=== PATIENT | male | born 1935 | race Caucasian/White ===

== ENCOUNTER 2023-03-05 10:33 | Inpatient (IN) | payer MEDICARE, SELFPAY ==
[2023-03-05] VITALS (7 sets, daily range): BP systolic 119–150; BP diastolic 60–77; PULSE 97–127; RESP 16–20; TEMP 36.2–36.6; O2SAT 94–99; BMI 19.4
--- NOTE | 2023-03-05 | ECG_ITS ---
Test Reason : tachycardia Blood Pressure : / mmHG Vent. Rate : 104 BPM Atrial Rate : 000 BPM P-R Int : 000 ms QRS Dur : 120 ms QT Int : 370 ms P-R-T Axes : 000 -46 -13 degrees QTc Int : 486 ms Poor data quality, interpretation may be adversely affected Atrial fibrillation with rapid ventricular response with premature ventricular or aberrantly conducted complexes Left axis deviation Right bundle branch block Inferior infarct , age undetermined Anterolateral infarct , age undetermined Abnormal ECG No previous ECGs available Referred By: Didi Jim Electronically Signed By:
--- NOTE | ~2023-03-05 | XR_ITS ---
EXAMINATION: XR FOOT, LEFT CLINICAL INFORMATION: Pain. Osteomyelitis. COMPARISON: None available. TECHNIQUE: AP, lateral, and oblique views of the left foot. FINDINGS: No acute fracture or dislocation. Possible cortical irregularity along the medial aspect of the 1st distal phalangeal base. There is mild adjacent soft tissue swelling. Correlate for focal ulceration. If there is adjacent soft tissue infection, findings could indicate early osteomyelitis. 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 Tiny dorsal calcaneal enthesophyte. Prominent atherosclerotic calcifications. XR/XR foot LT 2V IMPRESSION: 1. Possible cortical irregularity along the medial aspect of the 1st distal phalangeal base with mild adjacent soft tissue swelling. Correlate for focal ulceration. If there is adjacent soft tissue infection, findings could indicate early osteomyelitis. 2. 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
--- NOTE | ~2023-03-05 | US_ITS ---
EXAMINATION: Noninvasive assessment of the left lower extremities with ARTERIAL DUPLEX CLINICAL INFORMATION: Peripheral vascular disease with osteomyelitis of the left first toe with nonhealing wound TECHNIQUE: Duplex Doppler techniques with waveform analysis and measurement of velocities in the left common femoral, profunda femoris, superficial femoral, popliteal and tibial arteries were performed. COMPARISON: None FINDINGS: DIRECT DUPLEX DOPPLER FINDINGS: LEFT LEG: Common femoral artery: 85.5 cm/s, phasicity: Biphasic Profunda femoris artery: 98.2 cm/s, phasicity: Biphasic Superficial femoral artery (proximal): 64.5 cm/s, phasicity: Biphasic, diffuse atherosclerotic wall calcifications Superficial femoral artery (mid): 80.3 cm/s, phasicity: Biphasic, diffuse atherosclerotic wall calcifications Superficial femoral artery (distal): 59.7 cm/s, phasicity: Biphasic, diffuse atherosclerotic wall calcifications Popliteal artery: 58.3 cm/s, phasicity: Triphasic, diffuse atherosclerotic wall calcifications Posterior tibial artery: 179 cm/s, phasicity: Triphasic within the mid segment. The distal segment is not well-visualized. Extensive diffuse atherosclerotic wall calcification seen throughout the posterior tibial artery. Peroneal artery: 34.5 cm/s, phasicity: Monophasic within the mid segment. The distal segment is not well-visualized US/US arterial duplex LE LT IMPRESSION: Diffuse atherosclerotic wall calcifications throughout the arterial vessels. Patent arterial flow is seen in the femoral and popliteal arteries. Patent flow seen in the proximal and mid segments of the below-knee runoff vessels however distal runoff vessels are not well visualized and may be occluded.
[2023-03-05 11:40] LABS: MANUAL DIFF FLAG NO
[2023-03-05 11:46] LABS: Basophils Absolute Auto 0.1 X10*3/uL (0.0-0.2); Basophils Percent Auto 0.7 % (0-2); Eosinophils Percent Auto 0.2 % (0-4); Hematocrit 41.7 % (42.0-52.0); Hemoglobin 13.6 g/dl (14.0-18.0); Imm Gran Abs Auto 0.03 X10*3/uL (0.00-0.03); Imm Gran Pct Auto 0.3 % (0.0-0.4); Lymphocytes Absolute Auto 0.9 X10*3/uL (1.2-4.9); Lymphocytes Percent Auto 8.9 % (20-40); Mean Corpuscular HGB Conc 32.6 g/dl (31.0-36.0); Mean Corpuscular Hemoglobin 29.4 pg (27.0-33.0); Mean Corpuscular Volume 90.1 fL (80.0-98.0); Mean Platelet Volume 9.1 fL (9.4-12.4); Monocytes Absolute Auto 0.9 X10*3/uL (0.1-1.2); Monocytes Percent Auto 9.2 % (2-11); Neutrophils Absolute Auto 8.3 x10*3/uL (2.0-8.3); Neutrophils Percent Auto 80.7 % (45-73); Platelet Count 197 X10*3/uL (160-400); Red Blood Count 4.63 X10*6/uL (4.60-5.80); White Blood Count 10.3 X10*3/uL (4.8-10.8)
[2023-03-05 11:55] LABS: Alanine Aminotransferase 10 U/L (0-40); Albumin Level 3.2 g/dL (3.5-5.0); Alkaline Phosphatase 195 U/L (39-117); Anion Gap 12 (12-20); Aspartate Amino Transferase 15 U/L (5-37); Bilirubin Total 1.5 mg/dL (0.0-1.0); Blood Urea Nitrogen 15 mg/dL (9-16); C Reactive Protein 1.01 mg/dL (< or = 0.50); Calcium 9.5 mg/dL (8.4-10.2); Carbon Dioxide 24 mmol/L (22-29); Chloride 105 mmol/L (96-108); Creatinine Clr Calc Pharmacy 41.3; Estimated Glomerular Filt Rate > 60; Glucose Random 105 mg/dL (60-115); Magnesium 1.7 mg/dL (1.6-2.6); Potassium 4.9 mmol/L (3.3-5.1); Sodium 136 mmol/L (135-145); Total Protein 6.4 g/dL (6.5-8.0)
--- NOTE | 2023-03-05 12:02 | ED.WOUNDLAC ---
HPI - Wound/Laceration General Chief Complaint: Wound/Laceration Stated Complaint: infection Time Seen by Provider: 03/05/23 11:54 Source: patient Mode of arrival: ambulatory Limitations: no limitations History of Present Illness HPI narrative: 87 yo male with history of HTN, glaucoma presents to the ER for evaluation of left great toe osteomyelitis confirmed outpatient imaging. patient states he fell one month ago and sustained a wound to the toe. he reports it has been worsening over the last 1 month. he saw a nurse practitioner in the office who advised him to come to the ER for IV antibiotics. He states he used to be diabetic but is no longer. He is a poor historian. He states the only medications he is on is type senna pro and propranolol. He denies any fevers at home. He states the wound has slowly become more red and swollen. He has not noticed a foul drainage and smell. He has not put any dressings on a or cleaned it. He lives home alone. Onset (ago): week(s) (4) Extremity Location: left: foot (great toe) Place: home Patient tetanus UTD: Yes Context: accidental Associated symptoms: pain Related Data Home Medications Medication Instructions Recorded Confirmed lisinopril 10 mg tablet 10 mg PO DAILY 03/05/23 metoprolol tartrate 25 mg tablet 25 mg PO BID 03/05/23 Allergies Allergy/AdvReac Type Severity Reaction Status Date / Time No Known Allergies Allergy Verified 03/05/23 10:39 Review of Systems Review of Systems: Yes all other systems are reviewed and are negative PMFSH Social History Social History Advance Directives: No Physical Exam Vital Signs: Vital Signs: Last Vital Signs Temp 98 F 03/05/23 10:40 Pulse 107 H 03/05/23 10:40 Resp 17 03/05/23 10:40 BP 125/71 03/05/23 10:40 Pulse Ox 99 03/05/23 10:40 O2 Del Method Room Air 03/05/23 10:40 BMI result Body Mass Index 19.4 Appearance: Alert frail elderly male. Oriented X3. No acute distress. Head: normocephalic, atraumatic. Eyes: Pupils equal, round and reactive to light. ENT: Pharynx normal. No tonsillar swelling or exudate. Neck: Normal inspection. Neck supple. CVS: Normal heart rate and rhythm. Pulses normal. +systolic murmur Respiratory: No respiratory distress. Breath sounds normal. Abdomen: Soft and nontender. +BS x4 Skin: Skin warm and dry. Normal skin color. Normal skin turgor. No rashes. Extremities: No lower extremity edema. scattered ecchymosis on all 4 extremities, thin and frail. left great toe with a foul smelling wound and the plantar portion of the MTP - see photo Neuro/psych: Oriented X 3. No motor deficit. No sensory deficit. CN II-XII intact. Normal speech and cognition. Medications Administered Generic Name Dose Route Start Last Admin Trade Name Freq PRN Reason Stop Dose Admin Vancomycin HCl 1,500 mg/ 500 mls @ 333.333 mls/hr 03/05/23 12:26 03/05/23 13:40 Sodium Chloride IV 03/05/23 13:55 333.33 mls/hr ONCE ONE Administration Discontinued Medications Generic Name Dose Route Start Last Admin Trade Name Freq PRN Reason Stop Dose Admin Piperacillin Sod/Tazobactam 50 mls @ 100 mls/hr 03/05/23 12:26 03/05/23 13:10 Sod 3.375 gm/ Sodium Chloride IV 03/05/23 12:55 Infused ONCE ONE Infusion Medical Decision Making Medical Decision Making [facility] Narrative: 87-year-old male presents to the ER for evaluation of worsening left great toe wound for the last 1 month. He had outpatient imaging confirming osteomyelitis per nursing report. He arrives to the ER afebrile, hemodynamically stable. His left great toe has a significant wound with eschar, foul-smelling odor, concern for acute osteomyelitis. His foot is warm and well perfused, palpable pulses. his lab workup shows normal lactic acid, normal leukocyte count. He is not septic at this time. X-ray showing early osteomyelitis. will plan to start broad-spectrum antibiotics admit to the hospital. Case discussed with hospitalist who agrees and will admit. Patient is agree with plan as well. Differential Diagnosis Differential Diagnoses: The differential diagnosis associated with the presentation includes acute osteomyelitis, cellulitis, soft tissue necrosis, fungal infection, dry gangrene, arterial ischemic wound Admission/Observation Consideration of admission/observation: Escalation of care including admission/observation considered requiring IV abx and surgical consult Consult Healthcare Provider Management of the patient was discussed with: Hospitalist Didi Jim PA-C admitted pt, case discussed Lab Data [facility] Lab Attestation statement: I reviewed the patient's lab results. 03/05/23 11:26 03/05/23 11:26 Labs: Lab Results 03/05/23 03/05/23 03/05/23 Range/Units 11:26 11:26 11:26 WBC 10.3 (4.8-10.8) X10*3/uL RBC 4.63 (4.60-5.80) X10*6/uL Hgb 13.6 L (14.0-18.0) g/dl Hct 41.7 L (42.0-52.0) % MCV 90.1 (80.0-98.0) fL MCH 29.4 (27.0-33.0) pg MCHC 32.6 (31.0-36.0) g/dl RDW 13.0 (11.0-16.0) % Plt Count 197 (160-400) X10*3/uL MPV 9.1 L (9.4-12.4) fL Immature Gran % (Auto) 0.3 (0.0-0.4) % Neut % (Auto) 80.7 H (45-73) % Lymph % (Auto) 8.9 L (20-40) % [place] % (Auto) 9.2 (2-11) % Eos % (Auto) 0.2 (0-4) % Baso % (Auto) 0.7 (0-2) % Lymph # (Auto) 0.9 L (1.2-4.9) X10*3/uL [place] # (Auto) 0.9 (0.1-1.2) X10*3/uL Eos # (Auto) 0.0 (0.0-0.4) X10*3/uL Baso # (Auto) 0.1 (0.0-0.2) X10*3/uL Abs Immat Gran (auto) 0.03 (0.00-0.03) X10*3/uL Absolute Neuts (auto) 8.3 (2.0-8.3) x10*3/uL Absolute Nucleated RBC 0.000 (0.0-0.012) X10*3/uL Nucleated RBC % (auto) 0.0 (0.0-0.2) /100WBC ESR 6 (0-15) MM/HR Sodium 136 (135-145) mmol/L Potassium 4.9 (3.3-5.1) mmol/L Chloride 105 (96-108) mmol/L Carbon Dioxide 24 (22-29) mmol/L Anion Gap 12 (12-20) BUN 15 (9-16) mg/dL Creatinine 1.11 (0.5-1.4) mg/dL Estim Creat Clear Calc 41.3 Estimated GFR > 60 Random Glucose 105 (60-115) mg/dL Estimat Average Glucose mg/dL Hemoglobin A1c % % Calcium 9.5 (8.4-10.2) mg/dL Magnesium 1.7 (1.6-2.6) mg/dL Total Bilirubin 1.5 H (0.0-1.0) mg/dL AST 15 (5-37) U/L ALT 10 (0-40) U/L Alkaline Phosphatase 195 H (39-117) U/L C-Reactive Protein 1.01 H (< or = 0.50) mg/dL Total Protein 6.4 L (6.5-8.0) g/dL Albumin 3.2 L (3.5-5.0) g/dL 03/05/23 Range/Units 11:26 WBC (4.8-10.8) X10*3/uL RBC (4.60-5.80) X10*6/uL Hgb (14.0-18.0) g/dl Hct (42.0-52.0) % MCV (80.0-98.0) fL MCH (27.0-33.0) pg MCHC (31.0-36.0) g/dl RDW (11.0-16.0) % Plt Count (160-400) X10*3/uL MPV (9.4-12.4) fL Immature Gran % (Auto) (0.0-0.4) % Neut % (Auto) (45-73) % Lymph % (Auto) (20-40) % [place] % (Auto) (2-11) % Eos % (Auto) (0-4) % Baso % (Auto) (0-2) % Lymph # (Auto) (1.2-4.9) X10*3/uL [place] # (Auto) (0.1-1.2) X10*3/uL Eos # (Auto) (0.0-0.4) X10*3/uL Baso # (Auto) (0.0-0.2) X10*3/uL Abs Immat Gran (auto) (0.00-0.03) X10*3/uL Absolute Neuts (auto) (2.0-8.3) x10*3/uL Absolute Nucleated RBC (0.0-0.012) X10*3/uL Nucleated RBC % (auto) (0.0-0.2) /100WBC ESR (0-15) MM/HR Sodium (135-145) mmol/L Potassium (3.3-5.1) mmol/L Chloride (96-108) mmol/L Carbon Dioxide (22-29) mmol/L Anion Gap (12-20) BUN (9-16) mg/dL Creatinine (0.5-1.4) mg/dL Estim Creat Clear Calc Estimated GFR Random Glucose (60-115) mg/dL Estimat Average Glucose 94 mg/dL Hemoglobin A1c % 4.9 % Calcium (8.4-10.2) mg/dL Magnesium (1.6-2.6) mg/dL Total Bilirubin (0.0-1.0) mg/dL AST (5-37) U/L ALT (0-40) U/L Alkaline Phosphatase (39-117) U/L C-Reactive Protein (< or = 0.50) mg/dL Total Protein (6.5-8.0) g/dL Albumin (3.5-5.0) g/dL Independent Interpretation I performed an independent interpretation of an: Plain X-Ray Radiology Impression Discussion of test interpretation with radiology: I have reviewed the radiologist's reading. Radiologist Impression: CLINICAL INFORMATION: Pain. Osteomyelitis. COMPARISON: None available.? TECHNIQUE: AP, lateral, and oblique views of the left foot. FINDINGS: No acute fracture or dislocation. Possible cortical irregularity along the medial aspect of the 1st distal phalangeal base. There is mild adjacent soft tissue swelling. Correlate for focal ulceration. If there is adjacent soft tissue infection, findings could indicate early osteomyelitis. 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 Tiny dorsal calcaneal enthesophyte. Prominent atherosclerotic calcifications.? XR/XR foot LT 2V IMPRESSION: 1.? Possible cortical irregularity along the medial aspect of the 1st distal phalangeal base with mild adjacent soft tissue swelling. Correlate for focal ulceration. If there is adjacent soft tissue infection, findings could indicate early osteomyelitis. ? 2.? 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 Prescription Management I considered prescription management with: Pain Medication and Antibiotic Chronic Conditions Patient?s care impacted by: Hypertension and Other (?PVD) Social Determinants Patient?s care significantly limited by Social Determinants of Health including: Other Social Determinant of Health Critical Care Time Critical Care Time Critical Care Time: Yes Total Critical Care Time: 39 Attestation: I have personally provided critical care time exclusive of time spent on separately billable procedures. Time includes review of lab data, radiology results, discussion with consultants, and monitoring for potential decompensation. Intervention performed as documented. Discharge Plan Discharge Clinical Impression: Osteomyelitis Patient Disposition: Admitted As Inpatient
[2023-03-05 12:21] LABS: Erythrocyte Sedimentation Rate 6 MM/HR (0-15)
[2023-03-05] MEDS: Piperacillin Sodium/Tazobactam 3.375 GM in 0.9 % Sodium Chloride 50 ML IV (12:34)
[2023-03-05 13:33] LABS: Estimated Average Glucose 94 mg/dL; Hemoglobin A1c % 4.9 %
[2023-03-05] MEDS: vancomycin HCL 1,500 MG in 0.9 % Sodium Chloride 500 ML 333.33 MG IV (13:40)
--- NOTE | 2023-03-05 13:49 | P.HPHOSP_ITS ---
History of Present Illness Date of Service: 03/05/23 Attending physician on admission: Perfecto Liz Chief Complaint: toe infection 87-year-old male with history of hypertension, atrial fibrillation (per [facility] records), diet controlled type 2 diabetes who lives alone presents to the ED e [facility] today for evaluation of the left great toe infection. The patient was vacuuming his home about a month ago when he tripped on the cord and injured the left great toe. Wound has been increasing in size and has foul odor but denies any drainage. No fevers or chills. He had DEPUTY K 9 from [facility] who visited his home this morning and evaluated the wound recommend he come in for further evaluation of osteomyelitis on x-ray that was taken this morning. On arrival, tachycardic to 107, vitals otherwise stable. No leukocytosis. Renal function normal, electrolyte levels normal. Hemoglobin A1c 4.9%, no known history of diabetes. CRP 1.01, ESR 6. Left foot x-ray showing cortical irregularity along the medial aspect of the 1st distal phalangeal base with mild adjacent soft tissue swelling and adjacent soft tissue infection indicating possible early osteomyelitis. In the ED, has received IV vancomycin and Zosyn. He is a nonsmoker but does drink 1-2 glasses of wine on a daily basis. No illicit drug use. Review of Systems Review of Systems: General: No fevers, malaise, unintentional weight loss HEENT: No blurred vision, diplopia. No sore throat, nasal congestion, rhinorrhea, sinus pain, ear pain Cardiovascular: No chest pain, palpitations, or leg edema Respiratory: No shortness of breath, wheezing, cough GI: No abdominal pain, nausea, vomiting, diarrhea, constipation, melena, hematoc hezia : No dysuria, hematuria, increased urinary frequency, decreased urinary output MSK: No myalgia, back pain Neuro: No headaches, weakness, paresthesias Skin: +left great toe wound [facility] Medical History HTN (hypertension) Social History (Updated 03/05/23 @ 14:01 by ALISHA Rodriguez) Household Members: None Alcohol intake: current Alcohol intake frequency: 0-2 drinks per day Patient Tobacco Use Status: Never used Tobacco Use of substances other than those prescribed or required for medical reasons: No Advance Directives: No Meds Allergies Allergy/AdvReac Type Severity Reaction Status Date / Time No Known Allergies Allergy Verified 03/05/23 10:39 Active Medications: Current Medications Acetaminophen (Acetaminophen 325 Mg Tablet) 650 mg PO Q6H PRN PRN Reason: Pain, Mild (Pain Scale 1-3) Docusate Sodium (Docusate Sodium 100 Mg Capsule) 100 mg PO DAILY PRN PRN Reason: Constipation Heparin Sodium (Porcine) (Heparin Sodium,Porcine 5,000 Unit/Ml Vial) 5,000 unit SUBCUT Q12H BLANK Vancomycin HCl 1,500 mg/ (Sodium Chloride) 500 mls @ 333.333 mls/hr IV ONCE ONE Stop: 03/05/23 13:55 Last Admin: 03/05/23 13:40 Dose: 333.33 mls/hr Cefepime HCl 2 gm/ Sodium (Chloride) 50 mls @ 100 mls/hr IV Q12H BLANK Ondansetron HCl (Ondansetron Hcl 4 Mg/2 Ml Vial) 4 mg IVPUSH Q8H PRN PRN Reason: Nausea and Vomiting Pharmacy Consult (Consult Rx Perform Med Rec) 1 each MISCELLANE ONCE PRN PRN Reason: Consult order Pharmacy Consult (Consult Rx Vancomycin Dosing) 1 each MISCELLANE DAILY PRN PRN Reason: Consult order Sodium Chloride (0.9 % Sodium Chloride Flush 3 Ml Syringe) [address] [facility] Home Medications Medication Instructions Recorded Confirmed Last Taken Type lisinopril 10 mg tablet 10 mg PO DAILY 03/05/23 03/05/23 03/04/23 History metoprolol tartrate 25 mg tablet 25 mg PO BID 03/05/23 03/05/23 03/04/23 History Physical Exam Vital Signs and Narrative: Vital Signs: Last Vital Signs Temp 98 F 03/05/23 10:40 Pulse 107 H 03/05/23 10:40 Resp 17 03/05/23 10:40 BP 125/71 03/05/23 10:40 Pulse Ox 99 03/05/23 10:40 O2 Del Method Room Air 03/05/23 10:40 BMI result Body Mass Index 19.4 Constitutional - Awake and Alert, No apparent distress Eyes - PERRLA, EOMI Cardiovascular - S1S2, RRR, No edema. Nonpalpable pedal pulses but foot warm Respiratory - Normal lung expansion, Normal respiratory effort, No respiratory distress, CTA bilaterally Gastrointestinal - NT / ND; +BS; No rebound or guarding Extremities - no calf tenderness bilaterally, no swelling. Skin - Warm/Dry. 3cm x 2cm ulceration medial and plantar aspect left great toe with some granulation tissue along the edges of wound and central slough/eschar with foul odor. Addl shallow 1cm ulcer medial aspect first metatarsal head. see photo Neurological - Alert & oriented x3, sensation in tact Psychological - Appropriate affect Results Labs 03/05/23 11:26 03/05/23 11:26 Labs: Laboratory Results - last 24 hr 03/05/23 03/05/23 03/05/23 11:26 11:26 11:26 MCV 90.1 MCH 29.4 MCHC 32.6 RDW 13.0 Plt Count 197 MPV 9.1 L Immature Gran % (Auto) 0.3 Neut % (Auto) 80.7 H Lymph % (Auto) 8.9 L [place] % (Auto) 9.2 Eos % (Auto) 0.2 Baso % (Auto) 0.7 Lymph # (Auto) 0.9 L [place] # (Auto) 0.9 Eos # (Auto) 0.0 Baso # (Auto) 0.1 Abs Immat Gran (auto) 0.03 Absolute Neuts (auto) 8.3 Absolute Nucleated RBC 0.000 Nucleated RBC % (auto) 0.0 ESR 6 Anion Gap 12 Estim Creat Clear Calc 41.3 Estimated GFR > 60 Random Glucose 105 Estimat Average Glucose Hemoglobin A1c % Calcium 9.5 Magnesium 1.7 Total Bilirubin 1.5 H AST 15 ALT 10 Alkaline Phosphatase 195 H C-Reactive Protein 1.01 H Total Protein 6.4 L Albumin 3.2 L 03/05/23 11:26 MCV MCH MCHC RDW Plt Count MPV Immature Gran % (Auto) Neut % (Auto) Lymph % (Auto) [place] % (Auto) Eos % (Auto) Baso % (Auto) Lymph # (Auto) [place] # (Auto) Eos # (Auto) Baso # (Auto) Abs Immat Gran (auto) Absolute Neuts (auto) Absolute Nucleated RBC Nucleated RBC % (auto) ESR Anion Gap Estim Creat Clear Calc Estimated GFR Random Glucose Estimat Average Glucose 94 Hemoglobin A1c % 4.9 Calcium Magnesium Total Bilirubin AST ALT Alkaline Phosphatase C-Reactive Protein Total Protein Albumin Imaging Radiologist's Impressions: Impressions Foot X-Ray 03/05/23 11:07 IMPRESSION: 1. Possible cortical irregularity along the medial aspect of the 1st distal phalangeal base with mild adjacent soft tissue swelling. Correlate for focal ulceration. If there is adjacent soft tissue infection, findings could indicate early osteomyelitis. 2. 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 Assessment and Plan (1) Osteomyelitis: Status: Acute Plan 87-year-old male with history of hypertension admitted for nonhealing stage 2 ulcer left great toe with cellululitis and osteomyelitis #nonhealing stage 2 ulcer left great toe with cellululitis and osteomyelitis -Xr left foot ?early osteo and soft tissue infection. CRP 1.0.1, ESR 6 -Not diabetic A1c 4.9%. Arterial doppler pending -Pt denies hx smoking. Does drink 1-2 glasses wine daily -IV vanco and cefepime -Appreciate ID and vascular surgery input -No sepsis #Atrial fibrillation, unspecified chronicity/frequency -Not on anticoagulation- pt states this was prescribed but he did not take out of concern for bleeding risk. Discussed risks and benefits of anticoagulation. Will defer to cardiology at patient request -EKG showign afib RVR. HR's 106-140 in ED. On reexam, HR 99-115. Missed dose metoprolol this am. Give metoprolol 25mg now -continue metoprolol -Echo ordered -Appreciate cardiology input -monitor on telemetry #Diet-controlled type 2 diabetes -poc glucose -diabetic diet -SSI prn hyperglycemia #HTN- bp reasonably controlled -continue metoprolol and lisinopril DVT prophylaxis- heparin Full code HCP- Wisam Casey per patient Pt requires inpatient stay at least 2 midnights for management of nonhealing stage II ulceration of left great toe with cellulitis and osteomyelitis requiring IV antibiotics and expert consultation Time Spent With Patient Time: Total time managing care of this patient today ____ minutes. Quality Stroke Does the patient have a stroke diagnosis?: No VTE Prior VTE?: No VTE Risk Level:: Medical - moderate - high VTE Device Contraindication: Treatment Not Indicated VTE Drug Contraindication: N/A - Med Ordered
--- NOTE | 2023-03-05 14:42 | PHA.MEDREC ---
Pharmacy Consult ? Medication Reconciliation Pharmacy has completed the medication reconciliation. Pt knew the names and doses of meds without being lead.
--- NOTE | 2023-03-05 15:31 | PC.NURSE ---
rn to rn report from [facility]. pt moved to bed # 6. bedside ultrasound is being done at this time.
[2023-03-05] MEDS: Heparin Sodium,Porcine 5,000 UNIT/ML VIAL 5000 UNIT SUBCUT (15:33)
[2023-03-05] MEDS: 0.9 % Sodium Chloride Flush 3 ML SYRINGE IVFLUSH ×2 (15:45→23:28)
--- NOTE | 2023-03-05 17:24 | PC.NURSE ---
margaret txt sent to covering md (dr. castellano) re: pt's hr 106-140's. pt denies any chest pain, headache, dizziness, lightheadiness or sob.
[2023-03-05] MEDS: cefEPime HCl 2 GM in 0.9 % Sodium Chloride 50 ML IV (18:39)
[2023-03-05] MEDS: Metoprolol Tartrate 25 MG TABLET PO (18:39)
--- NOTE | 2023-03-05 18:47 | PC.NURSE ---
rn to rn report given to kelly. pt aware of plan of care for transfer to room 386.
[2023-03-05 20:37] LABS: Glucose, Whole Blood 95 mg/dL (60-115)
[2023-03-06] VITALS: BP 143/61; PULSE 89; RESP 16; TEMP 36.4; O2SAT 97
[2023-03-06] MEDS: Heparin Sodium,Porcine 5,000 UNIT/ML VIAL 5000 UNIT SUBCUT ×2 (01:53→13:55)
[2023-03-06 04:00] VITALS: BP 143/61; PULSE 89; RESP 18; TEMP 35.7; O2SAT 97
[2023-03-06 04:51] LABS: MANUAL DIFF FLAG NO
[2023-03-06 04:57] LABS: Basophils Absolute Auto 0.1 X10*3/uL (0.0-0.2); Basophils Percent Auto 1.1 % (0-2); Eosinophils Absolute Auto 0.1 X10*3/uL (0.0-0.4); Eosinophils Percent Auto 1.7 % (0-4); Hematocrit 34.3 % (42.0-52.0); Hemoglobin 11.5 g/dl (14.0-18.0); Imm Gran Abs Auto 0.03 X10*3/uL (0.00-0.03); Imm Gran Pct Auto 0.4 % (0.0-0.4); Lymphocytes Absolute Auto 1.8 X10*3/uL (1.2-4.9); Lymphocytes Percent Auto 21.8 % (20-40); Mean Corpuscular HGB Conc 33.5 g/dl (31.0-36.0); Mean Corpuscular Hemoglobin 29.9 pg (27.0-33.0); Mean Corpuscular Volume 89.3 fL (80.0-98.0); Mean Platelet Volume 9.3 fL (9.4-12.4); Monocytes Absolute Auto 0.8 X10*3/uL (0.1-1.2); Monocytes Percent Auto 10.2 % (2-11); Neutrophils Absolute Auto 5.2 x10*3/uL (2.0-8.3); Neutrophils Percent Auto 64.8 % (45-73); Platelet Count 168 X10*3/uL (160-400); Red Blood Count 3.84 X10*6/uL (4.60-5.80)
[2023-03-06 05:15] LABS: Anion Gap 10 (12-20); Blood Urea Nitrogen 16 mg/dL (9-16); Calcium 8.5 mg/dL (8.4-10.2); Carbon Dioxide 25 mmol/L (22-29); Chloride 110 mmol/L (96-108); Creatinine Clr Calc Pharmacy 43.7; Estimated Glomerular Filt Rate > 60; Glucose Random 60 mg/dL (60-115); Potassium 4.4 mmol/L (3.3-5.1); Sodium 141 mmol/L (135-145)
[2023-03-06] MEDS: cefEPime HCl 2 GM in 0.9 % Sodium Chloride 50 ML IV ×2 (06:22→17:35)
--- NOTE | 2023-03-06 07:00 | CA_ITS ---
Transthoracic Echocardiogram Patient (Last, First, Middle): Beka Rabago, Gender: Male Date of : 1935 Age: 87 Procedure Date: 03/06/2023 Procedure Type: Transthoracic Echocardiogram Location: S3E Height: 177.8 cm Weight: 61.24 kg BSA: 1.77 m2 Heart Rate: bpm BP: 143 / 61 mmHg Statement Clerk: TO Referring MD: Didi BRITO Symptoms: afib rvr Study Quality: Fair, contrast ECG Rhythm: Atrial Fibrillation Conclusions: - The left ventricular systolic function is mildly decreased. The visually estimated ejection fraction is between 45-50%. - There is moderately decreased right ventricular systolic function. - Severe biatrial enlargement. - There is severe aortic valve stenosis. Low flow, low gradient type. - There is mild dilatation of the ascending aorta measuring 4.40 cm. Findings Procedure Information Contrast agent, definity, is being given per protocol without apparent complications. Left Ventricle Normal left ventricular cavity size. There is mildly increased left ventricular wall thickness. The left ventricular systolic function is mildly decreased. The visually estimated ejection fraction is between 45-50%. Diastolic function is indeterminate on the basis of available data. There is moderate septal asymmetric hypertrophy. Right Ventricle Mildly increased right ventricular cavity size. There is moderately decreased right ventricular systolic function. Atria Severe biatrial enlargement. Aortic Valve There is severe calcification of the aortic valve. There is severe aortic valve stenosis. The peak aortic velocity is 2.51 m/s with a calculated peak gradient of 25 mmHg. The mean gradient is 15 mmHg. The aortic valve area is 0.90 cm2. There is trace (trivial) aortic valve regurgitation. Dimensionless index 0.19. Stroke volume index 26ml/m2. Mitral Valve There is moderate mitral annular calcification. There is mild mitral valve regurgitation. There is no mitral valve stenosis. Pulmonic Valve The pulmonic valve was not well visualized. Tricuspid Valve Normal tricuspid valve structure. There is trace tricuspid valve regurgitation. There is no evidence of pulmonary hypertension. Great Vessels There is mild dilatation of the ascending aorta measuring 4.40 cm. Venous The inferior vena cava was not well visualized. The inferior vena cava is mildly dilated and collapses less than 50% with inspiration. Pericardium/Pleural There is no evidence of pericardial effusion. Prior Study Comparison No prior study available for comparison. Measurements 2D Linear Measurements IVSd: 1.48 0.6-0.9/0.6-1.0 cm LVIDd: 4.50 3.9-5.3/4.2-5.9 cm LVIDd Index: 2.54 2.4-3.2/2.2-3.1 cm/m2 LVIDs: 3.48 2.0-3.6 cm LVPWd: 1.04 0.7-1.1 cm LA Diam: 5.10 2.7-3.8/3.0-4.0 cm LAIDs Index: 2.88 1.5-2.3 cm/m2 LV Mass: 265.02 67-162/88-224 g LV Mass Index: 149.73 43-95/49-115 g/m2 LVOT Diam: 2.30 3.0+(-)1.3 cm 2D Systolic Function EF 4C: 53.70 >55% EF 2C: 47.80 >55% EF BiP: 52.20 >55% Mitral Valve E'Lateral: 6.74 E'Medial: 4.35 Aortic Valve AoV Pk Cornel: 2.51 AoV Mn Cornel: 1.83 AoV VTI: 0.52 AoV Pk Grad: 25.00 Aov Mn Grad: 15.00 LAYA Cont.VTI: 0.90 LVOT LVOT Pk Cornel: 0.48 LVOT Mn Cornel: 0.34 LVOT VTI: 0.11 LVOT Pk Grad: 1.00 LVOT Mn Grad: 1.00 LVOT Diam: 2.30 LVOT Area: 4.15 Diastolic Function E'Medial: 4.35 E' Laterial: 6.74 Right Ventricle TAPSE (mm): 11.20 TVS' Cornel: 6.34 Tricuspid Valve TR Pk Cornel: 2.22 TR Pk Grad: 20.00 RA Press: 15.00 RVSP: 35.00 Great Vessels Aorta Sinus of Valsalva: 3.42 2.0-3.[address] [place]: 2.74 1.7-3.4 cm Ao Asc: 4.40 2.1-3.4 cm Updated in Other Vendor System with Status of Final Kishor Rodrigues MD electronically signed on 03/06/2023 12:33:46 PM with status of Final
[2023-03-06 07:23] VITALS: BP 134/74; PULSE 88; RESP 18; TEMP 36.7; O2SAT 98
[2023-03-06 07:23] LABS: Glucose, Whole Blood 57 mg/dL (60-115)
[2023-03-06 07:46] LABS: Glucose, Whole Blood 76 mg/dL (60-115)
[2023-03-06] MEDS: lisinopriL 10 MG TABLET PO (07:46)
[2023-03-06] MEDS: Metoprolol Tartrate 25 MG TABLET PO ×2 (07:46→19:41)
[2023-03-06] MEDS: 0.9 % Sodium Chloride Flush 3 ML SYRINGE IVFLUSH ×3 (07:46→19:42)
--- NOTE | 2023-03-06 09:26 | P.CONGS_ITS ---
History of Present Illness Consult details Consult date: 03/06/23 Reason for consult: wound care Narrative: Very pleasant 87-year-old gentleman presents for evaluation regarding nonhealing left great toe ulcer. It has been present for some time and developed a foul odor which brought him to the hospital yesterday. He reports that after some antibiotics it appears to be doing significantly better. He was up at bedside eating breakfast this morning and in good spirits. He is now for vascular evaluation. Of note he has had noninvasive arterial ultrasound. Review of Systems Review of Systems: Yes all other systems are reviewed and are negative Constitutional: Constitutional: Reports no additional constitutional complaint s ENT: Reports Normal hearing present Cardiovascular: Cardiovascular: Denies chest pain, Denies chest pain at rest, Denies chest pain with activity and Denies pedal edema Respiratory: Respiratory: Denies cough Gastrointestinal: Gastrointestinal: Denies abdominal pain Musculoskeletal: Musculoskeletal: Denies abnormal gait, Denies muscle cramps and Denies radiating pain into limb Integumentary/Breasts: Skin/Breast: Denies skin ulcer and Denies wounds Neurologic: Reports Normal hearing present and Denies abnormal gait Psychiatric: Psychiatric: Reports no additional psychiatric complaints [facility] Past Medical History Medical History (Updated 03/06/23 @ 09:32 by Kane Oliva MD) A-fib Diabetes mellitus, type 2 HTN (hypertension) Social History Social History (Updated 03/05/23 @ 14:01 by ALISHA Rodriguez) Household Members: None Housing: House Do you presently have visiting nurse or other home services: Yes (pt states VNA visit 2x a year) Alcohol intake: current Alcohol intake frequency: 0-2 drinks per day Patient Tobacco Use Status: Never used Tobacco Use of substances other than those prescribed or required for medical reasons: No Currently Displaying Signs/Symptoms of Drug Intoxication Withdrawal: No Have you been hit, kicked, punched, or otherwise hurt by someone within the past year? If so, by whom?: No Do you feel safe in your current relationship?: No Current Relationship Is there a partner from a previous relationship who is making you feel unsafe now?: No Are you made to feel afraid or neglected: No Advance Directives: No Do you have thoughts of harming others: None Do you have a plan to hurt others: No Plan Recently lost weight without trying: No Nutrition Risks: No Nutritional Risk Meds Allergies Allergy/AdvReac Type Severity Reaction Status Date / Time No Known Allergies Allergy Verified 03/05/23 10:39 Active Medications: Current Medications Acetaminophen (Acetaminophen 325 Mg Tablet) 650 mg PO Q6H PRN PRN Reason: Pain, Mild (Pain Scale 1-3) Docusate Sodium (Docusate Sodium 100 Mg Capsule) 100 mg PO DAILY PRN PRN Reason: Constipation Heparin Sodium (Porcine) (Heparin Sodium,Porcine 5,000 Unit/Ml Vial) 5,000 unit SUBCUT Q12H [facility] Last Admin: 03/06/23 01:53 Dose: 5,000 unit Cefepime HCl 2 gm/ Sodium (Chloride) 50 mls @ 100 mls/hr IV Q12H [facility] Last Infusion: 03/06/23 06:53 Dose: Infused Vancomycin HCl 1,000 mg/ (Sodium Chloride) 270 mls @ 270 mls/hr IV Q24H [facility] Lisinopril (Lisinopril 10 Mg Tablet) 10 mg PO DAILY [facility]; Protocol Last Admin: 03/06/23 07:46 Dose: 10 mg Metoprolol Tartrate (Metoprolol Tartrate 25 Mg Tablet) 25 mg PO BID [facility]; Protocol Last Admin: 03/06/23 07:46 Dose: 25 mg Ondansetron HCl (Ondansetron Hcl 4 Mg/2 Ml Vial) 4 mg IVPUSH Q8H PRN PRN Reason: Nausea and Vomiting Pharmacy Consult (Consult Rx Perform Med Rec) 1 each MISCELLANE ONCE PRN PRN Reason: Consult order Pharmacy Consult (Consult Rx Vancomycin Dosing) 1 each MISCELLANE DAILY PRN PRN Reason: Consult order Sodium Chloride (0.9 % Sodium Chloride Flush 3 Ml Syringe) 3 ml IVFLUSH QSHIFT [facility] Last Admin: 03/06/23 07:46 Dose: 3 ml Home Medications Medication Instructions Recorded Confirmed Last Taken Type lisinopril 10 mg tablet 10 mg PO DAILY 03/05/23 03/05/23 03/04/23 History metoprolol tartrate 25 mg tablet 25 mg PO BID 03/05/23 03/05/23 03/04/23 History Physical Exam Vital Signs: Vital Signs: Last Vital Signs Temp 98.1 F 03/06/23 07:23 Pulse 88 03/06/23 07:23 Resp 18 03/06/23 07:23 BP 134/74 03/06/23 07:23 Pulse Ox 98 03/06/23 07:23 O2 Del Method Room Air 03/06/23 07:23 BMI result Body Mass Index 19.4 Const: General: cooperative, healthy appearing and comfortable Orientation/consciousness: oriented to person, oriented to place and oriented to time HEENT: Head: Yes normal to inspection Neck: Neck: Yes normal visual inspection Carotids: no bruits Chest: Chest palpation & inspection: normal inspection of the chest Resp: Effort & Inspection: normal respiratory effort and able to speak in complete sentences Auscultation: clear to auscultation bilaterally, no crackles, no rales, no rhonchi and no wheezes Cardio: Other: Bilateral DP signals Rate: regular rate Rhythm: regular rhythm Heart sounds: S1 normal heart sound present and S2 normal heart sound present Bruits: no carotid bruits GI: Inspection: Yes normal to inspection Skin: Other: Left great toe ulcer Wounds: wounds noted Hair: normal Neuro: General: oriented to person, oriented to place and oriented to time Cranial nerves: Yes CN's II-XII intact bilaterally and Yes Normal hearing present Cognition (Neuro): normal cognition Motor exam (neuro): 5/5 motor strength present throughout Extrem: Other: venous exam: No significant superficial varicosities or spider telangiectasias, minimal edema General: No clubbing, No cyanosis and No edema Psych: Appearance: grossly normal Mental Status: mental status grossly normal Speech and movement: Normal speech and movement present Results Labs 03/06/23 04:11 03/06/23 04:11 Labs: Abnormal lab results 03/05/23 03/05/23 03/06/23 Range/Units 11:26 11:26 04:11 RBC 3.84 L (4.60-5.80) X10*6/uL Hgb 13.6 L 11.5 L (14.0-18.0) g/dl Hct 41.7 L 34.3 L (42.0-52.0) % MPV 9.1 L 9.3 L (9.4-12.4) fL Neut % (Auto) 80.7 H (45-73) % Lymph % (Auto) 8.9 L (20-40) % Lymph # (Auto) 0.9 L (1.2-4.9) X10*3/uL Chloride (96-108) mmol/L Anion Gap (12-20) POC Glucose (60-115) mg/dL Total Bilirubin 1.5 H (0.0-1.0) mg/dL Alkaline Phosphatase 195 H (39-117) U/L C-Reactive Protein 1.01 H (< or = 0.50) mg/dL Total Protein 6.4 L (6.5-8.0) g/dL Albumin 3.2 L (3.5-5.0) g/dL 03/06/23 03/06/23 Range/Units 04:11 07:20 RBC (4.60-5.80) X10*6/uL Hgb (14.0-18.0) g/dl Hct (42.0-52.0) % MPV (9.4-12.4) fL Neut % (Auto) (45-73) % Lymph % (Auto) (20-40) % Lymph # (Auto) (1.2-4.9) X10*3/uL Chloride 110 H (96-108) mmol/L Anion Gap 10 L (12-20) POC Glucose 57 L* (60-115) mg/dL Total Bilirubin (0.0-1.0) mg/dL Alkaline Phosphatase (39-117) U/L C-Reactive Protein (< or = 0.50) mg/dL Total Protein (6.5-8.0) g/dL Albumin (3.5-5.0) g/dL Short CBC 03/05/23 03/06/23 Range/Units 11:26 04:11 WBC 10.3 8.0 (4.8-10.8) X10*3/uL Hgb 13.6 L 11.5 L (14.0-18.0) g/dl Hct 41.7 L 34.3 L (42.0-52.0) % Plt Count 197 168 (160-400) X10*3/uL BMP 03/05/23 03/06/23 11:26 04:11 Sodium 136 141 Potassium 4.9 4.4 Chloride 105 110 H Carbon Dioxide 24 25 BUN 15 16 Creatinine 1.11 1.05 Calcium 9.5 8.5 D Liver Function 03/05/23 Range/Units 11:26 Total Bilirubin 1.5 H (0.0-1.0) mg/dL AST 15 (5-37) U/L ALT 10 (0-40) U/L Alkaline Phosphatase 195 H (39-117) U/L Albumin 3.2 L (3.5-5.0) g/dL All other labs normal. Imaging Additional studies: Noninvasive arterial ultrasound of left leg performed 03/05/2023 demonstrates patent SFA and popliteal concern of runoff occlusion. Assessment and Plan (1) PAD (peripheral artery disease): Status: Acute Plan Patient notes l nonhealing left leg ulcer. I have discussed the pathophysiology of peripheral vascular disease with the patient. I have also discussed risk factor modification. I have reviewed the patient's arterial testing which reveals left below-knee disease. the patient would benefit from a left leg endovascular peripheral angiogram with possible angioplasty, stent, and/or atherectomy. This has been discussed in detail with the patient along with risks, benefits, and complications. This includes but is not limited to bleeding, infection, heart attack, need for emergent surgical repair, limb ischemia, blood vessel damage, bleeding, puncture, kidney injury, bruising, allergic reaction, and skin reaction. The patient demonstrates a clear understanding. We will schedule for tomorrow. This case was discussed with the primary team along with Cardiology. Cardiology is concerned her about his aortic stenosis in AFib and will receive a workup regarding that. Thank you for allowing us to assist in this patient's care. Time Spent With Patient Time: Total time managing care of this patient today ____ minutes. Procedures Date of Service Date of Service: 03/06/23
--- NOTE | 2023-03-06 09:43 | PM.CNCAR ---
History of Present Illness History of Present Illness Date of Service: 03/06/23 Chief complaint: Osteomyelitis Narrative: This is a cardiology consultation regarding anticoagulation for atrial fibrillation. Patient seems to have atrial fibrillation and apparently has seen a thoracic medicine physician from [place] but he cannot recall any further details. At some point, anticoagulation was advised but patient states that he chose not to take it as his had a stroke and he some of feels that it is related to Coumadin. Any case, the actual details of what happened his is not very clear. Because of that patient does not want to take anticoagulation. He denies any history of coronary artery disease, myocardial infarction or cardiomyopathy or any other cardiac issues. Currently in the hospital mainly for a toe infection. In this context, we have been advised to assess anticoagulation indications. Otherwise, he does not have any clear-cut complaints like angina or shortness of breath. No palpitations. Review of Systems Review of Systems: Yes all other systems are reviewed and are negative Constitutional: Constitutional: Reports as per HPI and Reports no additional constitutional complaints Eyes: Eyes: Reports as per HPI and Denies no additional eye complaints ENT: Denies system reviewed and no additional complaints, except as documented and Reports as per HPI Cardiovascular: Cardiovascular: Reports as per HPI, Reports no additional cardiovascular complaints, Denies acrocyanosis, Denies cool extremities, Denies chest pain, Denies leg edema, Denies lightheadedness, Denies palpitations and Denies dyspnea Respiratory: Respiratory: Reports as per HPI, Denies no additional respiratory complaints and Denies dyspnea Gastrointestinal: Gastrointestinal: Reports as per HPI and Denies no additional gastrointestinal complaints Genitourinary: Genitourinary: Reports no additional male genitourinary complaints and Reports as per HPI Musculoskeletal: Musculoskeletal: Reports no additional musculoskeletal complaints and Reports as per HPI Integumentary/Breasts: Skin/Breast: Reports system reviewed and no additional complaints, except as docu Neurologic: Reports system reviewed and no additional complaints, except as documented and Reports as per HPI Psychiatric: Psychiatric: Reports no additional psychiatric complaints and Reports as per HPI Endocrine: Endocrine: Reports no additional endocrine complaints, Reports as per HPI and Denies palpitations Hematologic/Lymphatic: Hematologic/Lymphatic: Reports no additional hematologic/lymphatic complaints and Reports as per HPI Allergic/Immunologic: Allergic/Immunologic: Reports no additional allergic/immunologic complaints and Reports as per HPI [facility] Past Medical History Medical History (Updated 03/06/23 @ 09:48 by Kishor Rodrigues MD) A-fib Diabetes mellitus, type 2 HTN (hypertension) Non-rheumatic aortic stenosis Social History Social History (Updated 03/05/23 @ 14:01 by ALISHA Rodriguez) Household Members: None Housing: House Do you presently have visiting nurse or other home services: Yes (pt states VNA visit 2x a year) Alcohol intake: current Alcohol intake frequency: 0-2 drinks per day Patient Tobacco Use Status: Never used Tobacco Meds Allergies Allergy/AdvReac Type Severity Reaction Status Date / Time No Known Allergies Allergy Verified 03/05/23 10:39 Active Medications: Current Medications Acetaminophen (Acetaminophen 325 Mg Tablet) 650 mg PO Q6H PRN PRN Reason: Pain, Mild (Pain Scale 1-3) Docusate Sodium (Docusate Sodium 100 Mg Capsule) 100 mg PO DAILY PRN PRN Reason: Constipation Heparin Sodium (Porcine) (Heparin Sodium,Porcine 5,000 Unit/Ml Vial) 5,000 unit SUBCUT Q12H [facility] Last Admin: 03/06/23 01:53 Dose: 5,000 unit Cefepime HCl 2 gm/ Sodium (Chloride) 50 mls @ 100 mls/hr IV Q12H [facility] Last Infusion: 03/06/23 06:53 Dose: Infused Vancomycin HCl 1,000 mg/ (Sodium Chloride) 270 mls @ 270 mls/hr IV Q24H BLANK Sodium Chloride (Ns) 1,000 mls @ 100 mls/hr IVCONT .Q10H [facility] Lisinopril (Lisinopril 10 Mg Tablet) 10 mg PO DAILY [facility]; Protocol Last Admin: 03/06/23 07:46 Dose: 10 mg Metoprolol Tartrate (Metoprolol Tartrate 25 Mg Tablet) 25 mg PO BID [facility]; Protocol Last Admin: 03/06/23 07:46 Dose: 25 mg Ondansetron HCl (Ondansetron Hcl 4 Mg/2 Ml Vial) 4 mg IVPUSH Q8H PRN PRN Reason: Nausea and Vomiting Pharmacy Consult (Consult Rx Perform Med Rec) 1 each MISCELLANE ONCE PRN PRN Reason: Consult order Pharmacy Consult (Consult Rx Vancomycin Dosing) 1 each MISCELLANE DAILY PRN PRN Reason: Consult order Sodium Chloride (0.9 % Sodium Chloride Flush 3 Ml Syringe) 3 ml IVFLUSH QSHIFT [facility] Last Admin: 03/06/23 07:46 Dose: 3 ml Home Medications Medication Instructions Recorded Confirmed Last Taken Type lisinopril 10 mg tablet 10 mg PO DAILY 03/05/23 03/05/23 03/04/23 History metoprolol tartrate 25 mg tablet 25 mg PO BID 03/05/23 03/05/23 03/04/23 History Physical Exam Vital Signs: Vital Signs: Last Vital Signs Temp 98.1 F 03/06/23 07:23 Pulse 88 03/06/23 07:23 Resp 18 03/06/23 07:23 BP 134/74 03/06/23 07:23 Pulse Ox 98 03/06/23 07:23 O2 Del Method Room Air 03/06/23 07:23 BMI result Body Mass Index 19.4 Const: General: comfortable and no acute distress Orientation/consciousness: patient oriented x3 HEENT: Other: Unremarkable Head: Yes normal to inspection Neck: Neck: Yes normal visual inspection Chest: Chest palpation & inspection: normal inspection of the chest Resp: Auscultation: clear to auscultation bilaterally Cardio: Palpation: normal PMI Heart sounds: S1 normal heart sound present, S2 abnormal (soft), no gallops, Murmur heart sound present systolic III/ and at the right sternal border and no rubs GI: Palpation (GI): Soft to palpation Back/Spine/Pelvis: Other: unremarkable Skin: General skin exam: no rashes or lesions noted Neuro: General: patient oriented x3 Extrem: General: Yes normal to inspection Psych: Mental Status: mental status grossly normal Objective Labs and Meds 03/06/23 04:11 03/06/23 04:11 Lab results: Laboratory Results - last 24 hr 03/05/23 03/05/23 03/05/23 11:26 11:26 11:26 WBC 10.3 RBC 4.63 Hgb 13.6 L Hct 41.7 L MCV 90.1 MCH 29.4 MCHC 32.6 RDW 13.0 Plt Count 197 MPV 9.1 L Immature Gran % (Auto) 0.3 Neut % (Auto) 80.7 H Lymph % (Auto) 8.9 L [place] % (Auto) 9.2 Eos % (Auto) 0.2 Baso % (Auto) 0.7 Lymph # (Auto) 0.9 L [place] # (Auto) 0.9 Eos # (Auto) 0.0 Baso # (Auto) 0.1 Abs Immat Gran (auto) 0.03 Absolute Neuts (auto) 8.3 Absolute Nucleated RBC 0.000 Nucleated RBC % (auto) 0.0 ESR 6 Sodium 136 Potassium 4.9 Chloride 105 Carbon Dioxide 24 Anion Gap 12 BUN 15 Creatinine 1.11 Estim Creat Clear Calc 41.3 Estimated GFR > 60 POC Glucose Random Glucose 105 Estimat Average Glucose Hemoglobin A1c % Calcium 9.5 Magnesium 1.7 Total Bilirubin 1.5 H AST 15 ALT 10 Alkaline Phosphatase 195 H C-Reactive Protein 1.01 H Total Protein 6.4 L Albumin 3.2 L 03/05/23 03/05/23 03/06/23 11:26 20:33 04:11 WBC 8.0 RBC 3.84 L Hgb 11.5 L Hct 34.3 L MCV 89.3 MCH 29.9 MCHC 33.5 RDW 13.0 Plt Count 168 MPV 9.3 L Immature Gran % (Auto) 0.4 Neut % (Auto) 64.8 Lymph % (Auto) 21.8 [place] % (Auto) 10.2 Eos % (Auto) 1.7 Baso % (Auto) 1.1 Lymph # (Auto) 1.8 [place] # (Auto) 0.8 Eos # (Auto) 0.1 Baso # (Auto) 0.1 Abs Immat Gran (auto) 0.03 Absolute Neuts (auto) 5.2 Absolute Nucleated RBC 0.000 Nucleated RBC % (auto) 0.0 ESR Sodium Potassium Chloride Carbon Dioxide Anion Gap BUN Creatinine Estim Creat Clear Calc Estimated GFR POC Glucose 95 Random Glucose Estimat Average Glucose 94 Hemoglobin A1c % 4.9 Calcium Magnesium Total Bilirubin AST ALT Alkaline Phosphatase C-Reactive Protein Total Protein Albumin 03/06/23 03/06/23 03/06/23 04:11 07:20 07:43 WBC RBC Hgb Hct MCV MCH MCHC RDW Plt Count MPV Immature Gran % (Auto) Neut % (Auto) Lymph % (Auto) [place] % (Auto) Eos % (Auto) Baso % (Auto) Lymph # (Auto) [place] # (Auto) Eos # (Auto) Baso # (Auto) Abs Immat Gran (auto) Absolute Neuts (auto) Absolute Nucleated RBC Nucleated RBC % (auto) ESR Sodium 141 Potassium 4.4 Chloride 110 H Carbon Dioxide 25 Anion Gap 10 L BUN 16 Creatinine 1.05 Estim Creat Clear Calc 43.7 Estimated GFR > 60 POC Glucose 57 L* 76 Random Glucose 60 Estimat Average Glucose Hemoglobin A1c % Calcium 8.5 D Magnesium Total Bilirubin AST ALT Alkaline Phosphatase C-Reactive Protein Total Protein Albumin Imaging Radiologist's impression: Impressions Foot X-Ray 03/05/23 11:07 IMPRESSION: 1. Possible cortical irregularity along the medial aspect of the 1st distal phalangeal base with mild adjacent soft tissue swelling. Correlate for focal ulceration. If there is adjacent soft tissue infection, findings could indicate early osteomyelitis. 2. 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 Duplex Scan Lower Extremity Artery 03/05/23 15:36 IMPRESSION: Diffuse atherosclerotic wall calcifications throughout the arterial vessels. Patent arterial flow is seen in the femoral and popliteal arteries. Patent flow seen in the proximal and mid segments of the below-knee runoff vessels however distal runoff vessels are not well visualized and may be occluded. Assessment and Plan (1) Chronic atrial fibrillation: Status: Acute EKG shows atrial fibrillation at a rate of 106/Min. Right bundle-branch block pattern. On telemetry, rate seems well controlled. Discussed about anticoagulation indications and the fact that there is a risk of stroke without the same. Pros and cons discussed. He still is against anticoagulation in spite of explanations. (2) Non-rheumatic aortic stenosis: Status: Acute On examination, patient has aortic stenosis. Seems at least moderate based on auscultation findings. He does not have any clear-cut symptoms. Will get an echocardiogram for further evaluation. (3) Preoperative cardiovascular examination: Status: Acute If vascular surgery is planned, should get at least echocardiogram before that. Ideally ischemia workup as well. To be decided. Pending vascular plan. Angiogram tentatively tomorrow. Discussed with vascular surgery. Time Spent With Patient Time: Total time managing care of this patient today 75 minutes. This includes time spent in review of chart, laboratory data, imaging studies, review of telemetry, counseling patient, discussion with hospitalist, vascular surgery, documentation, coordination of care. Procedures Date of Service Date of Service: 03/06/23
[2023-03-06 09:56] LABS: INTERNATIONAL NORM RATIO 1.2 (0.9-1.1); Prothrombin Time 13.3 SEC (10.0-13.1)
[2023-03-06 09:58] LABS: Partial Thromboplastin Time 32.5 SEC (26.0-36.4)
[2023-03-06 11:14] LABS: Glucose, Whole Blood 100 mg/dL (60-115)
[2023-03-06 11:28] VITALS: BP 123/82; PULSE 83; RESP 17; TEMP 36.3; O2SAT 100
[2023-03-06] MEDS: vancomycin HCL 1,000 MG in 0.9 % Sodium Chloride 250 ML 270 MG IV (14:38)
--- NOTE | 2023-03-06 14:38 | MHC.CM.PN ---
PATIENT LIVES ALONE. HIS HCP/FRIEND ROSALBA BUCKLEY, ASSISTS WITH LAWN CARE AND SOME GROCERY SHOPPING. COPY OF HCP REQUESTED. PATIENT HAS TWO WALKERS AND A ROLLATOR IN THE HOME. STILL DRIVES WHEN NEEDED. PATIENT HAS SERVICES THROUGH [facility], WHO OFFER RN VISITS TWICE A YEAR. PATIENT RECENT RN VISIT RESULTED IN HIM BEING ADMITTED TO [facility]. PLAN IS FOR VASCULAR INTERVENTION TOMORROW CASE MANAGEMENT FOLLOWING IMM 03/06 IN CHART
[2023-03-06 15:23] VITALS: BP 128/64; PULSE 98; RESP 18; TEMP 36.3; O2SAT 98
--- NOTE | 2023-03-06 15:57 | HO.PM.IMPN ---
Subjective Subjective Date of Service: 03/06/23 Interval History: being followed for left great toe as ulcer with possible osteomyelitis, patient is sitting comfortably size he is feeling better slept well, denies fever, no chills, denies pain, no acute events overnight. Review of Systems Review of Systems: Yes all other systems are reviewed and are negative Physical Exam Vital Signs: Vital Signs: Last Vital Signs Temp 97.4 F 03/06/23 15: Pulse 98 03/06/23 15: Resp 18 03/06/23 15:23 BP 128/64 03/06/23 15:23 Pulse Ox 98 03/06/23 15:23 O2 Del Method Room Air 03/06/23 15:23 BMI result Body Mass Index 19.4 Const: Other: General resting comfortably in no acute distress. Neck supple no JVD. CVS regular rate rhythm, Respiratory lungs clear to auscultation, no respiratory distress, no wheeze, no rhonchi. Gastrointestinal abdomen soft, nontender, bowel sounds audible, no guarding , no rigidity. Extremities left lower extremity, ulcer plantar surface great toe with black eschar no drainage, no foul odor, another small open ulcer base of 1st metatarsal , no drainage, redness dorsum of foot. Neuro nonfocal entpatient moving all 4 extremity speech clear. Skin no rash psych appropriate affect Objective Data Active Medications Acetaminophen (Acetaminophen 325 Mg Tablet) 650 mg PO Q6H PRN PRN Reason: Pain, Mild (Pain Scale 1-3) Docusate Sodium (Docusate Sodium 100 Mg Capsule) 100 mg PO DAILY PRN PRN Reason: Constipation Heparin Sodium (Porcine) (Heparin Sodium,Porcine 5,000 Unit/Ml Vial) 5,000 unit SUBCUT Q12H [facility] Last Admin: 03/06/23 13:55 Dose: 5,000 unit Documented By: BLANCA Cefepime HCl 2 gm/ Sodium (Chloride) 50 mls @ 100 mls/hr IV Q12H [facility] Last Infusion: 03/06/23 06:53 Dose: 0 mls/hr Documented By: BLANCA Vancomycin HCl 1,000 mg/ (Sodium Chloride) 270 mls @ 270 mls/hr IV Q24H [facility] Last Infusion: 03/06/23 15:39 Dose: 0 mls/hr Documented By: MAYCO Sodium Chloride (Ns) 1,000 mls @ 100 mls/hr IVCONT .Q10H [facility] Lisinopril (Lisinopril 10 Mg Tablet) 10 mg PO DAILY [facility]; Protocol Last Admin: 03/06/23 07:46 Dose: 10 mg Documented By: BLANCA Metoprolol Tartrate (Metoprolol Tartrate 25 Mg Tablet) 25 mg PO BID [facility]; Protocol Last Admin: 03/06/23 07:46 Dose: 25 mg Documented By: BLANCA Ondansetron HCl (Ondansetron Hcl 4 Mg/2 Ml Vial) 4 mg IVPUSH Q8H PRN PRN Reason: Nausea and Vomiting Pharmacy Consult (Consult Rx Perform Med Rec) 1 each MISCELLANE ONCE PRN PRN Reason: Consult order Pharmacy Consult (Consult Rx Vancomycin Dosing) 1 each MISCELLANE DAILY PRN PRN Reason: Consult order Sodium Chloride (0.9 % Sodium Chloride Flush 3 Ml Syringe) 3 ml IVFLUSH QSHIFT BLANK Last Admin: 03/06/23 14:39 Dose: 3 ml Documented By: MAYCO Labs 03/06/23 04:11 03/06/23 04:11 Labs: Laboratory Results - last 24 hr 03/05/23 03/06/23 03/06/23 20:33 04:11 04:11 MCV 89.3 MCH 29.9 MCHC 33.5 RDW 13.0 Plt Count 168 MPV 9.3 L Immature Gran % (Auto) 0.4 Neut % (Auto) 64.8 Lymph % (Auto) 21.8 Dickinson % (Auto) 10.2 Eos % (Auto) 1.7 Baso % (Auto) 1.1 Lymph # (Auto) 1.8 Dickinson # (Auto) 0.8 Eos # (Auto) 0.1 Baso # (Auto) 0.1 Abs Immat Gran (auto) 0.03 Absolute Neuts (auto) 5.2 Absolute Nucleated RBC 0.000 Nucleated RBC % (auto) 0.0 PT INR APTT Anion Gap 10 L Estim Creat Clear Calc 43.7 Estimated GFR > 60 POC Glucose 95 Random Glucose 60 Calcium 8.5 D 03/06/23 03/06/23 03/06/23 07:20 07:43 09:43 MCV MCH MCHC RDW Plt Count MPV Immature Gran % (Auto) Neut % (Auto) Lymph % (Auto) Dickinson % (Auto) Eos % (Auto) Baso % (Auto) Lymph # (Auto) Dickinson # (Auto) Eos # (Auto) Baso # (Auto) Abs Immat Gran (auto) Absolute Neuts (auto) Absolute Nucleated RBC Nucleated RBC % (auto) PT 13.3 H INR 1.2 H APTT 32.5 Anion Gap Estim Creat Clear Calc Estimated GFR POC Glucose 57 L* 76 Random Glucose Calcium 03/06/23 11:11 MCV MCH MCHC RDW Plt Count MPV Immature Gran % (Auto) Neut % (Auto) Lymph % (Auto) Dickinson % (Auto) Eos % (Auto) Baso % (Auto) Lymph # (Auto) Dickinson # (Auto) Eos # (Auto) Baso # (Auto) Abs Immat Gran (auto) Absolute Neuts (auto) Absolute Nucleated RBC Nucleated RBC % (auto) PT INR APTT Anion Gap Estim Creat Clear Calc Estimated GFR POC Glucose 100 Random Glucose Calcium Microbiology Microbiology Results: Microbiology 03/05/23 11:26 Blood Culture - Preliminary Blood - Venous No growth after 24 hours. 03/05/23 11:26 Blood Culture - Preliminary Blood - Venous No growth after 24 hours. Assessment and Plan (1) Non-rheumatic aortic stenosis: Status: Acute (2) Chronic atrial fibrillation: Status: Acute (3) PAD (peripheral artery disease): Status: Acute (4) Osteomyelitis: Status: Acute Plan 87-year-old male with history of hypertension admitted for nonhealing stage 2 ulcer left great toe with cellululitis and osteomyelitis #nonhealing ulcer left great toe with cellulitis and possible osteomyelitis - no fevers, no pain feels better no change in 40 -Xray left foot ?early osteo and soft tissue infection. CRP 1.0.1, ESR 6, no sepsis -Not diabetic A1c 4.9%. - continue IV vanco and cefepime day 1 -case discussed with ID she recommend MRI foot to rule out osteo, seen by Dr. Oliva he scheduled for left leg endovascular peripheral angiogram with possible angioplasty, stent or atherectomy #Atrial fibrillation, unspecified chronicity/frequency -Not on anticoagulation,he was prescribed but he did not take, out of concern for bleeding risk. -EKG showign afib RVR. HR's 106-140 in ED. heart rate now stable on metoprolol -Echo, showed severe showed severe . #Diet-controlled type 2 diabetes -poc glucose -diabetic diet -SSI prn hyperglycemia #HTN- bp reasonably controlled -continue metoprolol and lisinopril DVT prophylaxis- heparin Full code Pt requires inpatient stay for management of nonhealing stage II ulceration of left great toe with cellulitis and osteomyelitis requiring IV antibiotics and expert consultation Time Spent With Patient Time: Total time managing care of this patient today ____ minutes. Quality Stroke Does the patient have a stroke diagnosis?: No VTE Prior VTE?: No VTE Risk Level:: Medical - moderate - high VTE Device Contraindication: Treatment Not Indicated VTE Drug Contraindication: N/A - Med Ordered
[2023-03-06 16:34] LABS: Glucose, Whole Blood 117 mg/dL (60-115)
[2023-03-06 19:24] VITALS: BP 103/61; PULSE 77; RESP 20; TEMP 36.2; O2SAT 99
[2023-03-06 20:26] LABS: Glucose, Whole Blood 121 mg/dL (60-115)
[2023-03-07] VITALS (14 sets, daily range): BP systolic 108–149; BP diastolic 55–89; PULSE 69–100; RESP 15–18; TEMP 36–36.6; O2SAT 93–100
[2023-03-07 06:30] LABS: Glucose, Whole Blood 91 mg/dL (60-115)
[2023-03-07 07:39] LABS: Estimated Glomerular Filt Rate > 60
--- NOTE | 2023-03-07 10:04 | W.PM.OPN ---
Operative Note Operative Note Date of Service: 03/07/23 Narrative: Angiogram report from [facility] Preoperative diagnosis: Atherosclerosis of left lower extremity with nonhealing ulcer Postoperative diagnosis: Same Procedure: 1. Ultrasound-guided right common femoral access 2. Aortogram with left lower extremity runoff 3. Left peroneal plasty Surgeon:Kane Oliva M.D., FACS, RPVI Food Operations Manager:None Anesthesia: Local with moderate conscious sedation. Total intraservice moderate sedation time was 85 minutes. I monitored the patient's level of consciousness and physiologic status continuously throughout the procedure. Specimens:none Drains:none Estimated blood loss: Less than 10 ml Implant: None Indications: Very pleasant 87-year-old gentleman with nonhealing left lower extremity ulcer. On noninvasive testing there was concern of below-knee disease. He now presents for endovascular intervention. The patient has signed the informed consent after reviewing risks, complications, benefits, and alternatives previously discussed with the patient. The patient was given the opportunity to ask any additional questions or voice any concerns. All questions were answered to the patient's satisfaction. Procedure in detail: Patient was brought to the angiography suite prior to which a time-out was called for patient identification and site verification. Bilateral groins were prepped and draped in the standard surgical fashion. Under ultrasound guidance right common femoral was punctured with micro puncture needle and wire. Subsequently a precision 4 [place] sheath was then placed. Bentson wire was advanced to the level of the aorta. 4 [place] Flush catheter was brought up and parked at the level of the renal arteries. Aortogram was then undertaken. Catheter was brought down to the level of the iliac bifurcation. Iliacs were subsequently imaged. Catheter was then brought in up and over to the left side SFA. Runoff study was then undertaken. The bifurcation was a very acute angle. It was difficult to transverse this. We had to use several wire exchanges and eventually we were able to get an up and over 5 [place] destination sheath. Once this was accomplished 4000 units of systemic heparin was administered after 5 minutes of circulation time we advanced a 014 now be cross all the way down to the tibial vessels. Over this we put a trail Blazer catheter. We instilled contrast to in short true lumen. Once this was accomplished we then we advanced the 014 wire into the peroneal artery. Over this we plasty the proximal partial in with a 2.5 x 100 balloon and the more distal portion with a 2 x 100 balloon. Completion angiogram demonstrated excellent result. Catheter wire sheath was brought back to the ipsilateral side. StarClose closure device was deployed. Patient tolerated the procedure well. Returned to recovery with stable vitals. Interpretation of films: 1. Ultrasound demonstrates appropriate femoral puncture. Image of which was saved. 2. Aortogram demonstrates appropriate caliber aorta. Minimal disease. Appropriate take-off of the renals. 3. Iliac images demonstrate significant tortuosity with a very acute bifurcation and significantly splayed out near right angle iliacs. 4. Left Leg Common femoral artery: No significant disease Profundus Femoris: No significant disease Superficial femoral artery: No significant disease Popliteal artery (p1,p2,p3): No significant disease Anterior tibial artery: Proximal portion fed via collaterals the proximal portion was occluded and it only had a small segment runoff in occludes the top calf. Peroneal artery: Dominant runoff Posterior tibial artery: Occluded and fed by arm minor collaterals Dorsalis pedis/plantar arch: Incomplete Conclusion: 1. Successful left peroneal plasty 2. Anticoagulation status: Will require aspirin and Plavix for 6 months. This note is constructed using voice recognition software. While every effort has been made to ensure accuracy, materials engineering technician errors may have been included. Thank you for allowing me to participate in the care of your patient. Yours sincerely, Kaen Oliva MD, FACS, R.P.V.I.
[2023-03-07 13:24] LABS: Glucose, Whole Blood 102 mg/dL (60-115)
[2023-03-07 13:30] LABS: Vancomycin Random 13.1 mcg/mL (15-20)
--- NOTE | 2023-03-07 13:36 | HE.PHANOTE ---
Re: vanco dosing Renal function stabel. Trough today is 13.1. Will continue on current dosing and check another level on 03/09 @1200.
[2023-03-07] MEDS: Heparin Sodium,Porcine 5,000 UNIT/ML VIAL 5000 UNIT SUBCUT (13:49)
[2023-03-07] MEDS: vancomycin HCL 1,000 MG in 0.9 % Sodium Chloride 250 ML 270 MG IV (13:49)
[2023-03-07] MEDS: 0.9 % Sodium Chloride 1,000 ML 100 ML IVCONT (15:03)
--- NOTE | 2023-03-07 15:13 | W.PM.IDCN ---
History of Present Illness Data of Consult Service Date: 03/07/23 Requesting physician: Brigette Sheikh Primary Care Provider: Angelica Haynes MD HPI Reason for consult: osteomyelitis He presents with left great toe discomfort redness and swelling to ER. He has no fever or chills. He has HTN and glaucoma and is frail. He is seeing Vascular. Review of Systems Review of Systems: Yes all other systems are reviewed and are negative PMFSH Past Medical History Medical History A-fib Diabetes mellitus, type 2 HTN (hypertension) Non-rheumatic aortic stenosis Family History Family history: reviewed and not pertinent Social History Social History Household Members: None Housing: House Do you presently have visiting nurse or other home services: Yes (pt states VNA visit 2x a year) Alcohol intake: current Alcohol intake frequency: 0-2 drinks per day Patient Tobacco Use Status: Never used Tobacco Use of substances other than those prescribed or required for medical reasons: No Currently Displaying Signs/Symptoms of Drug Intoxication Withdrawal: No Have you been hit, kicked, punched, or otherwise hurt by someone within the past year? If so, by whom?: No Do you feel safe in your current relationship?: No Current Relationship Is there a partner from a previous relationship who is making you feel unsafe now?: No Are you made to feel afraid or neglected: No Advance Directives: No Do you have thoughts of harming others: None Do you have a plan to hurt others: No Plan Recently lost weight without trying: No Nutrition Risks: No Nutritional Risk service: No Current occupational status: retired [employer] Allergies Allergy/AdvReac Type Severity Reaction Status Date / Time No Known Allergies Allergy Verified 03/05/23 10:39 Active Medications: Current Medications Acetaminophen (Acetaminophen 325 Mg Tablet) 650 mg PO Q6H PRN PRN Reason: Pain, Mild (Pain Scale 1-3) Aspirin (Aspirin 81 Mg Tab.Chew) 81 mg PO DAILY BLANK Clopidogrel Bisulfate (Clopidogrel Bisulfate 75 Mg Tablet) 75 mg PO DAILY BLANK Docusate Sodium (Docusate Sodium 100 Mg Capsule) 100 mg PO DAILY PRN PRN Reason: Constipation Heparin Sodium (Porcine) (Heparin Sodium,Porcine 5,000 Unit/Ml Vial) 5,000 unit SUBCUT Q12H [facility] Last Admin: 03/07/23 13:49 Dose: 5,000 unit Cefepime HCl 2 gm/ Sodium (Chloride) 50 mls @ 100 mls/hr IV Q12H [facility] Last Admin: 03/07/23 06:11 Dose: Not Given Vancomycin HCl 1,000 mg/ (Sodium Chloride) 270 mls @ 270 mls/hr IV Q24H [facility] Last Infusion: 03/07/23 14:56 Dose: Infused Sodium Chloride (Ns) 1,000 mls @ 100 mls/hr IVCONT .Q10H [facility] Last Admin: 03/07/23 15:03 Dose: 100 mls/hr Lisinopril (Lisinopril 10 Mg Tablet) 10 mg PO DAILY [facility]; Protocol Last Admin: 03/07/23 10:20 Dose: Not Given Metoprolol Tartrate (Metoprolol Tartrate 25 Mg Tablet) 25 mg PO BID [facility]; Protocol Last Admin: 03/07/23 10:20 Dose: Not Given Ondansetron HCl (Ondansetron Hcl 4 Mg/2 Ml Vial) 4 mg IVPUSH Q8H PRN PRN Reason: Nausea and Vomiting Pharmacy Consult (Consult Rx Perform Med Rec) 1 each MISCELLANE ONCE PRN PRN Reason: Consult order Pharmacy Consult (Consult Rx Vancomycin Dosing) 1 each MISCELLANE DAILY PRN PRN Reason: Consult order Sodium Chloride (0.9 % Sodium Chloride Flush 3 Ml Syringe) 3 ml IVFLUSH QSHIFT [facility] Last Admin: 03/07/23 15:06 Dose: Not Given Home Medications Medication Instructions Recorded Confirmed Last Taken Type lisinopril 10 mg tablet 10 mg PO DAILY 03/05/23 03/05/23 03/04/23 History metoprolol tartrate 25 mg tablet 25 mg PO BID 03/05/23 03/05/23 03/04/23 History Physical Exam Vital Signs: Vital Signs: Last Vital Signs Temp 97.2 F 03/07/23 13:45 Pulse 100 03/07/23 13:45 Resp 16 03/07/23 13:45 BP 143/85 H 03/07/23 13:45 Pulse Ox 98 03/07/23 13:45 O2 Del Method Room Air 03/07/23 13:45 BMI result Body Mass Index 19.4 Const: General: cooperative HEENT: Head: Yes normal to inspection Face and sinus: Yes normal facial exam Mouth: Normal oral and palatal mucosa present Teeth and gingiva: dentition normal Eyes: General: appearance normal, both eyes and all related structures Pupils: Equal, round and reactive pupils present Resp: Effort & Inspection: normal respiratory effort Cardio: Rate: regular rate Rhythm: regular rhythm GI: Palpation (GI): Soft to palpation and nontender : General: Yes no CVA tenderness Back/Spine/Pelvis: Back: no CVA tenderness Skin: General skin exam: no rashes or lesions noted Neuro: General: moves all extremities Cranial nerves: Yes Equal, round and reactive pupils present Extrem: Other: some improvement redness and swelling left great toe General: Yes normal to inspection Psych: Appearance: grossly normal Results Labs 03/06/23 04:11 03/07/23 05:18 Labs: BMP 03/07/23 05:18 Creatinine 1.12 Microbiology Microbiology Results: Microbiology 03/05/23 11:26 Blood - Venous Blood Culture - Preliminary No growth after 48 hours. 03/05/23 11:26 Blood - Venous Blood Culture - Preliminary No growth after 48 hours. Assessment and Plan (1) Osteomyelitis: Status: Acute He has OM left great toe. He is not good operative candidate for removeal of toe and apparently not wanting to get atrial fibrillation treated and not interested in IV antibiotics for [facility] six weeks. He was evaluated by Vascular but apparently not candidate for debridement. Plan Po Doxycycline 100 mg bid for two months hopefully help suppress osteomyelitis. Time Spent With Patient Time: Total time managing care of this patient today ____ minutes.
--- NOTE | 2023-03-07 15:29 | HO.PM.IMPN ---
Subjective Subjective Date of Service: 03/08/23 Interval History: patient underwent left peroneal plasty this morning, postprocedure patient denies pain, no acute events overnight, denies fever, no chills, no headache, no dizziness, no chest pain, no shortness of breath, no lightheadedness tolerating diet, denies L foot pain or redness. Review of Systems Review of Systems: Yes all other systems are reviewed and are negative Physical Exam Vital Signs: Vital Signs: Last Vital Signs Temp 97.2 F 03/07/23 13:45 Pulse 100 03/07/23 13:45 Resp 16 03/07/23 13:45 BP 143/85 H 03/07/23 13:45 Pulse Ox 98 03/07/23 13:45 O2 Del Method Room Air 03/07/23 13:45 BMI result Body Mass Index 19.4 Const: Other: General? resting comfortably in no acute distress.? Neck supple no JVD. CVS? regular rate rhythm, Respiratory lungs clear to auscultation, no respiratory distress, no wheeze, no rhonchi. Gastrointestinal abdomen soft, nontender, bowel sounds audible,? no guarding , no rigidity. Extremities? left lower extremity, ulcer plantar surface great toe with black eschar no drainage, no foul odor, another small open ulcer base of 1st metatarsal , no drainage, redness dorsum of foot improved. Neuro nonfocal , moving all 4 extremity, speech clear. Skin no rash psych appropriate affect Objective Data Active Medications Acetaminophen (Acetaminophen 325 Mg Tablet) 650 mg PO Q6H PRN PRN Reason: Pain, Mild (Pain Scale 1-3) Aspirin (Aspirin 81 Mg Tab.Chew) 81 mg PO DAILY [facility] Clopidogrel Bisulfate (Clopidogrel Bisulfate 75 Mg Tablet) 75 mg PO DAILY [facility] Docusate Sodium (Docusate Sodium 100 Mg Capsule) 100 mg PO DAILY PRN PRN Reason: Constipation Heparin Sodium (Porcine) (Heparin Sodium,Porcine 5,000 Unit/Ml Vial) 5,000 unit SUBCUT Q12H [facility] Last Admin: 03/07/23 13:49 Dose: 5,000 unit Documented By: BLANCA Cefepime HCl 2 gm/ Sodium (Chloride) 50 mls @ 100 mls/hr IV Q12H [facility] Last Admin: 03/07/23 06:11 Dose: Not Given Documented By: JOE Non-Admin Reason: Off Unit: Surgery Vancomycin HCl 1,000 mg/ (Sodium Chloride) 270 mls @ 270 mls/hr IV Q24H [facility] Last Infusion: 03/07/23 14:56 Dose: 0 mls/hr Documented By: BLANCA Sodium Chloride (Ns) 1,000 mls @ 100 mls/hr IVCONT .Q10H [facility] Last Admin: 03/07/23 15:03 Dose: 100 mls/hr Documented By: BLANCA Lisinopril (Lisinopril 10 Mg Tablet) 10 mg PO DAILY [facility]; Protocol Last Admin: 03/07/23 10:20 Dose: Not Given Documented By: BLANCA Non-Admin Reason: Off Unit: Surgery Metoprolol Tartrate (Metoprolol Tartrate 25 Mg Tablet) 25 mg PO BID [facility]; Protocol Last Admin: 03/07/23 10:20 Dose: Not Given Documented By: BLANCA Non-Admin Reason: Off Unit: Surgery Ondansetron HCl (Ondansetron Hcl 4 Mg/2 Ml Vial) 4 mg IVPUSH Q8H PRN PRN Reason: Nausea and Vomiting Pharmacy Consult (Consult Rx Perform Med Rec) 1 each MISCELLANE ONCE PRN PRN Reason: Consult order Pharmacy Consult (Consult Rx Vancomycin Dosing) 1 each MISCELLANE DAILY PRN PRN Reason: Consult order Sodium Chloride (0.9 % Sodium Chloride Flush 3 Ml Syringe) 3 ml IVFLUSH QSHIFT [facility] Last Admin: 03/07/23 15:06 Dose: Not Given Documented By: BLANCA Non-Admin Reason: IV Running Labs 03/06/23 04:11 03/07/23 05:18 Labs: Laboratory Results - last 24 hr 03/06/23 03/06/23 03/07/23 16:30 20:19 05:18 Estim Creat Clear Calc 41.0 Estimated GFR > 60 POC Glucose 117 H 121 H Random Vancomycin 03/07/23 03/07/23 03/07/23 06:26 12:46 13:16 Estim Creat Clear Calc Estimated GFR POC Glucose 91 102 Random Vancomycin 13.1 L Microbiology Microbiology Results: Microbiology 03/05/23 11:26 Blood Culture - Preliminary Blood - Venous No growth after 48 hours. 03/05/23 11:26 Blood Culture - Preliminary Blood - Venous No growth after 48 hours. Assessment and Plan (1) Non-rheumatic aortic stenosis: Status: Acute (2) Chronic atrial fibrillation: Status: Acute (3) PAD (peripheral artery disease): Status: Acute (4) Osteomyelitis: Status: Acute Plan 87-year-old male with history of hypertension admitted for nonhealing stage 2 ulcer left great toe with cellululitis and osteomyelitis #nonhealing ulcer left great toe with cellulitis and possible acute osteomyelitis not related to diabetes - no fevers, no pain -Xray left foot ?early osteo and soft tissue infection. CRP 1.0., ESR 6, no sepsis -Not diabetic A1c 4.9%. - on IV vanco and cefepime day 2, seen by ID she recommend doxycycline 100 mg twice daily for 2 months to suppress osteomyelitis , patient will be followed closely by vascular surgery. - Underwent successful left peroneal plasty by Dr. Oliva he recommend aspirin and Plavix for 6 months, no debridement recommended for ulcer. #Atrial fibrillation, unspecified chronicity/frequency -Not on anticoagulation,he was prescribed but he did not take, out of concern for bleeding risk. -EKG showign afib RVR. HR's 106-140 in ED. heart rate now stable on metoprolol -Echo, showed severe #Diet-controlled type 2 diabetes - hemoglobin A1c 4.9, is stable blood sugars will DC point of care blood sugars and SSI #HTN- bp reasonably controlled,continue metoprolol and lisinopril DVT prophylaxis- heparin Full code Pt requires inpatient stay for management of nonhealing ulceration of left great toe with cellulitis and osteomyelitis requiring IV antibiotics and expert consultation Time Spent With Patient Time: Total time managing care of this patient today ____ minutes. Quality Stroke Does the patient have a stroke diagnosis?: No VTE Prior VTE?: No VTE Risk Level:: Medical - moderate - high VTE Device Contraindication: Treatment Not Indicated VTE Drug Contraindication: N/A - Med Ordered
[2023-03-07] MEDS: cefEPime HCl 2 GM in 0.9 % Sodium Chloride 50 ML IV (18:03)
[2023-03-07] MEDS: Metoprolol Tartrate 25 MG TABLET PO (20:55)
[2023-03-08] MEDS: 0.9 % Sodium Chloride 1,000 ML 100 ML IVCONT (02:14)
[2023-03-08] MEDS: Heparin Sodium,Porcine 5,000 UNIT/ML VIAL 5000 UNIT SUBCUT (03:26)
[2023-03-08 03:28] VITALS: BP 135/78; PULSE 67; RESP 18; TEMP 36.2; O2SAT 97
[2023-03-08] MEDS: cefEPime HCl 2 GM in 0.9 % Sodium Chloride 50 ML IV (06:14)
[2023-03-08 07:06] LABS: Creatinine Clr Calc Pharmacy 42.1; Estimated Glomerular Filt Rate > 60
[2023-03-08 07:51] VITALS: BP 143/77; PULSE 80; RESP 18; TEMP 36.6; O2SAT 99
[2023-03-08] MEDS: Metoprolol Tartrate 25 MG TABLET PO ×2 (07:52→20:41)
[2023-03-08] MEDS: lisinopriL 10 MG TABLET PO (07:52)
[2023-03-08] MEDS: Clopidogrel Bisulfate 75 MG TABLET PO (07:52)
[2023-03-08] MEDS: Aspirin 81 MG TAB.CHEW PO (07:52)
[2023-03-08 08:44] VITALS: PULSE 86; RESP 16; TEMP 36.6; O2SAT 98
--- NOTE | 2023-03-08 09:47 | PM.PNCARD ---
Subjective Subjective Date of Service: 03/08/23 Interval history: Patient states that he feels okay. No new complaints. Denies any chest pain or shortness of breath or palpitations. Review of Systems Review of Systems Yes all other systems are reviewed and are negative Constitutional: Reports as per HPI and Reports no additional constitutional complaints Eyes: Reports as per HPI and Denies no additional eye complaints Denies system reviewed and no additional complaints, except as documented and Reports as per HPI Cardiovascular: Reports as per HPI, Reports no additional cardiovascular complaints, Denies acrocyanosis, Denies cool extremities, Denies chest pain, Denies leg edema, Denies lightheadedness, Denies palpitations and Denies dyspnea Respiratory: Reports as per HPI, Denies no additional respiratory complaints and Denies dyspnea Gastrointestinal: Reports as per HPI and Denies no additional gastrointestinal complaints Genitourinary: Reports no additional male genitourinary complaints and Reports as per HPI Musculoskeletal: Reports no additional musculoskeletal complaints and Reports as per HPI Skin/Breast: Reports system reviewed and no additional complaints, except as docu Reports system reviewed and no additional complaints, except as documented and Reports as per HPI Psychiatric: Reports no additional psychiatric complaints and Reports as per HPI Endocrine: Reports no additional endocrine complaints, Reports as per HPI and Denies palpitations Hematologic/Lymphatic: Reports no additional hematologic/lymphatic complaints and Reports as per HPI Allergic/Immunologic: Reports no additional allergic/immunologic complaints and Reports as per HPI Physical Exam Vital Signs: Last Vital Signs Temp 97.8 F 03/08/23 08:44 Pulse 86 03/08/23 08:44 Resp 16 03/08/23 08:44 BP 143/77 H 03/08/23 07:51 Pulse Ox 98 03/08/23 08:44 O2 Del Method Room Air 03/08/23 08:44 BMI result Body Mass Index 19.4 Const General: comfortable and no acute distress Orientation/consciousness: patient oriented x3 HEENT Other: Unremarkable Head: Yes normal to inspection Neck Neck: Yes normal visual inspection Chest Chest palpation & inspection: normal inspection of the chest Resp Auscultation: clear to auscultation bilaterally Cardio Palpation: normal PMI Heart sounds: S1 normal heart sound present, S2 abnormal (soft), no gallops, Murmur heart sound present systolic III/ and at the right sternal border and no rubs GI Palpation (GI): Soft to palpation Back/Spine/Pelvis Other: unremarkable Skin General skin exam: no rashes or lesions noted Neuro General: patient oriented x3 Extrem General: Yes normal to inspection Psych Mental Status: mental status grossly normal Objective Labs and Meds 03/06/23 04:11 03/08/23 05:18 Lab results: Laboratory Results - last 24 hr 03/07/23 03/07/23 03/08/23 12:46 13:16 05:18 Creatinine 1.09 Estim Creat Clear Calc 42.1 Estimated GFR > 60 POC Glucose 102 Random Vancomycin 13.1 L Progress Note: A&P Assessment and plan (1) Chronic atrial fibrillation: Status: Acute Assessment and Plan: Telemetry shows well controlled atrial fibrillation. Once again, had a long discussion about atrial fibrillation stroke risk. However, patient states ' I will take my chances'. He is not willing to consider at this time as he states his had issues from anticoagulation. Still refuses. (2) Non-rheumatic aortic stenosis: Status: Acute Assessment and Plan: On echocardiogram, LVEF is 45-50%. Moderately depressed right ventricular systolic function. The aortic valve appeared severely stenosed, suggestive of low-flow low gradient aortic stenosis. Findings discussed with patient. Advised him that we should follow him in the clinic but again he is very reluctant. He states he will think about it. Also discussed about complications including progressive valve disease which will eventually require new valve. However, patient still not keen in spite of explanations. (3) Ascending aortic aneurysm: Status: Acute Assessment and Plan: In the echocardiogram, ascending aortic size 4.4 cm. No intervention at this time. If willing to follow, we can check periodically. Plan After a long explanation of cardiac issues, still could not convince him that he needs to be followed up. He states he will just think about it. Time Spent With Patient Time: Total time managing care of this patient today ____ minutes. Progress Note: Quality Stroke Does the patient have a stroke diagnosis?: No Procedures Date of Service Date of Service: 03/08/23
--- NOTE | 2023-03-08 10:13 | HO.VASCPN ---
Subjective Subjective Date of Service: 03/08/23 Patient reports: no new complaints and feels better Interval history: Patient is postprocedure day 1 status post endovascular intervention. Reports no significant difficulty. He was sitting up it in a chair this morning at the time of my examination. He describes no groin discomfort. In general he has no discomfort from his left foot ulcer. Physical Exam Vital Signs: Vital Signs: Last Vital Signs Temp 97.8 F 03/08/23 08:44 Pulse 86 03/08/23 08:44 Resp 16 03/08/23 08:44 BP 143/77 H 03/08/23 07:51 Pulse Ox 98 03/08/23 08:44 O2 Del Method Room Air 03/08/23 08:44 BMI result Body Mass Index 19.4 Const: General: cooperative, healthy appearing and no acute distress Orientation/consciousness: oriented to person, oriented to place and oriented to time HEENT: Head: Yes normal to inspection Neck: Carotids: no bruits Chest: Chest palpation & inspection: normal inspection of the chest Resp: Effort & Inspection: normal respiratory effort and able to speak in complete sentences Auscultation: clear to auscultation bilaterally Cardio: Other: Bilateral DP signals Rate: regular rate Heart sounds: S1 normal heart sound present and S2 normal heart sound present GI: Inspection: Yes normal to inspection Skin: Other: Left great toe plantar surface ulcer General skin exam: no rashes or lesions noted Wounds: wounds noted Neuro: General: oriented to person, oriented to place, oriented to time and CN's II-XI intact bilaterally Extrem: General: Yes normal to inspection, Yes full ROM and Yes no clubbing, cyanosis or edema Psych: Appearance: grossly normal and well kempt Speech and movement: Normal speech and movement present Affect: normal affect Progress Note: A&P Assessment and plan (1) PAD (peripheral artery disease): Status: Acute Assessment and Plan: In short patient has done well with his endovascular intervention. Infectious Disease note appreciated and will be on long-term p.o. doxycycline. He is stable from my perspective for discharge and will need to be discharged on baby aspirin and Plavix for 6 months. In addition the wound appears to be clean and dry. No overt evidence of infection. He can follow up with us as an outpatient approximately 2 weeks time. Thank you for allowing us to assist in his care. If there are any questions or concerns please do not hesitate to contact us. Time Spent With Patient Time: Total time managing care of this patient today ____ minutes. Procedures Date of Service Date of Service: 03/08/23 Quality Stroke Does the patient have a stroke diagnosis?: No VTE Prior VTE?: No VTE Risk Level:: Medical - moderate - high VTE Device Contraindication: Treatment Not Indicated VTE Drug Contraindication: N/A - Med Ordered
--- NOTE | 2023-03-08 11:19 | MHC.CM.PN ---
NA UNABLE TO OFFER SERVICES. ADDITIONAL REFERRALS PLACED. PATIENT MAY DC HOME TODAY CASE MANAGEMENT FOLLOWING
--- NOTE | 2023-03-08 11:42 | P.DS_ITS ---
DS: Providers Provider Date of Service: 03/08/23 Date of admission: 03/05/23 13:43 Primary care physician: Angelica Haynes MD Consults: 03/05/23 13:52 Consult to Infectious Diseases Routine Consulting Provider: [facility] Infectious Disease Reason for consultation: osteo left great toe Consult to Vascular Surgery Routine Consulting Provider: [facility] Vascular Services Reason for consultation: left great toe wound, osteo 03/05/23 18:32 Consult to Cardiology Routine Consulting Provider: [facility] Cardiovascular Services Reason for consultation: afib rvr DS: Diagnosis Discharge Diagnosis (1) Non-rheumatic aortic stenosis: Status: Acute (2) Chronic atrial fibrillation: Status: Acute (3) PAD (peripheral artery disease): Status: Acute (4) Osteomyelitis: Status: Acute DS: Summary Hospital Course Hospital Course: Date of Service: 03/05/23 Attending physician on admission: Perfecto Liz Chief Complaint: toe infection 87-year-old male with history of hypertension, atrial fibrillation (per [facility] records), diet controlled type 2 diabetes who lives alone presents to the ED earlier today for evaluation of the left great toe infection.? The patient was vacuuming his home about a month ago when he tripped on the cord and injured the left great toe.? Wound has been increasing in size and has foul odor but denies any drainage.? No fevers or chills.? He had MOBILE PRODUCT MANAGER from [facility] who visited his home this morning and evaluated the wound recommend he come in for further evaluation of osteomyelitis on x-ray that was taken this morning.? On arrival, tachycardic to 107, vitals otherwise stable.? No leukocytosis.? Renal function normal, electrolyte levels normal.? Hemoglobin A1c 4.9%, no known history of diabetes.? CRP 1.01, ESR 6.? Left foot x-ray showing cortical irregularity along the medial aspect of the 1st distal phalangeal base with mild adjacent soft tissue swelling and adjacent soft tissue infection indicating possible early osteomyelitis.? In the ED, has received IV vancomycin and Zosyn.? He is a nonsmoker but does drink 1-2 glasses of wine on a daily basis.? No illicit drug use. hospital course: 87-year-old male with history of hypertension admitted for nonhealing stage 2 ulcer left great toe with cellululitis and osteomyelitis #nonhealing ulcer left great toe with cellulitis and possible acute osteomyelitis not related to diabetes, patient admitted to medical floor,Xray left foot ?early osteo and soft tissue infection. CRP 1.0., ESR 6, no sepsis Not diabetic A1c 4.9%, treated with IV vanco and cefepime , BC x2 neg,seen by ID she recommend doxycycline 100 mg twice daily for 2 months to suppress osteomyelitis , patient will be followed closely by vascular surgery Dr. Oliva if no improvement can undergo imaging study including MRI, patient Underwent successful left peroneal plasty by Dr. Oliva he recommend aspirin and Plavix for 6 months, no debridement recommended for ulcer recommend to keep left toe dry and clean. #Atrial fibrillation, unspecified chronicity/frequency Not on anticoagulation,he was prescribed but he did not take, out of concern for bleeding risk, EKG showed atrial fibrillation continue metoprolol echocardiogram showed severe aortic stenosis seen by Cardiology they recommended close outpatient Cardiology follow-up. #Diet-controlled type 2 diabetes hemoglobin A1c 4.9, stable blood sugars #HTN- bp reasonably controlled,continue metoprolol and lisinopril. Time Spent with Patient Time attestation: Total time managing care of this patient today ____ minutes. Discharge coordination time: Greater than 30 minutes Quality: Safe Use of Opioids Does Pt have an Active Cancer Diagnosis on the Problem List?: No Quality: Stroke Does the patient have a stroke diagnosis?: No Physical Exam Vital Signs: Vital Signs: Last Vital Signs Temp 97.8 F 03/08/23 08:44 Pulse 86 03/08/23 08:44 Resp 16 03/08/23 08:44 BP 143/77 H 03/08/23 07:51 Pulse Ox 98 03/08/23 08:44 O2 Del Method Room Air 03/08/23 08:44 BMI result Body Mass Index 19.4 Const: Other: General? resting c omfortably in no a cute distress.? Ne ck supple no JVD. CVS? regular rate rhythm, Respirator y lungs clear to a uscultation, no re spiratory distress , no wheeze, no rh onchi. Gastrointes tinal abdomen soft , nontender, bowel sounds audible,? no guarding , no r igidity. Extremiti es? left lower ext remity, ulcer plan tar surface great toe with black esc maddie no drainage, n o foul odor, anoth er small open ulce r base of 1st meta tarsal , no draina ge, no redness sreedhar sum of foot . Neur o nonfocal , movin g all 4 extremity, speech clear. Ski n no rash psych ap propriate affect DS: Data Data Completed and Pending Labs on day of discharge: Laboratory Results - last 24 hr 03/07/23 03/07/23 03/08/23 12:46 13:16 05:18 Creatinine 1.09 Estim Creat Clear Calc 42.1 Estimated GFR > 60 POC Glucose 102 Random Vancomycin 13.1 L Preliminary micro results at discharge 03/05/23 11:26 Blood Culture - Preliminary Blood - Venous No growth after 48 hours. 03/05/23 11:26 Blood Culture - Preliminary Blood - Venous No growth after 48 hours. Discharge Plan Discharge Anticipated Discharge Date/Time: 03/08/23 11:23 Patient Disposition: Home Health Service Discharge Diagnosis: acute left toe osteomyelitis peripheral arterial disease Referrals: Angelica Haynes MD [Primary Care Provider] - 1 Week Discharge Medications: New clopidogrel 75 mg Tablet 75 mg PO DAILY Qty: 30 0RF aspirin 81 mg Tablet,Chewable 81 mg PO DAILY Qty: 30 0RF doxycycline monohydrate 100 mg Capsule 100 mg PO Q12H Qty: 120 0RF Continued lisinopril 10 mg tablet 10 mg PO DAILY metoprolol tartrate 25 mg tablet 25 mg PO BID Discharge Orders: Discharge Order (Routine); Ordered 03/08/23 Ordered By: Brigette Sheikh Diet: Advance to usual diet Activity on Discharge: As tolerated Stand Alone Forms: Patient Portal Discharge page Care Plan Goals: left toe osteomyelitis take doxycycline 1 tablet twice a day for total 2 months, with close follow-up with Dr. Oliva from vascular surgery and primary care physician. take Plavix and aspirin for total 6 months keep left toe dry and clean Health Concerns: Hypertensin/atrial fibrillation Plan of Treatment: outpatient follow-up with Dr. Oliva from vascular surgery in 2 weeks, follow-up with primary care physician call for appointment outpatient follow-up with dry cell assembly supervisor Dr. Rodrigues For severe aortic stenosis. Assessment: as above
[2023-03-08 11:46] VITALS: BP 104/70; PULSE 89; RESP 17; TEMP 36.4; O2SAT 98
[2023-03-08] MEDS: Doxycycline Monohydrate 100 MG CAPSULE PO ×2 (11:56→22:57)
--- NOTE | 2023-03-08 12:36 | P.F2F_ITS ---
Service Date Service Date: 03/08/23 Encounter Date of encounter: 03/08/23 Reasons for Services Signs and symptoms assessed: left great toe ulcer Reason for penitentiary: postoperative assessment and/or care and medication management Homebound: Leaving the home is medically contraindicated at this time without the asist of a device and/or another person due th the listed conditions above and below. Reason homebound: weakness related to hospital stay Certification: Based on the above findings, I certify that this patient is confined to the home and needs intermittent penitentiary care, physical therapy and/or speech therapy, or continues to need occupational therapy. The patient is under my care, and I have initiated the establishment of the plan of care. The patient will be followed by a physician who will periodically review the plan of care. Time Spent With Patient Time: Total time managing care of this patient today ____ minutes.
--- NOTE | 2023-03-08 12:40 | MHC.CM.PN ---
PATIENT IS DC WITH [facility] FRIEND, ROSALBA, IS ON HIS WAY IN TO [employer]. RN AWARE OF PLAN. IMM 03/06 PREVIOUSLY COMPLETED.
--- NOTE | 2023-03-08 15:26 | MHC.CM.PN ---
CALL FROM CHINYERE, PATIENT'S LANDMARK PIPE TESTING TECHNICIAN, WHO IS NOW UPDATED WITH PLAN OF CARE CHINYERE ASKED IF THERE WAS A ACTUARIAL ASSOCIATE WHO WOULD HELP HIM BECAUSE OF CONDITION OF HIS HOME CHINYERE NOW INFORMED THAT THIS NEWS WAS NOT GIVEN TO THIS CONVEYOR TECHNICIAN AND PATIENT IS DC. CHINYERE AGREES THAT SHE WILL FOLLOW UP WITH THIS IN THE COMMUNITY.
--- NOTE | 2023-03-08 15:43 | MHC.CM.PN ---
MESSAGE LEFT FOR ROSALBA ([phone]) REQUEST FOR A CALL BACK TO LET PATIENT KNOW WHEN TRANSPORT HOME IS EXPECTED TO ARRIVE. CALL BACK NUMBER FOR THIS OPTICS MANUFACTURING TECHNICIAN LEFT ON [employer], WELL THE ABILITY TO CALL BACK THE PATIENT'S ROOM. PATIENT DOES NOT HAVE THE KEYS TO HIS HOME SO NO TRANSPORT CAN BE ARRANGED
[2023-03-08 19:12] VITALS: BP 134/84; PULSE 82; RESP 18; TEMP 36.6; O2SAT 99
[2023-03-09] MEDS: Heparin Sodium,Porcine 5,000 UNIT/ML VIAL 5000 UNIT SUBCUT (02:22)
[2023-03-09 03:32] VITALS: BP 129/73; PULSE 71; RESP 18; TEMP 36.2; O2SAT 94
[2023-03-09 07:36] VITALS: BP 130/70; PULSE 89; RESP 16; TEMP 36.6; O2SAT 96
[2023-03-09 08:37] VITALS: BP 132/70; PULSE 90; RESP 16; TEMP 36.6; O2SAT 96
--- NOTE | 2023-03-09 08:49 | MHC.CM.PN ---
pt dcd home with santosh cottrell which notified of dc
[2023-03-09] MEDS: lisinopriL 10 MG TABLET PO (09:18)
[2023-03-09] MEDS: Metoprolol Tartrate 25 MG TABLET PO (09:18)
[2023-03-09] MEDS: Clopidogrel Bisulfate 75 MG TABLET PO (09:18)
[2023-03-09] MEDS: Aspirin 81 MG TAB.CHEW PO (09:18)
--- NOTE | 2023-03-09 11:03 | HO.VASCPN ---
Subjective Subjective Date of Service: 03/09/23 Patient reports: no new complaints and feels better Interval history: Patient seen and examined. No significant events overnight. He was supposed to be discharged yesterday but had transportation issues. He is now for routine postprocedure check. Doing well status post endovascular intervention. He reports that his left great toe feel significantly better. Physical Exam Vital Signs: Vital Signs: Last Vital Signs Temp 97.9 F 03/09/23 08:37 Pulse 90 03/09/23 08:37 Resp 16 03/09/23 08:37 BP 132/70 03/09/23 08:37 Pulse Ox 96 03/09/23 08:37 O2 Del Method Room Air 03/09/23 08:37 BMI result Body Mass Index 19.4 Const: General: cooperative, healthy appearing and comfortable Orientation/consciousness: oriented to person, oriented to place and oriented to time HEENT: Head: Yes normal to inspection Neck: Neck: Yes normal visual inspection Carotids: no bruits Chest: Chest palpation & inspection: normal inspection of the chest Resp: Effort & Inspection: normal respiratory effort and able to speak in complete sentences Auscultation: clear to auscultation bilaterally, no crackles, no rales, no rhonchi and no wheezes Cardio: Other: Bilateral DP signals Rate: regular rate Rhythm: regular rhythm Heart sounds: S1 normal heart sound present and S2 normal heart sound present Bruits: no carotid bruits GI: Inspection: Yes normal to inspection Skin: Other: Left great toe plantar surface ulcer approximately 2 cm in diameter dry Wounds: no wounds Hair: normal Neuro: General: oriented to person, oriented to place and oriented to time Cranial nerves: Yes CN's II-XII intact bilaterally and Yes Normal hearing present Cognition (Neuro): normal cognition Motor exam (neuro): 5/5 motor strength present throughout Extrem: Other: venous exam: No significant superficial varicosities or spider telangiectasias, minimal edema General: No clubbing, No cyanosis and No edema Psych: Appearance: grossly normal Mental Status: mental status grossly normal Speech and movement: Normal speech and movement present Progress Note: A&P Assessment and plan (1) PAD (peripheral artery disease): Status: Acute Plan In short doing well status post endovascular intervention. He does have this continued left great toe ulcer. Will continue manage conservatively. Once discharge he can see me as an outpatient in 2 weeks time. Thank you for allowing us to assist in his care. If there are any questions or concerns please do not hesitate to contact us. Time Spent With Patient Time: Total time managing care of this patient today ____ minutes. Procedures Date of Service Date of Service: 03/09/23 Quality Stroke Does the patient have a stroke diagnosis?: No VTE Prior VTE?: No VTE Risk Level:: Medical - moderate - high VTE Device Contraindication: Treatment Not Indicated VTE Drug Contraindication: N/A - Med Ordered
== END 2023-03-09 11:34 | disposition home health service (06) | DRG 253 ==
LOC: HO.ED 12:34 → HO.EDOVER 14:01 → HO.S3 17:19
PROVIDERS: Hospitalist; Physician Assistant; Physician Assistant Medical; Surgery Vascular Surgery; Admitting Provider Physician Assistant; Emergency Provider Emergency Medicine; PCP Internal Medicine; Visit Provider Family Medicine
PROC: 047U3Z1 Dilation of Left Peroneal Artery using Drug-Coated Balloon, Percutaneous Approach (ICD-10-PCS; principal; 2023-03-07 07:30)
DX: E11.51 Type 2 diabetes mellitus with diabetic peripheral angiopathy without gangrene (principal); I48.20 Chronic atrial fibrillation, unspecified; M86.142 Other acute osteomyelitis, left hand; I70.245 Atherosclerosis of native arteries of left leg with ulceration of other part of foot; I71.40 Abdominal aortic aneurysm, without rupture, unspecified; L03.032 Cellulitis of left toe; I35.0 Nonrheumatic aortic (valve) stenosis; L97.529 Non-pressure chronic ulcer of other part of left foot with unspecified severity; E11.621 Type 2 diabetes mellitus with foot ulcer; Z79.899 Other long term (current) drug therapy
CPT/HCPCS: 36415; 37228; 73620; 76937; 80048; 80053; 80202; 82565; 82947; 83036; 83735; 85025; 85610; 85652; 85730; 86140; 87040; 93005; 93306; 93926; 99153; 99285; C1725; C1751; C1760; C1769; C1887; C1894; J0692; J1643; J2543; J3370; J3371; Q9957

== ENCOUNTER 2023-03-11 18:58 | Inpatient (IN) | payer MEDICARE, SELFPAY ==
[2023-03-11] VITALS (14 sets, daily range): BP systolic 78–149; BP diastolic 36–76; PULSE 74–104; RESP 15–16; TEMP 32.6–34.8; O2SAT 97–100; BMI 20.5
--- NOTE | ~2023-03-11 | XR_ITS ---
EXAMINATION: XR CHEST CLINICAL INFORMATION: TLC placement. COMPARISON: CT chest 03/11/2023 TECHNIQUE: Frontal view of the chest was obtained. FINDINGS: The lungs are well expanded without acute consolidation. There is mild increased bilateral pulmonary vascular markings, mild congestion as suspected. There is a right central venous catheter with its tip overlying the atriocaval junction or in the right atrium. No gross bony abnormality. XR/XR chest 1V IMPRESSION: Increased bilateral pulmonary vascularity question mild congestion. Right central venous catheter tip overlies atriocaval junction.
--- NOTE | ~2023-03-11 | FL_ITS ---
PROCEDURE: MODIFIED BARIUM SWALLOW CLINICAL INFORMATION: Dysphagia. COMPARISON: None available. TECHNIQUE: Modified barium swallow was performed in presence of speech therapist with patient under lateral fluoroscopy. FINDINGS: Following oral administration of thin barium, honey consistency barium and barium-coated puree there is normal propagation of bolus from the oral cavity through the pharynx and esophagus. Martin laryngeal penetration and aspiration seen. There is moderate retention of barium food in the valleculae and more so in the piriform sinuses. FLUOROSCOPY TIME: 2.4 minutes Dose area product: 2.833 uGy-m2 (microgray-meter squared) FL/FL barium swallow modified IMPRESSION: Martin laryngeal penetration and aspiration with thin barium, honey consistency and puree coated with barium. There is moderate to severe retention of barium-coated food in the piriform sinuses and valleculae.
--- NOTE | ~2023-03-11 | CT_ITS ---
EXAMINATION: CT HEAD WITHOUT CONTRAST CT CERVICAL SPINE WITHOUT CONTRAST CLINICAL INFORMATION: Status post fall. Head strike. Neck trauma COMPARISON: None TECHNIQUE: Contiguous axial images are obtained from the skull base to the vertex without intravenous contrast administration. Multidetector volumetric CT imaging of the cervical spine is acquired without intravenous contrast administration. Postprocessing is performed at a dedicated workstation. Multiplanar reformatted images are submitted. This CT scan was performed using dose optimization techniques as appropriate to a performed exam including the following: *Automated exposure control *Adjustment of mA and/or kV according to patient size (this includes techniques or standardized protocols for targeted exams were dose is matched to indication/reason for exam; i.e. extremities or head) *Use of iterative reconstruction technique. DLP: 1127 mGy-cm. FINDINGS: CT HEAD: Moderate to severe global volume loss with proportionate dilatation of the ventricles and cortical sulci. There is no evidence of acute intracranial hemorrhage, midline shift or mass effect. Mancuso to white matter differentiation is well preserved. No evidence of acute territorial infarction. Mild bilateral periventricular white matter low-attenuation changes are noted, likely of chronic microangiopathy. No abnormal extra-axial fluid collection. No evidence of acute fracture of the osseous calvarium. Bilateral mastoid air cells and middle ear cavities are well-aerated. Scattered opacification of the ethmoid air cells. Mild mucosal opacity in the left-sided maxillary sinus. Postsurgical changes are noted at the bilateral maxillary sinuses. Subgaleal hematoma is noted over the right parietal calvarium. CT CERVICAL SPINE: Vertebral body heights and alignment are maintained. Atlantoaxial and atlantooccipital alignments are maintained. Moderate to severe disc space narrowing is noted at C6-C7 with marginal endplate osteophytes and bilateral moderate to severe bilateral foraminal stenosis. Posterior elements are intact and in normal alignment. Facet arthropathy is noted at multiple levels. No evidence of prevertebral soft tissue swelling. Visualized lung apices are unremarkable. CT/CT cervical spine wo IV con IMPRESSION: 1. No evidence of acute intracranial hemorrhage or acute fracture of the osseous calvarium. Right parietal subgaleal hematoma. 2. No evidence of acute fracture or traumatic subluxation in the cervical spine. Cervical spondylosis.
--- NOTE | ~2023-03-11 | CT_ITS ---
EXAMINATION: CT CHEST, ABDOMEN AND PELVIS WITHOUT CONTRAST CLINICAL INFORMATION: Status post fall. Chest and abdominal trauma.. COMPARISON: No pertinent prior studies are available for comparison. TECHNIQUE: Multidetector volumetric imaging was performed from the thoracic inlet through the pubic symphysis following the administration of: Oral contrast: No Intravenous contrast: No No contrast reaction reported Sagittal and coronal reformatted images were obtained on the technologist workstation. In addition, thin section, high resolution reconstruction, targeted reformatted images through the thoracic and lumbar spine were obtained with coronal and sagittal high resolution reformatted images as well. Total exam dose-length product: 1127 mGy-cm FINDINGS: CHEST: VASCULAR: An ascending aorta measures 4.2 cm in AP diameter. Coronary calcifications. AORTIC ISTHMUS: Normal. MEDIASTINUM: No mediastinal fluid or hematoma. No hilar or mediastinal lymphadenopathy. Moderate to severe cardiomegaly. Trachea and central bronchi are well patent. Esophagus is mildly dilated and fluid-filled. LUNG: Multiple respiratory motion artifacts are present limiting the evaluation however no significant pulmonary nodule is noted. A few scattered small calcified nodules are seen. PLEURA: No pleural effusion. No pneumothorax. No pleural mass or thickening. CHEST WALL/AXILLA: No evidence of axillary adenopathy. Chest wall soft tissues are unremarkable. ABDOMEN/PELVIS: LIVER : The liver is normal in size, shape, and attenuation. No focal hepatic lesion or biliary ductal dilatation is present. GALLBLADDER, AND BILIARY TREE : The gallbladder is filled with multiple small calculi. No evidence of gallbladder wall thickening or pericholecystic inflammatory changes. No biliary ductal dilatation. No filling defect is noted in the common bile duct. PANCREAS: Normal; no mass or surrounding fluid. SPLEEN: Normal size. No focal lesion. ADRENAL GLANDS: Normal; no mass. KIDNEYS AND URETERS: The kidneys are normal in size, shape, and attenuation. No hydronephrosis, hydroureter, or calculi. URINARY BLADDER: Air and rodriguez catheter in the urinary bladder which is decompressed. GASTROINTESTINAL TRACT: The stomach is partially distended and grossly unremarkable. No abnormal small bowel dilatation. The colon is normal in caliber. No evidence of colonic wall thickening or pericolonic fat stranding. Rectal catheter is in place. Colonic diverticulosis. An appendix is normal. PERITONEAL CAVITY: No evidence of free intraperitoneal air or fluid. VASCULAR STRUCTURES: Aortoiliac vessels are normal in caliber. Significant calcific atherosclerosis of the aortoiliac vessels. LYMPH NODES: No evidence of pathologically enlarged lymph nodes. PELVIC VISCERA: Prostatomegaly. Seminal vesicles are normal. FREE FLUID: None. ABDOMINAL WALL: Subcutaneous edema and fluid are noted in the posterior abdominal and pelvic wall. THORACIC AND LUMBAR SPINE: No acute fracture or malalignment in the thoracolumbar spine. Normal sagittal alignment of the thoracic and lumbar spine. Vertebral body heights are normal. Posterior elements are intact. Mild narrowing of the intervertebral disc spaces at multiple levels. Mild thoracolumbar spondylosis. OTHER OSSEOUS STRUCTURES: The imaged portions of the clavicles, scapulae, and proximal humeri are intact. No displaced rib fracture is identified. Sternum is intact. No sacral or pelvic fracture, The hips are intact. CT/CT abdomen pelvis wo IV con IMPRESSION: No acute traumatic injuries are identified in the chest, abdomen, and pelvis. No fracture or malalignment in the thoracolumbar spine. Cholelithiasis without evidence of acute cholecystitis. Dilated fluid-filled esophagus poses patient at risk for aspiration. Posterior abdominal and pelvic wall subcutaneous soft tissue edema and fluid.
--- NOTE | 2023-03-11 19:01 | ECG_ITS ---
Test Reason : FALL Blood Pressure : / mmHG Vent. 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
--- NOTE | 2023-03-11 19:06 | ED.GENADULT ---
HPI - General Adult General Chief complaint: Fall Stated complaint: on the floor x3days Time Seen by Provider: 03/11/23 18:58 Source: patient and EMS Mode of arrival: EMS Limitations: no limitations History of Present Illness HPI narrative: This is a 87-year-old male history of chronic atrial fibrillation on aspirin and clopidogrel, peripheral artery disease, nonrheumatic aortic stenosis, osteomyelitis of left great toe, ascending aortic aneurysm, hypertension and glaucoma presenting to the emergency department status post fall with head strike unclear if there was loss of consciousness or not. According to EMS patient was found on the ground in his home they think he was down for 3 days, patient tells me when he went to turn off the lights he fell he is unsure how long he has been on the ground or. He is alert and oriented x4 and is not reporting any pain at this time. There is bruises noted throughout patient's skin which he tells me are new. He was recently discharged from our facility on Sunday. Denies chest pain, shortness of breath, nausea, vomiting, abdominal pain, headache, vision changes, dizziness and weakness. Related Data Home Medications Medication Instructions Recorded Confirmed lisinopril 10 mg tablet 10 mg PO DAILY 03/05/23 03/05/23 metoprolol tartrate 25 mg tablet 25 mg PO BID 03/05/23 03/05/23 Previous Rx's Medication Instructions Recorded aspirin 81 mg chewable tablet 81 mg PO DAILY #30 tabs 03/08/23 clopidogrel 75 mg tablet 75 mg PO DAILY #30 tabs 03/08/23 doxycycline monohydrate 100 mg 100 mg PO Q12H #120 caps 03/08/23 capsule Allergies Allergy/AdvReac Type Severity Reaction Status Date / Time No Known Allergies Allergy Verified 03/05/23 10:39 Review of Systems Review of Systems: Constitutional : No Weight loss, No Fever, No Chills, No Fatigue, No Malaise ENT/Mouth : No sore throat, No Rhinorrhea Eyes: No Eye Pain, No Swelling, No Redness Cardiovascular : No Chest Pain, No SOB, No Dyspnea on Exertion, No Orthopnea, No Edema, No Palpitations Respiratory : No Cough, No Sputum, No Wheezing Gastrointestinal : No Nausea, No Vomiting, No Diarrhea, No Constipation, No abdominal Pain, No Hematochezia, No Melena Genitourinary : No Dysuria, No Urinary Frequency, No Hematuria, Musculoskeletal : No joint pain, No Myalgias, No Joint Swelling Skin : No Skin Lesions, No rash Neuro : + Weakness, No Numbness, No Dizziness, No Headache Psych : No Anxiety/Panic, No Depression Heme/Lymph: + Bruising, No Bleeding,No Lymphadenopathy Endocrine : No Polyuria, No Polydipsia All other systems reviewed and are negative Yes all other systems are reviewed and are negative [facility] Past Medical History Attestation statement: The following information was validated with the patient. Source: old records reviewed and nursing notes reviewed Medical History A-fib Diabetes mellitus, type 2 HTN (hypertension) Non-rheumatic aortic stenosis Social History Social History Household Members: None Housing: House Do you presently have visiting nurse or other home services: Yes (pt states VNA visit 2x a year) Alcohol intake: current Alcohol intake frequency: 0-2 drinks per day Patient Tobacco Use Status: Never used Tobacco Advance Directives: No Advance Directives Information Provided: No service: No Current occupational status: retired Physical Exam ED Vital Signs: Vital Signs - 24 hr 03/11/23 19:08 03/11/23 20:07 03/11/23 19:24 Temperature 90.6 F L 92.5 F L Pulse Rate 98 81 92 Respiratory Rate 16 16 16 Blood Pressure 149/76 H 117/36 L 103/48 L Pulse Oximetry Oxygen Delivery Method Room Air Nasal Cannula Nasal Cannula Oxygen Flow Rate 2 2 03/11/23 19:54 03/11/23 20:13 03/11/23 20:15 Temperature 92.5 F L 92.5 F L Pulse Rate 89 91 93 Respiratory Rate 16 16 16 Blood Pressure 93/61 90/54 L 96/55 L Pulse Oximetry Oxygen Delivery Method Nasal Cannula Nasal Cannula Nasal Cannula Oxygen Flow Rate 2 2 2 03/11/23 20:16 03/11/23 20:45 03/11/23 21:21 Temperature 92.5 F L 92.7 F L 92.5 F L Pulse Rate 86 104 H 98 Respiratory Rate 15 16 Blood Pressure 99/50 L 130/70 115/46 L Pulse Oximetry 100 Oxygen Delivery Method Nasal Cannula Nasal Cannula Nasal Cannula Oxygen Flow Rate 2 2 2 03/11/23 20:54 03/11/23 21:25 03/11/23 21:47 Temperature 92.5 F L 92.5 F L 92.8 F L Pulse Rate 89 100 99 Respiratory Rate 16 16 16 Blood Pressure 107/49 L 93/55 L 89/45 L Pulse Oximetry 100 97 97 Oxygen Delivery Method Nasal Cannula Nasal Cannula Nasal Cannula Oxygen Flow Rate 2 2 2 03/11/23 23:01 Temperature 94.6 F L Pulse Rate 103 H Respiratory Rate 16 Blood Pressure 91/44 L Pulse Oximetry 98 Oxygen Delivery Method Nasal Cannula Oxygen Flow Rate 2 BMI result Body Mass Index 20.5 Patient hypothermic, hypotensive for EMS. Hypothermic here. Appearance: Alert.? Oriented X3.? No acute distress.? Head: Normocephalic, atraumatic, no step-offs or deformities + large healing laceration to the occiput put of head Eyes: Pupils equal, round and reactive to light.? ENT: Pharynx normal.? Neck: Normal inspection.? Neck supple.? CVS: Irregularly irregular rhythm likely atrial fibrillation. There also is a murmur appreciated question aortic stenosis. Pulses irregular.? Respiratory: No respiratory distress.? Breath sounds normal.? Abdomen: Soft and nontender.? Skin: Skin warm and dry.? Normal skin color.? Normal skin turgor.?+ ecchymosis to upper and lower extremities. Extremities: No lower extremity edema.? No calf ttp. Global weakness. Back: No midline tenderness, no C-spine tenderness, full range of motion, no CVA tenderness bilaterally Neuro: Oriented X 3.? No motor deficit.? No sensory deficit. CN 2-12 intact Course Reevaluation(s) Reevaluation #1: Patient hypotensive, hypothermic, placed on the Emmanuel Hugger. Blood cultures, lactic acid fluids and antibiotics ordered as infection is suspected. Sepsis protocol being followed. Time: 19:17 Reevaluation #2: Patient's CBC with elevated white blood cell count 23.5 and a normocytic anemia which appears to be around patient's baseline he is noted to have a left shift concerning for infection patient is being covered with broad-spectrum antibiotics and is receiving fluids. Chemistry with elevated sodium, and anion gap of 27, acute kidney injury BUN 38, creatinine 3.12 lactic acidosis of 3.1. Patient does have elevated creatinine kinase 2733. Elevated troponin 575, no chest pain, nonischemic EKG I suspect elevated troponin likely secondary to acute rhabdomyolysis/SUZANNE unlikely from ACS. BNP noted to be 441. Lipase was also noted to be elevated 139, will obtain CT of the abdomen and pelvis to see if there is any signs of pancreatitis at this time although I do not suspect pancreatitis as he is nontender to palpation of abdomen. Salicylates, acetaminophen and ethanol negative. COVID negative. Coags unremarkable Time: 20:15 Reevaluation #3: To note, patient noted to have an SUZANNE, unable to receive IV contrast will obtain scans without IV contrast. His 2nd troponin was lower than the initial, likely secondary to rhabdo/SUZANNE. Unlikely ACS. No ischemic changes. Patient does not have chest pain or shortness of breath. Time: 20:16 Additional Reevaluation(s): 2311-CT of head with no a intracranial hemorrhage noted, there is right parietal subgaleal hematoma noted consistent with patient's physical exam. No evidence of acute fracture or traumatic subluxation the in the cervical spine. No acute traumatic injuries in the chest, abdomen and pelvis. Dilated fluid-filled esophagus poses patient at risk for aspiration. Posterior abdominal and pelvic wall subcutaneous soft tissue edema and fluid. Likely secondary to fall. Dr. Toro recommends adding metronidazole and vancomycin. Will be admitted to the ICU. Medications Administered Generic Name Dose Route Start Last Admin Trade Name Freq PRN Reason Stop Dose Admin Vancomycin HCl 1,500 mg/ 500 mls @ 333.333 mls/hr 03/11/23 23:11 03/11/23 23:41 Sodium Chloride IV 03/12/23 00:40 333.33 mls/hr ONCE ONE Administration Metronidazole 500 mg in 100 mls @ 100 mls/hr 03/11/23 23:11 03/11/23 23:24 Flagyl IV 03/12/23 00:10 100 mls/hr ONCE ONE Administration Discontinued Medications Generic Name Dose Route Start Last Admin Trade Name Freq PRN Reason Stop Dose Admin Ceftriaxone Sodium 1 gm/ 50 mls @ 100 mls/hr 03/11/23 19:17 03/11/23 21:15 Sodium Chloride IV 03/11/23 19:46 Infused ONCE ONE Infusion Sodium Chloride 1,893 mls @ 1,893 mls/hr 03/11/23 19:17 03/11/23 22:04 Ns 30 ml/kg infuse over 1 hr (1893 ml) 03/11/23 20:16 Infused IV Infusion .Q1H STA Medical Decision Making Medical Decision Making [facility] Narrative: 1906 87-year-old male presents to the emergency department status post unwitnessed fall, patient was on the ground for what is thought to be around 3 days Physical exam with ecchymosis upper and lower extremities and a healing laceration to the back of head. Global weakness. Irregularly irregular rhythm likely atrial fibrillation. There also is a murmur appreciated question aortic stenosis. Lungs clear. Abdomen soft nontender nondistended. Concerns for possible rhabdomyolysis, electrolyte abnormalities, UTI, infection. Will rule out traumatic injuries to head, neck, chest, abdomen and pelvis. Plan labs, imaging, urine. Differential Diagnosis Differential Diagnoses: The differential diagnosis associated with the presentation includes Concerns for possible rhabdomyolysis, electrolyte abnormalities, UTI, infection. Will rule out traumatic injuries to head, neck, chest, abdomen and pelvis. Admission/Observation Consideration of admission/observation: Escalation of care including admission/observation considered Lab Data [facility] Lab Attestation statement: I reviewed the patient's lab results. 03/11/23 19:34 03/11/23 19:34 Labs: Lab Results 03/11/23 03/11/23 03/11/23 Range/Units 19:31 19:31 19:34 WBC 23.5 H (4.8-10.8) X10*3/uL RBC 4.45 L (4.60-5.80) X10*6/uL Hgb 13.4 L (14.0-18.0) g/dl Hct 40.6 L (42.0-52.0) % MCV 91.2 (80.0-98.0) fL MCH 30.1 (27.0-33.0) pg MCHC 33.0 (31.0-36.0) g/dl RDW 14.5 (11.0-16.0) % Plt Count 210 (160-400) X10*3/uL MPV 9.8 (9.4-12.4) fL Immature Gran % (Auto) 0.8 H (0.0-0.4) % Neut % (Auto) 86.6 H (45-73) % Lymph % (Auto) 3.2 L (20-40) % Gilliam % (Auto) 9.3 (2-11) % Eos % (Auto) 0.0 (0-4) % Baso % (Auto) 0.1 (0-2) % Lymph # (Auto) 0.8 L (1.2-4.9) X10*3/uL Gilliam # (Auto) 2.2 H (0.1-1.2) X10*3/uL Eos # (Auto) 0.0 (0.0-0.4) X10*3/uL Baso # (Auto) 0.0 (0.0-0.2) X10*3/uL Abs Immat Gran (auto) 0.19 H (0.00-0.03) X10*3/uL Absolute Neuts (auto) 20.4 H (2.0-8.3) x10*3/uL Absolute Nucleated RBC 0.000 (0.0-0.012) X10*3/uL Nucleated RBC % (auto) 0.0 (0.0-0.2) /100WBC Smear Tech's Comments VERIFIED PT (10.0-13.1) SEC INR (0.9-1.1) Sodium (135-145) mmol/L Potassium (3.3-5.1) mmol/L Chloride (96-108) mmol/L Carbon Dioxide (22-29) mmol/L Anion Gap (12-20) BUN (9-16) mg/dL Creatinine (0.5-1.4) mg/dL Estim Creat Clear Calc Estimated GFR Random Glucose (60-115) mg/dL Lactic Acid 3.1 H* (0.5-2.0) mmol/L Lactic Acid F/U @ 2Hr (0.5-2.0) mmol/L Calcium (8.4-10.2) mg/dL Magnesium (1.6-2.6) mg/dL Total Bilirubin (0.0-1.0) mg/dL AST (5-37) U/L ALT (0-40) U/L Alkaline Phosphatase (39-117) U/L Total Creatine Kinase (38-174) U/L Troponin I High Sens (<3.5-35.0) ng/L B-Natriuretic Peptide (<100) pg/mL Total Protein (6.5-8.0) g/dL Albumin (3.5-5.0) g/dL Lipase (8-78) U/L Urine Color Urine Appearance Urine pH (5.0-9.0) Ur Specific Inez (1.005-1.025) Urine Protein (Neg-Trace) mg/dL Urine Glucose (UA) (Negative) mg/dL Urine Ketones (Negative) mg/dL Urine Blood (Negative) Urine Nitrite (Negative) Ur Leukocyte Esterase (Negative) Urine RBC (0-2) /HPF Urine WBC (0-5) /HPF Ur Squamous Epith Cells (0-2) /HPF Urine Bacteria (None Seen) Hyaline Casts (0-2) /LPF Salicylates (15-30) mg/dL Acetaminophen (<30) mcg/mL Ethyl Alcohol mg/dL COVID-19 (MARIAN) Negative (Negative) COVID-19 Clin Com See Note 03/11/23 03/11/23 03/11/23 Range/Units 19:34 19:34 19:34 WBC (4.8-10.8) X10*3/uL RBC (4.60-5.80) X10*6/uL Hgb (14.0-18.0) g/dl Hct (42.0-52.0) % MCV (80.0-98.0) fL MCH (27.0-33.0) pg MCHC (31.0-36.0) g/dl RDW (11.0-16.0) % Plt Count (160-400) X10*3/uL MPV (9.4-12.4) fL Immature Gran % (Auto) (0.0-0.4) % Neut % (Auto) (45-73) % Lymph % (Auto) (20-40) % Gilliam % (Auto) (2-11) % Eos % (Auto) (0-4) % Baso % (Auto) (0-2) % Lymph # (Auto) (1.2-4.9) X10*3/uL Gilliam # (Auto) (0.1-1.2) X10*3/uL Eos # (Auto) (0.0-0.4) X10*3/uL Baso # (Auto) (0.0-0.2) X10*3/uL Abs Immat Gran (auto) (0.00-0.03) X10*3/uL Absolute Neuts (auto) (2.0-8.3) x10*3/uL Absolute Nucleated RBC (0.0-0.012) X10*3/uL Nucleated RBC % (auto) (0.0-0.2) /100WBC Smear Tech's Comments PT (10.0-13.1) SEC INR (0.9-1.1) Sodium 147 H (135-145) mmol/L Potassium 4.9 (3.3-5.1) mmol/L Chloride 114 H (96-108) mmol/L Carbon Dioxide 11 L (22-29) mmol/L Anion Gap 27 H (12-20) BUN 38 H (9-16) mg/dL Creatinine 3.12 H (0.5-1.4) mg/dL Estim Creat Clear Calc 15.1 Estimated GFR 19 Random Glucose 93 (60-115) mg/dL Lactic Acid (0.5-2.0) mmol/L Lactic Acid F/U @ 2Hr (0.5-2.0) mmol/L Calcium 8.8 (8.4-10.2) mg/dL Magnesium 1.9 (1.6-2.6) mg/dL Total Bilirubin 1.0 (0.0-1.0) mg/dL AST 129 H (5-37) U/L ALT 61 H (0-40) U/L Alkaline Phosphatase 117 (39-117) U/L Total Creatine Kinase 2733 H (38-174) U/L Troponin I High Sens 575.1 H* (<3.5-35.0) ng/L B-Natriuretic Peptide 441 H (<100) pg/mL Total Protein 5.5 L (6.5-8.0) g/dL Albumin 2.8 L (3.5-5.0) g/dL Lipase 139 H (8-78) U/L Urine Color Urine Appearance Urine pH (5.0-9.0) Ur Specific Inez (1.005-1.025) Urine Protein (Neg-Trace) mg/dL Urine Glucose (UA) (Negative) mg/dL Urine Ketones (Negative) mg/dL Urine Blood (Negative) Urine Nitrite (Negative) Ur Leukocyte Esterase (Negative) Urine RBC (0-2) /HPF Urine WBC (0-5) /HPF Ur Squamous Epith Cells (0-2) /HPF Urine Bacteria (None Seen) Hyaline Casts (0-2) /LPF Salicylates < 5.0 L (15-30) mg/dL Acetaminophen < 17 (<30) mcg/mL Ethyl Alcohol < 10 mg/dL COVID-19 (MARIAN) (Negative) COVID-19 Clin Com 03/11/23 03/11/23 03/11/23 Range/Units 19:34 20:15 20:54 WBC (4.8-10.8) X10*3/uL RBC (4.60-5.80) X10*6/uL Hgb (14.0-18.0) g/dl Hct (42.0-52.0) % MCV (80.0-98.0) fL MCH (27.0-33.0) pg MCHC (31.0-36.0) g/dl RDW (11.0-16.0) % Plt Count (160-400) X10*3/uL MPV (9.4-12.4) fL Immature Gran % (Auto) (0.0-0.4) % Neut % (Auto) (45-73) % Lymph % (Auto) (20-40) % Gilliam % (Auto) (2-11) % Eos % (Auto) (0-4) % Baso % (Auto) (0-2) % Lymph # (Auto) (1.2-4.9) X10*3/uL Gilliam # (Auto) (0.1-1.2) X10*3/uL Eos # (Auto) (0.0-0.4) X10*3/uL Baso # (Auto) (0.0-0.2) X10*3/uL Abs Immat Gran (auto) (0.00-0.03) X10*3/uL Absolute Neuts (auto) (2.0-8.3) x10*3/uL Absolute Nucleated RBC (0.0-0.012) X10*3/uL Nucleated RBC % (auto) (0.0-0.2) /100WBC Smear Tech's Comments PT 13.8 H (10.0-13.1) SEC INR 1.2 H (0.9-1.1) Sodium (135-145) mmol/L Potassium (3.3-5.1) mmol/L Chloride (96-108) mmol/L Carbon Dioxide (22-29) mmol/L Anion Gap (12-20) BUN (9-16) mg/dL Creatinine (0.5-1.4) mg/dL Estim Creat Clear Calc Estimated GFR Random Glucose (60-115) mg/dL Lactic Acid (0.5-2.0) mmol/L Lactic Acid F/U @ 2Hr (0.5-2.0) mmol/L Calcium (8.4-10.2) mg/dL Magnesium (1.6-2.6) mg/dL Total Bilirubin (0.0-1.0) mg/dL AST (5-37) U/L ALT (0-40) U/L Alkaline Phosphatase (39-117) U/L Total Creatine Kinase (38-174) U/L Troponin I High Sens 514.3 H* (<3.5-35.0) ng/L B-Natriuretic Peptide (<100) pg/mL Total Protein (6.5-8.0) g/dL Albumin (3.5-5.0) g/dL Lipase (8-78) U/L Urine Color Dark Yellow Urine Appearance Cloudy Urine pH 5.0 (5.0-9.0) Ur Specific Inez 1.020 (1.005-1.025) Urine Protein 300 (3+) H (Neg-Trace) mg/dL Urine Glucose (UA) Negative (Negative) mg/dL Urine Ketones Trace (Negative) mg/dL Urine Blood Large (3+) H (Negative) Urine Nitrite Negative (Negative) Ur Leukocyte Esterase Trace H (Negative) Urine RBC 11-20 H (0-2) /HPF Urine WBC 21-50 H (0-5) /HPF Ur Squamous Epith Cells 6-10 (0-2) /HPF Urine Bacteria None Seen (None Seen) Hyaline Casts 3-5 (0-2) /LPF Salicylates (15-30) mg/dL Acetaminophen (<30) mcg/mL Ethyl Alcohol mg/dL COVID-19 (MARIAN) (Negative) COVID-19 Clin Com 03/11/23 03/11/23 Range/Units 21:53 21:53 WBC (4.8-10.8) X10*3/uL RBC (4.60-5.80) X10*6/uL Hgb (14.0-18.0) g/dl Hct (42.0-52.0) % MCV (80.0-98.0) fL MCH (27.0-33.0) pg MCHC (31.0-36.0) g/dl RDW (11.0-16.0) % Plt Count (160-400) X10*3/uL MPV (9.4-12.4) fL Immature Gran % (Auto) (0.0-0.4) % Neut % (Auto) (45-73) % Lymph % (Auto) (20-40) % Gilliam % (Auto) (2-11) % Eos % (Auto) (0-4) % Baso % (Auto) (0-2) % Lymph # (Auto) (1.2-4.9) X10*3/uL Gilliam # (Auto) (0.1-1.2) X10*3/uL Eos # (Auto) (0.0-0.4) X10*3/uL Baso # (Auto) (0.0-0.2) X10*3/uL Abs Immat Gran (auto) (0.00-0.03) X10*3/uL Absolute Neuts (auto) (2.0-8.3) x10*3/uL Absolute Nucleated RBC (0.0-0.012) X10*3/uL Nucleated RBC % (auto) (0.0-0.2) /100WBC Smear Tech's Comments PT (10.0-13.1) SEC INR (0.9-1.1) Sodium 146 H (135-145) mmol/L Potassium 4.5 (3.3-5.1) mmol/L Chloride 118 H (96-108) mmol/L Carbon Dioxide 12 L (22-29) mmol/L Anion Gap 21 H (12-20) BUN 37 H (9-16) mg/dL Creatinine 2.81 H (0.5-1.4) mg/dL Estim Creat Clear Calc 16.8 Estimated GFR 22 Random Glucose 64 (60-115) mg/dL Lactic Acid (0.5-2.0) mmol/L Lactic Acid F/U @ 2Hr 1.4 (0.5-2.0) mmol/L Calcium 7.8 L D (8.4-10.2) mg/dL Magnesium (1.6-2.6) mg/dL Total Bilirubin 0.8 (0.0-1.0) mg/dL AST 122 H (5-37) U/L ALT 54 H (0-40) U/L Alkaline Phosphatase 93 (39-117) U/L Total Creatine Kinase (38-174) U/L Troponin I High Sens (<3.5-35.0) ng/L B-Natriuretic Peptide (<100) pg/mL Total Protein 4.5 L (6.5-8.0) g/dL Albumin 2.3 L (3.5-5.0) g/dL Lipase (8-78) U/L Urine Color Urine Appearance Urine pH (5.0-9.0) Ur Specific Inez (1.005-1.025) Urine Protein (Neg-Trace) mg/dL Urine Glucose (UA) (Negative) mg/dL Urine Ketones (Negative) mg/dL Urine Blood (Negative) Urine Nitrite (Negative) Ur Leukocyte Esterase (Negative) Urine RBC (0-2) /HPF Urine WBC (0-5) /HPF Ur Squamous Epith Cells (0-2) /HPF Urine Bacteria (None Seen) Hyaline Casts (0-2) /LPF Salicylates (15-30) mg/dL Acetaminophen (<30) mcg/mL Ethyl Alcohol mg/dL COVID-19 (MARIAN) (Negative) COVID-19 Clin Com Independent Interpretation I performed an independent interpretation of an: EKG (Ventricular rate of 98, MI berries, QRS normal, QT/QTC normal. AFib noted on EKG with left axis deviation and right bundle branch block, no ST elevations or inversions concerning for ischemia.) and CT Scan Radiology Impression Discussion of test interpretation with radiology: I have reviewed the radiologist's reading. Core Measures AMI core measures followed: Yes Measure exclusions: not indicated Critical Care Time Critical Care Time Critical Care Time: Yes Total Critical Care Time: 60 Attestation: I attest to this time spent taking care of the patient, obtaining history, physical, reviewing labs, imaging, speaking to my attending, speaking to specialist. Discharge Plan Discharge Clinical Impression: Sepsis, Rhabdomyolysis, SUZANNE (acute kidney injury), Hypotension, Hypothermia, Elevated troponin, Acidosis, lactic, Traumatic hematoma of head Patient Disposition: Admitted As Inpatient
[2023-03-11 19:43] LABS: Basophils Percent Auto 0.1 % (0-2); Hematocrit 40.6 % (42.0-52.0); Hemoglobin 13.4 g/dl (14.0-18.0); Imm Gran Abs Auto 0.19 X10*3/uL (0.00-0.03); Imm Gran Pct Auto 0.8 % (0.0-0.4); Lymphocytes Absolute Auto 0.8 X10*3/uL (1.2-4.9); Lymphocytes Percent Auto 3.2 % (20-40); MANUAL DIFF FLAG SCAN; Mean Corpuscular Hemoglobin 30.1 pg (27.0-33.0); Mean Corpuscular Volume 91.2 fL (80.0-98.0); Mean Platelet Volume 9.8 fL (9.4-12.4); Monocytes Absolute Auto 2.2 X10*3/uL (0.1-1.2); Monocytes Percent Auto 9.3 % (2-11); Neutrophils Absolute Auto 20.4 x10*3/uL (2.0-8.3); Neutrophils Percent Auto 86.6 % (45-73); Platelet Count 210 X10*3/uL (160-400); Red Blood Count 4.45 X10*6/uL (4.60-5.80); Red Cell Distribution Width 14.5 % (11.0-16.0); SCAN SMEAR FLAG 1; White Blood Count 23.5 X10*3/uL (4.8-10.8)
[2023-03-11 19:48] LABS: INTERNATIONAL NORM RATIO 1.2 (0.9-1.1); Prothrombin Time 13.8 SEC (10.0-13.1)
[2023-03-11 19:56] LABS: COVID-19 Test Negative (Negative); IDNOW Serial# BCCEAD1C
[2023-03-11 20:02] LABS: SLIDE REVIEW VERIFIED
[2023-03-11 20:03] LABS: Lactic Acid 3.1 mmol/L (0.5-2.0)
[2023-03-11 20:03] LABS: Acetaminophen LAB < 17 mcg/mL (<30); Alanine Aminotransferase 61 U/L (0-40); Albumin Level 2.8 g/dL (3.5-5.0); Alkaline Phosphatase 117 U/L (39-117); Anion Gap 27 (12-20); Aspartate Amino Transferase 129 U/L (5-37); Blood Urea Nitrogen 38 mg/dL (9-16); Calcium 8.8 mg/dL (8.4-10.2); Carbon Dioxide 11 mmol/L (22-29); Chloride 114 mmol/L (96-108); Creatinine Clr Calc Pharmacy 15.1; Estimated Glomerular Filt Rate 19; Ethanol < 10 mg/dL; Glucose Random 93 mg/dL (60-115); Lipase 139 U/L (8-78); Magnesium 1.9 mg/dL (1.6-2.6); Potassium 4.9 mmol/L (3.3-5.1); Salicylate < 5.0 mg/dL (15-30); Sodium 147 mmol/L (135-145); Total Protein 5.5 g/dL (6.5-8.0)
[2023-03-11] MEDS: cefTRIAXone sodium 1 GM in 0.9 % Sodium Chloride 50 ML IV (20:03)
[2023-03-11 20:05] LABS: B Type Natriuretic Peptide 441 pg/mL (<100)
[2023-03-11 20:11] LABS: Troponin-I High Sensitivity 575.1 ng/L (<3.5-35.0)
--- NOTE | 2023-03-11 20:17 | MHC.EDTECH ---
This tech assumed care of patient at 1900, Vitals taken, EKG,Labs and UA obtained. Assisted RN with a Gardner Catheter. This tech is unable to obtain an O2 sat at this time, Brianne BRITO and ELIANA Velazco are aware. Patient has the warming blanket on at this time. Patient is resting comfortable at this time. Call abbott is within reach
--- NOTE | 2023-03-11 20:22 | PC.NURSE ---
Patient is alert and oriented x3. EKG and labs obtained by Vidya technical artist-A-fib, HR 80-99. BP 90-117/50-66, RR 16, no s/s of respiratory distress noted, unable to obtain O2 reading at this time. Brianne, ED provider is aware. IV fluids and Rocephin IV started per DEC. Patient rectal tem 92.5. Bear hugger applied. Patient taken to CT scan.
[2023-03-11 20:32] LABS: Appearance Urine Cloudy; Color Urine Dark Yellow; Glucose Urine UA Negative (Negative); Leukocyte Esterase Urine Trace (Negative); Nitrite Urine Negative (Negative); UMIC TRIGGER UACC YES; Urine Blood Large (3+) (Negative); Urine Ketones Trace mg/dL (Negative); Urine Protein 300 (3+) mg/dL (Neg-Trace)
[2023-03-11 20:42] LABS: Bacteria Urine None Seen (None Seen); UACC Culture Trigger YES; WBC Urine 21-50 /HPF (0-5)
--- NOTE | 2023-03-11 20:54 | PC.NURSE ---
Patient returned from CT scan. Hari jimenez re applied. Repeat trop drawn per MD order. BP improved 130/70, P 106, temp 92.7 rectal.
--- NOTE | 2023-03-11 21:28 | MHC.EDTECH ---
Patient is resting comfortable at this time, Vitals taken, warming blanket on patient, Call abbott within reach
[2023-03-11 21:29] LABS: Troponin-I High Sensitivity 514.3 ng/L (<3.5-35.0)
[2023-03-11 21:39] LABS: Reflex Lactate? Lactic Acid Added
--- NOTE | 2023-03-11 21:53 | MHC.EDTECH ---
Vitals taken, Labs drawn,Patient is comfortable at this time.Call abbott in reach
[2023-03-11 22:14] LABS: ~Lactic Acid-LAB USE ONLY 1.4 mmol/L (0.5-2.0)
[2023-03-11 22:23] LABS: Alanine Aminotransferase 54 U/L (0-40); Albumin Level 2.3 g/dL (3.5-5.0); Alkaline Phosphatase 93 U/L (39-117); Anion Gap 21 (12-20); Aspartate Amino Transferase 122 U/L (5-37); Bilirubin Total 0.8 mg/dL (0.0-1.0); Blood Urea Nitrogen 37 mg/dL (9-16); Calcium 7.8 mg/dL (8.4-10.2); Carbon Dioxide 12 mmol/L (22-29); Chloride 118 mmol/L (96-108); Creatinine Clr Calc Pharmacy 16.8; Estimated Glomerular Filt Rate 22; Glucose Random 64 mg/dL (60-115); Potassium 4.5 mmol/L (3.3-5.1); Sodium 146 mmol/L (135-145); Total Protein 4.5 g/dL (6.5-8.0)
[2023-03-11] MEDS: metroNIDAZOLE/NS 500 MG/100 ML PIGGYBACK 100 MG IV (23:24)
[2023-03-11] MEDS: vancomycin HCL 1,500 MG in 0.9 % Sodium Chloride 500 ML 333.33 MG IV (23:41)
[2023-03-11] MEDS: Norepinephrine Bitartrate/D5W 8 MG/250 ML PLAST..BAG 5.92 MG IV (23:55)
[2023-03-12] VITALS (30 sets, daily range): BP systolic 74–133; BP diastolic 37–82; PULSE 77–115; RESP 15–24; TEMP 35.4–36.9; O2SAT 92–100; BMI 20.5; BMI 21.2
--- NOTE | 2023-03-12 00:29 | PC.NURSE ---
Nurse to nurse report given to Benson DOUGH MOLDER. Patient to be transported to ICU 262 by this RN and MARIELA Ireland.
--- NOTE | 2023-03-12 01:18 | PM.CCHP ---
History of Present Illness Date of Service: 03/12/23 Attending physician on admission: Regine Price Chief Complaint: Fall Mr. Rabago is an 87-year-old male with past medical history of chronic atrial fibrillation on aspirin and clopidogrel, peripheral artery disease, nonrheumatic aortic stenosis, osteomyelitis of left great toe, ascending aortic aneurysm, hypertension and glaucoma.? He presents to the emergency room s/p fall with head strike, unknown LOC. According to EMS the patient was on the ground for approximately 3 days.? The patient was recently admitted to this facility 03/05/2023 to 03/08/2023 for a nonhealing stage 2 ulcer left great toe with cellulitis and osteomyelitis treated with cefepime and vancomycin and sent home with doxycycline.? On arrival to the emergency room? blood pressure was 149/76, heart rate 98, temperature 90.6 degrees. Laboratory data significant for ? WBC 23.5? with left shift,? Sodium 147, potassium 4.9, chloride 114, CO2 11, BUN 38, creatinine 3.12, initial lactic acid of 3.1, CK 05/17/2033, troponin 575.1, BNP 441,? AST 129, ALT 61, lipase 139. Imaging: CT/CT cervical spine wo IV con 1. No evidence of acute intracranial hemorrhage or acute fracture of the osseous calvarium. Right parietal subgaleal hematoma. 2. No evidence of acute fracture or traumatic subluxation in the cervical spine. Cervical spondylosis. CT/CT head/brain wo IV con 1. No evidence of acute intracranial hemorrhage or acute fracture of the osseous calvarium. Right parietal subgaleal hematoma. 2. No evidence of acute fracture or traumatic subluxation in the cervical spine. Cervical spondylosis. CT/CT abdomen pelvis wo IV con No acute traumatic injuries are identified in the chest, abdomen, and pelvis. No fracture or malalignment in the thoracolumbar spine. Cholelithiasis without evidence of acute cholecystitis. Dilated fluid-filled esophagus poses patient at risk for aspiration. Posterior abdominal and pelvic wall subcutaneous soft tissue edema and fluid. CT/CT chest wo IV con No acute traumatic injuries are identified in the chest, abdomen, and pelvis. No fracture or malalignment in the thoracolumbar spine. Cholelithiasis without evidence of acute cholecystitis. Dilated fluid-filled esophagus poses patient at risk for aspiration. Posterior abdominal and pelvic wall subcutaneous soft tissue edema and fluid. ED course: ? Patient received approximately in 1900 mL normal saline, ceftriaxone 1 g, vancomycin 1500 mg, metronidazole 500mg.? Though Blood pressure was initially stable, the patient became hypotensive requiring vasopressor support.? The patient remains? hypothermic. The patient was admitted to the ICU for management of septic shock. Review of Systems Review of Systems: Yes all other systems are reviewed and are negative Cardiovascular: Cardiovascular: Reports no additional cardiovascular complaints Respiratory: Respiratory: Reports no additional respiratory complaints Gastrointestinal: Gastrointestinal: Reports no additional gastrointestinal complaints Genitourinary: Genitourinary: Reports no additional male genitourinary complaints Musculoskeletal: Musculoskeletal: Reports muscle weakness Endocrine: Endocrine: Reports no additional endocrine complaints Hematologic/Lymphatic: Hematologic/Lymphatic: Reports no additional hematologic/lymphatic complaints Allergic/Immunologic: Allergic/Immunologic: Reports no additional allergic/immunologic complaints [facility] Past Medical History Medical History A-fib Diabetes mellitus, type 2 HTN (hypertension) Non-rheumatic aortic stenosis Social History Social History Household Members: None Housing: House Do you presently have visiting nurse or other home services: Yes (pt states VNA visit 2x a year) Alcohol intake: current Alcohol intake frequency: 0-2 drinks per day Patient Tobacco Use Status: Never used Tobacco Advance Directives: No Advance Directives Information Provided: No service: No Current occupational status: retired [employer] Allergies Allergy/AdvReac Type Severity Reaction Status Date / Time No Known Allergies Allergy Verified 03/05/23 10:39 Active Medications: Current Medications Dextrose/Sodium Chloride (D51/2ns) 1,000 mls @ 100 mls/hr IVCONT .Q10H BLANK Norepinephrine Bitartrate (Levophed) 8 mg in 250 mls @ 0 mls/hr IV .Q0M BLANK; Protocol Last Titration: 03/12/23 00:08 Dose: 0.07 mcg/kg/min, 8.28 mls/hr Pharmacy Consult (Consult Rx Perform Med Rec) 1 each MISCELLANE ONCE PRN PRN Reason: Consult order Pharmacy Consult (Consult Rx Vancomycin Dosing) 1 each MISCELLANE DAILY PRN PRN Reason: Consult order Home Medications Medication Instructions Recorded Confirmed Last Taken Type lisinopril 10 mg tablet 10 mg PO DAILY 03/05/23 03/05/23 03/04/23 History metoprolol tartrate 25 mg tablet 25 mg PO BID 03/05/23 03/05/23 03/04/23 History Physical Exam Vital Signs: Vital Signs: Last Vital Signs Temp 95.7 F L 03/12/23 00:04 Pulse 95 03/12/23 00:08 Resp 16 03/11/23 23:01 BP 74/37 L 03/12/23 00:08 Pulse Ox 97 03/12/23 00:04 O2 Del Method Nasal Cannula 03/12/23 00:04 O2 Flow Rate 2 03/12/23 00:04 BMI result Body Mass Index 20.5 Const: General: cooperative, alert, awake and ill appearing Nutritional Appearance: thin and underweight Orientation/consciousness: oriented to person and oriented to place HEENT: Head: Yes normocephalic and Yes laceration (large healing laceration to occiput area of head) General nose exam: Normal external nose present (Nares patent, septum midline, sinuses nontender bilaterally.) Mouth: Normal oral and palatal mucosa present (No thrush, tongue in midline) Teeth and gingiva: poor dentition Throat: Yes other (No erythema, no exudate.) Neck: Neck: Yes supple (no thyromegaly, trachea midline.) Resp: Auscultation: clear to auscultation bilaterally (normal work of breathing, no accessory muscle use) Cardio: Jugular venous distension: no JVD Rate: regular rate Rhythm: abnormal rhythm Heart sounds: no gallops, Murmur heart sound present and no rubs GI: Palpation (GI): Soft to palpation (nondistended.) and nontender Skin: General skin exam: ecchymosis (bilateral upper and lower extremities) Wounds: wounds noted (Left great toe) Neuro: General: oriented to person, oriented to place and CN's II-XI intact bilaterally Extrem: General: Yes full ROM, Yes capillary refill normal and Yes no clubbing, cyanosis or edema Psych: Affect: normal affect Attitude: cooperative Results Labs 03/11/23 19:34 03/11/23 21:53 Labs: Laboratory Results - last 24 hr 03/11/23 03/11/23 03/11/23 19:31 19:31 19:34 MCV 91.2 MCH 30.1 MCHC 33.0 RDW 14.5 Plt Count 210 MPV 9.8 Immature Gran % (Auto) 0.8 H Neut % (Auto) 86.6 H Lymph % (Auto) 3.2 L [place] % (Auto) 9.3 Eos % (Auto) 0.0 Baso % (Auto) 0.1 Lymph # (Auto) 0.8 L [place] # (Auto) 2.2 H Eos # (Auto) 0.0 Baso # (Auto) 0.0 Abs Immat Gran (auto) 0.19 H Absolute Neuts (auto) 20.4 H Absolute Nucleated RBC 0.000 Nucleated RBC % (auto) 0.0 Smear Tech's Comments VERIFIED PT INR Anion Gap Estim Creat Clear Calc Estimated GFR Random Glucose Lactic Acid 3.1 H* Lactic Acid F/U @ 2Hr Calcium Magnesium Total Bilirubin AST ALT Alkaline Phosphatase Total Creatine Kinase Troponin I High Sens B-Natriuretic Peptide Total Protein Albumin Lipase Urine Color Urine Appearance Urine pH Ur Specific [place] Urine Protein Urine Glucose (UA) Urine Ketones Urine Blood Urine Nitrite Ur Leukocyte Esterase Urine RBC Urine WBC Ur Squamous Epith Cells Urine Bacteria Hyaline Casts Salicylates Acetaminophen Ethyl Alcohol COVID-19 (MARIAN) Negative COVID-19 Clin Com See Note 03/11/23 03/11/23 03/11/23 19:34 19:34 19:34 MCV MCH MCHC RDW Plt Count MPV Immature Gran % (Auto) Neut % (Auto) Lymph % (Auto) [place] % (Auto) Eos % (Auto) Baso % (Auto) Lymph # (Auto) [place] # (Auto) Eos # (Auto) Baso # (Auto) Abs Immat Gran (auto) Absolute Neuts (auto) Absolute Nucleated RBC Nucleated RBC % (auto) Smear Tech's Comments PT INR Anion Gap 27 H Estim Creat Clear Calc 15.1 Estimated GFR 19 Random Glucose 93 Lactic Acid Lactic Acid F/U @ 2Hr Calcium 8.8 Magnesium 1.9 Total Bilirubin 1.0 AST 129 H ALT 61 H Alkaline Phosphatase 117 Total Creatine Kinase 2733 H Troponin I High Sens 575.1 H* B-Natriuretic Peptide 441 H Total Protein 5.5 L Albumin 2.8 L Lipase 139 H Urine Color Urine Appearance Urine pH Ur Specific [place] Urine Protein Urine Glucose (UA) Urine Ketones Urine Blood Urine Nitrite Ur Leukocyte Esterase Urine RBC Urine WBC Ur Squamous Epith Cells Urine Bacteria Hyaline Casts Salicylates < 5.0 L Acetaminophen < 17 Ethyl Alcohol < 10 COVID-19 (MARIAN) COVID-19 Clin Com 03/11/23 03/11/23 03/11/23 19:34 20:15 20:54 MCV MCH MCHC RDW Plt Count MPV Immature Gran % (Auto) Neut % (Auto) Lymph % (Auto) [place] % (Auto) Eos % (Auto) Baso % (Auto) Lymph # (Auto) [place] # (Auto) Eos # (Auto) Baso # (Auto) Abs Immat Gran (auto) Absolute Neuts (auto) Absolute Nucleated RBC Nucleated RBC % (auto) Smear Tech's Comments PT 13.8 H INR 1.2 H Anion Gap Estim Creat Clear Calc Estimated GFR Random Glucose Lactic Acid Lactic Acid F/U @ 2Hr Calcium Magnesium Total Bilirubin AST ALT Alkaline Phosphatase Total Creatine Kinase Troponin I High Sens 514.3 H* B-Natriuretic Peptide Total Protein Albumin Lipase Urine Color Dark Yellow Urine Appearance Cloudy Urine pH 5.0 Ur Specific [place] 1.020 Urine Protein 300 (3+) H Urine Glucose (UA) Negative Urine Ketones Trace Urine Blood Large (3+) H Urine Nitrite Negative Ur Leukocyte Esterase Trace H Urine RBC 11-20 H Urine WBC 21-50 H Ur Squamous Epith Cells 6-10 Urine Bacteria None Seen Hyaline Casts 3-5 Salicylates Acetaminophen Ethyl Alcohol COVID-19 (MARIAN) COVID-19 [employer] Com 03/11/23 03/11/23 21:53 21:53 MCV MCH MCHC RDW Plt Count MPV Immature Gran % (Auto) Neut % (Auto) Lymph % (Auto) [place] % (Auto) Eos % (Auto) Baso % (Auto) Lymph # (Auto) [place] # (Auto) Eos # (Auto) Baso # (Auto) Abs Immat Gran (auto) Absolute Neuts (auto) Absolute Nucleated RBC Nucleated RBC % (auto) Smear Tech's Comments PT INR Anion Gap 21 H Estim Creat Clear Calc 16.8 Estimated GFR 22 Random Glucose 64 Lactic Acid Lactic Acid F/U @ 2Hr 1.4 Calcium 7.8 L D Magnesium Total Bilirubin 0.8 AST 122 H ALT 54 H Alkaline Phosphatase 93 Total Creatine Kinase Troponin I High Sens B-Natriuretic Peptide Total Protein 4.5 L Albumin 2.3 L Lipase Urine Color Urine Appearance Urine pH Ur Specific [place] Urine Protein Urine Glucose (UA) Urine Ketones Urine Blood Urine Nitrite Ur Leukocyte Esterase Urine RBC Urine WBC Ur Squamous Epith Cells Urine Bacteria Hyaline Casts Salicylates Acetaminophen Ethyl Alcohol COVID-19 (MARIAN) COVID-19 Clin Com Imaging Radiologist's Impressions: Impressions Cervical Spine CT 03/11/23 21:02 IMPRESSION: 1. No evidence of acute intracranial hemorrhage or acute fracture of the osseous calvarium. Right parietal subgaleal hematoma. 2. No evidence of acute fracture or traumatic subluxation in the cervical spine. Cervical spondylosis. Head CT 03/11/23 21:02 IMPRESSION: 1. No evidence of acute intracranial hemorrhage or acute fracture of the osseous calvarium. Right parietal subgaleal hematoma. 2. No evidence of acute fracture or traumatic subluxation in the cervical spine. Cervical spondylosis. Abdomen/Pelvis CT 03/11/23 21:13 IMPRESSION: No acute traumatic injuries are identified in the chest, abdomen, and pelvis. No fracture or malalignment in the thoracolumbar spine. Cholelithiasis without evidence of acute cholecystitis. Dilated fluid-filled esophagus poses patient at risk for aspiration. Posterior abdominal and pelvic wall subcutaneous soft tissue edema and fluid. Chest CT 03/11/23 21:13 IMPRESSION: No acute traumatic injuries are identified in the chest, abdomen, and pelvis. No fracture or malalignment in the thoracolumbar spine. Cholelithiasis without evidence of acute cholecystitis. Dilated fluid-filled esophagus poses patient at risk for aspiration. Posterior abdominal and pelvic wall subcutaneous soft tissue edema and fluid. Assessment and Plan (1) Sepsis: Status: Acute (2) Rhabdomyolysis: Status: Acute (3) SUZANNE (acute kidney injury): Status: Acute (4) Hypotension: Status: Acute (5) Hypothermia: Status: Acute (6) Elevated troponin: Status: Acute (7) Traumatic hematoma of head: Status: Acute (8) Ascending aortic aneurysm: Status: Acute (9) Chronic atrial fibrillation: Status: Acute (10) PAD (peripheral artery disease): Status: Acute (11) Osteomyelitis: Status: Acute Plan 87-year-old male with past medical history of chronic atrial fibrillation on aspirin and clopidogrel, peripheral artery disease, nonrheumatic aortic stenosis, osteomyelitis of left great toe, ascending aortic aneurysm, hypertension and glaucoma?presented to the?emergency room s/p? fall with likely sepsis / rhabdomyolysis. Neuro: ? No acute issues Cardiac: ?Septic shock-? patient has elevated white count with left shift concerning for infection. Recent admission for osteomyelitis. Hypotension, hypothermia, SUZANNE.? Rhabdo-? patient with elevated CK s/p fall.? Received? a total 1893ml ? Normal saline in the ED.? EKG no ischemic changes. Will continue fluid hydration. Continue trend CK. Pressors for hypotension. Price hugger to rewarm.? Pulmonary:?No acute issues. Patient? denies any shortness of breath.? Will continue to monitor.? Renal: SUZANNE- most likely related to hypoperfusion, nonoliguric.? 2L in the? emergency room.? Continue fluid hydration.? Continue to check renal induces and urine output Endo: ?No acute issues.?? GI: Transaminitis- ? no coagulopathy, could be related to septic shock. Continue to trend LFTs? ID: septic shock likely from? osteomyelitis. Fluid resuscitated with 30 mL/kg normal saline. Received ceftriaxone, vancomycin,? metronidazole in emergency room. Blood and urine cultures pending.? Will ? continue empiric antibiotics.? Heme/Onc: ?No acute issues. Psych:? No acute issues.? Prophylaxis: Bilateral pneumatic device Diet: NPO Time Spent With Patient Time: Total time managing care of this patient today ____ minutes.
[2023-03-12] MEDS: Dextrose 5 % and 0.45 % NaCl 1,000 ML 100 ML IVCONT (01:22)
[2023-03-12] MEDS: Piperacillin Sodium/Tazobactam 2.25 GM in 0.9 % Sodium Chloride 50 ML IV ×3 (02:21→18:25)
[2023-03-12] MEDS: Albumin Human 25 % 100 ML 200 ML IV ×2 (03:03→03:37)
--- NOTE | 2023-03-12 03:21 | PC.NURSE ---
Addendum entered by Dilan Zapata RN 03/12/23 06:00: AM LABS AND URINE OUTPUT 5 CC/HR REVIEWED WITH ICU RECORDAK OPERATOR...IV FLUIDS CHAMGED TO D5W 900ml/ NaHCO3 100 MEQ AT 100 CC/HR....FOR TRPEAT VBG PER RECORDAK OPERATOR...LEVOPHED TO 0.15 MCG/KG/MIN PER RECORDAK OPERATOR FOR INCREASED PERFUSION PRESSURE...WARMING BLANKET OFF FOR TEMP 97.0 Original Note: ADMIT TO 261-1...AWAKE..ALERT..CONVERSES...VAGUE RESPONSES TO MANY QUESTIONS..ORIENTED X1-2...LEVOPHED 0.1 MCG/KG/MIN...D5 1/2 NS 100 CC/HR VIA #20 ANGIO RIGHT AC..SITE WITH GOOD BLOOD RETURN...ANTIBIOTICS AND ALBUMEN INFUSED PER DEC...SESAY MINIMAL HAZY KENDALL URINE.....EXTENSIVE BRUISING/SKIN TEARS/ABRASIONS TO ALL EXTREMETIES AND TORSO...LEFT GREAT TOE NECROTIC WITHOUT DRAINAGE...WOUNDS TO SACRUM PER PHOTOS..FOAM DRESSING APPLIED...RIGHT AND LEFT SCAPULA WITH EXTENSIVE BRUISING..SKIN TEAR RIGHT SCAPULAR/DRESSING ..DENIES DISCOMFORT...FREQUENT NONPRODUCTIVE TO PRODUCTIVE COUGHT WITH WHITE SPUTUM..CHRONIC ATRIAL FIB RBBB...TEMP DECREASED FROM 96.6 TO 95.8...WARMING BLANKET RE-APPLIED
[2023-03-12 04:51] LABS: VBG HCO3 10 mmol/L (22-26); VBG pCO2 28 mmHg; VBG pH 7.17 (7.32-7.43); VBG pO2 45 mmHg
[2023-03-12 04:53] LABS: Basophils Percent Auto 0.2 % (0-2); Hematocrit 30.1 % (42.0-52.0); Imm Gran Abs Auto 0.12 X10*3/uL (0.00-0.03); Imm Gran Pct Auto 0.6 % (0.0-0.4); Lymphocytes Absolute Auto 0.9 X10*3/uL (1.2-4.9); Lymphocytes Percent Auto 4.4 % (20-40); MANUAL DIFF FLAG SCAN; Mean Corpuscular HGB Conc 33.2 g/dl (31.0-36.0); Mean Corpuscular Volume 90.4 fL (80.0-98.0); Mean Platelet Volume 9.4 fL (9.4-12.4); Monocytes Absolute Auto 1.7 X10*3/uL (0.1-1.2); Monocytes Percent Auto 8.5 % (2-11); Neutrophils Absolute Auto 17.1 x10*3/uL (2.0-8.3); Neutrophils Percent Auto 86.3 % (45-73); Platelet Count 150 X10*3/uL (160-400); Red Blood Count 3.33 X10*6/uL (4.60-5.80); Red Cell Distribution Width 14.6 % (11.0-16.0); SCAN SMEAR FLAG 1; White Blood Count 19.8 X10*3/uL (4.8-10.8)
[2023-03-12 04:59] LABS: Venous Blood Gas Refer to POC result
[2023-03-12 05:11] LABS: SLIDE REVIEW VERIFIED
[2023-03-12 05:15] LABS: Alanine Aminotransferase 51 U/L (0-40); Albumin Level 3.4 g/dL (3.5-5.0); Alkaline Phosphatase 78 U/L (39-117); Anion Gap 24 (12-20); Aspartate Amino Transferase 108 U/L (5-37); Bilirubin Total 0.7 mg/dL (0.0-1.0); Blood Urea Nitrogen 36 mg/dL (9-16); Calcium 7.9 mg/dL (8.4-10.2); Carbon Dioxide 9 mmol/L (22-29); Chloride 118 mmol/L (96-108); Creatinine Clr Calc Pharmacy 16.8; Estimated Glomerular Filt Rate 21; Glucose Random 82 mg/dL (60-115); Magnesium 1.8 mg/dL (1.6-2.6); Potassium 3.9 mmol/L (3.3-5.1); Sodium 147 mmol/L (135-145); Total Protein 5.2 g/dL (6.5-8.0)
[2023-03-12] MEDS: Sodium Bicarbonate 8.4% 100 MEQ in Dextrose 5 % 900 ML IV (05:46)
[2023-03-12 06:18] LABS: VBG Base Excess -14.3 mmol/L; VBG HCO3 11 mmol/L (22-26); VBG pCO2 26 mmHg; VBG pH 7.23 (7.32-7.43); VBG pO2 47 mmHg
--- NOTE | 2023-03-12 07:02 | PHA.PROG ---
Admission Date/Time: March 11, 2023 23:30 Indication: Osteomylitis Weight in k.1 kg Adjusted body weight in K.46 kg Elsie body weight in K.7 kg Obesity Dosing Indication % IBW: N/A Serum Creatinine - Last 168 Hours 03/11/23 03/11/23 03/12/23 19:34 21:53 04:41 Creatinine 3.12 H 2.81 H 2.89 H Estimated CrCl and GFR - Last 168 Hours 03/11/23 03/11/23 03/12/23 19:34 21:53 04:41 Estim Creat Clear Calc 15.1 16.8 16.8 Estimated GFR 19 22 21 Vancomycin Loading Dose: 1500 mg Q24H Current Vancomycin Dosing Regimen: 500 mg Q24H Date and Time for next Vancomycin Level to be drawn: 03/13 @ 2130 Pharmacist Comments on Vancomycin Plan: Patient received loading dose in the ER on 03/11 @ 2341 Maintenance dose vanco 500 mg Q24H is scheduled to start 03/13 @ 0000. Expected AUC 521 with a trough of 18.9. Level to be drawn prior to the 3rd dose to access for efficacy and safety due to patient's age and renal function. Pharamcy will cotninue to monitor renal function daily Ofelia Carter PharmD Vancomycin dosing will take advantage of [employer] as a clinical decision support tool that uses Bayesian modeling to calculate individual patient's pharmacokinetic parameters and forecast the patient's drug concentration time course with the target goal AUC 24 range of 400 - 600 mg/L/hr.
--- NOTE | 2023-03-12 07:02 | W.PM.CCHP ---
Procedures Date of Service Date of Service: 03/12/23 Central Line Placement Right IJ: Central Line Comments: The right neck was widely prepped and draped in full sterile fashion.? Under US? guidance, the right IJ vein was cannulated on the 1st pass of the 18 g thin wall needle, with return of dark, nonpulsatile blood. ? The wire was threaded without incident.? The 20 cm x 7 Armenian triple-lumen CVC was advanced into the vein up to the hub via the Seldinger technique without incident.? There was good blood return x3.? The catheter was sutured x2 and a Biopatch and dry sterile dressing were applied. Postop chest x-ray is pending..? The patient tolerated the procedure well with no complications. Consent for Procedure: Emergent-no informed consent obtained Time out performed: Yes Sterile Technique Used: Yes Patient placed on monitor/pulse ox: Yes prep: mask, gown and gloves Central line prep: Chlorhexidine scrub and sterile drapes applied Local anesthesia used: lidocaine 1% Amount of anesthesia used (ml): 3 Ultrasound used for placement: Yes Central line lumen inserted: triple Post procedure: sutured in place, good blood return, all ports aspirated, flushed, capped and sterile dressing applied Patient tolerated procedure: well and no complications
[2023-03-12 07:25] LABS: Glucose, Whole Blood 93 mg/dL (60-115)
[2023-03-12 07:28] LABS: Venous Blood Gas Refer to POC result
--- NOTE | 2023-03-12 07:29 | PHA.MEDREC ---
Pharmacy Consult ? Medication Reconciliation Pharmacy has completed the medication reconciliation. Patient had med rec done on 03/05 and was discharged on 03/08. Used claim history and discharge summary to complete med rec.
[2023-03-12 07:55] LABS: VBG Base Excess -13.6 mmol/L; VBG HCO3 12 mmol/L (22-26); VBG pCO2 26 mmHg; VBG pH 7.25 (7.32-7.43); VBG pO2 53 mmHg
[2023-03-12 08:14] LABS: Venous Blood Gas Refer to POC result
[2023-03-12 09:49] LABS: VBG Base Excess -12.2 mmol/L; VBG HCO3 13 mmol/L (22-26); VBG pCO2 29 mmHg; VBG pH 7.26 (7.32-7.43); VBG pO2 51 mmHg
[2023-03-12 10:09] LABS: Phosphorus 5.9 mg/dL (2.7-4.5)
[2023-03-12 10:10] LABS: Alanine Aminotransferase 54 U/L (0-40); Albumin Level 3.2 g/dL (3.5-5.0); Alkaline Phosphatase 78 U/L (39-117); Anion Gap 18 (12-20); Aspartate Amino Transferase 113 U/L (5-37); Bilirubin Total 0.7 mg/dL (0.0-1.0); Blood Urea Nitrogen 38 mg/dL (9-16); Calcium 7.7 mg/dL (8.4-10.2); Carbon Dioxide 14 mmol/L (22-29); Chloride 117 mmol/L (96-108); Creatinine Clr Calc Pharmacy 15.4; Estimated Glomerular Filt Rate 19; Glucose Random 100 mg/dL (60-115); Potassium 3.7 mmol/L (3.3-5.1); Sodium 145 mmol/L (135-145)
[2023-03-12 10:19] LABS: Venous Blood Gas Refer to POC result
--- NOTE | 2023-03-12 10:30 | MHC.SLORD ---
Addendum entered and electronically signed by Emi Ayala MA, CCC-SUGAR CANE GROWER 03/12/23 15:13: SUGAR CANE GROWER attempted to see pt. Per RN, still not appropriate for bedside swallow d/t pt's lethargic state. Order deferred for tomorrow morning. Original Note: Addendum entered and electronically signed by Emi Ayala MA, CCC-SUGAR CANE GROWER 03/12/23 13:05: Checked in w/ RN at 1300- No change in mentation. Will continue to follow. Original Note: Speech Language Pathology Order Status: Order received for bedside swallow eval. RN reported pt may be too lethargic to participate. SUGAR CANE GROWER visited pt this morning. Pt momentarily opening eyes to sternal rub, immediately falling back asleep, unable to remain awake. Not appropriate for PO trials d/t mentation. Plan to re-attempt this afternoon if appropriate.
--- NOTE | 2023-03-12 11:06 | MHC.CM.PN ---
This health science writer met with patient's HCP @ bedside- Wisam. Copy of HCP obtained from [facility]. Copy to chart. Patient was d/c'd from [facility] on 03/08. Reported that patient was down on the ground for 3 days prior to EMS being called. It is unknown if [facility] FLORES was able to connect with pt. Patient currently in ICU, confused, unable to answer questions. Wisam @ bedside and able to answer. Wisam and Julian assist patient with appointments, groceries etc. Pt usually ambulates in home with walker. PCP verified. Campaign Specialist w/ Lisa Brito ([phone]) call placed to her re: pt's current status. Pending pt's ICU course- STR versus home w/ VNA. PT eval pending as appropriate. CM will follow for d/c planning needs.
--- NOTE | 2023-03-12 11:45 | ECG_ITS ---
Test Reason : rhythm check Blood Pressure : / mmHG Vent. Rate : 096 BPM Atrial Rate : 000 BPM P-R Int : 000 ms QRS Dur : 126 ms QT Int : 392 ms P-R-T Axes : 000 -41 006 degrees QTc Int : 495 ms Atrial fibrillation with premature ventricular or aberrantly conducted complexes Left axis deviation Right bundle branch block Inferior infarct , age undetermined T wave abnormality, consider lateral ischemia Abnormal ECG When compared to the previous EKG of No significant changes seen Referred By: Meet Ellison Electronically Signed By:Javi Murry
[2023-03-12 11:46] LABS: Glucose, Whole Blood 89 mg/dL (60-115)
[2023-03-12] MEDS: Sodium Bicarbonate 8.4% 150 MEQ in Dextrose 5 % 850 ML 100 MEQ IV (13:52)
[2023-03-12] MEDS: Norepinephrine Bitartrate/D5W 8 MG/250 ML PLAST..BAG 17.75 MG IV (15:09)
[2023-03-12 16:24] LABS: Glucose, Whole Blood 102 mg/dL (60-115)
[2023-03-12] MEDS: Morphine Sulfate 2 MG/ML CARTRIDGE 0.5 MG IVPUSH (20:15)
[2023-03-12 20:57] LABS: VBG Base Excess -7.5 mmol/L; VBG HCO3 16 mmol/L (22-26); VBG pCO2 29 mmHg; VBG pH 7.35 (7.32-7.43); VBG pO2 106 mmHg
[2023-03-12 20:59] LABS: Venous Blood Gas Refer to POC result
[2023-03-12 21:11] LABS: Anion Gap 16 (12-20); Blood Urea Nitrogen 38 mg/dL (9-16); Calcium 7.3 mg/dL (8.4-10.2); Carbon Dioxide 18 mmol/L (22-29); Chloride 116 mmol/L (96-108); Creatinine Clr Calc Pharmacy 15.1; Estimated Glomerular Filt Rate 18; Glucose Random 152 mg/dL (60-115); Magnesium 1.6 mg/dL (1.6-2.6); Phosphorus 4.6 mg/dL (2.7-4.5); Potassium 3.5 mmol/L (3.3-5.1); Sodium 146 mmol/L (135-145)
[2023-03-12 21:23] LABS: Glucose, Whole Blood 131 mg/dL (60-115)
[2023-03-12] MEDS: Magnesium Sulfate/D5W 1 GM/100 ML PIGGYBACK IV (21:32)
[2023-03-12] MEDS: Potassium Chloride/H20 40 MEQ/100 ML PIGGYBACK 50 MEQ IV (21:32)
[2023-03-13] VITALS (33 sets, daily range): BP systolic 84–139; BP diastolic 40–86; PULSE 75–101; RESP 13–23; TEMP 36.2–37.3; O2SAT 95–100; BMI 23.1
[2023-03-13] MEDS: Sodium Bicarbonate 8.4% 150 MEQ in Dextrose 5 % 850 ML 100 MEQ IV ×2 (00:04→09:57)
[2023-03-13] MEDS: vancomycin HCL 500 MG in 0.9 % Sodium Chloride 100 ML 110 MG IV (00:17)
[2023-03-13] MEDS: Piperacillin Sodium/Tazobactam 2.25 GM in 0.9 % Sodium Chloride 50 ML IV ×3 (01:53→19:02)
[2023-03-13 04:51] LABS: VBG HCO3 23 mmol/L (22-26); VBG pCO2 33 mmHg; VBG pH 7.45 (7.32-7.43); VBG pO2 46 mmHg
[2023-03-13 04:55] LABS: Venous Blood Gas Refer to POC result
[2023-03-13 04:59] LABS: Basophils Percent Auto 0.2 % (0-2); Hemoglobin 9.8 g/dl (14.0-18.0); Imm Gran Abs Auto 0.14 X10*3/uL (0.00-0.03); Imm Gran Pct Auto 0.7 % (0.0-0.4); Lymphocytes Absolute Auto 0.7 X10*3/uL (1.2-4.9); Lymphocytes Percent Auto 3.4 % (20-40); MANUAL DIFF FLAG SCAN; Mean Corpuscular Hemoglobin 30.3 pg (27.0-33.0); Mean Corpuscular Volume 86.7 fL (80.0-98.0); Mean Platelet Volume 9.9 fL (9.4-12.4); Monocytes Absolute Auto 1.5 X10*3/uL (0.1-1.2); Monocytes Percent Auto 7.7 % (2-11); Neutrophils Absolute Auto 17.6 x10*3/uL (2.0-8.3); Platelet Count 114 X10*3/uL (160-400); Red Blood Count 3.23 X10*6/uL (4.60-5.80); Red Cell Distribution Width 14.6 % (11.0-16.0); SCAN SMEAR FLAG 1
[2023-03-13 05:27] LABS: SLIDE REVIEW VERIFIED
[2023-03-13] MEDS: Norepinephrine Bitartrate/D5W 8 MG/250 ML PLAST..BAG 15.38 MG IV (05:32)
[2023-03-13 05:33] LABS: Albumin Level 2.6 g/dL (3.5-5.0); Anion Gap 13 (12-20); Blood Urea Nitrogen 39 mg/dL (9-16); Calcium 7.5 mg/dL (8.4-10.2); Carbon Dioxide 22 mmol/L (22-29); Chloride 115 mmol/L (96-108); Creatinine Clr Calc Pharmacy 14.7; Estimated Glomerular Filt Rate 18; Glucose Random 193 mg/dL (60-115); Magnesium 1.7 mg/dL (1.6-2.6); Phosphorus 3.5 mg/dL (2.7-4.5); Potassium 3.7 mmol/L (3.3-5.1); Sodium 146 mmol/L (135-145)
[2023-03-13 07:34] LABS: Glucose, Whole Blood 160 mg/dL (60-115)
[2023-03-13] MEDS: Albumin Human 25 % 100 ML IV ×3 (09:51→21:27)
--- NOTE | 2023-03-13 10:34 | MHC.CLN ---
F/U DISCUSSED AT ROUNDS WITH PT TO REMAIN NPO PENDING SWALLOW EVAL PT WITH INCREASED NUTRITION RISK R/T PRESSURE INJURY; NOTED STAGE 3 SACRUM TODAY PT WITH MILDLY DEPLETED MUSCLE MASS S/P NFPE, NO PREVIOUS SIGNIFICANT WT LOSS REPORTED WHEN DIET TO ADVANCE PT WILL BENEFIT FROM INCREASED PO PROTEIN TO PROMOTE WOUND HEALING FOLLOWING WITH TEAM
[2023-03-13 11:18] LABS: Glucose, Whole Blood 174 mg/dL (60-115)
--- NOTE | 2023-03-13 14:01 | MHC.SL.SWA ---
Speech Pathologist Impression: Risk of Aspiration Due to: Dysphasia Diet Status: Liquid Consistency and Strategies for Safe Swallow: Liquid Intake Recommendation: NPO Liquid Intake Strategies: Solid Food Consistency: Dietary Recommendations: NPO Additional Modifications to Solid Foods: Pt may tolerate Ice Chips under supervision of Staff or FINANCE DIRECTOR. Monitor for coughing/throat clearing closely. Oral Medication Intake: NPO Please contact the pharmacy regarding appropriate crushable or liquid drug formulations that are available whenever modified delivery is recommended. Compensatory Strategies and Precautions to be Taken for Safe Swallow: Sitting Upright (90 deg) No Straw Liquids from Cup Small Bites and Sips Alternate Liquids/Solids Rate of Ingestion Change Avoid Specific Foods Supervision While Eating and Drinking for Safe Swallow: PO with FINANCE DIRECTOR Foods to Avoid: NPO Swallowing Recommended Treatments: Compens. Strategy Educat. Recommendation for Speech: Further Testing Needed Inpatient Speech Therapy Comment: Recommending Pt remain NPO for today. Staff/FINANCE DIRECTOR may provide Ice Chips throughout the next 24 hours. Monitor overt s/s of aspiration with these trials. Pt should be upright and alert prior to any PO administration. FINANCE DIRECTOR will return tomorrow for re-assessment. Frequency/Duration: Date Range for Service Req: Timeline to reassess: Electron Beam Photo Mask Maker Clinican/Clinical Fellow: No Supervisory Statement: I have reviewed and agree with the student/clinical fellow's documentation: N/A Speech Language Pathologist: Amadou Chen M.A., [facility]-FINANCE DIRECTOR
--- NOTE | 2023-03-13 14:26 | P.PNCC_ITS ---
Subjective Subjective Date of Service: 03/13/23 Interval History: EDT 7-year-old gentleman with underlying history of AFib on aspirin Plavix, peripheral artery disease, aortic stenosis, osteomyelitis with recent admission, admitted on 03/12/2023 with alteration of mental status after mechanical fall and laying on the floor for several days. On ER evaluation patient in acute renal failure with rhabdomyolysis and metabolic acidosis with poor response to initial IV fluids requiring initiation of vasopressor support admitted to intensive care unit. In the intensive care unit patient with slow improvement in renal function in urine output on bicarbonate drip. No events overnight. Critical Care Time (minutes): 45 Physical Exam Vital Signs: Vital Signs: Last Vital Signs Temp 97.5 F 03/13/23 12:00 Pulse 101 H 03/13/23 14:00 Resp 13 03/13/23 14:00 BP 126/54 L 03/13/23 14:00 Pulse Ox 98 03/13/23 14:00 O2 Del Method Room Air 03/13/23 14:00 O2 Flow Rate 2 03/12/23 19:01 BMI result Body Mass Index 23.1 Const: General: no acute distress and alert HEENT: Head: Yes atraumatic Eyes: General: appearance normal, both eyes and all related structures Sclerae: sclerae normal EOM: EOMs intact bilaterally Neck: Neck: Yes supple Lymphatic: no lymphadenopathy noted Resp: Effort & Inspection: normal respiratory effort and no use of accessory muscles Auscultation: crackles ( Mild bibasilar) Cardio: Rate: regular rate Rhythm: abnormal rhythm irregularly irregular Heart sounds: no gallops, no murmurs and no rubs GI: Palpation (GI): Soft to palpation and Other GI palpation findings present ( nontender) Skin: General skin exam: other ( warm) Rashes: no rashes Extrem: General: No clubbing, No cyanosis and Yes edema ( trace bilateral) Objective Data Labs 03/13/23 04:44 03/13/23 04:44 Labs: Laboratory Results - last 24 hr 03/12/23 03/12/23 03/12/23 16:21 20:46 20:51 WBC RBC Hgb Hct MCV MCH MCHC RDW Plt Count MPV Immature Gran % (Auto) Neut % (Auto) Lymph % (Auto) [facility] % (Auto) Eos % (Auto) Baso % (Auto) Lymph # (Auto) [facility] # (Auto) Eos # (Auto) Baso # (Auto) Abs Immat Gran (auto) Absolute Neuts (auto) Absolute Nucleated RBC Nucleated RBC % (auto) Smear Tech's Comments VBG pH 7.35 VBG pCO2 29 VBG pO2 106 VBG HCO3 16 L VBG O2 Saturation 99.0 VBG Base Excess -7.5 Sodium 146 H Potassium 3.5 Chloride 116 H Carbon Dioxide 18 L Anion Gap 16 BUN 38 H Creatinine 3.23 H Estim Creat Clear Calc 15.1 Estimated GFR 18 POC Glucose 102 Random Glucose 152 H Calcium 7.3 L Phosphorus 4.6 H Magnesium 1.6 Total Creatine Kinase Albumin 03/12/23 03/13/23 03/13/23 21:20 04:43 04:44 WBC RBC Hgb Hct MCV MCH MCHC RDW Plt Count MPV Immature Gran % (Auto) Neut % (Auto) Lymph % (Auto) [facility] % (Auto) Eos % (Auto) Baso % (Auto) Lymph # (Auto) [facility] # (Auto) Eos # (Auto) Baso # (Auto) Abs Immat Gran (auto) Absolute Neuts (auto) Absolute Nucleated RBC Nucleated RBC % (auto) Smear Tech's Comments VBG pH 7.45 H VBG pCO2 33 VBG pO2 46 VBG HCO3 23 VBG O2 Saturation 76.0 VBG Base Excess 0.0 Sodium 146 H Potassium 3.7 Chloride 115 H Carbon Dioxide 22 Anion Gap 13 BUN 39 H Creatinine 3.31 H Estim Creat Clear Calc 14.7 Estimated GFR 18 POC Glucose 131 H Random Glucose 193 H Calcium 7.5 L Phosphorus 3.5 Magnesium 1.7 Total Creatine Kinase 1188 H Albumin 2.6 L 03/13/23 03/13/23 03/13/23 04:44 07:31 11:14 WBC 20.0 H RBC 3.23 L Hgb 9.8 L Hct 28.0 L MCV 86.7 MCH 30.3 MCHC 35.0 RDW 14.6 Plt Count 114 L MPV 9.9 Immature Gran % (Auto) 0.7 H Neut % (Auto) 88.0 H Lymph % (Auto) 3.[address] [facility] % (Auto) 7.7 Eos % (Auto) 0.0 Baso % (Auto) 0.2 Lymph # (Auto) 0.[address] [facility] # (Auto) 1.5 H Eos # (Auto) 0.0 Baso # (Auto) 0.0 Abs Immat Gran (auto) 0.14 H Absolute Neuts (auto) 17.6 H Absolute Nucleated RBC 0.000 Nucleated RBC % (auto) 0.0 Smear Tech's Comments VERIFIED VBG pH VBG pCO2 VBG pO2 VBG HCO3 VBG O2 Saturation VBG Base Excess Sodium Potassium Chloride Carbon Dioxide Anion Gap BUN Creatinine Estim Creat Clear Calc Estimated GFR POC Glucose 160 H 174 H Random Glucose Calcium Phosphorus Magnesium Total Creatine Kinase Albumin Microbiology Microbiology Results: Microbiology 03/11/23 Unknown Urine Catheterized - Gardner Catheter Urine Culture - Final No growth. 03/11/23 19:32 Blood - Venous Blood Culture - Preliminary No growth after 24 hours. 03/11/23 19:35 Blood - Venous Blood Culture - Preliminary No growth after 24 hours. Progress Note: A&P Assessment and plan (1) Rhabdomyolysis: Status: Acute (2) SUZANNE (acute kidney injury): Status: Acute (3) Metabolic acidosis: Status: Acute (4) Hypothermia: Status: Acute (5) Chronic atrial fibrillation: Status: Acute (6) Osteomyelitis: Status: Acute (7) Diabetes mellitus, type 2: Status: Acute Plan Assessment: 87-year-old gentleman admitted with hypotension, acute renal injury, rhabdomyolysis, and metabolic acidosis secondary to prolonged immobility after fall. Plan: Neuro: No acute issues. Cardiac: Being titrated off vasopressor support. Underlying AFib and peripheral artery disease. Pulmonary: No acute issues. Renal: Acute renal failure secondary to rhabdomyolysis, improving. Non oliguric. Continue to monitor renal indices and urine output. Endo: No acute issues. GI: No acute issues. ID: Empirically covered with broad-spectrum antibiotics. Heme/Onc: No acute issues. Psych: No acute issues. Miscellaneous: No acute issues. Prophylaxis: Pneumatic compression Diet: nothing by mouth Critical care time spent: 45 minutes Quality Stroke Does the patient have a stroke diagnosis?: No VTE Prior VTE?: No VTE Risk Level:: Medical - moderate - high VTE Device Contraindication: N/A - Device Ordered VTE Drug Contraindication: N/A - Med Ordered
--- NOTE | 2023-03-13 15:02 | MHC.CM.PN ---
Pt remains on pressors in ICU but overall doing better: Pt's neighbor Julian came to visit and states pt was very independent up until a few weeks ago when friends noticed more forgetfulness and confabulation. Pt may need STR vs LTC placement following his stay: PT eval to occur once pt is off of pressors and exhibiting more signs of clinical stability.
[2023-03-13 16:19] LABS: Glucose, Whole Blood 145 mg/dL (60-115)
[2023-03-13 20:56] LABS: Glucose, Whole Blood 95 mg/dL (60-115)
[2023-03-13 21:53] LABS: Vancomycin Random 23.6 mcg/mL (15-20)
[2023-03-14] VITALS (20 sets, daily range): BP systolic 108–138; BP diastolic 58–88; PULSE 62–107; RESP 11–21; TEMP 36.3–37.2; O2SAT 90–100; BMI 24.3
[2023-03-14] MEDS: Piperacillin Sodium/Tazobactam 2.25 GM in 0.9 % Sodium Chloride 50 ML IV ×3 (01:27→17:33)
[2023-03-14] MEDS: Albumin Human 25 % 100 ML IV (02:30)
--- NOTE | 2023-03-14 03:51 | PC.NURSE ---
Addendum entered by Dilan Zapata RN 03/14/23 04:00: REMAINS NPO--WET COUGH WITH ORAL CARE---PER CPOE GIVEN FEW ICE CHIPS INTERMITTANTLY Original Note: CARE ASSUMED 23:15..AWAKE..ALERT..CONVERSES..ORIENTED TO PERSON AND THE HOSPITAL ...VAGUE RESPONSES TO OTHER QUESTIONS..GENERALIZED WEAKNESS...REMAINS WITH GENERALIZED BRUISING TO [place]OR[place] AND ALL EXTREMETIES WITH MULTIPLE ABRASIONS/SKIN TEARS--WOUNDS TO THIGH SHOULDER AND CHEST WITH FOAM DRESSINGS---PER SHIFT REPORT IV FLUIDS PREVIOUSLY D/C'D AND LEVOPHED DRIP WEANED OFF...BP 82/40 AT HS....SESAY MINIMAL OUTPUT...LEVOPHED DRIP RESUMED WITH IMPROVED BP...ZOSYN AND ALBUMEN INFUSED PER DEC----SESAY REMAINS WITH 8-20 CC/HR...FLUID BALANCE SINCE ADMIT APPROX (+) 7 LITERS...ICU AIR BAG BUILDER AWARE OF OUTPUT...TO MONITOR AND REVIEW TRENDS OF AM LAB WORK
[2023-03-14 04:40] LABS: VBG Base Excess 5.7 mmol/L; VBG HCO3 29 mmol/L (22-26); VBG pCO2 41 mmHg; VBG pH 7.46 (7.32-7.43); VBG pO2 36 mmHg
[2023-03-14 05:16] LABS: MANUAL DIFF FLAG NO
[2023-03-14 05:27] LABS: Basophils Percent Auto 0.2 % (0-2); Eosinophils Absolute Auto 0.1 X10*3/uL (0.0-0.4); Eosinophils Percent Auto 0.3 % (0-4); Hematocrit 25.1 % (42.0-52.0); Hemoglobin 8.5 g/dl (14.0-18.0); Imm Gran Abs Auto 0.12 X10*3/uL (0.00-0.03); Imm Gran Pct Auto 0.7 % (0.0-0.4); Lymphocytes Absolute Auto 1.1 X10*3/uL (1.2-4.9); Lymphocytes Percent Auto 6.6 % (20-40); Mean Corpuscular HGB Conc 33.9 g/dl (31.0-36.0); Mean Corpuscular Hemoglobin 29.9 pg (27.0-33.0); Mean Corpuscular Volume 88.4 fL (80.0-98.0); Mean Platelet Volume 10.3 fL (9.4-12.4); Monocytes Absolute Auto 1.3 X10*3/uL (0.1-1.2); Monocytes Percent Auto 7.8 % (2-11); NRBC Pct Auto 0.1 /100WBC (0.0-0.2); Neutrophils Absolute Auto 13.5 x10*3/uL (2.0-8.3); Neutrophils Percent Auto 84.4 % (45-73); Platelet Count 71 X10*3/uL (160-400); Red Blood Count 2.84 X10*6/uL (4.60-5.80); Red Cell Distribution Width 14.7 % (11.0-16.0); White Blood Count 16.1 X10*3/uL (4.8-10.8)
[2023-03-14 05:45] LABS: Albumin Level 3.6 g/dL (3.5-5.0); Anion Gap 16 (12-20); Blood Urea Nitrogen 42 mg/dL (9-16); Calcium 8.1 mg/dL (8.4-10.2); Carbon Dioxide 25 mmol/L (22-29); Chloride 113 mmol/L (96-108); Creatinine Clr Calc Pharmacy 15.2; Estimated Glomerular Filt Rate 17; Glucose Random 89 mg/dL (60-115); Magnesium 1.7 mg/dL (1.6-2.6); Phosphorus 2.9 mg/dL (2.7-4.5); Potassium 3.1 mmol/L (3.3-5.1); Sodium 151 mmol/L (135-145)
[2023-03-14] MEDS: KCl 20 mEq in 5 % Dextrose 20 MEQ/1,000 ML IV.SOLN 100 MEQ IVCONT (06:08)
[2023-03-14] MEDS: Potassium Chloride/H20 10 MEQ/100 ML PIGGYBACK 100 MEQ IV ×2 (06:09→08:04)
[2023-03-14 07:09] LABS: Venous Blood Gas Refer to POC result
[2023-03-14 07:23] LABS: Glucose, Whole Blood 103 mg/dL (60-115)
[2023-03-14] MEDS: Norepinephrine Bitartrate/D5W 8 MG/250 ML PLAST..BAG 3.55 MG IV (08:04)
[2023-03-14] MEDS: Dextrose 5 % 1,000 ML 50 ML IVCONT (09:33)
--- NOTE | 2023-03-14 09:54 | MHC.CM.PN ---
Patient will transfer to medical floor today. CM to follow for d/c planning needs.
--- NOTE | 2023-03-14 10:00 | MHC.CLN ---
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
[2023-03-14 12:03] LABS: Glucose, Whole Blood 123 mg/dL (60-115)
--- NOTE | 2023-03-14 13:57 | P.CDIM_ITS ---
PROVIDER RESPONSE TEXT: To clarify, the appropriate diagnosis supported by the clinical indicators: Pressure ulcer/injury Sacrum Stage 3 or other stage if known QUERY TEXT: PHYSICIAN'S DOCUMENTATION REQUEST Date of Query: 03/14/2023 07:09 AM EDT Patient Name: Beka Rabago Admit Date: 03/12/2023 Dear Meet Ellison, A review of the medical record indicates additional documentation may be needed. Please review below and update the documentation accordingly. Clinical Indicators: Wound assessment/Pressure injury notes 03/13: Stage 3 pressure injury -Sacrum beefy red, pink, blanched Barrier cream, foam dressing Based on the above, could you please provide further information regarding the ulcer/wound: Pressure ulcer/injury Sacrum Stage 3 or other stage if known Unable to determine Other (explain) Clinically unable to determine (explain) Thank you, Elyssa Motley, CCS, CDIS Use of terms such as suspected, likely, concern for, or probable (associated with a specific diagnosi s that is being evaluated, monitored, or treated as if it exists) are acceptable and can be coded in the inpatient se tting, when documented at the time of discharge. Please use your independent medical judgment in providing your response. THIS QUERY IS PART OF THE PERMANENT MEDICAL RECORD
--- NOTE | 2023-03-14 13:57 | PM.CCPN ---
Subjective Subjective Date of Service: 03/14/23 Interval History: 87-year-old gentleman with underlying history of AFib on aspirin Plavix, peripheral artery disease, aortic stenosis, osteomyelitis with recent admission, admitted on 03/12/2023 with alteration of mental status after mechanical fall and laying on the floor for several days. On ER evaluation patient in acute renal failure with rhabdomyolysis and metabolic acidosis with poor response to initial IV fluids requiring initiation of vasopressor support admitted to intensive care unit. In the intensive care unit patient with slow improvement in renal function in urine output on bicarbonate drip. No events overnight. Critical Care Time (minutes): 0 Physical Exam Vital Signs: Vital Signs: Last Vital Signs Temp 97.7 F 03/14/23 07:00 Pulse 67 03/14/23 13:00 Resp 17 03/14/23 13:00 BP 117/69 03/14/23 13:00 Pulse Ox 98 03/14/23 13:00 O2 Del Method Room Air 03/14/23 13:00 O2 Flow Rate 2 03/12/23 19:01 BMI result Body Mass Index 24.3 Const: General: no acute distress, alert, awake and other (Deconditioned) Nutritional Appearance: other Eyes: Sclerae: sclerae normal EOM: EOMs intact bilaterally Neck: Neck: Yes no lymphadenopathy, Yes trachea midline and Yes supple Resp: Effort & Inspection: normal respiratory effort and no respiratory distress Auscultation: clear to auscultation bilaterally Cardio: Rate: regular rate Rhythm: regular rhythm Heart sounds: no gallops, no murmurs and no rubs GI: Palpation (GI): Soft to palpation and Other GI palpation findings present ( Nontender) Auscultation: normal bowel sounds Extrem: General: No clubbing, No cyanosis and Yes edema (Trace bilateral) Objective Data Labs 03/14/23 04:35 03/14/23 04:35 Labs: Laboratory Results - last 24 hr 03/13/23 03/13/23 03/13/23 16:15 20:53 21:25 WBC RBC Hgb Hct MCV MCH MCHC RDW Plt Count MPV Immature Gran % (Auto) Neut % (Auto) Lymph % (Auto) [place] % (Auto) Eos % (Auto) Baso % (Auto) Lymph # (Auto) [place] # (Auto) Eos # (Auto) Baso # (Auto) Abs Immat Gran (auto) Absolute Neuts (auto) Absolute Nucleated RBC Nucleated RBC % (auto) VBG pH VBG pCO2 VBG pO2 VBG HCO3 VBG O2 Saturation VBG Base Excess Sodium Potassium Chloride Carbon Dioxide Anion Gap BUN Creatinine Estim Creat Clear Calc Estimated GFR POC Glucose 145 H 95 Random Glucose Calcium Phosphorus Magnesium Total Creatine Kinase Albumin Random Vancomycin 23.6 H 03/14/23 03/14/23 03/14/23 04:31 04:35 04:35 WBC 16.1 H RBC 2.84 L Hgb 8.5 L Hct 25.1 L MCV 88.4 MCH 29.9 MCHC 33.9 RDW 14.7 Plt Count 71 L D MPV 10.3 Immature Gran % (Auto) 0.7 H Neut % (Auto) 84.4 H Lymph % (Auto) 6.6 L [place] % (Auto) 7.8 Eos % (Auto) 0.3 Baso % (Auto) 0.2 Lymph # (Auto) 1.1 L [place] # (Auto) 1.3 H Eos # (Auto) 0.1 Baso # (Auto) 0.0 Abs Immat Gran (auto) 0.12 H Absolute Neuts (auto) 13.5 H Absolute Nucleated RBC 0.020 H Nucleated RBC % (auto) 0.1 VBG pH 7.46 H VBG pCO2 41 VBG pO2 36 VBG HCO3 29 H VBG O2 Saturation 56.0 VBG Base Excess 5.7 Sodium 151 H Potassium 3.1 L Chloride 113 H Carbon Dioxide 25 Anion Gap 16 BUN 42 H Creatinine 3.48 H Estim Creat Clear Calc 15.2 Estimated GFR 17 POC Glucose Random Glucose 89 Calcium 8.1 L D Phosphorus 2.9 Magnesium 1.7 Total Creatine Kinase 602 H Albumin 3.6 Random Vancomycin 03/14/23 03/14/23 07:20 12:00 WBC RBC Hgb Hct MCV MCH MCHC RDW Plt Count MPV Immature Gran % (Auto) Neut % (Auto) Lymph % (Auto) [place] % (Auto) Eos % (Auto) Baso % (Auto) Lymph # (Auto) [place] # (Auto) Eos # (Auto) Baso # (Auto) Abs Immat Gran (auto) Absolute Neuts (auto) Absolute Nucleated RBC Nucleated RBC % (auto) VBG pH VBG pCO2 VBG pO2 VBG HCO3 VBG O2 Saturation VBG Base Excess Sodium Potassium Chloride Carbon Dioxide Anion Gap BUN Creatinine Estim Creat Clear Calc Estimated GFR POC Glucose 103 123 H Random Glucose Calcium Phosphorus Magnesium Total Creatine Kinase Albumin Random Vancomycin Microbiology Microbiology Results: Microbiology 03/11/23 19:32 Blood - Venous Blood Culture - Preliminary No growth after 48 hours. 03/11/23 19:35 Blood - Venous Blood Culture - Preliminary No growth after 48 hours. 03/11/23 Unknown Urine Catheterized - Gardner Catheter Urine Culture - Final No growth. Progress Note: A&P Assessment and plan (1) Dysphagia: Status: Acute (2) Diabetes mellitus, type 2: Status: Acute (3) Rhabdomyolysis: Status: Acute (4) SUZANNE (acute kidney injury): Status: Acute (5) Chronic atrial fibrillation: Status: Acute (6) PAD (peripheral artery disease): Status: Acute (7) Osteomyelitis: Status: Acute Plan Assessment: 87-year-old gentleman admitted with hypotension, acute renal injury, rhabdomyolysis, and metabolic acidosis secondary to prolonged immobility after fall. Plan: Neuro: No acute issues. Cardiac: Titrated off vasopressor support. Underlying AFib and peripheral artery disease. Pulmonary: No acute issues. Renal: Acute renal failure secondary to rhabdomyolysis, improving. Non oliguric. Continue to monitor renal indices and urine output. Endo: No acute issues. GI: Dysphagia, patient is working with speech therapy. Now on D5W. ID: Empirically covered with broad-spectrum antibiotics. Heme/Onc: No acute issues. Psych: No acute issues. Miscellaneous: No acute issues. Prophylaxis: Pneumatic compression Diet: nothing by mouth Quality Stroke Does the patient have a stroke diagnosis?: No VTE Prior VTE?: No VTE Risk Level:: Medical - moderate - high VTE Device Contraindication: N/A - Device Ordered VTE Drug Contraindication: N/A - Med Ordered
--- NOTE | 2023-03-14 14:00 | P.CDIM_ITS ---
PROVIDER RESPONSE TEXT: To clarify, the appropriate diagnosis supported by the clinical indicators: Other (explain): Rhabdomyolysis with acute kidney injury and volume depletion QUERY TEXT: PHYSICIAN'S DOCUMENTATION REQUEST Date of Query: 03/14/2023 07:14 AM EDT Patient Name: Beka Rabago Admit Date: 03/12/2023 Dear Meet Ellison, A review of the medical record indicates additional documentation may be needed. Please review below and update the documentation accordingly. Clinical indicators: H&P 03/12-Sepsis with septic shock likely from osteomyelitis/hypotensive. Patient has elevated white count with left shift concerning for infection. Continue IV fluid hydratio n, empiric antibiotics. Fluid resuscitation with 30 ml/kg NS, received ceftriaxone, vancomycin, metronidazole in the emergenc y room. WBC 23.5 LA 3.1 HR 101 RR 20/24 Temp. 90.6 Sepsis Systemic manifestations of infection, with 2 or more SIRS criteria which include: Fever > 100.4?F or hypothermia < 96.8?F Leukocytosis WBC > 12,000 or leukopenia, WBC < 4,000, or > 10% bands Tachycardia- > 90 beats/minute Tachypnea- RR > 20 breaths/minute or PaCO2 < 32mmHg Severe Sepsis Sepsis with associated acute organ dysfunction, such as renal or respiratory failure Documentation should indicate the association between the sepsis and the organ dysfunction Septic Shock Severe sepsis with associated with circulatory failure, evidenced by hypotension and hypoperfusion Based on the above information and the recognized standard for sepsis, could you please clarify if th is diagnoses is still accurate and reflective of the patient's condition to ensure quality of the medical record. Sepsis is/was present and is a clinical diagnosis based on After study (the condition) has been ruled out Other (explain) Clinically unable to determine (explain) Thank you, Elyssa Motley, CCS, CDIS Use of terms such as suspected, likely, concern for, or probable (associated with a specific diagnosi s that is being evaluated, monitored, or treated as if it exists) are acceptable and can be coded in the inpatient se tting, when documented at the time of discharge. Please use your independent medical judgment in providing your response. THIS QUERY IS PART OF THE PERMANENT MEDICAL RECORD
--- NOTE | 2023-03-14 14:00 | P.CDIM_ITS ---
PROVIDER RESPONSE TEXT: To clarify, the appropriate diagnosis supported by the clinical indicators: Hypernatremia or other etiology of lab findings QUERY TEXT: PHYSICIAN'S DOCUMENTATION REQUEST Date of Query: 03/14/2023 09:14 AM EDT Patient Name: Beka Rabago Admit Date: 03/12/2023 Dear Meet Ellison, A review of the medical record indicates additional documentation may be needed. Please review below and update the documentation accordingly. Clinical Indicators: LAB FINDINGS: sodium 147 H 151 H Based on the above, is there a diagnosis that correlates with the lab findings above: Hypernatremia or other etiology of lab findings Labs indicate a diagnosis of (please specify) Other Unable to determine Other (explain) Clinically unable to determine (explain) Thank you, Elyssa Motley, CCS, CDIS Use of terms such as suspected, likely, concern for, or probable (associated with a specific diagnosi s that is being evaluated, monitored, or treated as if it exists) are acceptable and can be coded in the inpatient se tting, when documented at the time of discharge. Please use your independent medical judgment in providing your response. THIS QUERY IS PART OF THE PERMANENT MEDICAL RECORD
--- NOTE | 2023-03-14 14:15 | PC.NURSE ---
A second periph IV placed to RUE. Central line to VTJ d/c'ed per MD verbal order. Family visitor at bedside. Speech therapy at bedside evaluating pt. Wound noted to coccyx area. Levo turned off this AM per md verbal order, BP stable. K replaced.
--- NOTE | 2023-03-14 15:04 | MHC.SL.SWA ---
Speech Pathologist Impression: Risk of aspiration Dysphasia Diet Status: No change Liquid Consistency and Strategies for Safe Swallow: Liquid Intake Recommendation: NPO Solid Food Consistency: Dietary Recommendations: NPO Additional Modifications to Solid Foods: Pt may tolerate Ice Chips under supervision of Staff or WAREHOUSE LABORER. Monitor for coughing/throat clearing closely. Oral Medication Intake: NPO Please contact the pharmacy regarding appropriate crushable or liquid drug formulations that are available whenever modified delivery is recommended. Compensatory Strategies and Precautions to be Taken for Safe Swallow: Sitting Upright (90 deg) No Straw Liquids from Cup Small Bites and Sips Alternate Liquids/Solids Rate of Ingestion Change Avoid Specific Foods Supervision While Eating and Drinking for Safe Swallow: PO with WAREHOUSE LABORER Swallowing Recommended Treatments: Compens. Strategy Educat. Recommendation for Speech: Further Testing Needed Inpatient Speech Therapy Recommend pt continue NPO. Pt has reportedly been NPO since arrival on 03/11, suspected to possibly been on floor alone for 3 days meaning pt has possibly been NPO following C d/c on 03/08 or the following date of 03/09. May consider temporary alternate nutrition (PPN vs. NG tube). Therapeutic ice chips w/ supervision OK. Discontinue if pt presents with s/s aspiration. If dysphagia symptoms continue/worsen, pt may eventually benefit from MBSS if/when appropriate. WAREHOUSE LABORER will re-assess tomorrow morning and can make call whether or not MBSS is recommended at that time. RN on floor notified. RN, , and RD notified via [place]. Director Supply Clinican/Clinical Fellow: No Supervisory Statement: I have reviewed and agree with the student/clinical fellow's documentation: N/A Speech Language Pathologist: Liliana Aviles M.A., WAREHOUSE LABORER
[2023-03-14 16:33] LABS: Glucose, Whole Blood 118 mg/dL (60-115)
[2023-03-14 21:23] LABS: Glucose, Whole Blood 119 mg/dL (60-115)
[2023-03-15] VITALS (8 sets, daily range): BP systolic 93–128; BP diastolic 49–68; PULSE 70–144; RESP 12–19; TEMP 35.9–37; O2SAT 94–98; BMI 24.7
[2023-03-15] MEDS: Piperacillin Sodium/Tazobactam 2.25 GM in 0.9 % Sodium Chloride 50 ML IV ×3 (02:30→18:26)
[2023-03-15] MEDS: Dextrose 5 % 1,000 ML 50 ML IVCONT (04:06)
[2023-03-15 05:08] LABS: MANUAL DIFF FLAG NO
[2023-03-15 05:12] LABS: Basophils Absolute Auto 0.1 X10*3/uL (0.0-0.2); Basophils Percent Auto 0.3 % (0-2); Eosinophils Absolute Auto 0.2 X10*3/uL (0.0-0.4); Eosinophils Percent Auto 1.3 % (0-4); Hematocrit 27.9 % (42.0-52.0); Hemoglobin 9.4 g/dl (14.0-18.0); Imm Gran Abs Auto 0.12 X10*3/uL (0.00-0.03); Imm Gran Pct Auto 0.8 % (0.0-0.4); Lymphocytes Absolute Auto 1.1 X10*3/uL (1.2-4.9); Mean Corpuscular HGB Conc 33.7 g/dl (31.0-36.0); Mean Corpuscular Volume 89.1 fL (80.0-98.0); Mean Platelet Volume 10.2 fL (9.4-12.4); Monocytes Absolute Auto 1.2 X10*3/uL (0.1-1.2); Monocytes Percent Auto 7.7 % (2-11); Neutrophils Absolute Auto 13.3 x10*3/uL (2.0-8.3); Neutrophils Percent Auto 82.9 % (45-73); Platelet Count 75 X10*3/uL (160-400); Red Blood Count 3.13 X10*6/uL (4.60-5.80); Red Cell Distribution Width 15.1 % (11.0-16.0)
[2023-03-15 05:24] LABS: Albumin Level 2.9 g/dL (3.5-5.0); Anion Gap 15 (12-20); Blood Urea Nitrogen 47 mg/dL (9-16); Calcium 8.5 mg/dL (8.4-10.2); Carbon Dioxide 24 mmol/L (22-29); Chloride 111 mmol/L (96-108); Estimated Glomerular Filt Rate 15; Glucose Random 128 mg/dL (60-115); Magnesium 1.8 mg/dL (1.6-2.6); Phosphorus 3.1 mg/dL (2.7-4.5); Potassium 3.6 mmol/L (3.3-5.1); Sodium 146 mmol/L (135-145)
[2023-03-15 07:28] LABS: Glucose, Whole Blood 123 mg/dL (60-115)
--- NOTE | 2023-03-15 09:04 | P.CONNP_ITS ---
History of Present Illness Reason for Consult Consult date: 03/15/23 Reason for consult: SUZANNE Chief Complaint Chief complaint: Fall History of Present Illness Narrative: 87-year-old male with chronic atrial fibrillation on aspirin and clopidogrel, peripheral artery disease, nonrheumatic aortic stenosis, osteomyelitis of left great toe, ascending aortic aneurysm, hypertension and glaucoma.? He presents to the emergency room s/p fall with head strike, unknown LOC. According to EMS the patient was on the ground for approximately 3 days.? The patient was recently admitted to [facility] 03/05/2023 to 03/08/2023 for a nonhealing stage 2 ulcer left great toe with cellulitis and osteomyelitis treated with cefepime and vancomycin and sent home with doxycycline.? Baseline serum creatinine is 1.2 mg/dL. At the time of admission creatinine was 3.12. Serum creatinine has been fluctuating and was last few days there has been a gradual increase in serum creatinine up to 3.78. On admissions CPK was 2788 which has gradually decreased to 602. He did receive vancomycin and recent vanco level was elevated. Review of Systems Review of Systems Patient is a poor historian. No headache. No nausea vomiting. No abdominal pain. No shortness of breath. No cough. [facility] Past Medical History Medical History (Updated 03/14/23 @ 13:59 by Meet Ellison MD) A-fib Diabetes mellitus, type 2 HTN (hypertension) Non-rheumatic aortic stenosis Social History Social History Household Members: None Housing: House Do you presently have visiting nurse or other home services: Yes (pt states VNA visit 2x a year) Alcohol intake: current Alcohol intake frequency: 0-2 drinks per day Patient Tobacco Use Status: Never used Tobacco service: No Current occupational status: retired Meds Allergies Allergy/AdvReac Type Severity Reaction Status Date / Time No Known Allergies Allergy Verified 03/05/23 10:39 Active Medications: Current Medications Aspirin (Aspirin 300 Mg Supp.Rect) 300 mg NM DAILY BLANK Famotidine (Famotidine/Pf 20 Mg/2 Ml Vial) 20 mg IVPUSH DAILY BLANK Piperacillin Sod/Tazobactam (Sod 2.25 gm/ Sodium Chloride) 50 mls @ 100 mls/hr IV Q8H BLANK Last Infusion: 03/15/23 03:22 Dose: Infused Dextrose (D5w) 1,000 mls @ 100 mls/hr IVCONT .Q10H BLANK Last Infusion: 03/15/23 08:14 Dose: 100 mls/hr Pharmacy Consult (Consult Rx Perform Med Rec) 1 each MISCELLANE ONCE PRN PRN Reason: Consult order Home Medications Medication Instructions Recorded Confirmed Last Taken Type lisinopril 10 mg tablet 10 mg PO DAILY 03/05/23 03/12/23 03/04/23 History metoprolol tartrate 25 mg tablet 25 mg PO BID 03/05/23 03/12/23 03/04/23 History Physical Exam Vital Signs: Last Vital Signs Temp 97.5 F 03/15/23 08:00 Pulse 79 03/15/23 08:00 Resp 14 03/15/23 08:00 BP 121/66 03/15/23 08:00 Pulse Ox 98 03/15/23 08:00 O2 Del Method Room Air 03/15/23 08:00 O2 Flow Rate 2 03/12/23 19:01 BMI result Body Mass Index 24.7 Comfortable Ill-appearing. Mucosa is dry Neck is supple. No JVD Lung: Air entry equal. Scattered rhonchi Heart: S1,S2, normal. No rub Abd: Soft. BS + nontender NS : Alert.No asterexis. Ext: No edema No rash Results Lab Results 03/15/23 05:02 03/15/23 05:02 Lab results: Chemistry 03/12/23 03/12/23 03/12/23 09:45 09:45 20:46 Sodium 145 146 H Potassium 3.7 3.5 Carbon Dioxide 14 L 18 L BUN 38 H 38 H Creatinine 3.17 H 3.23 H Calcium 7.7 L 7.3 L Phosphorus 5.9 H 4.6 H 03/13/23 03/14/23 03/15/23 04:44 04:35 05:02 Sodium 146 H 151 H 146 H Potassium 3.7 3.1 L 3.6 Carbon Dioxide 22 25 24 BUN 39 H 42 H 47 H Creatinine 3.31 H 3.48 H 3.78 H Calcium 7.5 L 8.1 L D 8.5 Phosphorus 3.5 2.9 3.1 Hematology 03/13/23 03/14/23 03/15/23 04:44 04:35 05:02 WBC 20.0 H 16.1 H 16.0 H Hgb 9.8 L 8.5 L 9.4 L Plt Count 114 L 71 L D 75 L Assessment and Plan (1) SUZANNE (acute kidney injury): Status: Acute Plan Elderly man with acute kidney injury. 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 Superimposed SUZANNE which is multifactorial. At the time of admission probably had hypoperfusion. /multifactorial ATN Mild rhabdomyolysis could have also led to tubular injury from pigment nephropathy. While in hospital he received vancomycin and the levels were elevated therefore vanco induced tubular injury is another possibility. Clinically no evidence of obstructive uropathy. CT scan did not show any obstruction. Active glomerular nephritis/interstitial disease need to be ruled out based on the urine findings He had metabolic acidosis on admission. This was corrected with IV bicarbonate and currently developed metabolic alkalosis along with hypokalemia. Hypernatremia due to free water deficit as well as infusion of hypotonic fluids. Anemia with thrombocytopenia. Shock. Recommendations Check urine for sodium, protein, creatinine, eosinophils. Check C3-C4 MPO, PR3. Check LDH, haptoglobin and peripheral smear. Keep Gardner catheter. Agree with IV hydration with hypotonic fluids to correct hypernatremia. Watch intake and output closely and keep him in a positive fluid balance. Maintain systolic blood pressure more than 100 mm Hg. Watch serum pH and correct hypokalemia as needed. No absolute indication for dialysis today. We will follow him closely along with the team Time Spent With Patient Time: Total time managing care of this patient today ____ minutes. Procedures Date of Service Date of Service: 03/15/23
[2023-03-15] MEDS: Famotidine/PF 20 MG/2 ML VIAL IVPUSH (09:57)
[2023-03-15] MEDS: Aspirin 300 MG SUPP.RECT PR (09:57)
--- NOTE | 2023-03-15 10:42 | MHC.CLN ---
F/U PT IS DAY 5 NPO IN HOSPITAL AND SUSPECTED DOWN TIME ESTIMATED 3 DAYS MANAGER ARCHITECTURAL; POSSIBLY NPO 7-8DAYS PT TO REMAIN NPO PER GROOVING MACHINE OPERATOR RECOMMENDATIONS FOLLOWS: Recommend pt continue NPO. Pt has reportedly been NPO since arrival on 03/11, suspected to possibly been on floor alone for 3 days meaning pt has possibly been NPO following C d/c on 03/08 or the following date of 03/09. May consider temporary alternate nutrition (PPN vs. NG tube). Therapeutic ice chips w/ supervision OK. Discontinue if pt presents with s/s aspiration. If dysphagia symptoms continue/worsen, pt may eventually benefit from MBSS if/when appropriate. GROOVING MACHINE OPERATOR will re-assess tomorrow morning and can make call whether or not MBSS is recommended at that time. RN on floor notified. RN, , and RD notified via [place]. PT WITH MILDLY DEPLETED MUSCLE MASS S/P NFPE, PT AT RISK FOR MODERATE MALNUTRITION R/T PROLONGED NPO STATUS AND STAGE 3 PI NO PREVIOUS SIGNIFICANT WT LOSS REPORTED PT REFUSED NG TUBE YESTERDAY PER DR ALMEIDA PLAN AWAITING GROOVING MACHINE OPERATOR RE-EVAL TODAY RECOMMEND PPN D10AA4.25 AT 35ML/HR TO PROVIDE 428KCALS, 36G PROTEIN CHECK TRIG LEVEL REPLETE LYTES NEEDED FOLLOWING WITH TEAM
--- NOTE | 2023-03-15 11:11 | MHC.SL.SWA ---
Speech Pathologist Impression: Risk of Aspiration Due to: Dysphasia Diet Status: Recommend pt continue NPO until MBSS Study. Liquid Consistency and Strategies for Safe Swallow: Liquid Intake Recommendation: NPO Liquid Intake Strategies: Solid Food Consistency: Dietary Recommendations: NPO Additional Modifications to Solid Foods: Pt may tolerate Ice Chips under supervision of Staff or ECG TECHNICIAN. Monitor for coughing/throat clearing closely. Oral Medication Intake: NPO Please contact the pharmacy regarding appropriate crushable or liquid drug formulations that are available whenever modified delivery is recommended. Compensatory Strategies and Precautions to be Taken for Safe Swallow: Sitting Upright (90 deg) Supervision While Eating and Drinking for Safe Swallow: PO with ECG TECHNICIAN Foods to Avoid: Swallowing Recommended Treatments: Compens. Strategy Educat. Recommendation for Speech: Further Testing Needed Inpatient Speech Therapy Comment: Pt seen for re-assessment of swallow this morning. Patient had just been moved to bedside chair by RN & AUTOCAD ELECTRICAL DESIGNER, and was awake, alert and communicative. Oral motor screen was WFL. Patient given tsp amounts of water, evidenced wet voice, throat clearing and coughing on this consistency. Patient then given trials of nectar thick apple juice by spoon and cup sip, and continued to demonstrate wet, gurgly vocal quality, throat clearing after swallow. Patient given tsp amounts of puree/pudding, after two trials, evidence wet vocal quality, throat clearing. On palpation of swallow, noted incomplete laryngeal elevation on all textures. Patient has been seen by ECG TECHNICIAN X 3 to assess for readiness for diet, with similar results to today, and has been continued NPO. Recommend MBSS study to further assess pharyngeal phase of swallow, readiness for diet and appropriate consistencies. Recommend continue NPO until study. MARCO GRANADOS notified of recommendation by Bull huffman RN in person. Frequency/Duration: Date Range for Service Req: Timeline to reassess: [facility] Director Clinican/Clinical Fellow: No Supervisory Statement: I have reviewed and agree with the student/clinical fellow's documentation: N/A Speech Language Pathologist: Pamela Sandhu M.A., [facility]-ECG TECHNICIAN
[2023-03-15 11:14] LABS: Lactate Dehydrogenase 433 U/L (118-273)
[2023-03-15 11:18] LABS: Glucose, Whole Blood 168 mg/dL (60-115)
[2023-03-15 11:25] LABS: Creatinine Urine 66.48 mg/dL; Total Protein Urine Random 139 mg/dL (<12)
--- NOTE | 2023-03-15 13:31 | P.PNIM_ITS ---
Subjective Subjective Date of Service: 03/15/23 Interval History: offers no acute complaints wants to sit up and start walking, requesting for water, patient did not tolerate NG tube placement, remains NPO no acute overnight events, blood pressure is stable fluctuating heart rate increases with coughing episodes. Review of Systems Review of Systems: Yes all other systems are reviewed and are negative Physical Exam Vital Signs: Vital Signs: Last Vital Signs Temp 97.0 F 03/15/23 12:00 Pulse 78 03/15/23 12:00 Resp 12 03/15/23 12:00 BP 115/49 L 03/15/23 12:00 Pulse Ox 96 03/15/23 12:00 O2 Del Method Room Air 03/15/23 12:00 O2 Flow Rate 2 03/12/23 19:01 BMI result Body Mass Index 24.7 Const: Other: General? resting c omfortably in no a cute distress.? Ne ck supple no JVD. CVS? regular rate rhythm, Respirator y lungs clear to a uscultation, no re spiratory distress , no wheeze, no rh onchi. Gastrointes tinal abdomen soft , nontender, bowel sounds audible,? no guarding , no r igidity. Extremiti es? left lower ext remity, ulcer plan tar surface great toe with black esc maddie no drainage, n o foul odor, anoth er small open ulce r base of 1st meta tarsal , no draina ge. Neuro nonfocal , moving all 4 ex tremity, speech cl ear. Skin no rash psych appropriate affect Objective Data Active Medications Aspirin (Aspirin 300 Mg Supp.Rect) 300 mg WI DAILY [facility] Last Admin: 03/15/23 09:57 Dose: 300 mg Documented By: SANGEETA Famotidine (Famotidine/Pf 20 Mg/2 Ml Vial) 20 mg IVPUSH DAILY [facility] Last Admin: 03/15/23 09:57 Dose: 20 mg Documented By: SANGEETA Piperacillin Sod/Tazobactam (Sod 2.25 gm/ Sodium Chloride) 50 mls @ 100 mls/hr IV Q8H [facility] Last Infusion: 03/15/23 11:22 Dose: 0 mls/hr Documented By: SANGEETA Dextrose (D5w) 1,000 mls @ 100 mls/hr IVCONT .Q10H [facility] Last Infusion: 03/15/23 08:14 Dose: 100 mls/hr Documented By: SANGEETA Magnesium Sulfate 5 meq/Potassium Phosphate 15 mmol/Calcium Gluconate 4.65 meq/Potassium Acetate 8 meq/ Amino Acids/Electrolytes/Dextrose 840 mls @ 35 mls/hr IVCONT DAILY@1800 [facility] Stop: 03/16/23 17:59 Pharmacy Consult (Consult Rx Perform Med Rec) 1 each MISCELLANE ONCE PRN PRN Reason: Consult order Labs 03/15/23 05:02 03/15/23 05:02 Labs: Laboratory Results - last 24 hr 03/14/23 03/14/23 03/15/23 16:29 21:19 05:02 MCV MCH MCHC RDW Plt Count MPV Immature Gran % (Auto) Neut % (Auto) Lymph % (Auto) Dickey % (Auto) Eos % (Auto) Baso % (Auto) Lymph # (Auto) Dickey # (Auto) Eos # (Auto) Baso # (Auto) Abs Immat Gran (auto) Absolute Neuts (auto) Absolute Nucleated RBC Nucleated RBC % (auto) Anion Gap 15 Estim Creat Clear Calc 14.0 Estimated GFR 15 POC Glucose 118 H 119 H Random Glucose 128 H Calcium 8.5 Phosphorus 3.1 Magnesium 1.8 Lactate Dehydrogenase Albumin 2.9 L U Random Total Protein Ur Random Sodium Urine Creatinine 03/15/23 03/15/23 03/15/23 05:02 07:25 10:31 MCV 89.1 MCH 30.0 MCHC 33.7 RDW 15.1 Plt Count 75 L MPV 10.2 Immature Gran % (Auto) 0.8 H Neut % (Auto) 82.9 H Lymph % (Auto) 7.0 L Dickey % (Auto) 7.7 Eos % (Auto) 1.3 Baso % (Auto) 0.3 Lymph # (Auto) 1.1 L Dickey # (Auto) 1.2 Eos # (Auto) 0.2 Baso # (Auto) 0.1 Abs Immat Gran (auto) 0.12 H Absolute Neuts (auto) 13.3 H Absolute Nucleated RBC 0.000 Nucleated RBC % (auto) 0.0 Anion Gap Estim Creat Clear Calc Estimated GFR POC Glucose 123 H Random Glucose Calcium Phosphorus Magnesium Lactate Dehydrogenase Albumin U Random Total Protein 139 H Ur Random Sodium 76.0 Urine Creatinine 66.48 03/15/23 03/15/23 10:42 11:15 MCV MCH MCHC RDW Plt Count MPV Immature Gran % (Auto) Neut % (Auto) Lymph % (Auto) Dickey % (Auto) Eos % (Auto) Baso % (Auto) Lymph # (Auto) Dickey # (Auto) Eos # (Auto) Baso # (Auto) Abs Immat Gran (auto) Absolute Neuts (auto) Absolute Nucleated RBC Nucleated RBC % (auto) Anion Gap Estim Creat Clear Calc Estimated GFR POC Glucose 168 H Random Glucose Calcium Phosphorus Magnesium Lactate Dehydrogenase 433 H Albumin U Random Total Protein Ur Random Sodium Urine Creatinine Assessment and Plan (1) Dysphagia: Status: Acute (2) Metabolic acidosis: Status: Acute (3) Rhabdomyolysis: Status: Acute (4) SUZANNE (acute kidney injury): Status: Acute (5) Hypotension: Status: Acute Plan 7-year-old gentleman with underlying history of AFib on aspirin Plavix, peripheral artery disease, aortic stenosis, osteomyelitis with recent admission, admitted on 03/12/2023 with alteration of mental status after mechanical fall and laying on the floor for several days.? On ER evaluation patient in acute renal failure with rhabdomyolysis and metabolic acidosis? with poor response to initial IV fluids requiring initiation of vasopressor support admitted to intensive care unit, renal function slowly improved therefore patient transferred to [facility] on 03/14/2023.? # acute renal failure with rhabdomyolysis and metabolic acidosis status post IV vasopressors , IV bicarbonate drip and admission to ICU creatinine trending up 3.78 today will increase D5W to 100 mL per hour, Nephrology consultation, avoid nephrotoxins and hypotension,continue supportive care. # hypernatremia on IV D5W follow BMP # dysphagia being followed by speech therapy they recommend NPO since patient is NPO for last 6 days with down time prior to admission will place patient on PPN patient refused NG tube placement yesterday. will order an MBSS. # acute toxic metabolic encephalopathy due to above resolved # Non healing ulcer left great toe with possible osteomyelitis recently discharged from [facility] after undergoing successful left peroneal plasty by Dr. Oliva was discharged on aspirin, Plavix for 6 months as well as doxycycline 100 mg twice daily for 2 months to suppress osteomyelitis, since npo he is on IV Zosyn D3 and aspirin WI. # Atrial fibrillation, unspecified chronicity/frequency,-Not on anticoagulation,he was prescribed but he did not take, out of concern for bleeding risk. recent Echo, showed severe #Diet-controlled type 2 diabetes, hemoglobin A1c 4.9, stable blood sugars , no further monitoring needed #HTN- bp reasonably controlled, few episodes of tachycardia, will place on low- dose IV metoprolol prn, home medications metoprolol and lisinopril are on hold. DVT prophylaxis- compression boots disposition will obtain PT eval for out of bed to chair and ambulate as tolerated patient lives alone at home Full code Pt requires inpatient stay for management of acute kidney injury requiring IV fluids and NPO on IV PPN need further workup for dysphagia Time Spent With Patient Time: Total time managing care of this patient today ____ minutes. Quality Stroke Does the patient have a stroke diagnosis?: No VTE Prior VTE?: No VTE Risk Level:: Medical - moderate - high VTE Device Contraindication: N/A - Device Ordered VTE Drug Contraindication: N/A - Med Ordered
--- NOTE | 2023-03-15 13:46 | MHC.CM.PN ---
Pt clinically stable and will transfer out of ICU today: Pt states he feels better but still weak. HCP scanned into [facility]: Pt originally resided alone but may need STR for maximization of functional abilities before returing to home: PT eval necessary to ensure home safety. Pt's HCP/neighbor Wisam Casey involved w/pt's planning needs: Home w/possible VNA versus STR
[2023-03-15 14:51] LABS: EOS Counted 0 CELLS; EOS QC POS YES; EOS Stain Quality OK YES; WBC, Counted 100 CELLS
[2023-03-15 15:38] LABS: Glucose, Whole Blood 165 mg/dL (60-115)
--- NOTE | 2023-03-15 17:16 | PC.NURSE ---
Patient arrived in bed from ICU via Radiology from [facility]. Oriented to room, call abbott system and staff. A&OX2-3 off on year slightly, speech sounds wet pt encouraged to cough to help with secretions. BARNES to command with generalized weakness 3/5 sensation intact, + pedal pulses bilaterally no edema noted. Lung sounds dim denies shortness of breath or chest pain, Afib on tele with Bundle Branch Block. BS+X4 abdomen soft non-tender denies nausea/vomiting. Gardner catheter in place with pink concentrated urine. Multiple areas of skin breakdown on trunk, arms, posterior thighs and coccyx as well as scattered bruising to trunk and extremities. Left great toe necrotic area. IV fluids infusing per order, remains NPO at this time. Bed in lowest position with alarm for safety. Will continue to monitor
--- NOTE | 2023-03-15 17:17 | MHC.SL.IMP ---
Date of Plan of Treatment: 03/15/23 Onset of Symptoms/Illness: 03/12/23 Date Treatment Started: 03/12/23 Admitting Diagnosis: Afib PAD Aortic Stenosis Osteomyelitis Aortic Aneurysm HTN Glaucoma Primary Speech & Language Diagnosis: R13.12 Oropharyngeal Phase Dysphagia Reason for Today's Visit: 81200 Modified Barium Swallow Study Pre-evaluation Dietary Consistencies: NPO Pre-evaluation Liquid Consistency: NPO Pre-evaluation Medication Administration: NPO Medical History: Modified Barium Swallow Study Fluoroscopic Evaluation of Swallowing Function CPT Code 10152 Evaluation Year: 2022 Reason for Study: Pt displays s/s of aspiration. 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 Pt was consistently showing overt s/s of aspiration. Pt produced throat clear and vocal wetness with PO intake. Pt was recommended NPO status pending further examination with MBSS. Upon interview today, pt denies having any trouble swallowing. Food and Liquid Trials: Oral Impairment: Lip Closure: Did not test Oral Impairment: Tongue Control During Bolus Hold: Did not test Oral Impairment: Bolus Preparation/Mastication: Did not test Oral Impairment: Bolus Transport/Lingual Motion: 2=Slowed tongue motion Oral Impairment: Oral Residue: 1=Trace residue lining oral structures Oral Impairment:Initiation of Pharyngeal Swallow: 3=Bolus head in pyriforms Pharyngeal Impairment: Soft Palate Elevation: 1=Trace column of contrast or air between SP and PW Pharyngeal Impairment: Laryngeal Elevation: 1=Partial thyroid cartilage/arytenoids to epiglottic petiole movement Pharyngeal Impairment: Anterior Hyoid Excursion: 1=Partial anterior movement Pharyngeal Impairment: Epiglottic Movement: 2=No inversion Pharyngeal Impairment: Laryngeal Vestibular Closure:: 1=Incomplete: narrow column air/contrast in laryngeal vestibule Pharyngeal Impairment: Pharyngeal Stripping Wave: 1=Present: diminished Pharyngeal Impairment: Pharyngeal Contraction: Did not test Pharyngeal Impairment: Pharyngoesophageal Segment Openin=Complete distension and complete duration: no obstruction of flow Pharyngeal Impairment: Tongue Base (TB) Retraction: 2=Narrow column of contrast/air between TB and posterior PW Pharyngeal Impairment: Pharyngeal Residue: 3=Majority of contrast within or on pharyngeal structures Pharyngeal Impairment: Esophageal Clearance Upright Position: Did not test Impressions and Recommendations OBJECTIVE: Time-out: performed at 14:45 Evaluation Start: 14:30; Stop: 14:34 Patient Positioning: Seated 70-90 degrees Viewing Planes: LATERAL ONLY Contrast: MBSImP? Standardized Protocol using commercially prepared, standardized Barium viscosities, including: Varibar? THIN LIQUID (40% w/v, <15 cps) , Varibar? THIN HONEY (40% w/v, <800-1800 cps) MBSImP ID: [id number] MBSImP Results: Lip closure for intraoral bolus containment could not be assessed due to logistical reasons not related to physiologic impairment. Tongue control during bolus hold could not be assessed due to logistical reasons not related to physiologic impairment. Bolus preparation and mastication received the highest impairment score; solid not given due to patient safety concerns related to oral impairment. Bolus transport/lingual motion was with slowed tongue motion. Oral residue was a trace, lining oral structures. Initiation of the pharyngeal swallow occurred when the bolus head was in the pyriform sinuses. Soft palate elevation allowed a trace column of contrast or air between the soft palate and the pharyngeal wall. Laryngeal elevation was decreased, with partial superior movement of the thyroid cartilage/partial approximation of the arytenoids to the epiglottic petiole. Anterior hyoid excursion demonstrated partial anterior movement. Epiglottic movement resulted in no inversion. Laryngeal vestibular closure was incomplete, with a narrow column of air/contrast noted within the laryngeal vestibule at the height of the swallow. Pharyngeal stripping wave was present, but diminished. Pharyngeal contraction could not be determined due to logistical reasons not related to physiologic impairment. Pharyngoesophageal segment opening was completely distended for complete duration with no obstruction of bolus flow. Tongue base retraction allowed a narrow column of contrast or air between the retracted tongue base and the posterior pharyngeal wall. Pharyngeal residue was the majority of contrast within or on pharyngeal structures. Esophageal clearance in the upright position could not be assessed due to logistical reasons not related to physiologic impairment. Oral Impairment Score: 8 (absence of score, component 1component 2) Pharyngeal Impairment Score: 12 (absence of score, component 13) Esophageal Impairment Score: --- (absence of score, component 17) Laryngeal Penetration and Aspiration: Aspiration was observed in today's study. Puree, Honey-thick, Thin Contrast entered the airway, passed below the vocal folds, and were not ejected from the trachea despite effort. Puree, Honey-thick, Thin Contrast entered the airway, passed below the vocal folds, and no effort were made to eject. ASSESSMENT: Clinician Assessment: This exam was conducted by a multidisciplinary team, which included a speech pathologist, radiologist, and electronics maintenance technician. Pt was seated in a chair upright for lateral view only. Pt trialed the following liquid and solid consistencies: thin liquid barium (5 mL cup), honey thick liquid barium (via spoon), and pureed solid (mixture applesauce with barium paste; via spoon). Lingual motion for transport of bolus was significantly slowed and delayed. There was trace oral residue collection on the tongue. Pharyngeal swallow trigger was delayed and initiated as bolus head reached the pyriform sinuses. There was no nasopharyngeal reflux evident during this exam though there was a trace column of air/space between the soft palate and pharyngeal wall. Noted partial laryngeal elevation with partial anterior hyoid excursion. No epiglottic inversion and incomplete laryngeal vestibular closure resulted in contrast entering into the laryngeal vestibule. There was aspiration during the swallow with trials of thin liquid, honey thick liquid and pureed solid. There was also aspiration after the swallow on contrast which had overflowed from the pyriforms with all consistencies. Pt did not elicit a reflexive cough or throat clear in response to aspiration events. Pt stated he did not ?feel anything go down the wrong way.? Pt did produce a wet vocal quality after aspiration events. Pt was cued for a variety of strategies, including volitional cough, volitional throat clearing, and effortful swallow in an attempt to clear contrast from the airway. Pt?s cough and throat clear were notably weak. This reduced some contrast that was above the vocal folds, but there was no reduction of any contrast past the vocal folds. With all consistencies, pt displayed significant retention, mostly in the pyriforms, but also in the valleculae and on the posterior pharyngeal wall. Pt was cued to cough and clear his throat, which had some effect in reducing pharyngeal residue. Pt swallowed up to 7 times per trial and was unable to entirely clear contrast. Pt also cued by radiologist for chin tuck position. Pt did not maintain this position and the attempt had no effect in clearing residuals. The exam was discontinued for pt safety, as pt would likely aspirate with continued trials. Thicker consistencies were not trialed, as this exam revealed significant retention and aspiration from overflow in the pyriforms. Pt denied experiencing any globus sensation. Liquid Intake Recommendation: NPO Liquid Intake Strategies: Dietary Recommendations: NPO Medication Administration: NPO Please contact the pharmacy regarding appropriate crushable or liquid drug formulations that are available whenever modified delivery is recommended. Recommendation for Speech Therapy: Inpatient Speech Therapy Speech Therapy through [facility] Speech Therapy through Rehab Facility Modified Barium Swallow Study - Outpatient PLAN: Intake Recommendations: Route: NPO/Alternate Route Diet Grade: IDDSI Levels: Liquid Consistencies: IDDSI Levels: Post-Study Functional Oral Intake Scale (FOIS): 1- No oral intake Pt presents with SEVERE OROPHAYRNGEAL DYSPHAGIA. This exam revealed severely delayed swallow trigger, compromised airway protection, absent epiglottic inversion, and weak voice/throat clear. Pt demonstrated significant pharyngeal retention, which partially reduced with volitional coughing and throat clearing; and repeated and effortful swallow attempts. Pt was unable to completely clear the residue despite this effort. There was evidence of aspiration with all consistencies trialed during this exam during the swallow and on overflow from the pyriforms after the swallow (thin liquid, honey thick liquid, and pureed solid). Pt demonstrates reduced sensation to aspiration events and pharyngeal retention. Pt did produce a wet voice after the trials. Based on the observations made during this exam, safest recommendation appears to be NPO at this time. Recommend pt and his caregivers to discuss the options for nutritional intake with the medical team (i.e. alternative means of nutrition vs. accepting aspiration risks with PO diet). Pt may benefit from consultations with Nutrition and G.I., if deemed to be appropriate by pt?s medical team, to assess candidacy/ determine if alternative means of nutrition is a viable option for this pt. Ultimate decisions for nutritional intake is to be made by the patient, his caregiver/family, and his medical team with consideration of the totality of the patient, other concomitant conditions, and especially considering patient?s overall quality of life and advanced age. Recommend precautions to reduce risk of microaspiration- Ensuring rigid daily oral care routine (at least 4x daily) and elevating head of bed at least 30 degrees. Recommend speech therapy for the treatment of dysphagia, during hospitalization and post-discharge, with repeat-MBSS. Suggested Referrals: The patient might benefit from a referral to: Gastroenterology, Nutrition Services Indication for Referral: To determine if pt is eligible to consider alternative means for nutrition Therapy Recommendations: Therapy will be continued Prognosis for Improvement: The prognosis for the patient to meet nutritional needs by mouth is poor based on degree of impairment. Short Term Goals: ? Education - The patient, family, caregiver will verbalize/demonstrate understanding of the results of this evaluation, the above recommendations, and the swallowing guidelines. Frequency/Duration: Date Range for Service Requested: Timeline to reassess: 3 months Clinician - Supplemental, Miscellaneous Communication: It is important to note MBSS objective studies are snapshots in time and Patient function might vary with factors such as time of day or concomitant medical conditions. For this reason, the final treatment plan for this patient should rest with their medical care team. Additional recommendations should be considered with the totality of the Patient in mind. Thank for the opportunity to participate in the care of this patient. If you have any questions about the content of this report, please contact the [facility] at [facility]. Education: Education regarding findings from today's study and plans for therapy were provided to Patient only through Verbal Instruction. Understanding was expressed by the Patient only. Regulatory And Compliance Technician Clinician/Clinical Fellow: No Supervisory Statement: N/A Speech Language Pathologist: Emi Ayala M.A., CCC-HOTEL SERVICE SUPERVISOR
--- NOTE | 2023-03-15 17:24 | MHC.SPEECHCO ---
Pt had MBSS this afternoon which revealed aspiration on thin, honey thick, and puree during the swallow and on overflow from the pyriform after the swallow. Pt did not produce reflexive cough, but did have wet voice. He stated he didn't feel it in the wrong pipe. Pt was cued to cough and clear his throat, which did not reduce aspirated contrast below the vocal folds. Significant pharyngeal retention with all consistencies, pt also denying experiencing any globus sensation. Pt minimally reduced some residue with increased effort, but unable to entirely clear. Pt w/ compromised airway protection, no epiglottic inversion and reduced sensation. Based on observations, safest recommendation appears to be NPO. Full report w/ results and recommendations entered in Patient Care and Notes. BULLARD MACHINE OPERATOR communicated results w/ MD and MARCO via [employer] Message. BULLARD MACHINE OPERATOR will continue to follow.
[2023-03-15] MEDS: Dextrose 5 % 1,000 ML 100 ML IVCONT (17:39)
[2023-03-15 19:32] LABS: Glucose, Whole Blood 155 mg/dL (60-115)
[2023-03-16] VITALS (7 sets, daily range): BP systolic 123–147; BP diastolic 74–89; PULSE 81–95; RESP 18–22; TEMP 36.4–37.5; O2SAT 93–98; BMI 23.7
[2023-03-16] MEDS: Piperacillin Sodium/Tazobactam 2.25 GM in 0.9 % Sodium Chloride 50 ML IV ×3 (01:52→18:20)
[2023-03-16] MEDS: Dextrose 5 % 1,000 ML 100 ML IVCONT (01:55)
[2023-03-16 06:59] LABS: Hematocrit 28.8 % (42.0-52.0); Hemoglobin 9.6 g/dl (14.0-18.0); Mean Corpuscular HGB Conc 33.3 g/dl (31.0-36.0); Mean Corpuscular Hemoglobin 29.7 pg (27.0-33.0); Mean Corpuscular Volume 89.2 fL (80.0-98.0); Mean Platelet Volume 10.7 fL (9.4-12.4); Red Blood Count 3.23 X10*6/uL (4.60-5.80); Red Cell Distribution Width 14.6 % (11.0-16.0); White Blood Count 14.8 X10*3/uL (4.8-10.8)
[2023-03-16 07:00] LABS: Triglycerides 62 mg/dL
[2023-03-16 07:02] LABS: Albumin Level 2.7 g/dL (3.5-5.0); Anion Gap 13 (12-20); Blood Urea Nitrogen 51 mg/dL (9-16); Calcium 8.4 mg/dL (8.4-10.2); Carbon Dioxide 22 mmol/L (22-29); Chloride 107 mmol/L (96-108); Creatinine Clr Calc Pharmacy 14.4; Estimated Glomerular Filt Rate 16; Glucose Random 171 mg/dL (60-115); Magnesium 1.6 mg/dL (1.6-2.6); Potassium 3.1 mmol/L (3.3-5.1); Sodium 139 mmol/L (135-145)
[2023-03-16 07:06] LABS: Platelet Count 75 X10*3/uL (160-400)
[2023-03-16 07:55] LABS: Glucose, Whole Blood 142 mg/dL (60-115)
[2023-03-16] MEDS: Famotidine/PF 20 MG/2 ML VIAL IVPUSH (07:56)
[2023-03-16] MEDS: Potassium Chloride/H20 10 MEQ/100 ML PIGGYBACK 100 MEQ IV ×2 (08:38→12:05)
--- NOTE | 2023-03-16 10:22 | MHC.CLN ---
F/U REVIEWED LABS-NOTED TRIG LEVEL WNL PT S/P MBS 03/15 MARKETING ENGINEER CONTINUES TO RECOMMEND NPO 03/15: PT RECEIVED PPN D10AA4.25 AT 35ML/HR PROVIDED 428KCALS, 36G PROTEIN DISCUSSED WITH PHARMACY 03/16 RECOMMEND INCREASING D10AA4.25 AT 55ML/HR TODAY TO PROVIDE 673KCALS, 56G PROTEIN; HOLD LIPIDS RECOMMENDATIONS FOR 03/17/23: INCREASE FORMULA D10AA4.25 TO 75ML/HR WITH 21ML OF 20% LIPIDS TO PROVIDE 1928KCALS TOTAL FROM FORMULA AND LIPIDS (27KCALS/KG), 77G PROTEIN (1.2G/KG) REPLETE LYTES NEEDED CONTINUE PPN RATE NOTED ABOVE OVER [address] CAN BE REACHED VIA [employer] Party[employer] CONNECT DURING OFF HOURS FOLLOWING WITH TEAM
--- NOTE | 2023-03-16 11:22 | MHC.SL.SWA ---
Speech Pathologist Impression: Severe oropharyngeal dysphagia; MBSS 03/15 showing aspiration Dysphasia Diet Status: No changes at this time; Recommend pt and his caregivers to discuss the options for nutritional intake with the medical team (i.e. alternative means of nutrition vs. accepting aspiration risks with PO diet). Pt may benefit from consultations with Nutrition and G.I., if deemed to be appropriate by pt?s medical team, to assess candidacy/ determine if alternative means of nutrition is a viable option for this pt. Ultimate decisions for nutritional intake is to be made by the patient, his caregiver/family, and his medical team with consideration of the totality of the patient, other concomitant conditions, and especially considering patient?s overall quality of life and advanced age. Recommend precautions to reduce risk of microaspiration- Ensuring rigid daily oral care routine (at least 4x daily) and elevating head of bed at least 30 degrees. Recommend speech therapy for the treatment of dysphagia, during hospitalization and post-discharge, with repeat-MBSS. Liquid Consistency and Strategies for Safe Swallow: Liquid Intake Recommendation: NPO Solid Food Consistency: Dietary Recommendations: NPO Additional Modifications to Solid Foods: Pt had MBSS 03/15 which revealed suzanna aspiration on thin, honey thick, and puree during the swallow and on overflow from the pyriform after the swallow. Pt did not produce reflexive cough, but did have wet voice. He stated he didn't feel it in the wrong pipe. Pt was cued to cough and clear his throat, which did not reduce aspirated contrast below the vocal folds. Significant pharyngeal retention with all consistencies, pt also denying experiencing any globus sensation. Pt minimally reduced some residue with increased effort, but unable to entirely clear. Pt w/ compromised airway protection, no epiglottic inversion and reduced sensation. Based on observations, safest recommendation appears to be NPO. Please refer to full MBSS report w/ results and recommendations. Oral Medication Intake: NPO Please contact the pharmacy regarding appropriate crushable or liquid drug formulations that are available whenever modified delivery is recommended. Recommendation for Speech: Inpatient Speech Therapy Speech Therapy through [facility] Speech Therapy through Rehab Facility Modified Barium Swallow Study - Outpatient Comment: PLAN: Intake Recommendations: Route: NPO/Alternate Route Diet Grade: IDDSI Levels: Liquid Consistencies: IDDSI Levels: Post-Study Functional Oral Intake Scale (FOIS): 1- No oral intake Pt had MBSS 03/15/23. Pt presents with SEVERE OROPHAYRNGEAL DYSPHAGIA. This exam revealed severely delayed swallow trigger, compromised airway protection, absent epiglottic inversion, and weak voice/throat clear. Pt demonstrated significant pharyngeal retention, which partially reduced with volitional coughing and throat clearing; and repeated and effortful swallow attempts. Pt was unable to completely clear the residue despite this effort. There was evidence of aspiration with all consistencies trialed during this exam during the swallow and on overflow from the pyriforms after the swallow (thin liquid, honey thick liquid, and pureed solid). Pt demonstrates reduced sensation to aspiration events and pharyngeal retention. Pt did produce a wet voice after the trials. Based on the observations made during this exam, safest recommendation appears to be NPO at this time. Recommend pt and his caregivers to discuss the options for nutritional intake with the medical team (i.e. alternative means of nutrition vs. accepting aspiration risks with PO diet). Pt may benefit from consultations with Nutrition and G.I., if deemed to be appropriate by pt?s medical team, to assess candidacy/ determine if alternative means of nutrition is a viable option for this pt. Ultimate decisions for nutritional intake is to be made by the patient, his caregiver/family, and his medical team with consideration of the totality of the patient, other concomitant conditions, and especially considering patient?s overall quality of life and advanced age. Recommend precautions to reduce risk of microaspiration- Ensuring rigid daily oral care routine (at least 4x daily) and elevating head of bed at least 30 degrees. Recommend speech therapy for the treatment of dysphagia, during hospitalization and post-discharge, with repeat-MBSS. Suggested Referrals: The patient might benefit from a referral to: Gastroenterology, Nutrition Services Indication for Referral: To determine if pt is eligible to consider alternative means for nutrition Therapy Recommendations: Therapy will be continued Prognosis for Improvement: The prognosis for the patient to meet nutritional needs by mouth is poor based on degree of impairment. Frequency/Duration: Date Range for Service Req: Timeline to reassess: 3 months Hall Supervisor Clinican/Clinical Fellow: No Supervisory Statement: I have reviewed and agree with the student/clinical fellow's documentation: N/A Speech Language Pathologist: Emi Ayala M.A., CCC-SYSTEM INTEGRATION ENGINEER
--- NOTE | 2023-03-16 11:23 | HO.PM.IMPN ---
Subjective Subjective Date of Service: 03/16/23 Interval History: resting comfortably in bed no overnight events tolerating TPN remains NPO, no fever no chills denies shortness of breath, no cough no, no chest pains, no nausea, no vomiting, no abdominal discomfort. Review of Systems Review of Systems: Yes all other systems are reviewed and are negative Physical Exam Vital Signs: Vital Signs: Last Vital Signs Temp 97.7 F 03/16/23 11:18 Pulse 81 03/16/23 11:18 Resp 20 03/16/23 11:18 BP 125/75 03/16/23 11:18 Pulse Ox 98 03/16/23 11:18 O2 Del Method Room Air 03/16/23 11:18 O2 Flow Rate 2 03/12/23 19:01 BMI result Body Mass Index 23.7 Const: Other: General? resting comfortably in no acute distress.? Neck supple no JVD. CVS? regular rate rhythm, Respiratory lungs clear to auscultation, no respiratory distress, no wheeze, no rhonchi. Gastrointestinal abdomen soft, nontender, bowel sounds audible,? no guarding , no rigidity. Extremities? left lower extremity, ulcer plantar surface great toe with black eschar no drainage, no foul odor, another small open ulcer base of 1st metatarsal , no drainage. Neuro nonfocal , moving all 4 extremity, speech clear. Skin no rash psych appropriate affect Objective Data Active Medications Aspirin (Aspirin 300 Mg Supp.Rect) 300 mg SC DAILY [facility] Last Admin: 03/16/23 08:16 Dose: Not Given Documented By: AGGIE Non-Admin Reason: Physician Held Med Famotidine (Famotidine/Pf 20 Mg/2 Ml Vial) 20 mg IVPUSH DAILY [facility] Last Admin: 03/16/23 07:56 Dose: 20 mg Documented By: AGGIE Piperacillin Sod/Tazobactam (Sod 2.25 gm/ Sodium Chloride) 50 mls @ 100 mls/hr IV Q8H [facility] Last Infusion: 03/16/23 02:29 Dose: 0 mls/hr Documented By: YADY Dextrose (D5w) 1,000 mls @ 100 mls/hr IVCONT .Q10H [facility] Last Admin: 03/16/23 01:55 Dose: 100 mls/hr Documented By: YADY Magnesium Sulfate 5 meq/Potassium Phosphate 15 mmol/Calcium Gluconate 4.65 meq/Potassium Acetate 8 meq/ Amino Acids/Electrolytes/Dextrose 840 mls @ 35 mls/hr IVCONT DAILY@1800 [facility] Stop: 03/16/23 17:59 Last Admin: 03/15/23 21:42 Dose: 35 mls/hr Documented By: MARGARITOJUSTINO Magnesium Sulfate 10 meq/Potassium Phosphate 30 mmol/Calcium Gluconate 9.3 meq/Sodium Acetate 40 meq/Potassium Acetate 20 meq/Multivitamins 10 ml/ Trace Metals 1 ml/ Amino Acids/Electrolytes/Dextrose 1,320 mls @ 55 mls/hr IVCONT DAILY@1800 [facility] Stop: 03/17/23 17:59 Metoprolol Tartrate (Metoprolol Tartrate 5 Mg/5 Ml Vial) 2.5 mg IVPUSH Q6H PRN PRN Reason: tachycardia HR >120 Pharmacy Consult (Consult Rx Perform Med Rec) 1 each MISCELLANE ONCE PRN PRN Reason: Consult order Labs 03/16/23 06:38 03/16/23 06:38 Labs: Laboratory Results - last 24 hr 03/15/23 03/15/23 03/15/23 10:31 10:31 15:34 MCV MCH MCHC RDW Plt Count MPV Absolute Nucleated RBC Nucleated RBC % (auto) Anion Gap Estim Creat Clear Calc Estimated GFR POC Glucose 165 H Random Glucose Calcium Phosphorus Magnesium Albumin Triglycerides Urine Eosinophils % 0.0 U Random Total Protein 139 H Ur Random Sodium 76.0 Urine Creatinine 66.48 03/15/23 03/16/23 03/16/23 19:29 06:38 06:38 MCV 89.2 MCH 29.7 MCHC 33.3 RDW 14.6 Plt Count 75 L MPV 10.7 Absolute Nucleated RBC 0.000 Nucleated RBC % (auto) 0.0 Anion Gap 13 Estim Creat Clear Calc 14.4 Estimated GFR 16 POC Glucose 155 H Random Glucose 171 H Calcium 8.4 Phosphorus 3.0 Magnesium 1.6 Albumin 2.7 L Triglycerides Urine Eosinophils % U Random Total Protein Ur Random Sodium Urine Creatinine 03/16/23 03/16/23 06:38 07:30 MCV MCH MCHC RDW Plt Count MPV Absolute Nucleated RBC Nucleated RBC % (auto) Anion Gap Estim Creat Clear Calc Estimated GFR POC Glucose 142 H Random Glucose Calcium Phosphorus Magnesium Albumin Triglycerides 62 Urine Eosinophils % U Random Total Protein Ur Random Sodium Urine Creatinine Assessment and Plan (1) Dysphagia: Status: Acute (2) Metabolic acidosis: Status: Acute (3) Rhabdomyolysis: Status: Acute (4) SUZANNE (acute kidney injury): Status: Acute (5) Hypotension: Status: Acute Plan 87-year-old gentleman with underlying history of AFib on aspirin Plavix, peripheral artery disease, aortic stenosis, osteomyelitis with recent admission, admitted on 03/12/2023 with alteration of mental status after mechanical fall and laying on the floor for several days.? On ER evaluation patient in acute renal failure with rhabdomyolysis and metabolic acidosis? with poor response to initial IV fluids requiring initiation of vasopressor support admitted to intensive care unit, renal function slowly improved therefore patient transferred to [facility] on 03/14/2023.? # acute renal failure with rhabdomyolysis and metabolic acidosis status post IV vasopressors , IV bicarbonate drip and admission to ICU creatinine remains elevated but slowly trending down continue IV fluid, avoid nephrotoxins and hypotension,continue supportive care. seen by Nephrology workup for other causes including pigment nephropathy, vancomycin induced tubular injury, active Clomid on nephritis/interstitial disease ordered labs pending # hypernatremia resolved continue IV fluids,follow BMP # dysphagia being followed by speech therapy they recommend NPO, MBSS is study showed compromise AV production no epiglottic inversion and reduced sensation therefore speech therapy recommend NPO will continue IV PPN patient agrees for G-tube placement therefore will obtain a surgical consultation. # acute toxic metabolic encephalopathy due to #1 resolved # Non healing ulcer left great toe with possible osteomyelitis recently discharged from [facility] after undergoing successful left peroneal plasty by Dr. Oliva was discharged on aspirin, Plavix for 6 months as well as doxycycline 100 mg twice daily for 2 months to suppress osteomyelitis, since npo Will place on doxycycline 100 mg b.i.d. and aspirin per rectum and DC IV Zosyn. # Atrial fibrillation, unspecified chronicity/frequency,-Not on anticoagulation,he was prescribed but he did not take, out of concern for bleeding risk. recent Echo, showed severe #Diet-controlled type 2 diabetes, hemoglobin A1c 4.9, stable blood sugars , no further monitoring needed #HTN- bp reasonably controlled, few episodes of tachycardia, on low-dose IV metoprolol prn, home medications metoprolol and lisinopril are on hold. DVT prophylaxis- compression boots disposition PT recommend short-term rehab, bed to chair and 1-2 assist stand pivot with forward wheeled walker. Full code Pt requires inpatient stay for management of acute kidney injury requiring IV fluids and NPO on IV PPN need further workup for dysphagia Time Spent With Patient Time: Total time managing care of this patient today ____ minutes. Quality Stroke Does the patient have a stroke diagnosis?: No VTE Prior VTE?: No VTE Risk Level:: Medical - moderate - high VTE Device Contraindication: N/A - Device Ordered VTE Drug Contraindication: N/A - Med Ordered
[2023-03-16 11:45] LABS: Glucose, Whole Blood 104 mg/dL (60-115)
--- NOTE | 2023-03-16 12:08 | P.CONGS_ITS ---
History of Present Illness Consult details Consult date: 03/16/23 <GADIEL Calvin Last Filed: 03/16/23 12:38> Reason for consult: other (PEG tube) <GADIEL Calvin Last Filed: 03/16/23 12:38> Requesting physician: Brigette Sheikh <GADIEL Calvin Last Filed: 03/16/23 12:38> Narrative: 87-year-old gentleman with extensive PMH including a fib, PAD, diabetes, A AA, osteomyelitis admitted with hypotension, acute renal injury, rhabdomyolysis, and metabolic acidosis secondary to prolonged immobility after fall. His renal function has been slowly improving and was therefore [place] [facility] [place] He failed bedside swallow eval and MBSS performed yesterday which showed suzanna laryngeal penetration and aspiration. He has been NPO for prolonged period, on TPN. NGT insertion attempted and the patient could not tolerate. Surgery consulted for feeding tube placement. <GADIEL Calvin Last Filed: 03/16/23 12:38> Review of Systems Constitutional: Constitutional: Denies chills and Denies fever(s) <GADIEL Calvin Last Filed: 03/16/23 12:38> ENT: Denies dizziness <GADIEL Calvin Last Filed: 03/16/23 12:38> Cardiovascular: Cardiovascular: Denies chest pain and Denies dyspnea <GADIEL Calvin Last Filed: 03/16/23 12:38> Respiratory: Respiratory: Denies dyspnea <GADIEL Calvin Last Filed: 03/16/23 12:38> Gastrointestinal: Gastrointestinal: Denies abdominal pain, Denies nausea and Denies vomiting <GADIEL Calvin Last Filed: 03/16/23 12:38> Integumentary/Breasts: Skin/Breast: Denies rash <GADIEL Calvin Last Filed: 03/16/23 12:38> Neurologic: Denies dizziness <GDAIEL Calvin Last Filed: 03/16/23 12:38> PMFSH Past Medical History Medical History: Medical History (Updated 03/16/23 @ 12:55 by Yeison Juan MD) A-fib Diabetes mellitus, type 2 HTN (hypertension) Non-rheumatic aortic stenosis <Sayda Beaver PA-C - Last Filed: 03/16/23 12:38> Surgical History Surgical History: Surgical History (Updated 03/16/23 @ 12:35 by Sayda Beaver PA-C) Hx of right inguinal hernia repair <Sayda Beaver PA-C - Last Filed: 03/16/23 12:38> Social History Social History: Social History Household Members: None Housing: House Do you presently have visiting nurse or other home services: Yes (pt states VNA visit 2x a year) Alcohol intake: current Alcohol intake frequency: 0-2 drinks per day Patient Tobacco Use Status: Never used Tobacco service: No Current occupational status: retired <Sayda Beaver PA-C - Last Filed: 03/16/23 12:38> Meds Allergies/Adverse reactions: Allergies Allergy/AdvReac Type Severity Reaction Status Date / Time No Known Allergies Allergy Verified 03/05/23 10:39 <Sayda Beaver PA-C - Last Filed: 03/16/23 12:38> Active Medications: Current Medications Aspirin (Aspirin 300 Mg Supp.Rect) 300 mg HI DAILY [facility] Last Admin: 03/16/23 08:16 Dose: Not Given Famotidine (Famotidine/Pf 20 Mg/2 Ml Vial) 20 mg IVPUSH DAILY [facility] Last Admin: 03/16/23 07:56 Dose: 20 mg Piperacillin Sod/Tazobactam (Sod 2.25 gm/ Sodium Chloride) 50 mls @ 100 mls/hr IV Q8H [facility] Last Infusion: 03/16/23 02:29 Dose: Infused Dextrose (D5w) 1,000 mls @ 100 mls/hr IVCONT .Q10H [facility] Last Admin: 03/16/23 01:55 Dose: 100 mls/hr Magnesium Sulfate 5 meq/Potassium Phosphate 15 mmol/Calcium Gluconate 4.65 meq/Potassium Acetate 8 meq/ Amino Acids/Electrolytes/Dextrose 840 mls @ 35 mls/hr IVCONT DAILY@1800 [facility] Stop: 03/16/23 17:59 Last Admin: 03/15/23 21:42 Dose: 35 mls/hr Magnesium Sulfate 10 meq/Potassium Phosphate 30 mmol/Calcium Gluconate 9.3 meq/Sodium Acetate 40 meq/Potassium Acetate 20 meq/Multivitamins 10 ml/ Trace Metals 1 ml/ Amino Acids/Electrolytes/Dextrose 1,320 mls @ 55 mls/hr IVCONT DAILY@1800 [facility] Stop: 03/17/23 17:59 Metoprolol Tartrate (Metoprolol Tartrate 5 Mg/5 Ml Vial) 2.5 mg IVPUSH Q6H PRN PRN Reason: tachycardia HR >120 Pharmacy Consult (Consult Rx Perform Med Rec) 1 each MISCELLANE ONCE PRN PRN Reason: Consult order <GADIEL Calvin Last Filed: 03/16/23 12:38> Home medications: Home Medications Medication Instructions Recorded Confirmed Last Taken Type lisinopril 10 mg tablet 10 mg PO DAILY 03/05/23 03/12/23 03/04/23 History metoprolol tartrate 25 mg tablet 25 mg PO BID 03/05/23 03/12/23 03/04/23 History <GADIEL Calvin Last Filed: 03/16/23 12:38> Physical Exam 2 Vital Signs: Vital Signs: Last Vital Signs Temp 97.7 F 03/16/23 11:18 Pulse 81 03/16/23 11:18 Resp 20 03/16/23 11:18 BP 125/75 03/16/23 11:18 Pulse Ox 98 03/16/23 11:18 O2 Del Method Room Air 03/16/23 11:18 O2 Flow Rate 2 03/12/23 19:01 BMI result Body Mass Index 23.7 <GADIEL Calvin Last Filed: 03/16/23 12:38> Const: General: comfortable, no acute distress and alert <GADIEL Calvin Last Filed: 03/16/23 12:38> Nutritional Appearance: thin <GADIEL Calvin Last Filed: 03/16/23 12:38> Resp: Effort & Inspection: normal respiratory effort <GADIEL Calvin Filed: 03/16/23 12:38> GI: Inspection: No distended and Yes scar <GADIEL Calvin Last Filed: 03/16/23 12:38> Palpation (GI): Soft to palpation, nontender, no guarding and not rigid <GADIEL Calvin Last Filed: 03/16/23 12:38> Percussion: Yes normal to percussion <GADIEL Calvin Last Filed: 03/16/23 12:38> Abdomen image: 1. scar from RIH repair <GADIEL Calvin Last Filed: 03/16/23 12:38> : Other: rodriguez in place <GADIEL Calvin Last Filed: 03/16/23 12:38> Skin: General skin exam: no rashes or lesions noted <GADIEL Calvin Last Filed: 03/16/23 12:38> Results Labs Result diagrams: 03/16/23 06:38 03/16/23 06:38 <GADIEL Calvin Last Filed: 03/16/23 12:38> Labs: Abnormal lab results 03/15/23 03/15/23 03/16/23 Range/Units 15:34 19:29 06:38 WBC (4.8-10.8) X10*3/uL RBC (4.60-5.80) X10*6/uL Hgb (14.0-18.0) g/dl Hct (42.0-52.0) % Plt Count (160-400) X10*3/uL Potassium 3.1 L (3.3-5.1) mmol/L BUN 51 H (9-16) mg/dL Creatinine 3.68 H (0.5-1.4) mg/dL POC Glucose 165 H 155 H (60-115) mg/dL Random Glucose 171 H (60-115) mg/dL Albumin 2.7 L (3.5-5.0) g/dL 03/16/23 03/16/23 Range/Units 06:38 07:30 WBC 14.8 H (4.8-10.8) X10*3/uL RBC 3.23 L (4.60-5.80) X10*6/uL Hgb 9.6 L (14.0-18.0) g/dl Hct 28.8 L (42.0-52.0) % Plt Count 75 L (160-400) X10*3/uL Potassium (3.3-5.1) mmol/L BUN (9-16) mg/dL Creatinine (0.5-1.4) mg/dL POC Glucose 142 H (60-115) mg/dL Random Glucose (60-115) mg/dL Albumin (3.5-5.0) g/dL Short CBC 03/16/23 Range/Units 06:38 WBC 14.8 H (4.8-10.8) X10*3/uL Hgb 9.6 L (14.0-18.0) g/dl Hct 28.8 L (42.0-52.0) % Plt Count 75 L (160-400) X10*3/uL BMP 03/16/23 06:38 Sodium 139 Potassium 3.1 L Chloride 107 Carbon Dioxide 22 BUN 51 H Creatinine 3.68 H Calcium 8.4 Liver Function 03/16/23 Range/Units 06:38 Albumin 2.7 L (3.5-5.0) g/dL Urine 03/11/23 Range/Units 20:15 Urine Color Dark Yellow Urine Appearance Cloudy Urine pH 5.0 (5.0-9.0) Ur Specific [place] 1.020 (1.005-1.025) Urine Protein 300 (3+) H (Neg-Trace) mg/dL Urine Glucose (UA) Negative (Negative) mg/dL All other labs normal. <Sayda Beaver PA-C - Last Filed: 03/16/23 12:38> Assessment and Plan (1) Dysphagia: Status: Acute <Sayda Beaver PA-C - Last Filed: 03/16/23 12:38> 84-year-old male with multiple medical problems Admitted after a fall at home Had rhabdomyolysis with acute kidney disease Now had a failed swallow eval, with note of aspiration Referred for PEG tube placement Abdomen soft, benign, no surgical scars I explained him the technique of PEG tube placement I reviewed the risks including but not limited to bleeding, infections, bowel injury, tube dislodgement, tube leak, loss of airway as well as the benefits and alternatives He has given consent He says he has no family member in the area he gives own consent Seen and examined independently <Omari Jordan MD - Last Filed: 03/16/23 13:32> 87-year-old gentleman with extensive PMH admitted with hypotension, acute renal injury, rhabdomyolysis, and metabolic acidosis secondary to prolonged immobility after fall. Renal function slowly improving. He has been NPO for prolonged period and failed swallow evals; MBSS yesterday showed aspiration. Discussed proceeding with PEG tube placement for nutrition with patient and he is in agreement. Distant hx of RIH repair and no other abd surgery, CT abd/pelvis reviewed. Will add onto schedule for Monday 03/19. <Sayda Beaver PA-C - Last Filed: 03/16/23 12:38> Time Spent With Patient Time: Total time managing care of this patient today ____ minutes. <Sayda Beaver PA-C - Last Filed: 03/16/23 12:38> Procedures Date of Service Date of Service: 03/16/23 <Sayda Beaver PA-C - Last Filed: 03/16/23 12:38> 03/16/23 <Omari Jordan MD - Last Filed: 03/16/23 13:32>
--- NOTE | 2023-03-16 12:54 | PM.PNNEP ---
Subjective Subjective Date of Service: 03/16/23 Interval history: seen and examined no complaints Physical Exam Vital Signs: Vital Signs: Last Vital Signs Temp 97.7 F 03/16/23 11:18 Pulse 81 03/16/23 11:18 Resp 20 03/16/23 11:18 BP 125/75 03/16/23 11:18 Pulse Ox 98 03/16/23 11:18 O2 Del Method Room Air 03/16/23 11:18 O2 Flow Rate 2 03/12/23 19:01 BMI result Body Mass Index 23.7 Const: General: alert and awake HEENT: Head: Yes normocephalic and Yes atraumatic Neck: Neck: Yes supple Resp: Effort & Inspection: normal respiratory effort Cardio: Heart sounds: S1 normal heart sound present and S2 normal heart sound present GI: Palpation (GI): Soft to palpation and nontender Extrem: Right upper extremity: no edema Objective Data Labs 03/16/23 06:38 03/16/23 06:38 Labs: Laboratory Results - last 24 hr 03/15/23 03/15/23 03/15/23 10:31 15:34 19:29 WBC RBC Hgb Hct MCV MCH MCHC RDW Plt Count MPV Absolute Nucleated RBC Nucleated RBC % (auto) Sodium Potassium Chloride Carbon Dioxide Anion Gap BUN Creatinine Estim Creat Clear Calc Estimated GFR POC Glucose 165 H 155 H Random Glucose Calcium Phosphorus Magnesium Albumin Triglycerides Urine Eosinophils % 0.0 03/16/23 03/16/23 03/16/23 06:38 06:38 06:38 WBC 14.8 H RBC 3.23 L Hgb 9.6 L Hct 28.8 L MCV 89.2 MCH 29.7 MCHC 33.3 RDW 14.6 Plt Count 75 L MPV 10.7 Absolute Nucleated RBC 0.000 Nucleated RBC % (auto) 0.0 Sodium 139 Potassium 3.1 L Chloride 107 Carbon Dioxide 22 Anion Gap 13 BUN 51 H Creatinine 3.68 H Estim Creat Clear Calc 14.4 Estimated GFR 16 POC Glucose Random Glucose 171 H Calcium 8.4 Phosphorus 3.0 Magnesium 1.6 Albumin 2.7 L Triglycerides 62 Urine Eosinophils % 03/16/23 03/16/23 07:30 11:37 WBC RBC Hgb Hct MCV MCH MCHC RDW Plt Count MPV Absolute Nucleated RBC Nucleated RBC % (auto) Sodium Potassium Chloride Carbon Dioxide Anion Gap BUN Creatinine Estim Creat Clear Calc Estimated GFR POC Glucose 142 H 104 Random Glucose Calcium Phosphorus Magnesium Albumin Triglycerides Urine Eosinophils % Microbiology Microbiology Results: Microbiology 03/11/23 19:32 Blood - Venous Blood Culture - Preliminary No growth after 48 hours. 03/11/23 19:35 Blood - Venous Blood Culture - Preliminary No growth after 48 hours. 03/11/23 Unknown Urine Catheterized - Gardner Catheter Urine Culture - Final No growth. Procedures Date of Service Date of Service: 03/16/23 Assessment & Plan Assessment and plan (1) SUZANNE (acute kidney injury): Status: Acute (2) Hypokalemia: Status: Acute (3) Hypernatremia: Status: Acute (4) CKD (chronic kidney disease): Status: Acute Plan Scr better SUZANNE due to acute tubular injury in the setting of vancomycin nephrotoxicity heme pigment nephrotoxicity may be a contributing factor free water deficit corrected underlying CKD baseline Scr ~ 1-1.2 mg/dl REC change IVF to 0.45% follow kidney functiion and electrolytes Time Spent With Patient Time: Total time managing care of this patient today ____ minutes. Progress Note: Quality Stroke Does the patient have a stroke diagnosis?: No
--- NOTE | 2023-03-16 13:14 | MHC.CM.PN ---
EMR reviewed and per MD rounds, pt not medically cleared for D/C and is anticipated to be here through the weekend. CM will continue to follow.
[2023-03-16] MEDS: Sodium Chloride 0.45 % 1,000 ML 80 ML IVCONT (13:43)
[2023-03-16 16:05] LABS: Glucose, Whole Blood 114 mg/dL (60-115)
[2023-03-16 21:07] LABS: Glucose, Whole Blood 118 mg/dL (60-115)
[2023-03-17 02:58] VITALS: BP 144/80; PULSE 82; RESP 20; TEMP 37; O2SAT 97
[2023-03-17] MEDS: Piperacillin Sodium/Tazobactam 2.25 GM in 0.9 % Sodium Chloride 50 ML IV (03:01)
[2023-03-17 06:00] VITALS: BMI 23.5
[2023-03-17 06:23] LABS: Creatinine Clr Calc Pharmacy 15.4; Estimated Glomerular Filt Rate 17
[2023-03-17 07:11] VITALS: BP 150/74; PULSE 88; RESP 18; TEMP 36.6; O2SAT 96
[2023-03-17 07:36] LABS: Glucose, Whole Blood 124 mg/dL (60-115)
--- NOTE | 2023-03-17 09:14 | PM.PNNEP ---
Subjective Subjective Date of Service: 03/17/23 Interval history: seen and examined no complaints Physical Exam Vital Signs: Vital Signs: Last Vital Signs Temp 98 F 03/17/23 07:11 Pulse 88 03/17/23 07:11 Resp 18 03/17/23 07:11 BP 150/74 H 03/17/23 07:11 Pulse Ox 96 03/17/23 07:11 O2 Del Method Room Air 03/17/23 07:11 O2 Flow Rate 2 03/12/23 19:01 BMI result Body Mass Index 23.5 Const: General: alert and awake HEENT: Head: Yes normocephalic and Yes atraumatic Neck: Neck: Yes supple Resp: Effort & Inspection: normal respiratory effort Cardio: Heart sounds: S1 normal heart sound present and S2 normal heart sound present GI: Palpation (GI): Soft to palpation and nontender Extrem: Right upper extremity: no edema Objective Data Labs 03/16/23 06:38 03/17/23 05:48 Labs: Laboratory Results - last 24 hr 03/16/23 03/16/23 03/16/23 11:37 16:01 20:58 Creatinine Estim Creat Clear Calc Estimated GFR POC Glucose 104 114 118 H 03/17/23 03/17/23 05:48 07:33 Creatinine 3.44 H Estim Creat Clear Calc 15.4 Estimated GFR 17 POC Glucose 124 H Microbiology Microbiology Results: Microbiology 03/11/23 19:32 Blood - Venous Blood Culture - Final No growth after 5 days. 03/11/23 19:35 Blood - Venous Blood Culture - Final No growth after 5 days. 03/11/23 Unknown Urine Catheterized - Gardner Catheter Urine Culture - Final No growth. Procedures Date of Service Date of Service: 03/17/23 Assessment & Plan Assessment and plan (1) SUZANNE (acute kidney injury): Status: Acute (2) Hypokalemia: Status: Acute (3) Hypernatremia: Status: Acute (4) CKD (chronic kidney disease): Status: Acute Plan kidney function improving SUZANNE due to acute tubular injury in the setting of vancomycin nephrotoxicity heme pigment nephrotoxicity may be a contributing factor free water deficit corrected underlying CKD baseline Scr ~ 1-1.2 mg/dl REC c/w IVF follow kidney functiion and electrolytes Time Spent With Patient Time: Total time managing care of this patient today ____ minutes. Progress Note: Quality Stroke Does the patient have a stroke diagnosis?: No
[2023-03-17] MEDS: Doxycycline Hyclate 100 MG in 0.9 % Sodium Chloride 250 ML 166.67 MG IV ×2 (09:55→20:36)
[2023-03-17] MEDS: Famotidine/PF 20 MG/2 ML VIAL IVPUSH (09:55)
[2023-03-17] MEDS: Aspirin 300 MG SUPP.RECT PR (09:55)
[2023-03-17 11:19] VITALS: BP 137/91; PULSE 91; RESP 18; TEMP 36.1; O2SAT 100
[2023-03-17 11:28] LABS: Glucose, Whole Blood 135 mg/dL (60-115)
[2023-03-17 11:35] LABS: Albumin Level 2.7 g/dL (3.5-5.0); Magnesium 1.6 mg/dL (1.6-2.6); Phosphorus 3.1 mg/dL (2.7-4.5)
[2023-03-17 11:37] LABS: Anion Gap 12 (12-20); Blood Urea Nitrogen 51 mg/dL (9-16); Calcium 8.6 mg/dL (8.4-10.2); Carbon Dioxide 21 mmol/L (22-29); Chloride 109 mmol/L (96-108); Creatinine Clr Calc Pharmacy 15.8; Estimated Glomerular Filt Rate 18; Potassium 3.3 mmol/L (3.3-5.1); Sodium 139 mmol/L (135-145)
[2023-03-17 11:44] LABS: Glucose Random 138 mg/dL (60-115)
--- NOTE | 2023-03-17 13:14 | P.PNIM_ITS ---
Subjective Subjective Date of Service: 03/17/23 Interval History: feeling better this morning denies acute complaints no pain, no shortness of breath, no nausea no vomiting, remains NPO as per speech therapy recommendation, no fevers no chills no overnight events. Tolerating PPN. Review of Systems Review of Systems: Yes all other systems are reviewed and are negative Physical Exam Vital Signs: Vital Signs: Last Vital Signs Temp 97 F 03/17/23 11:19 Pulse 91 03/17/23 11:19 Resp 18 03/17/23 11:19 BP 137/91 H 03/17/23 11:19 Pulse Ox 100 03/17/23 11:19 O2 Del Method Room Air 03/17/23 11:19 O2 Flow Rate 2 03/12/23 19:01 BMI result Body Mass Index 23.5 Const: Other: General? resting comfortably in no acute distress.? Neck supple no JVD, gurgling sound in is throat. CVS? regular rate rhythm, Respiratory lungs clear to auscultation, no respiratory distress, no wheeze, no rhonchi. Gastrointestinal abdomen soft, nontender, bowel sounds audible,? no guarding , no rigidity. Extremities? left lower extremity, ulcer plantar surface great toe with black eschar no drainage, no foul odor, another small open ulcer base of 1st meta tarsal , no drainage. Neuro nonfocal , moving all 4 extremity, speech clear. Skin no rash psych appropriate affect Objective Data Active Medications Aspirin (Aspirin 300 Mg Supp.Rect) 300 mg [place] DAILY [facility] Last Admin: 03/17/23 09:55 Dose: 300 mg Documented By: SUDHA Famotidine (Famotidine/Pf 20 Mg/2 Ml Vial) 20 mg IVPUSH DAILY [facility] Last Admin: 03/17/23 09:55 Dose: 20 mg Documented By: SUDHA Magnesium Sulfate 10 meq/Potassium Phosphate 30 mmol/Calcium Gluconate 9.3 meq/Sodium Acetate 40 meq/Potassium Acetate 20 meq/Multivitamins 10 ml/ Trace Metals 1 ml/ Amino Acids/Electrolytes/Dextrose 1,320 mls @ 55 mls/hr IVCONT DAILY@1800 [facility] Stop: 03/17/23 17:59 Last Admin: 03/16/23 23:03 Dose: 55 mls/hr Documented By: HILARIO Sodium Chloride (Sodium Chloride 0.45 %) 1,000 mls @ 80 mls/hr IVCONT .[id number] [facility] Last Infusion: 03/17/23 10:07 Dose: 0 mls/hr Documented By: SUDHA Doxycycline Hyclate 100 mg/ (Sodium Chloride) 250 mls @ 166.67 mls/hr IV Q12H [facility] Last Infusion: 03/17/23 11:31 Dose: 0 mls/hr Documented By: SUDHA Metoprolol Tartrate (Metoprolol Tartrate 5 Mg/5 Ml Vial) 2.5 mg IVPUSH Q6H PRN PRN Reason: tachycardia HR >120 Pharmacy Consult (Consult Rx Perform Med Rec) 1 each MISCELLANE ONCE PRN PRN Reason: Consult order Labs 03/16/23 06:38 03/17/23 10:57 Labs: Laboratory Results - last 24 hr 03/16/23 03/16/23 03/17/23 16:01 20:58 05:48 Anion Gap Estim Creat Clear Calc 15.4 Estimated GFR 17 POC Glucose 114 118 H Random Glucose Calcium Phosphorus 3.1 Magnesium 1.6 Albumin 2.7 L 03/17/23 03/17/23 03/17/23 07:33 10:57 11:20 Anion Gap 12 Estim Creat Clear Calc 15.8 Estimated GFR 18 POC Glucose 124 H 135 H Random Glucose 138 H Calcium 8.6 Phosphorus Magnesium Albumin Microbiology Microbiology Results: Microbiology 03/11/23 19:32 Blood Culture - Final Blood - Venous No growth after 5 days. 03/11/23 19:35 Blood Culture - Final Blood - Venous No growth after 5 days. Assessment and Plan (1) Dysphagia: Status: Acute (2) Metabolic acidosis: Status: Acute (3) Rhabdomyolysis: Status: Acute (4) SUZANNE (acute kidney injury): Status: Acute (5) Hypotension: Status: Acute Plan 87-year-old gentleman with underlying history of AFib on aspirin Plavix, peripheral artery disease, aortic stenosis, osteomyelitis with recent admission, admitted on 03/12/2023 with alteration of mental status after mechanical fall and laying on the floor for several days.? On ER evaluation patient in acute renal failure with rhabdomyolysis and metabolic acidosis? with poor response to initial IV fluids requiring initiation of vasopressor support admitted to intensive care unit, renal function slowly improved therefore patient transferred to [facility] [place] on 03/14/2023.? # acute renal failure with rhabdomyolysis and metabolic acidosis initially admitted to ICU treated with IV vasopressors , and IV bicarbonate drip. creatinine remains elevated, slowly trending down continue IV fluid, avoid nephrotoxins and hypotension,continue supportive care. SUZANNE likely due to acute tubular injury in the setting of vanco toxicity and heme pigment nephrotoxicity contributing as well, workup pending # hypernatremia resolved continue IV fluids,follow BMP # dysphagia being followed by speech therapy they recommend NPO, MBSS study showed suzanna laryngeal penetration and aspiration, and moderate to severe retention of barium coated food in piriformis sinuses therefore speech therapy recommend NPO will continue IV PPN ,patient agreed for G-tube placement, seen by Dr. Jordan will undergo PEG tube placement on Monday 03/19. # acute toxic metabolic encephalopathy due to #1 resolved # Non healing ulcer left great toe with possible osteomyelitis recently discharged from [facility] after undergoing successful left peroneal plasty by Dr. Oliva was discharged on aspirin, Plavix for 6 months as well as doxycycline 100 mg twice daily for 2 months to suppress osteomyelitis, since npo ,cont. iv doxycycline 100 mg b.i.d. and aspirin per rectum . # Atrial fibrillation, unspecified chronicity/frequency,-Not on anticoagulation,he was prescribed but he did not take, out of concern for bleeding risk. recent Echo, showed severe #Diet-controlled type 2 diabetes, hemoglobin A1c 4.9, stable blood sugars , no further monitoring needed #HTN- bp reasonably controlled, few episodes of tachycardia, on low-dose IV metoprolol prn, home medications metoprolol and lisinopril are on hold. DVT prophylaxis- compression boots disposition PT recommend short-term rehab Full code Pt requires inpatient stay for management of acute kidney injury requiring IV fluids and NPO on IV PPN need PEG tube placement scheduled for Monday 03/19. Time Spent With Patient Time: Total time managing care of this patient today ____ minutes. Quality Stroke Does the patient have a stroke diagnosis?: No VTE Prior VTE?: No VTE Risk Level:: Medical - moderate - high VTE Device Contraindication: N/A - Device Ordered VTE Drug Contraindication: N/A - Med Ordered
[2023-03-17] MEDS: Sodium Chloride 0.45 % 1,000 ML 80 ML IVCONT (14:28)
[2023-03-17 15:00] VITALS: BP 161/99; PULSE 92; RESP 20; TEMP 36.2; O2SAT 99
[2023-03-17 16:08] LABS: Glucose, Whole Blood 138 mg/dL (60-115)
[2023-03-17] MEDS: Fat Emulsions 20% 250 ML 21 ML IVCONT (17:53)
[2023-03-17 19:10] VITALS: BP 157/88; PULSE 113; RESP 20; TEMP 36.2; O2SAT 98
[2023-03-17 19:31] LABS: Glucose, Whole Blood 153 mg/dL (60-115)
[2023-03-18] VITALS: BP 139/82; PULSE 117; RESP 18; TEMP 36.7; O2SAT 95
[2023-03-18 04:00] VITALS: BP 134/82; PULSE 98; RESP 18; TEMP 36.4; O2SAT 96
[2023-03-18] MEDS: Sodium Chloride 0.45 % 1,000 ML 80 ML IVCONT ×2 (05:47→14:06)
[2023-03-18] MEDS: Fat Emulsions 20% 250 ML 21 ML IVCONT ×2 (05:59→18:31)
[2023-03-18 06:00] VITALS: BMI 22.5
[2023-03-18 06:24] LABS: Creatinine Clr Calc Pharmacy 16.9; Estimated Glomerular Filt Rate 19
--- NOTE | 2023-03-18 06:55 | PM.PNNEP ---
Subjective Subjective Date of Service: 03/18/23 Interval history: seen and examined no complaints Physical Exam Vital Signs: Vital Signs: Last Vital Signs Temp 97.6 F 03/18/23 04:00 Pulse 98 03/18/23 04:00 Resp 18 03/18/23 04:00 BP 134/82 03/18/23 04:00 Pulse Ox 96 03/18/23 04:00 O2 Del Method Room Air 03/18/23 04:00 O2 Flow Rate 2 03/12/23 19:01 BMI result Body Mass Index 23.5 Const: General: alert and awake HEENT: Head: Yes normocephalic and Yes atraumatic Neck: Neck: Yes supple Resp: Effort & Inspection: normal respiratory effort Cardio: Heart sounds: S1 normal heart sound present and S2 normal heart sound present GI: Palpation (GI): Soft to palpation and nontender Extrem: Right upper extremity: no edema Objective Data Labs 03/16/23 06:38 03/18/23 05:30 Labs: Laboratory Results - last 24 hr 03/17/23 03/17/23 03/17/23 05:48 07:33 10:57 Sodium 139 Potassium 3.3 Chloride 109 H Carbon Dioxide 21 L Anion Gap 12 BUN 51 H Creatinine 3.35 H Estim Creat Clear Calc 15.8 Estimated GFR 18 POC Glucose 124 H Random Glucose 138 H Calcium 8.6 Phosphorus 3.1 Magnesium 1.6 Albumin 2.7 L 03/17/23 03/17/23 03/17/23 11:20 16:01 19:24 Sodium Potassium Chloride Carbon Dioxide Anion Gap BUN Creatinine Estim Creat Clear Calc Estimated GFR POC Glucose 135 H 138 H 153 H Random Glucose Calcium Phosphorus Magnesium Albumin 03/18/23 05:30 Sodium Potassium Chloride Carbon Dioxide Anion Gap BUN Creatinine 3.12 H Estim Creat Clear Calc 16.9 Estimated GFR 19 POC Glucose Random Glucose Calcium Phosphorus Magnesium Albumin Microbiology Microbiology Results: Microbiology 03/11/23 19:32 Blood - Venous Blood Culture - Final No growth after 5 days. 03/11/23 19:35 Blood - Venous Blood Culture - Final No growth after 5 days. 03/11/23 Unknown Urine Catheterized - Gardner Catheter Urine Culture - Final No growth. Procedures Date of Service Date of Service: 03/18/23 Assessment & Plan Assessment and plan (1) SUZANNE (acute kidney injury): Status: Acute (2) CKD (chronic kidney disease): Status: Acute Plan kidney function improving SUZANNE due to acute tubular injury in the setting of vancomycin nephrotoxicity heme pigment nephrotoxicity may be a contributing factor underlying CKD baseline Scr ~ 1-1.2 mg/dl REC c/w IVF follow kidney functiion and electrolytes Time Spent With Patient Time: Total time managing care of this patient today ____ minutes. Progress Note: Quality Stroke Does the patient have a stroke diagnosis?: No
[2023-03-18 07:18] LABS: Glucose, Whole Blood 124 mg/dL (60-115)
[2023-03-18 07:32] VITALS: BP 127/68; PULSE 84; RESP 20; TEMP 36.5; O2SAT 98
[2023-03-18 07:51] LABS: Albumin Level 2.6 g/dL (3.5-5.0); Anion Gap 13 (12-20); Blood Urea Nitrogen 57 mg/dL (9-16); Calcium 8.4 mg/dL (8.4-10.2); Carbon Dioxide 20 mmol/L (22-29); Chloride 106 mmol/L (96-108); Creatinine Clr Calc Pharmacy 16.3; Estimated Glomerular Filt Rate 19; Glucose Random 171 mg/dL (60-115); Magnesium 1.6 mg/dL (1.6-2.6); Phosphorus 3.6 mg/dL (2.7-4.5); Potassium 3.4 mmol/L (3.3-5.1); Sodium 136 mmol/L (135-145); Triglycerides 106 mg/dL
[2023-03-18] MEDS: Doxycycline Hyclate 100 MG in 0.9 % Sodium Chloride 250 ML 166.67 MG IV (10:06)
[2023-03-18] MEDS: Famotidine/PF 20 MG/2 ML VIAL IVPUSH (10:07)
--- NOTE | 2023-03-18 10:07 | P.PNGS_ITS ---
Subjective Subjective Date of Service: 03/23/23 Interval history: no new events reported patient with multiple skin break down after all denies abdominal complaints had failed barium swallow study Physical Exam Vital Signs: Vital Signs: Last Vital Signs Temp 97.7 F 03/18/23 07:32 Pulse 84 03/18/23 07:32 Resp 20 03/18/23 07:32 BP 127/68 03/18/23 07:32 Pulse Ox 98 03/18/23 07:32 O2 Del Method Room Air 03/18/23 07:32 O2 Flow Rate 2 03/12/23 19:01 BMI result Body Mass Index 22.5 Const: Other: very frail looking ,answers some questions General: no acute distress Resp: Effort & Inspection: normal respiratory effort Cardio: Rate: regular rate GI: Other: no surgical scars Palpation (GI): Soft to palpation, not firm, nontender and no guarding Objective Data Active Medications Aspirin (Aspirin 300 Mg Supp.Rect) 300 mg [place] DAILY [facility] Last Admin: 03/17/23 09:55 Dose: 300 mg Documented By: SUDHA Famotidine (Famotidine/Pf 20 Mg/2 Ml Vial) 20 mg IVPUSH DAILY [facility] Last Admin: 03/17/23 09:55 Dose: 20 mg Documented By: SUDHA Sodium Chloride (Sodium Chloride 0.45 %) 1,000 mls @ 80 mls/hr IVCONT .[id number] [facility] Last Admin: 03/18/23 05:47 Dose: 80 mls/hr Documented By: SRINIVAS Doxycycline Hyclate 100 mg/ (Sodium Chloride) 250 mls @ 166.67 mls/hr IV Q12H [facility] Last Infusion: 03/17/23 22:45 Dose: 0 mls/hr Documented By: LOUISE Magnesium Sulfate 10 meq/Potassium Phosphate 30 mmol/Calcium Gluconate 9.3 meq/Sodium Acetate 40 meq/Potassium Acetate 20 meq/Amino Acids/Electrolytes/Dextrose 1,800 mls @ 75 mls/hr IVCONT DAILY@1800 [facility] Stop: 03/18/23 17:59 Last Admin: 03/17/23 17:52 Dose: 75 mls/hr Documented By: SUDHA Fat Emulsion Intravenous (Intralipid) 250 mls @ 21 mls/hr IVCONT BID@0600,1800 [facility] Stop: 03/18/23 17:55 Last Admin: 03/18/23 05:59 Dose: 21 mls/hr Documented By: SRINIVAS Magnesium Sulfate 10 meq/Potassium Phosphate 30 mmol/Calcium Gluconate 9.3 meq/Sodium Acetate 50 meq/Potassium Acetate 20 meq/Amino Acids/Electrolytes/Dextrose 1,800 mls @ 75 mls/hr IVCONT DAILY@1800 [facility] Stop: 03/19/23 17:59 Fat Emulsion Intravenous (Intralipid) 250 mls @ 21 mls/hr IVCONT BID@0600,1800 [facility] Stop: 03/19/23 17:55 Metoprolol Tartrate (Metoprolol Tartrate 5 Mg/5 Ml Vial) 2.5 mg IVPUSH Q6H PRN PRN Reason: tachycardia HR >120 Pharmacy Consult (Consult Rx Perform Med Rec) 1 each MISCELLANE ONCE PRN PRN Reason: Consult order Labs 03/16/23 06:38 03/18/23 07:10 Labs: Laboratory Results - last 24 hr 03/17/23 03/17/23 03/17/23 05:48 10:57 11:20 Anion Gap 12 Estim Creat Clear Calc 15.8 Estimated GFR 18 POC Glucose 135 H Random Glucose 138 H Calcium 8.6 Phosphorus 3.1 Magnesium 1.6 Albumin 2.7 L Triglycerides 03/17/23 03/17/23 03/18/23 16:01 19:24 05:30 Anion Gap Estim Creat Clear Calc 16.9 Estimated GFR 19 POC Glucose 138 H 153 H Random Glucose Calcium Phosphorus Magnesium Albumin Triglycerides 03/18/23 03/18/23 07:10 07:14 Anion Gap 13 Estim Creat Clear Calc 16.3 Estimated GFR 19 POC Glucose 124 H Random Glucose 171 H Calcium 8.4 Phosphorus 3.6 Magnesium 1.6 Albumin 2.6 L Triglycerides 106 Procedures Date of Service Date of Service: 03/23/23 Progress Note: A&P Assessment and plan (1) Dysphagia: Status: Acute Assessment and Plan: was admitted for rhabdomyolysis has failed swallow eval I explained to him the option of proceeding with PEG tube placement I reviewed the risks including but not limited to bleeding, infections, injury to other organs including bowel, tube dislodgement, tube leak, loss of airway he says he understands and wants to proceed peg tube planned for tomorrow patient decides for himself, signs his own consent, says he does not have any family members Time Spent With Patient Time: Total time managing care of this patient today ____ minutes. Quality Stroke Does the patient have a stroke diagnosis?: No VTE Prior VTE?: No VTE Risk Level:: Medical - moderate - high VTE Device Contraindication: N/A - Device Ordered VTE Drug Contraindication: N/A - Med Ordered
[2023-03-18] MEDS: Aspirin 300 MG SUPP.RECT PR (10:37)
[2023-03-18 11:40] LABS: Glucose, Whole Blood 166 mg/dL (60-115)
[2023-03-18 12:00] VITALS: BP 149/76; PULSE 84; RESP 20; TEMP 36.1; O2SAT 97
--- NOTE | 2023-03-18 12:43 | HO.PM.IMPN ---
Subjective Subjective Date of Service: 03/18/23 Interval History: Resting comfortably, denies acute symptoms of pain, no shortness of breath, no nausea, no vomiting, remains NPO, scheduled perfect placement tomorrow morning, no acute events overnight. Review of Systems Review of Systems: Yes all other systems are reviewed and are negative Physical Exam Vital Signs: Vital Signs: Last Vital Signs Temp 97.0 F 03/18/23 12:00 Pulse 84 03/18/23 12:00 Resp 20 03/18/23 12:00 BP 149/76 H 03/18/23 12:00 Pulse Ox 97 03/18/23 12:00 O2 Del Method Room Air 03/18/23 12:00 O2 Flow Rate 2 03/12/23 19:01 BMI result Body Mass Index 22.5 Const: Other: General? resting comfortably in no acute distress.? Neck supple no JVD, no throat gurgling today CVS? regular rate rhythm, Respiratory lungs clear to auscultation, no respiratory distress, no wheeze, no rhonchi. Gastrointestinal abdomen soft, nontender, bowel sounds audible,? no guarding , no rigidity. Extremities? left lower extremity, ulcer plantar surface great toe with black eschar no drainage, no foul odor, another small open ulcer base of 1st metatarsal , no drainage. Neuro nonfocal , moving all 4 extremity, speech clear. Skin no rash psych appropriate affect Objective Data Active Medications Aspirin (Aspirin 300 Mg Supp.Rect) 300 mg [place] DAILY [facility] Last Admin: 03/18/23 10:37 Dose: 300 mg Documented By: SUDHA Famotidine (Famotidine/Pf 20 Mg/2 Ml Vial) 20 mg IVPUSH DAILY [facility] Last Admin: 03/18/23 10:07 Dose: 20 mg Documented By: USDHA Sodium Chloride (Sodium Chloride 0.45 %) 1,000 mls @ 80 mls/hr IVCONT .[id number] [facility] Last Admin: 03/18/23 05:47 Dose: 80 mls/hr Documented By: SRINIVAS Doxycycline Hyclate 100 mg/ (Sodium Chloride) 250 mls @ 166.67 mls/hr IV Q12H [facility] Last Admin: 03/18/23 10:06 Dose: 166.67 mls/hr Documented By: SUDHA Magnesium Sulfate 10 meq/Potassium Phosphate 30 mmol/Calcium Gluconate 9.3 meq/Sodium Acetate 40 meq/Potassium Acetate 20 meq/Amino Acids/Electrolytes/Dextrose 1,800 mls @ 75 mls/hr IVCONT DAILY@1800 [facility] Stop: 03/18/23 17:59 Last Admin: 03/17/23 17:52 Dose: 75 mls/hr Documented By: SUDHA Fat Emulsion Intravenous (Intralipid) 250 mls @ 21 mls/hr IVCONT BID@0600,1800 [facility] Stop: 03/18/23 17:55 Last Admin: 03/18/23 05:59 Dose: 21 mls/hr Documented By: SRINIVAS Magnesium Sulfate 10 meq/Potassium Phosphate 30 mmol/Calcium Gluconate 9.3 meq/Sodium Acetate 50 meq/Potassium Acetate 20 meq/Amino Acids/Electrolytes/Dextrose 1,800 mls @ 75 mls/hr IVCONT DAILY@1800 [facility] Stop: 03/19/23 17:59 Fat Emulsion Intravenous (Intralipid) 250 mls @ 21 mls/hr IVCONT BID@0600,1800 [facility] Stop: 03/19/23 17:55 Metoprolol Tartrate (Metoprolol Tartrate 5 Mg/5 Ml Vial) 2.5 mg IVPUSH Q6H PRN PRN Reason: tachycardia HR >120 Pharmacy Consult (Consult Rx Perform Med Rec) 1 each MISCELLANE ONCE PRN PRN Reason: Consult order Labs 03/16/23 06:38 03/18/23 07:10 Labs: Laboratory Results - last 24 hr 03/17/23 03/17/23 03/18/23 16:01 19:24 05:30 Anion Gap Estim Creat Clear Calc 16.9 Estimated GFR 19 POC Glucose 138 H 153 H Random Glucose Calcium Phosphorus Magnesium Albumin Triglycerides 03/18/23 03/18/23 03/18/23 07:10 07:14 11:36 Anion Gap 13 Estim Creat Clear Calc 16.3 Estimated GFR 19 POC Glucose 124 H 166 H Random Glucose 171 H Calcium 8.4 Phosphorus 3.6 Magnesium 1.6 Albumin 2.6 L Triglycerides 106 Assessment and Plan (1) Dysphagia: Status: Acute (2) Metabolic acidosis: Status: Acute (3) Rhabdomyolysis: Status: Acute (4) SUZANNE (acute kidney injury): Status: Acute (5) Hypotension: Status: Acute Plan 87-year-old gentleman with underlying history of AFib on aspirin Plavix, peripheral artery disease, aortic stenosis, osteomyelitis with recent admission, admitted on 03/12/2023 with alteration of mental status after mechanical fall and laying on the floor for several days.? On ER evaluation patient in acute renal failure with rhabdomyolysis and metabolic acidosis? with poor response to initial IV fluids requiring initiation of vasopressor support admitted to intensive care unit, renal function slowly improved therefore patient [place] [facility] [place].? # acute renal failure with rhabdomyolysis and metabolic acidosis initially admitted to ICU treated with IV vasopressors , and IV bicarbonate drip. creatinine remains elevated, slowly trending down continue IV fluid, avoid nephrotoxins and hypotension,continue supportive care. SUZANNE likely due to acute tubular injury in the setting of vanco toxicity and heme pigment nephrotoxicity contributing as well, workup pending, being followed by [facility] the recommend to continue IV fluids. # hypernatremia resolved continue IV fluids,follow BMP # dysphagia seen by speech therapy they recommend NPO, MBSS study showed suzanna laryngeal penetration and aspiration, and moderate to severe retention of barium coated food in piriformis sinuses therefore speech therapy recommend NPO will continue IV PPN ,patient agreed for G-tube placement, seen by Dr. Jordan will undergo PEG tube placement on Monday 03/19. # acute toxic metabolic encephalopathy due to #1 resolved # Non healing ulcer left great toe with possible osteomyelitis recently discharged from [facility] after undergoing successful left peroneal plasty by Dr. Oliva was discharged on aspirin, Plavix for 6 months as well as doxycycline 100 mg twice daily for 2 months to suppress osteomyelitis, since npo ,cont. iv doxycycline 100 mg b.i.d. and aspirin per rectum . # Atrial fibrillation, unspecified chronicity/frequency,-Not on anticoagulation,he was prescribed but he did not take, out of concern for bleeding risk. recent Echo, showed severe #Diet-controlled type 2 diabetes, hemoglobin A1c 4.9, stable blood sugars , no further monitoring needed. #HTN- bp reasonably controlled, few episodes of tachycardia, on low-dose IV metoprolol prn, home medications metoprolol and lisinopril are on hold. DVT prophylaxis- compression boots disposition PT recommend short-term rehab Full code Pt requires inpatient stay for management of acute kidney injury requiring IV fluids and NPO on IV PPN need PEG tube placement scheduled for Monday 03/19. Time Spent With Patient Time: Total time managing care of this patient today ____ minutes. Quality Stroke Does the patient have a stroke diagnosis?: No VTE Prior VTE?: No VTE Risk Level:: Medical - moderate - high VTE Device Contraindication: N/A - Device Ordered VTE Drug Contraindication: N/A - Med Ordered
[2023-03-18] MEDS: Metoprolol Tartrate 5 MG/5 ML VIAL 2.5 MG IVPUSH ×2 (14:06→20:48)
[2023-03-18 14:08] LABS: Haptoglobin 136 mg/dL (43-212)
[2023-03-18 15:28] VITALS: BP 151/84; PULSE 72; RESP 18; TEMP 36.4; O2SAT 100
[2023-03-18 16:09] LABS: Glucose, Whole Blood 166 mg/dL (60-115)
[2023-03-18 19:53] VITALS: BP 157/85; PULSE 83; RESP 18; TEMP 36.4; O2SAT 98
[2023-03-18 20:20] LABS: Glucose, Whole Blood 157 mg/dL (60-115)
[2023-03-18] MEDS: Doxycycline Hyclate 100 MG in 0.9 % Sodium Chloride 250 ML 166.7 MG IV (20:47)
[2023-03-19] VITALS (16 sets, daily range): BP systolic 60–148; BP diastolic 38–87; PULSE 72–105; RESP 14–20; TEMP 36.1–36.6; O2SAT 94–100; BMI 24.2
[2023-03-19] MEDS: Sodium Chloride 0.45 % 1,000 ML 80 ML IVCONT (04:08)
[2023-03-19] MEDS: Fat Emulsions 20% 250 ML 21 ML IVCONT ×2 (05:41→17:22)
[2023-03-19] MEDS: Metoprolol Tartrate 5 MG/5 ML VIAL 2.5 MG IVPUSH (05:48)
[2023-03-19 05:53] LABS: Triglycerides 125 mg/dL
[2023-03-19 05:54] LABS: Hematocrit 27.9 % (42.0-52.0); Hemoglobin 9.5 g/dl (14.0-18.0); Mean Corpuscular HGB Conc 34.1 g/dl (31.0-36.0); Mean Corpuscular Hemoglobin 30.7 pg (27.0-33.0); Mean Corpuscular Volume 90.3 fL (80.0-98.0); Mean Platelet Volume 10.5 fL (9.4-12.4); Platelet Count 104 X10*3/uL (160-400); Red Blood Count 3.09 X10*6/uL (4.60-5.80); Red Cell Distribution Width 14.6 % (11.0-16.0); White Blood Count 16.3 X10*3/uL (4.8-10.8)
[2023-03-19 05:58] LABS: Albumin Level 2.7 g/dL (3.5-5.0); Anion Gap 14 (12-20); Blood Urea Nitrogen 61 mg/dL (9-16); Calcium 8.4 mg/dL (8.4-10.2); Carbon Dioxide 18 mmol/L (22-29); Chloride 105 mmol/L (96-108); Creatinine Clr Calc Pharmacy 18.3; Estimated Glomerular Filt Rate 21; Glucose Random 149 mg/dL (60-115); Magnesium 1.5 mg/dL (1.6-2.6); Phosphorus 4.1 mg/dL (2.7-4.5); Potassium 3.4 mmol/L (3.3-5.1); Sodium 134 mmol/L (135-145)
--- NOTE | 2023-03-19 07:23 | P.CDIM_ITS ---
PROVIDER RESPONSE TEXT: To clarify, the appropriate diagnosis supported by the clinical indicators: Acute metabolic acidosis QUERY TEXT: PHYSICIAN'S DOCUMENTATION REQUEST Date of Query: 03/16/2023 08:08 AM EDT Patient Name: Beka Rabago Admit Date: 03/12/2023 Dear Brigette Sheikh, A review of the medical record indicates additional documentation may be needed. Please review below and update the documentation accordingly. Clinical Indicators: Acute renal failure with rhabdomyolysis and metabolic acidosis status post IV vasopressors, IV bicarb destin drip and admit to ICU. Possible options for acuity: Metabolic acidosis Acute metabolic acidosis Other Other (explain)Clinically unable to determine (explain)Thank you, Elyssa Motley, CCS, CDIS Use of terms such as suspected, likely, concern for, or probable (associated with a specific diagnosi s that is being evaluated, monitored, or treated as if it exists) are acceptable and can be coded in the inpatient se tting, when documented at the time of discharge. Please use your independent medical judgment in providing your response. THIS QUERY IS PART OF THE PERMANENT MEDICAL RECORD
--- NOTE | 2023-03-19 07:26 | P.CDIM_ITS ---
PROVIDER RESPONSE TEXT: To clarify, the appropriate diagnosis supported by the clinical indicators: Traumatic Rhabdomyolysis QUERY TEXT: PHYSICIAN'S DOCUMENTATION REQUEST Date of Query: 03/16/2023 08:11 AM EDT Patient Name: Beka Rabago Admit Date: 03/12/2023 Dear Brigette Sheikh, A review of the medical record indicates additional documentation may be needed. Please review below and update the documentation accordingly. Clinical Indicators: ED: Patient was on the floor possibly 3 days, head strike unknown LOC, Traumatic hematoma of the head , s/p fall. Bruises/ecchymosis to upper and lower extremities which patient says are new. CK [id number] Based on the above, could you clarify the appropriate diagnosis, if significant, that supports the ab ove abnormalities and additional evaluation, monitoring, and/or treatment rendered: Rhabdomyolysis Traumatic Rhabdomyolysis Unable to determine Other (explain)Clinically unable to determine (explain)Thank you, Elyssa Motley, CCS, CDIS Use of terms such as suspected, likely, concern for, or probable (associated with a specific diagnosi s that is being evaluated, monitored, or treated as if it exists) are acceptable and can be coded in the inpatient se tting, when documented at the time of discharge. Please use your independent medical judgment in providing your response. THIS QUERY IS PART OF THE PERMANENT MEDICAL RECORD
[2023-03-19 07:36] LABS: Glucose, Whole Blood 127 mg/dL (60-115)
[2023-03-19] MEDS: Famotidine/PF 20 MG/2 ML VIAL IVPUSH (09:15)
[2023-03-19] MEDS: Doxycycline Hyclate 100 MG in 0.9 % Sodium Chloride 250 ML 166.7 MG IV ×2 (09:15→21:02)
[2023-03-19] MEDS: Aspirin 300 MG SUPP.RECT PR (09:15)
--- NOTE | 2023-03-19 10:00 | MHC.CLN ---
F/U REVIEWED LABS DISCUSSED WITH PHARMACY PT WANTS TO PURSUE PEG PLACEMENT PLANNED FOR TODAY PT TO CONTINUE D10AA4.25 AT 75ML/HR WITH 21ML OF 20% LIPIDS PROVIDES 1928KCALS TOTAL FROM FORMULA AND LIPIDS (27KCALS/KG), 77G PROTEIN (1.2G/KG) UNTIL PEG TUBE IS PLACED REPLETE LYTES NEEDED CONSULT RD FOR TF RECOMMENDATIONS WHEN NEEDED FOLLOWING WITH TEAM
--- NOTE | 2023-03-19 10:08 | PM.PNNEP ---
Subjective Subjective Date of Service: 03/19/23 Interval history: seen and examined lethargic d/w medical attending Physical Exam Vital Signs: Vital Signs: Last Vital Signs Temp 97.2 F 03/19/23 07:22 Pulse 72 03/19/23 07:22 Resp 20 03/19/23 07:22 BP 144/78 H 03/19/23 07:22 Pulse Ox 99 03/19/23 07:22 O2 Del Method Room Air 03/19/23 07:22 O2 Flow Rate 2 03/12/23 19:01 BMI result Body Mass Index 24.2 Const: General: alert and awake HEENT: Head: Yes normocephalic and Yes atraumatic Neck: Neck: Yes supple Resp: Effort & Inspection: normal respiratory effort Cardio: Heart sounds: S1 normal heart sound present and S2 normal heart sound present GI: Palpation (GI): Soft to palpation and nontender Extrem: Right upper extremity: no edema Objective Data Labs 03/19/23 05:34 03/19/23 05:34 Labs: Laboratory Results - last 24 hr 03/15/23 03/18/23 03/18/23 10:42 11:36 16:02 WBC RBC Hgb Hct MCV MCH MCHC RDW Plt Count MPV Absolute Nucleated RBC Nucleated RBC % (auto) Haptoglobin 136 Sodium Potassium Chloride Carbon Dioxide Anion Gap BUN Creatinine Estim Creat Clear Calc Estimated GFR POC Glucose 166 H 166 H Random Glucose Calcium Phosphorus Magnesium Albumin Triglycerides 03/18/23 03/19/23 03/19/23 20:15 05:34 05:34 WBC RBC Hgb Hct MCV MCH MCHC RDW Plt Count MPV Absolute Nucleated RBC Nucleated RBC % (auto) Haptoglobin Sodium 134 L Potassium 3.4 Chloride 105 Carbon Dioxide 18 L Anion Gap 14 BUN 61 H Creatinine 2.82 H Estim Creat Clear Calc 18.3 Estimated GFR 21 POC Glucose 157 H Random Glucose 149 H Calcium 8.4 Phosphorus 4.1 Magnesium 1.5 L Albumin 2.7 L Triglycerides 125 03/19/23 03/19/23 05:34 07:33 WBC 16.3 H RBC 3.09 L Hgb 9.5 L Hct 27.9 L MCV 90.3 MCH 30.7 MCHC 34.1 RDW 14.6 Plt Count 104 L D MPV 10.5 Absolute Nucleated RBC 0.000 Nucleated RBC % (auto) 0.0 Haptoglobin Sodium Potassium Chloride Carbon Dioxide Anion Gap BUN Creatinine Estim Creat Clear Calc Estimated GFR POC Glucose 127 H Random Glucose Calcium Phosphorus Magnesium Albumin Triglycerides Microbiology Microbiology Results: Microbiology 03/11/23 19:32 Blood - Venous Blood Culture - Final No growth after 5 days. 03/11/23 19:35 Blood - Venous Blood Culture - Final No growth after 5 days. 03/11/23 Unknown Urine Catheterized - Gardner Catheter Urine Culture - Final No growth. 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 Progress Note: Quality Stroke Does the patient have a stroke diagnosis?: No
--- NOTE | 2023-03-19 10:49 | MHC.SL.SWA ---
Speech Pathologist Impression: Severe oropharyngeal dysphagia; MBSS 03/15 showing aspiration Dysphasia Diet Status: Recommend precautions to reduce risk of microaspiration- Ensuring rigid daily oral care routine (at least 4x daily) and elevating head of bed at least 30 degrees. Recommend speech therapy for the treatment of dysphagia, during hospitalization and post-discharge, with repeat-MBSS. Liquid Consistency and Strategies for Safe Swallow: Liquid Intake Recommendation: NPO Solid Food Consistency: Dietary Recommendations: NPO Additional Modifications to Solid Foods: Pt had MBSS 03/15 which revealed suzanna aspiration on thin, honey thick, and puree during the swallow and on overflow from the pyriform after the swallow. Pt did not produce reflexive cough, but did have wet voice. He stated he didn't feel it in the wrong pipe. Pt was cued to cough and clear his throat, which did not reduce aspirated contrast below the vocal folds. Significant pharyngeal retention with all consistencies, pt also denying experiencing any globus sensation. Pt minimally reduced some residue with increased effort, but unable to entirely clear. Pt w/ compromised airway protection, no epiglottic inversion and reduced sensation. Based on observations, safest recommendation appears to be NPO. Please refer to full MBSS report w/ results and recommendations. Oral Medication Intake: NPO Please contact the pharmacy regarding appropriate crushable or liquid drug formulations that are available whenever modified delivery is recommended. Supervision While Eating and Drinking for Safe Swallow: PO with [employer] Swallowing Recommended Treatments: Compens. Strategy Educat. Recommendation for Speech: Inpatient Speech Therapy Speech Therapy through [facility] Speech Therapy through Rehab Facility Modified Barium Swallow Study - Outpatient (3 months) Comment: See 03/15 MBSS for detailed summary. Per RN, plan is for pt to get PEG surgery on this date 03/19. Pt seen this date for oral care and strengthening exercises. Stucco Worker Clinican/Clinical Fellow: No Supervisory Statement: I have reviewed and agree with the student/clinical fellow's documentation: N/A Speech Language Pathologist: Liliana Aviles M.A., [employer]
[2023-03-19 11:57] LABS: Glucose, Whole Blood 133 mg/dL (60-115)
--- NOTE | 2023-03-19 12:12 | HO.ANESPROP2 ---
[facility] Active Problems Active Problems: All Active Problems (Updated 03/17/23 @ 00:44 by lVadimir Vaughan) CKD (chronic kidney disease) (Acute) Hypernatremia (Acute) Hypokalemia (Acute) Dysphagia (Acute) Diabetes mellitus, type 2 (Acute) Metabolic acidosis (Acute) Sepsis (Acute) Rhabdomyolysis (Acute) SUZANNE (acute kidney injury) (Acute) Hypotension (Acute) Hypothermia (Acute) Elevated troponin (Acute) Acidosis, lactic (Acute) Traumatic hematoma of head (Acute) Ascending aortic aneurysm (Acute) Osteomyelitis (Acute) Past Medical History Medical History A-fib Chronic atrial fibrillation Diabetes mellitus, type 2 HTN (hypertension) Non-rheumatic aortic stenosis PAD (peripheral artery disease) Functional capacity: wheelchair bound Family History Family history of problems with anesthesia: No Surgical History Surgical History Hx of right inguinal hernia repair History of Problems with Anesthesia: No Social History Social History Household Members: None Housing: House Do you presently have visiting nurse or other home services: Yes (pt states VNA visit 2x a year) Alcohol intake: current Alcohol intake frequency: 0-2 drinks per day Patient Tobacco Use Status: Never used Tobacco service: No Current occupational status: retired [id number] Allergies Allergy/AdvReac Type Severity Reaction Status Date / Time No Known Allergies Allergy Verified 03/05/23 10:39 Active Medications: Current Medications Artificial Tears (Artificial Tears 15 Ml Drops) 1 drop EYE-BOTH Q4H PRN PRN Reason: Dry Eyes Aspirin (Aspirin 300 Mg Supp.Rect) 300 mg CO DAILY [facility] Last Admin: 03/19/23 09:15 Dose: 300 mg Famotidine (Famotidine/Pf 20 Mg/2 Ml Vial) 20 mg IVPUSH DAILY [facility] Last Admin: 03/19/23 09:15 Dose: 20 mg Fentanyl (Fentanyl Citrate/Pf 100 Mcg/2 Ml Vial) 25 mcg IVPUSH Q5M PRN; Protocol PRN Reason: Pain, Moderate(Pain Scale 4-6) Doxycycline Hyclate 100 mg/ (Sodium Chloride) 250 mls @ 166.67 mls/hr IV Q12H [facility] Last Infusion: 03/19/23 11:12 Dose: Infused Magnesium Sulfate 10 meq/Potassium Phosphate 30 mmol/Calcium Gluconate 9.3 meq/Sodium Acetate 50 meq/Potassium Acetate 20 meq/Amino Acids/Electrolytes/Dextrose 1,800 mls @ 75 mls/hr IVCONT DAILY@1800 [facility] Stop: 03/19/23 17:59 Last Admin: 03/18/23 18:31 Dose: 75 mls/hr Fat Emulsion Intravenous (Intralipid) 250 mls @ 21 mls/hr IVCONT BID@0600,1800 [facility] Stop: 03/19/23 17:55 Last Admin: 03/19/23 05:41 Dose: 21 mls/hr Magnesium Sulfate 20 meq/Potassium Phosphate 20 mmol/Calcium Gluconate 9.3 meq/Sodium Acetate 70 meq/Potassium Acetate 40 meq/Multivitamins 10 ml/ Trace Metals 1 ml/ Amino Acids/Electrolytes/Dextrose 1,800 mls @ 75 mls/hr IVCONT DAILY@1800 [facility] Stop: 03/20/23 17:59 Fat Emulsion Intravenous (Intralipid) 250 mls @ 21 mls/hr IVCONT BID@0600,1800 [facility] Stop: 03/20/23 17:55 Metoprolol Tartrate (Metoprolol Tartrate 5 Mg/5 Ml Vial) 2.5 mg IVPUSH Q8H [facility] Last Admin: 03/19/23 05:48 Dose: 2.5 mg Ondansetron HCl (Ondansetron Hcl 4 Mg/2 Ml Vial) 4 mg IVPUSH ONCE PRN PRN Reason: Nausea and Vomiting Pharmacy Consult (Consult Rx Perform Med Rec) 1 each MISCELLANE ONCE PRN PRN Reason: Consult order Home Medications Medication Instructions Recorded Confirmed Last Taken Type lisinopril 10 mg tablet 10 mg PO DAILY 03/05/23 03/12/23 03/04/23 History metoprolol tartrate 25 mg tablet 25 mg PO BID 03/05/23 03/12/23 03/04/23 History Exam Exam Date and Time: March 19, 2023 121 Height,Weight and Vital Signs: Height 5 ft 9 in Weight 74.4 kg Last Vital Signs Temp 97.2 F 03/19/23 11:31 Pulse 93 03/19/23 11:31 Resp 20 03/19/23 11:31 BP 146/81 H 03/19/23 11:31 Pulse Ox 97 03/19/23 11:31 O2 Del Method Room Air 03/19/23 11:31 O2 Flow Rate 2 03/12/23 19:01 Pertinent Lab Results Pertinent Lab Results: Laboratory Tests 03/11/23 03/11/23 03/11/23 19:31 19:31 19:34 WBC 23.5 H RBC 4.45 L Hgb 13.4 L Hct 40.6 L MCV 91.2 MCH 30.1 MCHC 33.0 RDW 14.5 Plt Count 210 MPV 9.8 Immature Gran % (Auto) 0.8 H Neut % (Auto) 86.6 H Lymph % (Auto) 3.2 L [place] % (Auto) 9.3 Eos % (Auto) 0.0 Baso % (Auto) 0.1 Lymph # (Auto) 0.8 L [place] # (Auto) 2.2 H Eos # (Auto) 0.0 Baso # (Auto) 0.0 Abs Immat Gran (auto) 0.19 H Absolute Neuts (auto) 20.4 H Absolute Nucleated RBC 0.000 Nucleated RBC % (auto) 0.0 Smear Tech's Comments VERIFIED Haptoglobin PT INR VBG pH VBG pCO2 VBG pO2 VBG HCO3 VBG O2 Saturation VBG Base Excess Sodium Potassium Chloride Carbon Dioxide Anion Gap BUN Creatinine Estim Creat Clear Calc Estimated GFR POC Glucose Random Glucose Lactic Acid 3.1 H* Lactic Acid F/U @ 2Hr Calcium Phosphorus Magnesium Total Bilirubin AST ALT Alkaline Phosphatase Lactate Dehydrogenase Total Creatine Kinase Troponin I High Sens B-Natriuretic Peptide Total Protein Albumin Triglycerides Lipase Urine Color Urine Appearance Urine pH Ur Specific [place] Urine Protein Urine Glucose (UA) Urine Ketones Urine Blood Urine Nitrite Ur Leukocyte Esterase Urine RBC Urine WBC Ur Squamous Epith Cells Urine Bacteria Hyaline Casts Urine Eosinophils % U Random Total Protein Ur Random Sodium Urine Creatinine Random Vancomycin Salicylates Acetaminophen Ethyl Alcohol COVID-19 (MAR[facility]) Negative COVID-19 Clin Com See Note 03/11/23 03/11/23 03/11/23 19:34 19:34 19:34 WBC RBC Hgb Hct MCV MCH MCHC RDW Plt Count MPV Immature Gran % (Auto) Neut % (Auto) Lymph % (Auto) [place] % (Auto) Eos % (Auto) Baso % (Auto) Lymph # (Auto) [place] # (Auto) Eos # (Auto) Baso # (Auto) Abs Immat Gran (auto) Absolute Neuts (auto) Absolute Nucleated RBC Nucleated RBC % (auto) Smear Tech's Comments Haptoglobin PT INR VBG pH VBG pCO2 VBG pO2 VBG HCO3 VBG O2 Saturation VBG Base Excess Sodium 147 H Potassium 4.9 Chloride 114 H Carbon Dioxide 11 L Anion Gap 27 H BUN 38 H Creatinine 3.12 H Estim Creat Clear Calc 15.1 Estimated GFR 19 POC Glucose Random Glucose 93 Lactic Acid Lactic Acid F/U @ 2Hr Calcium 8.8 Phosphorus Magnesium 1.9 Total Bilirubin 1.0 AST 129 H ALT 61 H Alkaline Phosphatase 117 Lactate Dehydrogenase Total Creatine Kinase 2733 H Troponin I High Sens 575.1 H* B-Natriuretic Peptide 441 H Total Protein 5.5 L Albumin 2.8 L Triglycerides Lipase 139 H Urine Color Urine Appearance Urine pH Ur Specific [place] Urine Protein Urine Glucose (UA) Urine Ketones Urine Blood Urine Nitrite Ur Leukocyte Esterase Urine RBC Urine WBC Ur Squamous Epith Cells Urine Bacteria Hyaline Casts Urine Eosinophils % U Random Total Protein Ur Random Sodium Urine Creatinine Random Vancomycin Salicylates < 5.0 L Acetaminophen < 17 Ethyl Alcohol < 10 COVID-19 (MARIAN) COVID-19 Clin Com 03/11/23 03/11/23 03/11/23 19:34 20:15 20:54 WBC RBC Hgb Hct MCV MCH MCHC RDW Plt Count MPV Immature Gran % (Auto) Neut % (Auto) Lymph % (Auto) [place] % (Auto) Eos % (Auto) Baso % (Auto) Lymph # (Auto) [place] # (Auto) Eos # (Auto) Baso # (Auto) Abs Immat Gran (auto) Absolute Neuts (auto) Absolute Nucleated RBC Nucleated RBC % (auto) Smear Tech's Comments Haptoglobin PT 13.8 H INR 1.2 H VBG pH VBG pCO2 VBG pO2 VBG HCO3 VBG O2 Saturation VBG Base Excess Sodium Potassium Chloride Carbon Dioxide Anion Gap BUN Creatinine Estim Creat Clear Calc Estimated GFR POC Glucose Random Glucose Lactic Acid Lactic Acid F/U @ 2Hr Calcium Phosphorus Magnesium Total Bilirubin AST ALT Alkaline Phosphatase Lactate Dehydrogenase Total Creatine Kinase Troponin I High Sens 514.3 H* B-Natriuretic Peptide Total Protein Albumin Triglycerides Lipase Urine Color Dark Yellow Urine Appearance Cloudy Urine pH 5.0 Ur Specific [place] 1.020 Urine Protein 300 (3+) H Urine Glucose (UA) Negative Urine Ketones Trace Urine Blood Large (3+) H Urine Nitrite Negative Ur Leukocyte Esterase Trace H Urine RBC 11-20 H Urine WBC 21-50 H Ur Squamous Epith Cells 6-10 Urine Bacteria None Seen Hyaline Casts 3-5 Urine Eosinophils % U Random Total Protein Ur Random Sodium Urine Creatinine Random Vancomycin Salicylates Acetaminophen Ethyl Alcohol COVID-19 (MARIAN) COVID-19 [employer] Com 03/11/23 03/11/23 03/12/23 21:53 21:53 04:41 WBC 19.8 H RBC 3.33 L D Hgb 10.0 L D Hct 30.1 L D MCV 90.4 MCH 30.0 MCHC 33.2 RDW 14.6 Plt Count 150 L D MPV 9.4 Immature Gran % (Auto) 0.6 H Neut % (Auto) 86.3 H Lymph % (Auto) 4.4 L [place] % (Auto) 8.5 Eos % (Auto) 0.0 Baso % (Auto) 0.2 Lymph # (Auto) 0.9 L [place] # (Auto) 1.7 H Eos # (Auto) 0.0 Baso # (Auto) 0.0 Abs Immat Gran (auto) 0.12 H Absolute Neuts (auto) 17.1 H Absolute Nucleated RBC 0.000 Nucleated RBC % (auto) 0.0 Smear Tech's Comments VERIFIED Haptoglobin PT INR VBG pH VBG pCO2 VBG pO2 VBG HCO3 VBG O2 Saturation VBG Base Excess Sodium 146 H Potassium 4.5 Chloride 118 H Carbon Dioxide 12 L Anion Gap 21 H BUN 37 H Creatinine 2.81 H Estim Creat Clear Calc 16.8 Estimated GFR 22 POC Glucose Random Glucose 64 Lactic Acid Lactic Acid F/U @ 2Hr 1.4 Calcium 7.8 L D Phosphorus Magnesium Total Bilirubin 0.8 AST 122 H ALT 54 H Alkaline Phosphatase 93 Lactate Dehydrogenase Total Creatine Kinase Troponin I High Sens B-Natriuretic Peptide Total Protein 4.5 L Albumin 2.3 L Triglycerides Lipase Urine Color Urine Appearance Urine pH Ur Specific [place] Urine Protein Urine Glucose (UA) Urine Ketones Urine Blood Urine Nitrite Ur Leukocyte Esterase Urine RBC Urine WBC Ur Squamous Epith Cells Urine Bacteria Hyaline Casts Urine Eosinophils % U Random Total Protein Ur Random Sodium Urine Creatinine Random Vancomycin Salicylates Acetaminophen Ethyl Alcohol COVID-19 (MARIAN) COVID-19 [employer] Com 03/12/23 03/12/23 03/12/23 04:41 04:41 06:09 WBC RBC Hgb Hct MCV MCH MCHC RDW Plt Count MPV Immature Gran % (Auto) Neut % (Auto) Lymph % (Auto) [place] % (Auto) Eos % (Auto) Baso % (Auto) Lymph # (Auto) [place] # (Auto) Eos # (Auto) Baso # (Auto) Abs Immat Gran (auto) Absolute Neuts (auto) Absolute Nucleated RBC Nucleated RBC % (auto) Smear Tech's Comments Haptoglobin PT INR VBG pH 7.17 L* 7.23 L VBG pCO2 28 26 VBG pO2 45 47 VBG HCO3 10 L 11 L VBG O2 Saturation 66.0 73.0 VBG Base Excess -16.0 -14.3 Sodium 147 H Potassium 3.9 Chloride 118 H Carbon Dioxide 9 L* D Anion Gap 24 H BUN 36 H Creatinine 2.89 H Estim Creat Clear Calc 16.8 Estimated GFR 21 POC Glucose Random Glucose 82 Lactic Acid Lactic Acid F/U @ 2Hr Calcium 7.9 L Phosphorus 6.0 H Magnesium 1.8 Total Bilirubin 0.7 AST 108 H ALT 51 H Alkaline Phosphatase 78 Lactate Dehydrogenase Total Creatine Kinase 2391 H Troponin I High Sens B-Natriuretic Peptide Total Protein 5.2 L Albumin 3.4 L Triglycerides Lipase Urine Color Urine Appearance Urine pH Ur Specific [place] Urine Protein Urine Glucose (UA) Urine Ketones Urine Blood Urine Nitrite Ur Leukocyte Esterase Urine RBC Urine WBC Ur Squamous Epith Cells Urine Bacteria Hyaline Casts Urine Eosinophils % U Random Total Protein Ur Random Sodium Urine Creatinine Random Vancomycin Salicylates Acetaminophen Ethyl Alcohol COVID-19 ([facility]) COVID-19 Clin [facility] 03/12/23 03/12/23 03/12/23 07:20 07:47 09:41 WBC RBC Hgb Hct MCV MCH MCHC RDW Plt Count MPV Immature Gran % (Auto) Neut % (Auto) Lymph % (Auto) [place] % (Auto) Eos % (Auto) Baso % (Auto) Lymph # (Auto) [place] # (Auto) Eos # (Auto) Baso # (Auto) Abs Immat Gran (auto) Absolute Neuts (auto) Absolute Nucleated RBC Nucleated RBC % (auto) Smear Tech's Comments Haptoglobin PT INR VBG pH 7.25 L 7.26 L VBG pCO2 26 29 VBG pO2 53 51 VBG HCO3 12 L 13 L VBG O2 Saturation 82.0 78.0 VBG Base Excess -13.6 -12.2 Sodium Potassium Chloride Carbon Dioxide Anion Gap BUN Creatinine Estim Creat Clear Calc Estimated GFR POC Glucose 93 Random Glucose Lactic Acid Lactic Acid F/U @ 2Hr Calcium Phosphorus Magnesium Total Bilirubin AST ALT Alkaline Phosphatase Lactate Dehydrogenase Total Creatine Kinase Troponin I High Sens B-Natriuretic Peptide Total Protein Albumin Triglycerides Lipase Urine Color Urine Appearance Urine pH Ur Specific [place] Urine Protein Urine Glucose (UA) Urine Ketones Urine Blood Urine Nitrite Ur Leukocyte Esterase Urine RBC Urine WBC Ur Squamous Epith Cells Urine Bacteria Hyaline Casts Urine Eosinophils % U Random Total Protein Ur Random Sodium Urine Creatinine Random Vancomycin Salicylates Acetaminophen Ethyl Alcohol COVID-19 ([facility]) COVID-19 [employer] 03/12/23 03/12/23 03/12/23 09:45 09:45 11:43 WBC RBC Hgb Hct MCV MCH MCHC RDW Plt Count MPV Immature Gran % (Auto) Neut % (Auto) Lymph % (Auto) [place] % (Auto) Eos % (Auto) Baso % (Auto) Lymph # (Auto) [place] # (Auto) Eos # (Auto) Baso # (Auto) Abs Immat Gran (auto) Absolute Neuts (auto) Absolute Nucleated RBC Nucleated RBC % (auto) Smear Tech's Comments Haptoglobin PT INR VBG pH VBG pCO2 VBG pO2 VBG HCO3 VBG O2 Saturation VBG Base Excess Sodium 145 Potassium 3.7 Chloride 117 H Carbon Dioxide 14 L Anion Gap 18 BUN 38 H Creatinine 3.17 H Estim Creat Clear Calc 15.4 Estimated GFR 19 POC Glucose 89 Random Glucose 100 Lactic Acid Lactic Acid F/U @ 2Hr Calcium 7.7 L Phosphorus 5.9 H Magnesium Total Bilirubin 0.7 AST 113 H ALT 54 H Alkaline Phosphatase 78 Lactate Dehydrogenase Total Creatine Kinase 2376 H Troponin I High Sens B-Natriuretic Peptide Total Protein 5.0 L Albumin 3.2 L Triglycerides Lipase Urine Color Urine Appearance Urine pH Ur Specific [place] Urine Protein Urine Glucose (UA) Urine Ketones Urine Blood Urine Nitrite Ur Leukocyte Esterase Urine RBC Urine WBC Ur Squamous Epith Cells Urine Bacteria Hyaline Casts Urine Eosinophils % U Random Total Protein Ur Random Sodium Urine Creatinine Random Vancomycin Salicylates Acetaminophen Ethyl Alcohol COVID-19 ([facility]) COVID-19 [employer] 03/12/23 03/12/23 03/12/23 16:21 20:46 20:51 WBC RBC Hgb Hct MCV MCH MCHC RDW Plt Count MPV Immature Gran % (Auto) Neut % (Auto) Lymph % (Auto) [place] % (Auto) Eos % (Auto) Baso % (Auto) Lymph # (Auto) [place] # (Auto) Eos # (Auto) Baso # (Auto) Abs Immat Gran (auto) Absolute Neuts (auto) Absolute Nucleated RBC Nucleated RBC % (auto) Smear Tech's Comments Haptoglobin PT INR VBG pH 7.35 VBG pCO2 29 VBG pO2 106 VBG HCO3 16 L VBG O2 Saturation 99.0 VBG Base Excess -7.5 Sodium 146 H Potassium 3.5 Chloride 116 H Carbon Dioxide 18 L Anion Gap 16 BUN 38 H Creatinine 3.23 H Estim Creat Clear Calc 15.1 Estimated GFR 18 POC Glucose 102 Random Glucose 152 H Lactic Acid Lactic Acid F/U @ 2Hr Calcium 7.3 L Phosphorus 4.6 H Magnesium 1.6 Total Bilirubin AST ALT Alkaline Phosphatase Lactate Dehydrogenase Total Creatine Kinase Troponin I High Sens B-Natriuretic Peptide Total Protein Albumin Triglycerides Lipase Urine Color Urine Appearance Urine pH Ur Specific [place] Urine Protein Urine Glucose (UA) Urine Ketones Urine Blood Urine Nitrite Ur Leukocyte Esterase Urine RBC Urine WBC Ur Squamous Epith Cells Urine Bacteria Hyaline Casts Urine Eosinophils % U Random Total Protein Ur Random Sodium Urine Creatinine Random Vancomycin Salicylates Acetaminophen Ethyl Alcohol COVID-19 ([facility]) COVID-19 Clin Com 03/12/23 03/13/23 03/13/23 21:20 04:43 04:44 WBC RBC Hgb Hct MCV MCH MCHC RDW Plt Count MPV Immature Gran % (Auto) Neut % (Auto) Lymph % (Auto) [place] % (Auto) Eos % (Auto) Baso % (Auto) Lymph # (Auto) [place] # (Auto) Eos # (Auto) Baso # (Auto) Abs Immat Gran (auto) Absolute Neuts (auto) Absolute Nucleated RBC Nucleated RBC % (auto) Smear Tech's Comments Haptoglobin PT INR VBG pH 7.45 H VBG pCO2 33 VBG pO2 46 VBG HCO3 23 VBG O2 Saturation 76.0 VBG Base Excess 0.0 Sodium 146 H Potassium 3.7 Chloride 115 H Carbon Dioxide 22 Anion Gap 13 BUN 39 H Creatinine 3.31 H Estim Creat Clear Calc 14.7 Estimated GFR 18 POC Glucose 131 H Random Glucose 193 H Lactic Acid Lactic Acid F/U @ 2Hr Calcium 7.5 L Phosphorus 3.5 Magnesium 1.7 Total Bilirubin AST ALT Alkaline Phosphatase Lactate Dehydrogenase Total Creatine Kinase 1188 H Troponin I High Sens B-Natriuretic Peptide Total Protein Albumin 2.6 L Triglycerides Lipase Urine Color Urine Appearance Urine pH Ur Specific [place] Urine Protein Urine Glucose (UA) Urine Ketones Urine Blood Urine Nitrite Ur Leukocyte Esterase Urine RBC Urine WBC Ur Squamous Epith Cells Urine Bacteria Hyaline Casts Urine Eosinophils % U Random Total Protein Ur Random Sodium Urine Creatinine Random Vancomycin Salicylates Acetaminophen Ethyl Alcohol COVID-19 (MARIAN) COVID-19 [employer] 03/13/23 03/13/23 03/13/23 04:44 07:31 11:14 WBC 20.0 H RBC 3.23 L Hgb 9.8 L Hct 28.0 L MCV 86.7 MCH 30.3 MCHC 35.0 RDW 14.6 Plt Count 114 L MPV 9.9 Immature Gran % (Auto) 0.7 H Neut % (Auto) 88.0 H Lymph % (Auto) 3.4 L [place] % (Auto) 7.7 Eos % (Auto) 0.0 Baso % (Auto) 0.2 Lymph # (Auto) 0.7 L [place] # (Auto) 1.5 H Eos # (Auto) 0.0 Baso # (Auto) 0.0 Abs Immat Gran (auto) 0.14 H Absolute Neuts (auto) 17.6 H Absolute Nucleated RBC 0.000 Nucleated RBC % (auto) 0.0 Smear Tech's Comments VERIFIED Haptoglobin PT INR VBG pH VBG pCO2 VBG pO2 VBG HCO3 VBG O2 Saturation VBG Base Excess Sodium Potassium Chloride Carbon Dioxide Anion Gap BUN Creatinine Estim Creat Clear Calc Estimated GFR POC Glucose 160 H 174 H Random Glucose Lactic Acid Lactic Acid F/U @ 2Hr Calcium Phosphorus Magnesium Total Bilirubin AST ALT Alkaline Phosphatase Lactate Dehydrogenase Total Creatine Kinase Troponin I High Sens B-Natriuretic Peptide Total Protein Albumin Triglycerides Lipase Urine Color Urine Appearance Urine pH Ur Specific [place] Urine Protein Urine Glucose (UA) Urine Ketones Urine Blood Urine Nitrite Ur Leukocyte Esterase Urine RBC Urine WBC Ur Squamous Epith Cells Urine Bacteria Hyaline Casts Urine Eosinophils % U Random Total Protein Ur Random Sodium Urine Creatinine Random Vancomycin Salicylates Acetaminophen Ethyl Alcohol COVID-19 (MARIAN) COVID-19 [employer] 03/13/23 03/13/23 03/13/23 16:15 20:53 21:25 WBC RBC Hgb Hct MCV MCH MCHC RDW Plt Count MPV Immature Gran % (Auto) Neut % (Auto) Lymph % (Auto) [place] % (Auto) Eos % (Auto) Baso % (Auto) Lymph # (Auto) [place] # (Auto) Eos # (Auto) Baso # (Auto) Abs Immat Gran (auto) Absolute Neuts (auto) Absolute Nucleated RBC Nucleated RBC % (auto) Smear Tech's Comments Haptoglobin PT INR VBG pH VBG pCO2 VBG pO2 VBG HCO3 VBG O2 Saturation VBG Base Excess Sodium Potassium Chloride Carbon Dioxide Anion Gap BUN Creatinine Estim Creat Clear Calc Estimated GFR POC Glucose 145 H 95 Random Glucose Lactic Acid Lactic Acid F/U @ 2Hr Calcium Phosphorus Magnesium Total Bilirubin AST ALT Alkaline Phosphatase Lactate Dehydrogenase Total Creatine Kinase Troponin I High Sens B-Natriuretic Peptide Total Protein Albumin Triglycerides Lipase Urine Color Urine Appearance Urine pH Ur Specific [place] Urine Protein Urine Glucose (UA) Urine Ketones Urine Blood Urine Nitrite Ur Leukocyte Esterase Urine RBC Urine WBC Ur Squamous Epith Cells Urine Bacteria Hyaline Casts Urine Eosinophils % U Random Total Protein Ur Random Sodium Urine Creatinine Random Vancomycin 23.6 H Salicylates Acetaminophen Ethyl Alcohol COVID-19 (MARIAN) COVID-19 Clin Com 03/14/23 03/14/23 03/14/23 04:31 04:35 04:35 WBC 16.1 H RBC 2.84 L Hgb 8.5 L Hct 25.1 L MCV 88.4 MCH 29.9 MCHC 33.9 RDW 14.7 Plt Count 71 L D MPV 10.3 Immature Gran % (Auto) 0.7 H Neut % (Auto) 84.4 H Lymph % (Auto) 6.6 L [place] % (Auto) 7.8 Eos % (Auto) 0.3 Baso % (Auto) 0.2 Lymph # (Auto) 1.1 L [place] # (Auto) 1.3 H Eos # (Auto) 0.1 Baso # (Auto) 0.0 Abs Immat Gran (auto) 0.12 H Absolute Neuts (auto) 13.5 H Absolute Nucleated RBC 0.020 H Nucleated RBC % (auto) 0.1 Smear Tech's Comments Haptoglobin PT INR VBG pH 7.46 H VBG pCO2 41 VBG pO2 36 VBG HCO3 29 H VBG O2 Saturation 56.0 VBG Base Excess 5.7 Sodium 151 H Potassium 3.1 L Chloride 113 H Carbon Dioxide 25 Anion Gap 16 BUN 42 H Creatinine 3.48 H Estim Creat Clear Calc 15.2 Estimated GFR 17 POC Glucose Random Glucose 89 Lactic Acid Lactic Acid F/U @ 2Hr Calcium 8.1 L D Phosphorus 2.9 Magnesium 1.7 Total Bilirubin AST ALT Alkaline Phosphatase Lactate Dehydrogenase Total Creatine Kinase 602 H Troponin I High Sens B-Natriuretic Peptide Total Protein Albumin 3.6 Triglycerides Lipase Urine Color Urine Appearance Urine pH Ur Specific [place] Urine Protein Urine Glucose (UA) Urine Ketones Urine Blood Urine Nitrite Ur Leukocyte Esterase Urine RBC Urine WBC Ur Squamous Epith Cells Urine Bacteria Hyaline Casts Urine Eosinophils % U Random Total Protein Ur Random Sodium Urine Creatinine Random Vancomycin Salicylates Acetaminophen Ethyl Alcohol COVID-19 (MARIAN) COVID-19 [employer] 03/14/23 03/14/23 03/14/23 07:20 12:00 16:29 WBC RBC Hgb Hct MCV MCH MCHC RDW Plt Count MPV Immature Gran % (Auto) Neut % (Auto) Lymph % (Auto) [place] % (Auto) Eos % (Auto) Baso % (Auto) Lymph # (Auto) [place] # (Auto) Eos # (Auto) Baso # (Auto) Abs Immat Gran (auto) Absolute Neuts (auto) Absolute Nucleated RBC Nucleated RBC % (auto) Smear Tech's Comments Haptoglobin PT INR VBG pH VBG pCO2 VBG pO2 VBG HCO3 VBG O2 Saturation VBG Base Excess Sodium Potassium Chloride Carbon Dioxide Anion Gap BUN Creatinine Estim Creat Clear Calc Estimated GFR POC Glucose 103 123 H 118 H Random Glucose Lactic Acid Lactic Acid F/U @ 2Hr Calcium Phosphorus Magnesium Total Bilirubin AST ALT Alkaline Phosphatase Lactate Dehydrogenase Total Creatine Kinase Troponin I High Sens B-Natriuretic Peptide Total Protein Albumin Triglycerides Lipase Urine Color Urine Appearance Urine pH Ur Specific [place] Urine Protein Urine Glucose (UA) Urine Ketones Urine Blood Urine Nitrite Ur Leukocyte Esterase Urine RBC Urine WBC Ur Squamous Epith Cells Urine Bacteria Hyaline Casts Urine Eosinophils % U Random Total Protein Ur Random Sodium Urine Creatinine Random Vancomycin Salicylates Acetaminophen Ethyl Alcohol COVID-19 (MARIAN) COVID-19 [employer] 03/14/23 03/15/23 03/15/23 21:19 05:02 05:02 WBC 16.0 H RBC 3.13 L Hgb 9.4 L Hct 27.9 L MCV 89.1 MCH 30.0 MCHC 33.7 RDW 15.1 Plt Count 75 L MPV 10.2 Immature Gran % (Auto) 0.8 H Neut % (Auto) 82.9 H Lymph % (Auto) 7.0 L [place] % (Auto) 7.7 Eos % (Auto) 1.3 Baso % (Auto) 0.3 Lymph # (Auto) 1.1 L [place] # (Auto) 1.2 Eos # (Auto) 0.2 Baso # (Auto) 0.1 Abs Immat Gran (auto) 0.12 H Absolute Neuts (auto) 13.3 H Absolute Nucleated RBC 0.000 Nucleated RBC % (auto) 0.0 Smear Tech's Comments Haptoglobin PT INR VBG pH VBG pCO2 VBG pO2 VBG HCO3 VBG O2 Saturation VBG Base Excess Sodium 146 H Potassium 3.6 Chloride 111 H Carbon Dioxide 24 Anion Gap 15 BUN 47 H Creatinine 3.78 H Estim Creat Clear Calc 14.0 Estimated GFR 15 POC Glucose 119 H Random Glucose 128 H Lactic Acid Lactic Acid F/U @ 2Hr Calcium 8.5 Phosphorus 3.1 Magnesium 1.8 Total Bilirubin AST ALT Alkaline Phosphatase Lactate Dehydrogenase Total Creatine Kinase Troponin I High Sens B-Natriuretic Peptide Total Protein Albumin 2.9 L Triglycerides Lipase Urine Color Urine Appearance Urine pH Ur Specific [place] Urine Protein Urine Glucose (UA) Urine Ketones Urine Blood Urine Nitrite Ur Leukocyte Esterase Urine RBC Urine WBC Ur Squamous Epith Cells Urine Bacteria Hyaline Casts Urine Eosinophils % U Random Total Protein Ur Random Sodium Urine Creatinine Random Vancomycin Salicylates Acetaminophen Ethyl Alcohol COVID-19 (MARIAN) COVID-19 Clin Com 03/15/23 03/15/23 03/15/23 07:25 10:31 10:31 WBC RBC Hgb Hct MCV MCH MCHC RDW Plt Count MPV Immature Gran % (Auto) Neut % (Auto) Lymph % (Auto) [place] % (Auto) Eos % (Auto) Baso % (Auto) Lymph # (Auto) [place] # (Auto) Eos # (Auto) Baso # (Auto) Abs Immat Gran (auto) Absolute Neuts (auto) Absolute Nucleated RBC Nucleated RBC % (auto) Smear Tech's Comments Haptoglobin PT INR VBG pH VBG pCO2 VBG pO2 VBG HCO3 VBG O2 Saturation VBG Base Excess Sodium Potassium Chloride Carbon Dioxide Anion Gap BUN Creatinine Estim Creat Clear Calc Estimated GFR POC Glucose 123 H Random Glucose Lactic Acid Lactic Acid F/U @ 2Hr Calcium Phosphorus Magnesium Total Bilirubin AST ALT Alkaline Phosphatase Lactate Dehydrogenase Total Creatine Kinase Troponin I High Sens B-Natriuretic Peptide Total Protein Albumin Triglycerides Lipase Urine Color Urine Appearance Urine pH Ur Specific [place] Urine Protein Urine Glucose (UA) Urine Ketones Urine Blood Urine Nitrite Ur Leukocyte Esterase Urine RBC Urine WBC Ur Squamous Epith Cells Urine Bacteria Hyaline Casts Urine Eosinophils % 0.0 U Random Total Protein 139 H Ur Random Sodium 76.0 Urine Creatinine 66.48 Random Vancomycin Salicylates Acetaminophen Ethyl Alcohol COVID-19 (MARIAN) COVID-19 Discrete Sport 03/15/23 03/15/23 03/15/23 10:42 10:42 11:15 WBC RBC Hgb Hct MCV MCH MCHC RDW Plt Count MPV Immature Gran % (Auto) Neut % (Auto) Lymph % (Auto) [place] % (Auto) Eos % (Auto) Baso % (Auto) Lymph # (Auto) [place] # (Auto) Eos # (Auto) Baso # (Auto) Abs Immat Gran (auto) Absolute Neuts (auto) Absolute Nucleated RBC Nucleated RBC % (auto) Smear Tech's Comments Haptoglobin 136 PT INR VBG pH VBG pCO2 VBG pO2 VBG HCO3 VBG O2 Saturation VBG Base Excess Sodium Potassium Chloride Carbon Dioxide Anion Gap BUN Creatinine Estim Creat Clear Calc Estimated GFR POC Glucose 168 H Random Glucose Lactic Acid Lactic Acid F/U @ 2Hr Calcium Phosphorus Magnesium Total Bilirubin AST ALT Alkaline Phosphatase Lactate Dehydrogenase 433 H Total Creatine Kinase Troponin I High Sens B-Natriuretic Peptide Total Protein Albumin Triglycerides Lipase Urine Color Urine Appearance Urine pH Ur Specific [place] Urine Protein Urine Glucose (UA) Urine Ketones Urine Blood Urine Nitrite Ur Leukocyte Esterase Urine RBC Urine WBC Ur Squamous Epith Cells Urine Bacteria Hyaline Casts Urine Eosinophils % U Random Total Protein Ur Random Sodium Urine Creatinine Random Vancomycin Salicylates Acetaminophen Ethyl Alcohol COVID-19 (MARIAN) COVID-19 Discrete Sport 03/15/23 03/15/23 03/16/23 15:34 19:29 06:38 WBC RBC Hgb Hct MCV MCH MCHC RDW Plt Count MPV Immature Gran % (Auto) Neut % (Auto) Lymph % (Auto) [place] % (Auto) Eos % (Auto) Baso % (Auto) Lymph # (Auto) [place] # (Auto) Eos # (Auto) Baso # (Auto) Abs Immat Gran (auto) Absolute Neuts (auto) Absolute Nucleated RBC Nucleated RBC % (auto) Smear Tech's Comments Haptoglobin PT INR VBG pH VBG pCO2 VBG pO2 VBG HCO3 VBG O2 Saturation VBG Base Excess Sodium 139 Potassium 3.1 L Chloride 107 Carbon Dioxide 22 Anion Gap 13 BUN 51 H Creatinine 3.68 H Estim Creat Clear Calc 14.4 Estimated GFR 16 POC Glucose 165 H 155 H Random Glucose 171 H Lactic Acid Lactic Acid F/U @ 2Hr Calcium 8.4 Phosphorus 3.0 Magnesium 1.6 Total Bilirubin AST ALT Alkaline Phosphatase Lactate Dehydrogenase Total Creatine Kinase Troponin I High Sens B-Natriuretic Peptide Total Protein Albumin 2.7 L Triglycerides Lipase Urine Color Urine Appearance Urine pH Ur Specific [place] Urine Protein Urine Glucose (UA) Urine Ketones Urine Blood Urine Nitrite Ur Leukocyte Esterase Urine RBC Urine WBC Ur Squamous Epith Cells Urine Bacteria Hyaline Casts Urine Eosinophils % U Random Total Protein Ur Random Sodium Urine Creatinine Random Vancomycin Salicylates Acetaminophen Ethyl Alcohol COVID-19 (MARIAN) COVID-19 Discrete Sport 03/16/23 03/16/23 03/16/23 06:38 06:38 07:30 WBC 14.8 H RBC 3.23 L Hgb 9.6 L Hct 28.8 L MCV 89.2 MCH 29.7 MCHC 33.3 RDW 14.6 Plt Count 75 L MPV 10.7 Immature Gran % (Auto) Neut % (Auto) Lymph % (Auto) [place] % (Auto) Eos % (Auto) Baso % (Auto) Lymph # (Auto) [place] # (Auto) Eos # (Auto) Baso # (Auto) Abs Immat Gran (auto) Absolute Neuts (auto) Absolute Nucleated RBC 0.000 Nucleated RBC % (auto) 0.0 Smear Tech's Comments Haptoglobin PT INR VBG pH VBG pCO2 VBG pO2 VBG HCO3 VBG O2 Saturation VBG Base Excess Sodium Potassium Chloride Carbon Dioxide Anion Gap BUN Creatinine Estim Creat Clear Calc Estimated GFR POC Glucose 142 H Random Glucose Lactic Acid Lactic Acid F/U @ 2Hr Calcium Phosphorus Magnesium Total Bilirubin AST ALT Alkaline Phosphatase Lactate Dehydrogenase Total Creatine Kinase Troponin I High Sens B-Natriuretic Peptide Total Protein Albumin Triglycerides 62 Lipase Urine Color Urine Appearance Urine pH Ur Specific [place] Urine Protein Urine Glucose (UA) Urine Ketones Urine Blood Urine Nitrite Ur Leukocyte Esterase Urine RBC Urine WBC Ur Squamous Epith Cells Urine Bacteria Hyaline Casts Urine Eosinophils % U Random Total Protein Ur Random Sodium Urine Creatinine Random Vancomycin Salicylates Acetaminophen Ethyl Alcohol COVID-19 (MARIAN) COVID-19 Discrete Sport 0503/16/23 03/16/23 11:37 16:01 20:58 WBC RBC Hgb Hct MCV MCH MCHC RDW Plt Count MPV Immature Gran % (Auto) Neut % (Auto) Lymph % (Auto) [place] % (Auto) Eos % (Auto) Baso % (Auto) Lymph # (Auto) [place] # (Auto) Eos # (Auto) Baso # (Auto) Abs Immat Gran (auto) Absolute Neuts (auto) Absolute Nucleated RBC Nucleated RBC % (auto) Smear Tech's Comments Haptoglobin PT INR VBG pH VBG pCO2 VBG pO2 VBG HCO3 VBG O2 Saturation VBG Base Excess Sodium Potassium Chloride Carbon Dioxide Anion Gap BUN Creatinine Estim Creat Clear Calc Estimated GFR POC Glucose 104 114 118 H Random Glucose Lactic Acid Lactic Acid F/U @ 2Hr Calcium Phosphorus Magnesium Total Bilirubin AST ALT Alkaline Phosphatase Lactate Dehydrogenase Total Creatine Kinase Troponin I High Sens B-Natriuretic Peptide Total Protein Albumin Triglycerides Lipase Urine Color Urine Appearance Urine pH Ur Specific [place] Urine Protein Urine Glucose (UA) Urine Ketones Urine Blood Urine Nitrite Ur Leukocyte Esterase Urine RBC Urine WBC Ur Squamous Epith Cells Urine Bacteria Hyaline Casts Urine Eosinophils % U Random Total Protein Ur Random Sodium Urine Creatinine Random Vancomycin Salicylates Acetaminophen Ethyl Alcohol COVID-19 (MARIAN) COVID-19 [employer] Com 03/17/23 03/17/23 03/17/23 05:48 07:33 10:57 WBC RBC Hgb Hct MCV MCH MCHC RDW Plt Count MPV Immature Gran % (Auto) Neut % (Auto) Lymph % (Auto) [place] % (Auto) Eos % (Auto) Baso % (Auto) Lymph # (Auto) [place] # (Auto) Eos # (Auto) Baso # (Auto) Abs Immat Gran (auto) Absolute Neuts (auto) Absolute Nucleated RBC Nucleated RBC % (auto) Smear Tech's Comments Haptoglobin PT INR VBG pH VBG pCO2 VBG pO2 VBG HCO3 VBG O2 Saturation VBG Base Excess Sodium 139 Potassium 3.3 Chloride 109 H Carbon Dioxide 21 L Anion Gap 12 BUN 51 H Creatinine 3.44 H 3.35 H Estim Creat Clear Calc 15.4 15.8 Estimated GFR 17 18 POC Glucose 124 H Random Glucose 138 H Lactic Acid Lactic Acid F/U @ 2Hr Calcium 8.6 Phosphorus 3.1 Magnesium 1.6 Total Bilirubin AST ALT Alkaline Phosphatase Lactate Dehydrogenase Total Creatine Kinase Troponin I High Sens B-Natriuretic Peptide Total Protein Albumin 2.7 L Triglycerides Lipase Urine Color Urine Appearance Urine pH Ur Specific [place] Urine Protein Urine Glucose (UA) Urine Ketones Urine Blood Urine Nitrite Ur Leukocyte Esterase Urine RBC Urine WBC Ur Squamous Epith Cells Urine Bacteria Hyaline Casts Urine Eosinophils % U Random Total Protein Ur Random Sodium Urine Creatinine Random Vancomycin Salicylates Acetaminophen Ethyl Alcohol COVID-19 (MARIAN) COVID-19 Discrete Sport 03/17/23 03/17/23 03/17/23 11:20 16:01 19:24 WBC RBC Hgb Hct MCV MCH MCHC RDW Plt Count MPV Immature Gran % (Auto) Neut % (Auto) Lymph % (Auto) [place] % (Auto) Eos % (Auto) Baso % (Auto) Lymph # (Auto) [place] # (Auto) Eos # (Auto) Baso # (Auto) Abs Immat Gran (auto) Absolute Neuts (auto) Absolute Nucleated RBC Nucleated RBC % (auto) Smear Tech's Comments Haptoglobin PT INR VBG pH VBG pCO2 VBG pO2 VBG HCO3 VBG O2 Saturation VBG Base Excess Sodium Potassium Chloride Carbon Dioxide Anion Gap BUN Creatinine Estim Creat Clear Calc Estimated GFR POC Glucose 135 H 138 H 153 H Random Glucose Lactic Acid Lactic Acid F/U @ 2Hr Calcium Phosphorus Magnesium Total Bilirubin AST ALT Alkaline Phosphatase Lactate Dehydrogenase Total Creatine Kinase Troponin I High Sens B-Natriuretic Peptide Total Protein Albumin Triglycerides Lipase Urine Color Urine Appearance Urine pH Ur Specific [place] Urine Protein Urine Glucose (UA) Urine Ketones Urine Blood Urine Nitrite Ur Leukocyte Esterase Urine RBC Urine WBC Ur Squamous Epith Cells Urine Bacteria Hyaline Casts Urine Eosinophils % U Random Total Protein Ur Random Sodium Urine Creatinine Random Vancomycin Salicylates Acetaminophen Ethyl Alcohol COVID-19 (MARIAN) COVID-19 Discrete Sport 03/18/23 03/18/23 03/18/23 05:30 07:10 07:14 WBC RBC Hgb Hct MCV MCH MCHC RDW Plt Count MPV Immature Gran % (Auto) Neut % (Auto) Lymph % (Auto) [place] % (Auto) Eos % (Auto) Baso % (Auto) Lymph # (Auto) [place] # (Auto) Eos # (Auto) Baso # (Auto) Abs Immat Gran (auto) Absolute Neuts (auto) Absolute Nucleated RBC Nucleated RBC % (auto) Smear Tech's Comments Haptoglobin PT INR VBG pH VBG pCO2 VBG pO2 VBG HCO3 VBG O2 Saturation VBG Base Excess Sodium 136 Potassium 3.4 Chloride 106 Carbon Dioxide 20 L Anion Gap 13 BUN 57 H Creatinine 3.12 H 3.17 H Estim Creat Clear Calc 16.9 16.3 Estimated GFR 19 19 POC Glucose 124 H Random Glucose 171 H Lactic Acid Lactic Acid F/U @ 2Hr Calcium 8.4 Phosphorus 3.6 Magnesium 1.6 Total Bilirubin AST ALT Alkaline Phosphatase Lactate Dehydrogenase Total Creatine Kinase Troponin I High Sens B-Natriuretic Peptide Total Protein Albumin 2.6 L Triglycerides 106 Lipase Urine Color Urine Appearance Urine pH Ur Specific [place] Urine Protein Urine Glucose (UA) Urine Ketones Urine Blood Urine Nitrite Ur Leukocyte Esterase Urine RBC Urine WBC Ur Squamous Epith Cells Urine Bacteria Hyaline Casts Urine Eosinophils % U Random Total Protein Ur Random Sodium Urine Creatinine Random Vancomycin Salicylates Acetaminophen Ethyl Alcohol COVID-19 (MARIAN) [employer]19 Discrete Sport 03/18/23 03/18/23 03/18/23 11:36 16:02 20:15 WBC RBC Hgb Hct MCV MCH MCHC RDW Plt Count MPV Immature Gran % (Auto) Neut % (Auto) Lymph % (Auto) [place] % (Auto) Eos % (Auto) Baso % (Auto) Lymph # (Auto) [place] # (Auto) Eos # (Auto) Baso # (Auto) Abs Immat Gran (auto) Absolute Neuts (auto) Absolute Nucleated RBC Nucleated RBC % (auto) Smear Tech's Comments Haptoglobin PT INR VBG pH VBG pCO2 VBG pO2 VBG HCO3 VBG O2 Saturation VBG Base Excess Sodium Potassium Chloride Carbon Dioxide Anion Gap BUN Creatinine Estim Creat Clear Calc Estimated GFR POC Glucose 166 H 166 H 157 H Random Glucose Lactic Acid Lactic Acid F/U @ 2Hr Calcium Phosphorus Magnesium Total Bilirubin AST ALT Alkaline Phosphatase Lactate Dehydrogenase Total Creatine Kinase Troponin I High Sens B-Natriuretic Peptide Total Protein Albumin Triglycerides Lipase Urine Color Urine Appearance Urine pH Ur Specific [place] Urine Protein Urine Glucose (UA) Urine Ketones Urine Blood Urine Nitrite Ur Leukocyte Esterase Urine RBC Urine WBC Ur Squamous Epith Cells Urine Bacteria Hyaline Casts Urine Eosinophils % U Random Total Protein Ur Random Sodium Urine Creatinine Random Vancomycin Salicylates Acetaminophen Ethyl Alcohol COVID-19 (MARIAN) COVID-19 Discrete Sport 03/19/23 03/19/23 03/19/23 05:34 05:34 05:34 WBC 16.3 H RBC 3.09 L Hgb 9.5 L Hct 27.9 L MCV 90.3 MCH 30.7 MCHC 34.1 RDW 14.6 Plt Count 104 L D MPV 10.5 Immature Gran % (Auto) Neut % (Auto) Lymph % (Auto) [place] % (Auto) Eos % (Auto) Baso % (Auto) Lymph # (Auto) [place] # (Auto) Eos # (Auto) Baso # (Auto) Abs Immat Gran (auto) Absolute Neuts (auto) Absolute Nucleated RBC 0.000 Nucleated RBC % (auto) 0.0 Smear Tech's Comments Haptoglobin PT INR VBG pH VBG pCO2 VBG pO2 VBG HCO3 VBG O2 Saturation VBG Base Excess Sodium 134 L Potassium 3.4 Chloride 105 Carbon Dioxide 18 L Anion Gap 14 BUN 61 H Creatinine 2.82 H Estim Creat Clear Calc 18.3 Estimated GFR 21 POC Glucose Random Glucose 149 H Lactic Acid Lactic Acid F/U @ 2Hr Calcium 8.4 Phosphorus 4.1 Magnesium 1.5 L Total Bilirubin AST ALT Alkaline Phosphatase Lactate Dehydrogenase Total Creatine Kinase Troponin I High Sens B-Natriuretic Peptide Total Protein Albumin 2.7 L Triglycerides 125 Lipase Urine Color Urine Appearance Urine pH Ur Specific [place] Urine Protein Urine Glucose (UA) Urine Ketones Urine Blood Urine Nitrite Ur Leukocyte Esterase Urine RBC Urine WBC Ur Squamous Epith Cells Urine Bacteria Hyaline Casts Urine Eosinophils % U Random Total Protein Ur Random Sodium Urine Creatinine Random Vancomycin Salicylates Acetaminophen Ethyl Alcohol COVID-19 (MARIAN) COVID-19 Clin Com 03/19/23 03/19/23 07:33 11:37 WBC RBC Hgb Hct MCV MCH MCHC RDW Plt Count MPV Immature Gran % (Auto) Neut % (Auto) Lymph % (Auto) [place] % (Auto) Eos % (Auto) Baso % (Auto) Lymph # (Auto) [place] # (Auto) Eos # (Auto) Baso # (Auto) Abs Immat Gran (auto) Absolute Neuts (auto) Absolute Nucleated RBC Nucleated RBC % (auto) Smear Tech's Comments Haptoglobin PT INR VBG pH VBG pCO2 VBG pO2 VBG HCO3 VBG O2 Saturation VBG Base Excess Sodium Potassium Chloride Carbon Dioxide Anion Gap BUN Creatinine Estim Creat Clear Calc Estimated GFR POC Glucose 127 H 133 H Random Glucose Lactic Acid Lactic Acid F/U @ 2Hr Calcium Phosphorus Magnesium Total Bilirubin AST ALT Alkaline Phosphatase Lactate Dehydrogenase Total Creatine Kinase Troponin I High Sens B-Natriuretic Peptide Total Protein Albumin Triglycerides Lipase Urine Color Urine Appearance Urine pH Ur Specific [place] Urine Protein Urine Glucose (UA) Urine Ketones Urine Blood Urine Nitrite Ur Leukocyte Esterase Urine RBC Urine WBC Ur Squamous Epith Cells Urine Bacteria Hyaline Casts Urine Eosinophils % U Random Total Protein Ur Random Sodium Urine Creatinine Random Vancomycin Salicylates Acetaminophen Ethyl Alcohol COVID-19 (MARIAN) COVID-19 Clin Com Airway Mallampati Class: III TM Dist: >3cm Neck ROM: Full Denture: Upper and Lower Heart: rrrrrr Lungs: clear Assessment and Plan Final Anesthetic Review Family History of Problems with Anesthesia: No History of Problems with Anesthesia: No ASA Class: III Final Preanesthetic Review: No Changes in Pt Med Stat, Meds/Allgs Chart Reviewed, Consent Obtained/Reviewed and Anes Risks/Benef Reviewed Patient Risk: High Procedure Risk: Intermediate Anesthetic Plan Anesthetic Plan: MAC: Disposition: Standard PACU
--- NOTE | 2023-03-19 13:08 | P.BOP_ITS ---
Brief Operative Note Date of Service: 03/19/23 Pre-op diagnosis: dysphagia Post-op diagnosis: same Procedure: PEG tube placement Implants: 20F PEG tube Surgeon: SURI HURTADO MD Anesthesia: MAC Was an Care Director Rn used for this Procedure?: No Care Director Rn: Sayda Beaver Estimated blood loss (mL): 1 Pathology: none sent Condition: stable Disposition: PACU
--- NOTE | 2023-03-19 13:08 | W.PM.OPN ---
Operative Note Operative Note Date of Service: 03/19/23 Narrative: Preop diagnosis: Dysphagia Postop diagnosis: the same Procedure: PEG tube placement Surgeon:Omari Jordan MD First Asst: ALISHA Beaver The patient is an 87M admitted for rhabdomyolysis, with a failed swallow study. He understood the technique of PEG placement and was aware of the risks, benefits and alternatives. He was brought to the OR and placed in reverse trendelenberg position under MAC. A bite block was in position. A surgical timeout was done. The patient was on scheduled IV abx. I inserted the endoscopy through the bite block into the oropharynx. The vocal chords were visualized. The esophageal slit was seen and the scope was advanced through the esophageal slit all the way to the stomach lumen. The stomach was insufflated. Transillumination was noted through the LUQ. Indentation on the anterior stomach wall was easily seen with pressure on the abdominal wall with a finger. This area was prepped. A small stab incision was made with a blade 11. This area was infiltrated with lidocaine 1% earlier.The needle was easily seen in the lumen. The large bore needle with the plastic cannula was inserted through this stab incision. The needle was removed. A guidewire was inserted through the cannula and was grasped with a snare through the endoscope. The guidewire was pulled along with the endoscope through the oral orifice. The gguidewire was looped to the PEG tube and was pulled out through the abdominal wall until snug. I reinserted the scope into the stomach. I visualized the internal bolster and this was snug on the anterior stomach wall. I withdrew the scope completely. The external bolster was made snug on the skin. The procedure was completed. The patient tolerated the procedure well.EBL was less than 10 cc. The patient was transferred to the with stable VS.
--- NOTE | 2023-03-19 13:53 | HO.PM.IMPN ---
Subjective Subjective Date of Service: 03/19/23 Interval History: Being followed for dysphagia, denies pain wants dressing change on left hand finger, no acute issues overnight, no cough, no shortness of breath, no nausea, no vomiting, no abdominal pain is scheduled to undergo G-tube placement. Review of Systems Review of Systems: Yes all other systems are reviewed and are negative Physical Exam Vital Signs: Vital Signs: Last Vital Signs Temp 97.3 F 03/19/23 13:11 Pulse 79 03/19/23 13:41 Resp 16 03/19/23 13:41 BP 90/55 L 03/19/23 13:41 Pulse Ox 96 03/19/23 13:41 O2 Del Method Room Air 03/19/23 13:41 O2 Flow Rate 6 03/19/23 13:26 BMI result Body Mass Index 24.2 Const: Other: General? resting comfortably in no acute distress.? Oral mucosa dry, no tongue coating,no secretions Neck supple no JVD, no gurgling sound in throat, CVS? regular rate rhythm, Respiratory lungs clear to auscultation, no respiratory distress, no wheeze, no rhonchi. Gastrointestinal abdomen soft, nontender, bowel sounds audible,? no guarding , no rigidity. Extremities? left lower extremity, ulcer plantar surface great toe with black eschar no drainage, no foul odor, another small open ulcer base of 1st metatarsal , no drainage. Neuro nonfocal , moving all 4 extremity, speech clear. Skin multiple ecchymosis /skin tear psych appropriate affect Objective Data Active Medications Artificial Tears (Artificial Tears 15 Ml Drops) 1 drop EYE-BOTH Q4H PRN PRN Reason: Dry Eyes Aspirin (Aspirin 300 Mg Supp.Rect) 300 mg HI DAILY [facility] Last Admin: 03/19/23 09:15 Dose: 300 mg Documented By: GINA Famotidine (Famotidine/Pf 20 Mg/2 Ml Vial) 20 mg IVPUSH DAILY [facility] Last Admin: 03/19/23 09:15 Dose: 20 mg Documented By: GINA Fentanyl (Fentanyl Citrate/Pf 100 Mcg/2 Ml Vial) 25 mcg IVPUSH Q5M PRN; Protocol PRN Reason: Pain, Moderate(Pain Scale 4-6) Doxycycline Hyclate 100 mg/ (Sodium Chloride) 250 mls @ 166.67 mls/hr IV Q12H [facility] Last Infusion: 03/19/23 11:12 Dose: 0 mls/hr Documented By: GINA Magnesium Sulfate 10 meq/Potassium Phosphate 30 mmol/Calcium Gluconate 9.3 meq/Sodium Acetate 50 meq/Potassium Acetate 20 meq/Amino Acids/Electrolytes/Dextrose 1,800 mls @ 75 mls/hr IVCONT DAILY@1800 [facility] Stop: 03/19/23 17:59 Last Admin: 03/18/23 18:31 Dose: 75 mls/hr Documented By: SUDHA Fat Emulsion Intravenous (Intralipid) 250 mls @ 21 mls/hr IVCONT BID@0600,1800 [facility] Stop: 03/19/23 17:55 Last Admin: 03/19/23 05:41 Dose: 21 mls/hr Documented By: MIRA Magnesium Sulfate 20 meq/Potassium Phosphate 20 mmol/Calcium Gluconate 9.3 meq/Sodium Acetate 70 meq/Potassium Acetate 40 meq/Multivitamins 10 ml/ Trace Metals 1 ml/ Amino Acids/Electrolytes/Dextrose 1,800 mls @ 75 mls/hr IVCONT DAILY@1800 [facility] Stop: 03/20/23 17:59 Fat Emulsion Intravenous (Intralipid) 250 mls @ 21 mls/hr IVCONT BID@0600,1800 [facility] Stop: 03/20/23 17:55 Metoprolol Tartrate (Metoprolol Tartrate 5 Mg/5 Ml Vial) 2.5 mg IVPUSH Q8H [facility] Last Admin: 03/19/23 05:48 Dose: 2.5 mg Documented By: MIRA Ondansetron HCl (Ondansetron Hcl 4 Mg/2 Ml Vial) 4 mg IVPUSH ONCE PRN PRN Reason: Nausea and Vomiting Pharmacy Consult (Consult Rx Perform Med Rec) 1 each MISCELLANE ONCE PRN PRN Reason: Consult order Labs 03/19/23 05:34 03/19/23 05:34 Labs: Laboratory Results - last 24 hr 03/15/23 03/18/23 03/18/23 10:42 16:02 20:15 MCV MCH MCHC RDW Plt Count MPV Absolute Nucleated RBC Nucleated RBC % (auto) Haptoglobin 136 Anion Gap Estim Creat Clear Calc Estimated GFR POC Glucose 166 H 157 H Random Glucose Calcium Phosphorus Magnesium Albumin Triglycerides 03/19/23 03/19/23 03/19/23 05:34 05:34 05:34 MCV 90.3 MCH 30.7 MCHC 34.1 RDW 14.6 Plt Count 104 L D MPV 10.5 Absolute Nucleated RBC 0.000 Nucleated RBC % (auto) 0.0 Haptoglobin Anion Gap 14 Estim Creat Clear Calc 18.3 Estimated GFR 21 POC Glucose Random Glucose 149 H Calcium 8.4 Phosphorus 4.1 Magnesium 1.5 L Albumin 2.7 L Triglycerides 125 03/19/23 03/19/23 07:33 11:37 MCV MCH MCHC RDW Plt Count MPV Absolute Nucleated RBC Nucleated RBC % (auto) Haptoglobin Anion Gap Estim Creat Clear Calc Estimated GFR POC Glucose 127 H 133 H Random Glucose Calcium Phosphorus Magnesium Albumin Triglycerides Assessment and Plan (1) Dysphagia: Status: Acute (2) Metabolic acidosis: Status: Acute (3) Rhabdomyolysis: Status: Acute (4) SUZANNE (acute kidney injury): Status: Acute (5) Hypotension: Status: Acute Plan 87-year-old gentleman with underlying history of AFib on aspirin Plavix, peripheral artery disease, aortic stenosis, osteomyelitis with recent admission, admitted on 03/12/2023 with alteration of mental status after mechanical fall and laying on the floor for several days.? On ER evaluation patient in acute renal failure with rhabdomyolysis and metabolic acidosis? with poor response to initial IV fluids requiring initiation of vasopressor support admitted to intensive care unit, renal function slowly improved therefore patient transferred to [facility] on 03/14/2023.? # acute renal failure with rhabdomyolysis and metabolic acidosis initially admitted to ICU treated with IV vasopressors , and IV bicarbonate drip. creatinine slowly trending down ,dc IV fluid, avoid nephrotoxins and hypotension,continue supportive care. SUZANNE likely due to acute tubular injury in the setting of vanco toxicity and heme pigment nephrotoxicity contributing as well, workup pending. # hypernatremia resolved continue IV fluids,follow BMP # dysphagia seen by speech therapy they recommend NPO, MBSS study showed suzanna laryngeal penetration and aspiration, and moderate to severe retention of barium coated food in piriformis sinuses therefore speech therapy recommend NPO will continue IV PPN ,PEG tube placement today by surgery. # acute toxic metabolic encephalopathy due to #1 resolved # Non healing ulcer left great toe with possible osteomyelitis recently discharged from [facility] after undergoing successful left peroneal plasty by Dr. Oliva was discharged on aspirin, Plavix for 6 months as well as doxycycline 100 mg twice daily for 2 months to suppress osteomyelitis, since npo ,cont. iv doxycycline 100 mg b.i.d. and aspirin per rectum . # Atrial fibrillation, unspecified chronicity/frequency,-Not on anticoagulation,he was prescribed but he did not take, out of concern for bleeding risk. recent Echo, showed severe #Diet-controlled type 2 diabetes, hemoglobin A1c 4.9, stable blood sugars , no further monitoring needed. #HTN- bp reasonably controlled, few episodes of tachycardia, on low-dose IV metoprolol , home medications metoprolol and lisinopril are on hold. DVT prophylaxis- compression boots disposition PT recommend short-term rehab Full code Pt requires inpatient stay for management of acute kidney injury requiring IV fluids and NPO on IV PPN need PEG tube placement scheduled for today. Time Spent With Patient Time: Total time managing care of this patient today ____ minutes. Quality Stroke Does the patient have a stroke diagnosis?: No VTE Prior VTE?: No VTE Risk Level:: Medical - moderate - high VTE Device Contraindication: N/A - Device Ordered VTE Drug Contraindication: N/A - Med Ordered
[2023-03-19 15:41] LABS: Glucose, Whole Blood 166 mg/dL (60-115)
[2023-03-19] MEDS: 0.9 % Sodium Chloride 1,000 ML 999 ML IVCONT (15:45)
[2023-03-19] MEDS: Albumin Human 25 % 100 ML IV ×3 (15:48→23:08)
--- NOTE | 2023-03-19 16:20 | MHC.CM.PN ---
CM RECEIVED A CALL FROM SOLIS [phone] WHO REPORTS HER CRYSTAL MORLEY WOULD LIKE TO BE THE PTS HCP BECAUSE THEY ARE CONCERNED THAT THE CURRENT HCP WILL NOT BE ABLE TO ASSIST IN PTS CARE. CM INFORMED HER THIS WOULD NEED TO BE DISCUSSED WITH THE PT CM MET WITH PT WHO REPORTS HE WOULD BE INTERESTED IN ADDING CRYSTAL TO THE HCP BUT WAS UNSURE ABOUT REMOVING ROSALBA. CM RETURNED TO DISCUSS ADDING CRYSTAL AN ALTERNATE HOWEVER PT WAS RETURNING FROM A PROCEDURE AND TOO LETHARGIC TO PARTICIPATE IF PT AGREES, THE ALTERNATE WOULD BE: CRYSTAL [place]LEY [address] [place] [id number] DOCUMENT IS PREPARED AND IN CAREPORT
[2023-03-19] MEDS: Scopolamine 1.5 MG PATCH.TD.3 EAR-BEHIND (16:43)
--- NOTE | 2023-03-19 19:27 | PC.NURSE ---
Patient more weak and drowsy this am speech hoarse having difficulty making needs known. Dr Sheikh notified of assessment and labs results mag adjusted in PPN. Off unit for PEG tube returns approximately 1420 drowsy but arousable incontinent of loose watery stool. Care provided dressing changed to coccyx as well as other sites. Copious amounts of secretions pt unable to manage on own, suction provided with pink frothy sputum. Skin pale melo in color after care. Dr Sheikh on unit PPN stopped at this time BP 58/30 albumin given x2 doses as well as 500 ml NS bolus per order bp improving slowly pt more awake and alert with improvement although remains confused. Continued with frequent suctioning Scoplomine patch ordered and placed to right ear. PEG dressing CDI patient attempting to pull at tube site early evening dressing reinforced. Will continue to monitor
[2023-03-19 19:42] LABS: Glucose, Whole Blood 174 mg/dL (60-115)
[2023-03-19 21:28] LABS: Myeloperoxidase Antibody <1.0 AI; Proteinase 3 PR3 Antibodies <1.0 AI
--- NOTE | 2023-03-19 23:30 | PC.NURSE ---
This RN found patient bleeding profusely at the PEG tube insertion site, pressure applied, bleeding under control and blood pressure 80 systolic. The patient noticed to be confused , denies dizziness or lightheadedness. Dr. Car and administrative nursing supervisor notified. Dr Car examined the pt and ordered 2 bags of Albumin and CBC. H/H came back critical at 5.5/16.4. Dr. aCr notified and order 2 bags of PRBC. Patient unable to sign consent for blood transfusion, very confused,Dr Car signed emergent consent to proceed with the transfusion. Production Bow Maker is aware. Patient aware of plan of care Will continue to monitor.
[2023-03-19 23:38] LABS: Hemoglobin 5.5 g/dl (14.0-18.0)
[2023-03-19 23:39] LABS: Hematocrit 16.4 % (42.0-52.0)
[2023-03-20] VITALS (18 sets, daily range): BP systolic 110–148; BP diastolic 57–82; PULSE 69–95; RESP 18–20; TEMP 34.5–37.1; O2SAT 96–100; BMI 25.3
[2023-03-20] MEDS: Albumin Human 25 % 100 ML IV (00:31)
[2023-03-20] MEDS: Metoprolol Tartrate 5 MG/5 ML VIAL 2.5 MG IVPUSH (05:27)
[2023-03-20] MEDS: Fat Emulsions 20% 250 ML 21 ML IVCONT (05:34)
[2023-03-20 07:03] LABS: Anion Gap 17 (12-20); Blood Urea Nitrogen 66 mg/dL (9-16); Calcium 8.5 mg/dL (8.4-10.2); Carbon Dioxide 18 mmol/L (22-29); Chloride 106 mmol/L (96-108); Creatinine Clr Calc Pharmacy 17.6; Estimated Glomerular Filt Rate 20; Glucose Random 112 mg/dL (60-115); Magnesium 1.6 mg/dL (1.6-2.6); Phosphorus 5.4 mg/dL (2.7-4.5); Potassium 3.6 mmol/L (3.3-5.1); Sodium 137 mmol/L (135-145)
--- NOTE | 2023-03-20 07:06 | PM.PNNEP ---
Subjective Subjective Date of Service: 03/20/23 Interval history: seen and examined lethargic Physical Exam Vital Signs: Vital Signs: Last Vital Signs Temp 97 F 03/20/23 05:11 Pulse 74 03/20/23 05:11 Resp 18 03/20/23 05:11 BP 124/80 03/20/23 05:11 Pulse Ox 99 03/20/23 04:00 O2 Del Method Room Air 03/20/23 04:00 O2 Flow Rate 2 03/19/23 13:56 BMI result Body Mass Index 25.3 Const: General: alert and awake HEENT: Head: Yes normocephalic and Yes atraumatic Neck: Neck: Yes supple Resp: Effort & Inspection: normal respiratory effort Cardio: Heart sounds: S1 normal heart sound present and S2 normal heart sound present GI: Palpation (GI): Soft to palpation and nontender Extrem: Right upper extremity: no edema Objective Data Labs 03/19/23 23:28 03/20/23 06:03 Labs: Laboratory Results - last 24 hr 03/15/23 03/19/23 03/19/23 10:42 07:33 11:37 Hgb Hct Sodium Potassium Chloride Carbon Dioxide Anion Gap BUN Creatinine Estim Creat Clear Calc Estimated GFR POC Glucose 127 H 133 H Random Glucose Calcium Phosphorus Magnesium Proteinase 3 (PR3) Ab <1.0 Myeloperoxidase Ab <1.0 Blood Type Antibody Screen Crossmatch 03/19/23 03/19/23 03/19/23 15:37 19:36 23:28 Hgb 5.5 L* D Hct 16.4 L* D Sodium Potassium Chloride Carbon Dioxide Anion Gap BUN Creatinine Estim Creat Clear Calc Estimated GFR POC Glucose 166 H 174 H Random Glucose Calcium Phosphorus Magnesium Proteinase 3 (PR3) Ab Myeloperoxidase Ab Blood Type Antibody Screen Crossmatch 03/20/23 03/20/23 00:14 06:03 Hgb Hct Sodium 137 Potassium 3.6 Chloride 106 Carbon Dioxide 18 L Anion Gap 17 BUN 66 H Creatinine 3.00 H Estim Creat Clear Calc 17.6 Estimated GFR 20 POC Glucose Random Glucose 112 Calcium 8.5 Phosphorus 5.4 H Magnesium 1.6 Proteinase 3 (PR3) Ab Myeloperoxidase Ab Blood Type O Positive Antibody Screen NEGATIVE Crossmatch See Detail Microbiology Microbiology Results: Microbiology 03/11/23 19:32 Blood - Venous Blood Culture - Final No growth after 5 days. 03/11/23 19:35 Blood - Venous Blood Culture - Final No growth after 5 days. 03/11/23 Unknown Urine Catheterized - Gardner Catheter Urine Culture - Final No growth. Procedures Date of Service Date of Service: 03/20/23 Assessment & Plan Assessment and plan (1) SUZANNE (acute kidney injury): Status: Acute (2) CKD (chronic kidney disease): Status: Acute Plan kidney function at plateau above baseline SUZANNE due to acute tubular injury in the setting of vancomycin nephrotoxicity heme pigment nephrotoxicity may be a contributing factor underlying CKD baseline Scr ~ 1-1.2 mg/dl REC PPN follow kidney function and electrolytes Time Spent With Patient Time: Total time managing care of this patient today ____ minutes. Progress Note: Quality Stroke Does the patient have a stroke diagnosis?: No
[2023-03-20 07:37] LABS: Glucose, Whole Blood 112 mg/dL (60-115)
--- NOTE | 2023-03-20 08:13 | PM.PNGS ---
Subjective Subjective Date of Service: 03/20/23 <Sayda Moreno PA-C - Last Filed: 03/20/23 08:25> 03/20/23 <Omari Jordan MD - Last Filed: 03/20/23 08:47> Interval history: Apparently pulled out PEG tube last night. Was hypotensive upon returning to the floor with SBP in 60s. Improved with IVF, IV albumin. H/H 5.5/16.4. Received 2U. This morning does not recall pulling his PEG tube out. Feels tired. Denies abd pain. <Sayda Moreno PA-C - Last Filed: 03/20/23 08:25> Physical Exam Vital Signs: Vital Signs: Last Vital Signs Temp 97.0 F 03/20/23 07:15 Pulse 83 03/20/23 07:15 Resp 20 03/20/23 07:15 BP 118/82 03/20/23 07:15 Pulse Ox 99 03/20/23 07:15 O2 Del Method Room Air 03/20/23 07:15 O2 Flow Rate 2 03/19/23 13:56 BMI result Body Mass Index 25.3 <Sayda Moreno PA-C - Last Filed: 03/20/23 08:25> Const: General: comfortable, no acute distress and alert <GADIEL Calvin Last Filed: 03/20/23 08:25> Resp: Effort & Inspection: normal respiratory effort <Sayda Moreno PA-C - Last Filed: 03/20/23 08:25> GI: Other: xeroform and tegaderm over old PEG tube site- some fullness in area but soft, no guarding or rigidity. <Sayda Moreno PA-C - Last Filed: 03/20/23 08:25> Inspection: No distended <GADIEL Calvin Last Filed: 03/20/23 08:25> Skin: General skin exam: no rashes or lesions noted <GADIEL Calvin Last Filed: 03/20/23 08:25> Neuro: General: moves all extremities <GADIEL Calvin Last Filed: 03/20/23 08:25> Objective Data Active Medications Acetaminophen (Acetaminophen Supp 650 Mg Supp.Rect) 650 mg PA Q4H PRN PRN Reason: fever, pain Artificial Tears (Artificial Tears 15 Ml Drops) 1 drop EYE-BOTH Q4H PRN PRN Reason: Dry Eyes Aspirin (Aspirin 300 Mg Supp.Rect) 300 mg PA DAILY [facility] Last Admin: 03/19/23 09:15 Dose: 300 mg Documented By: GINA Famotidine (Famotidine/Pf 20 Mg/2 Ml Vial) 20 mg IVPUSH DAILY [facility] Last Admin: 03/19/23 09:15 Dose: 20 mg Documented By: GINA Doxycycline Hyclate 100 mg/ (Sodium Chloride) 250 mls @ 166.67 mls/hr IV Q12H [facility] Last Infusion: 03/19/23 23:29 Dose: 0 mls/hr Documented By: ALEAH Magnesium Sulfate 20 meq/Potassium Phosphate 20 mmol/Calcium Gluconate 9.3 meq/Sodium Acetate 70 meq/Potassium Acetate 40 meq/Multivitamins 10 ml/ Trace Metals 1 ml/ Amino Acids/Electrolytes/Dextrose 1,800 mls @ 75 mls/hr IVCONT DAILY@1800 [facility] Stop: 03/20/23 17:59 Last Admin: 03/19/23 17:22 Dose: 75 mls/hr Documented By: SOLLEYID Fat Emulsion Intravenous (Intralipid) 250 mls @ 21 mls/hr IVCONT BID@0600,1800 [facility] Stop: 03/20/23 17:55 Last Admin: 03/20/23 05:34 Dose: 21 mls/hr Documented By: ALEAH Metoprolol Tartrate (Metoprolol Tartrate 5 Mg/5 Ml Vial) 2.5 mg IVPUSH Q8H [facility] Last Admin: 03/20/23 05:27 Dose: 2.5 mg Documented By: ALEAH Morphine Sulfate (Morphine Sulfate 2 Mg/Ml Cartridge) 2 mg IVPUSH Q3H PRN; Protocol PRN Reason: Pain, Severe (Pain Scale 7-10) Pharmacy Consult (Consult Rx Perform Med Rec) 1 each MISCELLANE ONCE PRN PRN Reason: Consult order <Sayda Moreno PA-C - Last Filed: 03/20/23 08:25> Labs CBC & Chem 7: 03/19/23 23:28 03/20/23 06:03 <Sayda Moreno PA-C - Last Filed: 03/20/23 08:25> Labs: Laboratory Results - last 24 hr 03/15/23 03/19/23 03/19/23 10:42 11:37 15:37 Anion Gap Estim Creat Clear Calc Estimated GFR POC Glucose 133 H 166 H Random Glucose Calcium Phosphorus Magnesium Proteinase 3 (PR3) Ab <1.0 Myeloperoxidase Ab <1.0 Blood Type Antibody Screen Crossmatch 03/19/23 03/20/23 03/20/23 19:36 00:14 06:03 Anion Gap 17 Estim Creat Clear Calc 17.6 Estimated GFR 20 POC Glucose 174 H Random Glucose 112 Calcium 8.5 Phosphorus 5.4 H Magnesium 1.6 Proteinase 3 (PR3) Ab Myeloperoxidase Ab Blood Type O Positive Antibody Screen NEGATIVE Crossmatch See Detail 03/20/23 07:28 Anion Gap Estim Creat Clear Calc Estimated GFR POC Glucose 112 Random Glucose Calcium Phosphorus Magnesium Proteinase 3 (PR3) Ab Myeloperoxidase Ab Blood Type Antibody Screen Crossmatch <Sayda Moreno PA-C - Last Filed: 03/20/23 08:25> Procedures Date of Service Date of Service: 03/20/23 <Sayda Moreno PA-C - Last Filed: 03/20/23 08:25> 03/20/23 <Omari Jordan MD - Last Filed: 03/20/23 08:47> Progress Note: A&P Assessment and plan (1) Dysphagia: Status: Acute <Sayda Moreno PA-C - Last Filed: 03/20/23 08:25> Assessment and Plan: PEG tube not present this AM had hypotension postop abd soft no active drainage for PEG site did not have formed tract yet - concern for PEG site not sealing will follow closely consider TPN seen and examined independently - agree with ALISHA Moreno <Omari Jordan MD - Last Filed: 03/20/23 08:47> Assessment and Plan: 87-year-old gentleman with extensive PMH admitted with hypotension, acute renal injury, rhabdomyolysis, and metabolic acidosis secondary to prolonged immobility after fall. He has been NPO for prolonged period and failed swallow evals; MBSS showed aspiration. Had PEG tube placed yesterday, uneventful. Returned to the floor lethargic and hypotensive per EMR. BP responded to IVF and albumin. Apparently pulled out PEG tube at some point during all of this. Had significant drop in H/H last night, Received 2U. He clinically is well appearing with relatively benign abd exam but has no tract from PEG tube and therefore is at risk for leaking intraabdominally from site. Repeat CBC this am. Will follow clinically for now. <Sayda Moreno PA-C - Last Filed: 03/20/23 08:25> Time Spent With Patient Time: Total time managing care of this patient today ____ minutes. <Sayda Moreno PA-C - Last Filed: 03/20/23 08:25> Quality Stroke Does the patient have a stroke diagnosis?: No <Sayda Moreno PA-C - Last Filed: 03/20/23 08:25> VTE Prior VTE?: No <Sayda Moreno PA-C - Last Filed: 03/20/23 08:25> VTE Risk Level:: Medical - moderate - high <GADIEL Calvin Last Filed: 03/20/23 08:25> VTE Device Contraindication: N/A - Device Ordered <GADIEL Calvin Last Filed: 03/20/23 08:25> VTE Drug Contraindication: N/A - Med Ordered <Sayda Moreno PA-C - Last Filed: 03/20/23 08:25>
[2023-03-20] MEDS: Famotidine/PF 20 MG/2 ML VIAL IVPUSH (08:15)
[2023-03-20] MEDS: Doxycycline Hyclate 100 MG in 0.9 % Sodium Chloride 250 ML 166.7 MG IV ×2 (08:15→23:12)
[2023-03-20 10:18] LABS: Hematocrit 21.6 % (42.0-52.0); Hemoglobin 7.3 g/dl (14.0-18.0)
--- NOTE | 2023-03-20 10:24 | MHC.CM.PN ---
Per ROUNDS discussion, CM has provided MD with the contact information for Patient's HCP Agent/Wisam.
--- NOTE | 2023-03-20 10:56 | MHC.SPEECHCO ---
Pt not appropriate for swallow therapy at this time given decline in mental status. BLOWER INSULATOR will continue to follow.
--- NOTE | 2023-03-20 11:01 | MHC.CLN ---
F/U PT S/P PEG PLACEMENT PT PULLED OUT PEG TUBE LAST EVENING REVIEWED LABS DISCUSSED WITH PHARMACY AND MD RECOMMEND PPN INCREASE D10AA4.25 AT 85ML/HR WITH 19ML OF 20% LIPIDS TO PROVIDE 1932KCALS TOTAL FROM FORMULA AND LIPIDS (25KCALS/KG), 85G PROTEIN (1.09G/KG) REPLETE LYTES NEEDED FOLLOWING WITH TEAM
--- NOTE | 2023-03-20 11:15 | HO.PM.IMPN ---
Subjective Subjective Date of Service: 03/20/23 Interval History: Resting in bed, appears weak responding appropriately in soft voice, denies pain, denies shortness of breath, events from last night noted patient accidentally pulled out PEG tube with significant bleeding Patient systolic blood pressure dropped to 80s treated with 2 units of packed RBC and 2 packs of albumin, at present blood pressure is stable. Review of Systems Review of Systems: Yes all other systems are reviewed and are negative Physical Exam Vital Signs: Vital Signs: Last Vital Signs Temp 97.0 F 03/20/23 11:05 Pulse 69 03/20/23 11:05 Resp 20 03/20/23 11:05 BP 124/64 03/20/23 11:05 Pulse Ox 100 03/20/23 11:05 O2 Del Method Room Air 03/20/23 11:05 O2 Flow Rate 2 03/19/23 13:56 BMI result Body Mass Index 25.3 Const: Other: General?frail appearing, resting comfortably, in no acute distress.? Oral mucosa dry,ecchymosis hard palate Neck supple no JVD, gurgling sound in throat, CVS? regular rate rhythm, Respiratory lungs clear to auscultation, no respiratory distress, no wheeze, no rhonchi. Gastrointestinal abdomen soft, dressing at old G-tube site,bowel sounds audible,? no guarding , no rigidity. Extremities? left lower extremity, ulcer plantar surface great toe with black eschar no drainage, no foul odor, another small open ulcer base of 1st metatarsal , no drainage. Neuro nonfocal , moving all 4 extremity, speech clear. Skin multiple ecchymosis /skin tear psych appropriate affect Objective Data Active Medications Acetaminophen (Acetaminophen Supp 650 Mg Supp.Rect) 650 mg MS Q4H PRN PRN Reason: fever, pain Artificial Tears (Artificial Tears 15 Ml Drops) 1 drop EYE-BOTH Q4H PRN PRN Reason: Dry Eyes Aspirin (Aspirin 300 Mg Supp.Rect) 300 mg MS DAILY [facility] Last Admin: 03/20/23 08:26 Dose: Not Given Documented By: BAR Non-Admin Reason: low platelets Famotidine (Famotidine/Pf 20 Mg/2 Ml Vial) 20 mg IVPUSH DAILY [facility] Last Admin: 03/20/23 08:15 Dose: 20 mg Documented By: BAR Doxycycline Hyclate 100 mg/ (Sodium Chloride) 250 mls @ 166.67 mls/hr IV Q12H [facility] Last Infusion: 03/20/23 10:07 Dose: 0 mls/hr Documented By: BAR Magnesium Sulfate 20 meq/Potassium Phosphate 20 mmol/Calcium Gluconate 9.3 meq/Sodium Acetate 70 meq/Potassium Acetate 40 meq/Multivitamins 10 ml/ Trace Metals 1 ml/ Amino Acids/Electrolytes/Dextrose 1,800 mls @ 75 mls/hr IVCONT DAILY@1800 [facility] Stop: 03/20/23 17:59 Last Infusion: 03/20/23 10:07 Dose: 75 mls/hr Documented By: BAR Fat Emulsion Intravenous (Intralipid) 250 mls @ 21 mls/hr IVCONT BID@0600,1800 [facility] Stop: 03/20/23 17:55 Last Infusion: 03/20/23 10:08 Dose: 21 mls/hr Documented By: BAR Metoprolol Tartrate (Metoprolol Tartrate 5 Mg/5 Ml Vial) 2.5 mg IVPUSH Q8H [facility] Last Admin: 03/20/23 05:27 Dose: 2.5 mg Documented By: ALEAH Morphine Sulfate (Morphine Sulfate 2 Mg/Ml Cartridge) 2 mg IVPUSH Q3H PRN; Protocol PRN Reason: Pain, Severe (Pain Scale 7-10) Pharmacy Consult (Consult Rx Perform Med Rec) 1 each MISCELLANE ONCE PRN PRN Reason: Consult order Labs 03/20/23 09:50 03/20/23 06:03 Labs: Laboratory Results - last 24 hr 03/15/23 03/19/23 03/19/23 10:42 11:37 15:37 Anion Gap Estim Creat Clear Calc Estimated GFR POC Glucose 133 H 166 H Random Glucose Calcium Phosphorus Magnesium Proteinase 3 (PR3) Ab <1.0 Myeloperoxidase Ab <1.0 Blood Type Antibody Screen Crossmatch 03/19/23 03/20/23 03/20/23 19:36 00:14 06:03 Anion Gap 17 Estim Creat Clear Calc 17.6 Estimated GFR 20 POC Glucose 174 H Random Glucose 112 Calcium 8.5 Phosphorus 5.4 H Magnesium 1.6 Proteinase 3 (PR3) Ab Myeloperoxidase Ab Blood Type O Positive Antibody Screen NEGATIVE Crossmatch See Detail 05/23/23 07:28 Anion Gap Estim Creat Clear Calc Estimated GFR POC Glucose 112 Random Glucose Calcium Phosphorus Magnesium Proteinase 3 (PR3) Ab Myeloperoxidase Ab Blood Type Antibody Screen Crossmatch Assessment and Plan (1) Dysphagia: Status: Acute (2) Metabolic acidosis: Status: Acute (3) Rhabdomyolysis: Status: Acute (4) SUZANNE (acute kidney injury): Status: Acute (5) Hypotension: Status: Acute Plan 87-year-old gentleman with underlying history of AFib on aspirin Plavix, peripheral artery disease, aortic stenosis, osteomyelitis with recent admission, admitted on 03/12/2023 with alteration of mental status after mechanical fall and laying on the floor for several days.? On ER evaluation patient in acute renal failure with rhabdomyolysis and metabolic acidosis? with poor response to initial IV fluids requiring initiation of vasopressor support admitted to intensive care unit, renal function slowly improved therefore patient transferred to [facility] on 03/14/2023.? # acute renal failure with rhabdomyolysis and metabolic acidosis initially admitted to ICU treated with IV vasopressors , and IV bicarbonate drip. Slight bump in creatinine likely due to hypotension last evening, will avoid hypotension, avoid nephrotoxins hold IV fluids since receiving blood transfusion SUZANNE likely due to acute tubular injury in the setting of vanco toxicity and heme pigment nephrotoxicity contributing as well, being followed by Nephrology # acute on chronic acute blood loss anemia due to significant bleeding after patient pulled G tube accidentally Hematocrit dropped from 27.9-16.4 received 2 units of packed RBC hematocrit improved to 21.6 will give additional 2 units follow CBC Continue Xeroform and Tegaderm over g tube site no bleeding noted. # hypernatremia resolved continue IV fluids,follow BMP # dysphagia seen by speech therapy they recommend NPO, MBSS study showed suzanna laryngeal penetration and aspiration, and moderate to severe retention of barium coated food in piriformis sinuses Underwent PEG placement by General surgery on 03/19 however patient pulled G-tube same evening will continue IV PPN , repeat PEG tube placement by sternal surgery in next 1-2 days if patient remains hemodynamically stable # acute toxic metabolic encephalopathy due to SUZANNE/wrap to resolved patient awake alert very weak is slow to respond. # Non healing ulcer left great toe with possible osteomyelitis recently discharged from [facility] after undergoing successful left peroneal plasty by Dr. Oliva was discharged on aspirin, Plavix for 6 months as well as doxycycline 100 mg twice daily for 2 months to suppress osteomyelitis, since npo ,cont. iv doxycycline 100 mg b.i.d. and aspirin per rectum . Hold aspirin due to significant bleed # Atrial fibrillation, unspecified chronicity/frequency,-Not on anticoagulation,he was prescribed but he did not take, out of concern for bleeding risk. recent Echo, showed severe #Diet-controlled type 2 diabetes, hemoglobin A1c 4.9, stable blood sugars , no further monitoring needed. #HTN- bp reasonably controlled, few episodes of tachycardia, on low-dose IV metoprolol , home medications metoprolol and lisinopril are on hold. DVT prophylaxis- compression boots disposition PT recommend short-term rehab Full code Pt requires inpatient stay for management of acute kidney injury requiring IV fluids and NPO on IV PPN need PEG tube placement and requiring blood transfusion for acute blood loss anemia. Time Spent With Patient Time: Total time managing care of this patient today ____ minutes. Quality Stroke Does the patient have a stroke diagnosis?: No VTE Prior VTE?: No VTE Risk Level:: Medical - moderate - high VTE Device Contraindication: N/A - Device Ordered VTE Drug Contraindication: N/A - Med Ordered
[2023-03-20 11:21] LABS: Glucose, Whole Blood 119 mg/dL (60-115)
[2023-03-20 11:53] LABS: Complement C3 52 mg/dL
--- NOTE | 2023-03-20 15:21 | PM.EVENT ---
Event Note Date of Service: 03/20/23 Event Note: pt seen on afternoon rounds earlier remains drowsy, since postop ongoing transfusion abd soft, remains benign no bleeding from PEG site will see how he is tomorrow - if medically stable, plan to reattempt PEG placement I have tried calling his new HCP Julian Sorensen [phone] mult times - he has not picked up Time Spent With Patient Time: Total time managing care of this patient today ____ minutes.
[2023-03-20 16:02] LABS: Glucose, Whole Blood 106 mg/dL (60-115)
[2023-03-20] MEDS: Fat Emulsions 20% 250 ML 19 ML IVCONT (18:49)
[2023-03-20 19:49] LABS: Glucose, Whole Blood 141 mg/dL (60-115)
[2023-03-21 03:04] VITALS: BP 121/62; PULSE 89; RESP 20; TEMP 36.1; O2SAT 93
[2023-03-21] MEDS: Fat Emulsions 20% 250 ML 19 ML IVCONT (05:07)
[2023-03-21 05:48] VITALS: BMI 25.2
[2023-03-21 06:18] LABS: Anion Gap 16 (12-20); Blood Urea Nitrogen 73 mg/dL (9-16); Carbon Dioxide 17 mmol/L (22-29); Chloride 106 mmol/L (96-108); Creatinine Clr Calc Pharmacy 18.2; Estimated Glomerular Filt Rate 21; Glucose Random 213 mg/dL (60-115); Magnesium 1.7 mg/dL (1.6-2.6); Phosphorus 4.7 mg/dL (2.7-4.5); Potassium 3.5 mmol/L (3.3-5.1); Sodium 135 mmol/L (135-145)
[2023-03-21 06:22] LABS: Hematocrit 28.4 % (42.0-52.0); Hemoglobin 9.7 g/dl (14.0-18.0); Mean Corpuscular HGB Conc 34.2 g/dl (31.0-36.0); Mean Corpuscular Hemoglobin 31.4 pg (27.0-33.0); Mean Corpuscular Volume 91.9 fL (80.0-98.0); Mean Platelet Volume 10.8 fL (9.4-12.4); Platelet Count 103 X10*3/uL (160-400); Red Blood Count 3.09 X10*6/uL (4.60-5.80); Red Cell Distribution Width 15.9 % (11.0-16.0); White Blood Count 14.9 X10*3/uL (4.8-10.8)
[2023-03-21 07:39] VITALS: BP 134/72; PULSE 73; RESP 20; TEMP 36.2; O2SAT 93
[2023-03-21 07:39] LABS: Glucose, Whole Blood 204 mg/dL (60-115)
--- NOTE | 2023-03-21 08:13 | PM.PNGS ---
Subjective Subjective Date of Service: 03/23/23 Interval history: No events nursing staff Was transfused yesterday for low H&H Physical Exam Vital Signs: Vital Signs: Last Vital Signs Temp 97.1 F 03/21/23 07:39 Pulse 73 03/21/23 07:39 Resp 20 03/21/23 07:39 BP 134/72 03/21/23 07:39 Pulse Ox 93 03/21/23 07:39 O2 Del Method Room Air 03/21/23 07:39 O2 Flow Rate 2 03/19/23 13:56 BMI result Body Mass Index 25.2 Const: Other: More awake this morning Appears a little short of breath Resp: Other: Has rhonchi, some shortness of breath Auscultation: rhonchi GI: Palpation (GI): Soft to palpation, not firm and no guarding Objective Data Active Medications Acetaminophen (Acetaminophen Supp 650 Mg Supp.Rect) 650 mg PA Q4H PRN PRN Reason: fever, pain Artificial Tears (Artificial Tears 15 Ml Drops) 1 drop EYE-BOTH Q4H PRN PRN Reason: Dry Eyes Aspirin (Aspirin 300 Mg Supp.Rect) 300 mg PA DAILY [facility] Last Admin: 03/20/23 08:26 Dose: Not Given Documented By: BAR Non-Admin Reason: low platelets Famotidine (Famotidine/Pf 20 Mg/2 Ml Vial) 20 mg IVPUSH DAILY [facility] Last Admin: 03/20/23 08:15 Dose: 20 mg Documented By: BAR Doxycycline Hyclate 100 mg/ (Sodium Chloride) 250 mls @ 166.67 mls/hr IV Q12H [facility] Last Infusion: 03/21/23 00:55 Dose: 0 mls/hr Documented By: SYLVIA Magnesium Sulfate 20 meq/Calcium Gluconate 9.3 meq/Sodium Acetate 70 meq/Potassium Acetate 40 meq/Amino Acids/Electrolytes/Dextrose 2,040 mls @ 85 mls/hr IVCONT DAILY@1800 [facility] Stop: 03/21/23 17:59 Last Admin: 03/20/23 18:49 Dose: 85 mls/hr Documented By: BAR Fat Emulsion Intravenous (Intralipid) 228 mls @ 19 mls/hr IVCONT BID@0600,1800 [facility] Stop: 03/21/23 17:59 Last Admin: 03/21/23 05:07 Dose: 19 mls/hr Documented By: SYLVIA Metoprolol Tartrate (Metoprolol Tartrate 5 Mg/5 Ml Vial) 2.5 mg IVPUSH Q8H PRN PRN Reason: heart rate >110 Morphine Sulfate (Morphine Sulfate 2 Mg/Ml Cartridge) 2 mg IVPUSH Q3H PRN; Protocol PRN Reason: Pain, Severe (Pain Scale 7-10) Pharmacy Consult (Consult Rx Perform Med Rec) 1 each MISCELLANE ONCE PRN PRN Reason: Consult order Labs 03/21/23 05:41 03/21/23 05:41 Labs: Laboratory Results - last 24 hr 03/15/23 03/20/23 03/20/23 10:42 00:14 11:08 MCV MCH MCHC RDW Plt Count MPV Absolute Nucleated RBC Nucleated RBC % (auto) Anion Gap Estim Creat Clear Calc Estimated GFR POC Glucose 119 H Random Glucose Calcium Phosphorus Magnesium Complement C3 52 Complement C4 12 Blood Type O Positive Antibody Screen NEGATIVE Crossmatch See Detail 03/20/23 03/20/23 03/21/23 15:53 19:30 05:41 MCV MCH MCHC RDW Plt Count MPV Absolute Nucleated RBC Nucleated RBC % (auto) Anion Gap 16 Estim Creat Clear Calc 18.2 Estimated GFR 21 POC Glucose 106 141 H Random Glucose 213 H Calcium 9.0 Phosphorus 4.7 H Magnesium 1.7 Complement C3 Complement C4 Blood Type Antibody Screen Crossmatch 03/21/23 03/21/23 05:41 07:34 MCV 91.9 MCH 31.4 MCHC 34.2 RDW 15.9 Plt Count 103 L MPV 10.8 Absolute Nucleated RBC 0.000 Nucleated RBC % (auto) 0.0 Anion Gap Estim Creat Clear Calc Estimated GFR POC Glucose 204 H Random Glucose Calcium Phosphorus Magnesium Complement C3 Complement C4 Blood Type Antibody Screen Crossmatch Procedures Date of Service Date of Service: 03/23/23 Progress Note: A&P Assessment and plan (1) Dysphagia: Status: Acute Assessment and Plan: PEG tube pulled out - apparently by patient More awake today However seems to have more rhonchi as well, l short of breath Will hold off on repeating the PEG tube for today until respiratory status better I have attempted to call his healthcare proxy multiple times - still not picking up Patient stating he agrees to repeat PEG - I am certain as to extent of his cognitive functions at this time Time Spent With Patient Time: Total time managing care of this patient today ____ minutes. Quality Stroke Does the patient have a stroke diagnosis?: No VTE Prior VTE?: No VTE Risk Level:: Medical - moderate - high VTE Device Contraindication: N/A - Device Ordered VTE Drug Contraindication: N/A - Med Ordered
[2023-03-21] MEDS: Doxycycline Hyclate 100 MG in 0.9 % Sodium Chloride 250 ML 166.67 MG IV (08:40)
[2023-03-21] MEDS: Famotidine/PF 20 MG/2 ML VIAL IVPUSH (08:40)
--- NOTE | 2023-03-21 09:54 | PM.PNNEP ---
Subjective Subjective Date of Service: 03/21/23 Interval history: seen and examined lethargic family at bedside updated Physical Exam Vital Signs: Vital Signs: Last Vital Signs Temp 97.1 F 03/21/23 07:39 Pulse 73 03/21/23 07:39 Resp 20 03/21/23 07:39 BP 134/72 03/21/23 07:39 Pulse Ox 93 03/21/23 07:39 O2 Del Method Room Air 03/21/23 07:39 O2 Flow Rate 2 03/19/23 13:56 BMI result Body Mass Index 25.2 Const: General: alert and awake HEENT: Head: Yes normocephalic and Yes atraumatic Neck: Neck: Yes supple Resp: Effort & Inspection: normal respiratory effort Cardio: Heart sounds: S1 normal heart sound present and S2 normal heart sound present GI: Palpation (GI): Soft to palpation and nontender Extrem: Right upper extremity: no edema Objective Data Labs 03/21/23 05:41 03/21/23 05:41 Labs: Laboratory Results - last 24 hr 03/15/23 03/20/23 03/20/23 10:42 00:14 09:50 WBC RBC Hgb 7.3 L D Hct 21.6 L D MCV MCH MCHC RDW Plt Count MPV Absolute Nucleated RBC Nucleated RBC % (auto) Sodium Potassium Chloride Carbon Dioxide Anion Gap BUN Creatinine Estim Creat Clear Calc Estimated GFR POC Glucose Random Glucose Calcium Phosphorus Magnesium Complement C3 52 Complement C4 12 Blood Type O Positive Antibody Screen NEGATIVE Crossmatch See Detail 03/20/23 03/20/23 03/20/23 11:08 15:53 19:30 WBC RBC Hgb Hct MCV MCH MCHC RDW Plt Count MPV Absolute Nucleated RBC Nucleated RBC % (auto) Sodium Potassium Chloride Carbon Dioxide Anion Gap BUN Creatinine Estim Creat Clear Calc Estimated GFR POC Glucose 119 H 106 141 H Random Glucose Calcium Phosphorus Magnesium Complement C3 Complement C4 Blood Type Antibody Screen Crossmatch 03/21/23 03/21/23 03/21/23 05:41 05:41 07:34 WBC 14.9 H RBC 3.09 L Hgb 9.7 L D Hct 28.4 L D MCV 91.9 MCH 31.4 MCHC 34.2 RDW 15.9 Plt Count 103 L MPV 10.8 Absolute Nucleated RBC 0.000 Nucleated RBC % (auto) 0.0 Sodium 135 Potassium 3.5 Chloride 106 Carbon Dioxide 17 L Anion Gap 16 BUN 73 H Creatinine 2.91 H Estim Creat Clear Calc 18.2 Estimated GFR 21 POC Glucose 204 H Random Glucose 213 H Calcium 9.0 Phosphorus 4.7 H Magnesium 1.7 Complement C3 Complement C4 Blood Type Antibody Screen Crossmatch Microbiology Microbiology Results: Microbiology 03/11/23 19:32 Blood - Venous Blood Culture - Final No growth after 5 days. 03/11/23 19:35 Blood - Venous Blood Culture - Final No growth after 5 days. 03/11/23 Unknown Urine Catheterized - Gardner Catheter Urine Culture - Final No growth. Procedures Date of Service Date of Service: 03/21/23 Assessment & Plan Assessment and plan (1) SUZANNE (acute kidney injury): Status: Acute (2) CKD (chronic kidney disease): Status: Acute Plan kidney function at plateau SUZANNE due to acute tubular injury in the setting of vancomycin nephrotoxicity heme pigment nephrotoxicity may be a contributing factor underlying CKD stage 3 baseline Scr ~ 1-1.2 mg/dl true clearance probably worse than eGFR REC PPN goal of care discussion follow kidney function and electrolytes Time Spent With Patient Time: Total time managing care of this patient today ____ minutes. Progress Note: Quality Stroke Does the patient have a stroke diagnosis?: No
--- NOTE | 2023-03-21 10:21 | MHC.CM.PN ---
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
[2023-03-21] MEDS: Morphine Sulfate 2 MG/ML CARTRIDGE IVPUSH (10:55)
--- NOTE | 2023-03-21 11:08 | MHC.CLN ---
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
--- NOTE | 2023-03-21 11:30 | MHC.SLORD ---
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
--- NOTE | 2023-03-21 11:59 | P.PNIM_ITS ---
Subjective Subjective Date of Service: 03/21/23 Interval History: Resting in bed with intermittent cough unable to clear secretions, requiring suctioning, appears very weak, soft speech difficult to understand, slow to respond, blood pressure, no fevers and pulse stable, patient unable to provide review of system due to weakness. Physical Exam Vital Signs: Vital Signs: Last Vital Signs Temp 97.1 F 03/21/23 07:39 Pulse 73 03/21/23 07:39 Resp 20 03/21/23 07:39 BP 134/72 03/21/23 07:39 Pulse Ox 93 03/21/23 07:39 O2 Del Method Room Air 03/21/23 07:39 O2 Flow Rate 2 03/19/23 13:56 BMI result Body Mass Index 25.2 Const: Other: General?frail , with the week lethargic somnolent, intermittent coughing in no acute distress.? Oral mucosa dry,ecchymosis hard palate, thick secretion back of throat Neck supple no JVD, gurgling sound in throat, CVS? regular rate rhythm, Respiratory lungs clear to auscultation, no respiratory distress, no wheeze, no rhonchi. Gastrointestinal abdomen soft, dressing at old G-tube site,bowel sounds audible,? no guarding , no rigidity. Extremities? left lower extremity, ulcer plantar surface great toe with black eschar no drainage, no foul odor, another small open ulcer base of 1st metatarsal , no drainage. Neuro nonfocal , moving all 4 extremity, speech incoherent. Skin multiple ecchymosis /skin tear Objective Data Active Medications Acetaminophen (Acetaminophen Supp 650 Mg Supp.Rect) 650 mg [place] Q4H PRN PRN Reason: fever, pain Artificial Tears (Artificial Tears 15 Ml Drops) 1 drop EYE-BOTH Q4H PRN PRN Reason: Dry Eyes Morphine Sulfate (Morphine Sulfate 2 Mg/Ml Cartridge) 2 mg IVPUSH Q2H PRN; Protocol PRN Reason: Pain, Moderate(Pain Scale 4-6) Last Admin: 03/21/23 10:55 Dose: 2 mg Documented By: JOSE DANIEL Labs 03/21/23 05:41 03/21/23 05:41 Labs: Laboratory Results - last 24 hr 03/20/23 03/20/23 03/20/23 00:14 15:53 19:30 MCV MCH MCHC RDW Plt Count MPV Absolute Nucleated RBC Nucleated RBC % (auto) Anion Gap Estim Creat Clear Calc Estimated GFR POC Glucose 106 141 H Random Glucose Calcium Phosphorus Magnesium Blood Type O Positive Antibody Screen NEGATIVE Crossmatch See Detail 03/21/23 03/21/23 03/21/23 05:41 05:41 07:34 MCV 91.9 MCH 31.4 MCHC 34.2 RDW 15.9 Plt Count 103 L MPV 10.8 Absolute Nucleated RBC 0.000 Nucleated RBC % (auto) 0.0 Anion Gap 16 Estim Creat Clear Calc 18.2 Estimated GFR 21 POC Glucose 204 H Random Glucose 213 H Calcium 9.0 Phosphorus 4.7 H Magnesium 1.7 Blood Type Antibody Screen Crossmatch Assessment and Plan (1) Comfort measures only status: Status: Acute Plan 87-year-old gentleman with underlying history of AFib on aspirin Plavix, peripheral artery disease, aortic stenosis, osteomyelitis with recent admission, admitted on 03/12/2023 with alteration of mental status after mechanical fall and laying on the floor for several days.? On ER evaluation patient in acute renal failure with rhabdomyolysis and metabolic acidosis? with poor response to initial IV fluids requiring initiation of vasopressor support admitted to intensive care unit, renal function slowly improved therefore patient transferred to [facility] on 03/14/2023.? Goal of care/code status BELL TIER initially admitted to ICU treated with IV vasopressors , and IV bicarbonate drip, subsequently transferred to telemetry unit patient continued on IV fluids and monitored closely by Nephrology patient felt to have SUZANNE due to acute tubular injury in this setting of vanco toxicity and heme pigment nephrotoxicity, patient creatinine remains elevated, patient also noted to have significant dysphagia seen by speech therapy they recommended NPO since MPS study showed suzanna laryngeal penetration therefore patient seen by Dr. Jordan and underwent PEG placement on 03/19 postprocedure patient noted to have significant hypotension, same evening patient pulled G-tube accidentally with significant bleeding from G-tube site, required 4 units of packed RBC hematocrit improved to 28.4 but however gradually patient noted to have worsening weakness difficulty in Verbalization, difficulty managing secretions, therefore patient seemed to be a poor candidate for repeat G-tube placement and due to worsening clinical condition case was discussed with patient's healthcare proxy Julian Connell [phone]?this morning and discussed goal of care with poor prognosis due to persistent acute renal failure left big toe possible osteomyelitis, peripheral vascular disease, atrial fibrillation and dysphagia it was 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 acute renal failure with rhabdomyolysis and metabolic acidosis? #? acute on chronic acute blood loss anemia due to significant bleeding after patient pulled G tube accidentally, Hematocrit dropped from 27.9-16.4 received 4 units of packed RBC hematocrit improved treated with Xeroform and Tegaderm over g tube site no bleeding noted. # ? hypernatremia? resolved # ? dysphagia? seen by speech therapy? they recommend NPO, MBSS? study showed? suzanna laryngeal penetration and aspiration, and moderate to severe retention of barium coated food in piriformis sinuses, ? Underwent PEG placement by General surgery on 03/19 however patient pulled G-tube same evening, treated with IV PPN ? ? ?Patient is a poor candidate to undergo repeat G-tube placement as above # ? acute toxic metabolic encephalopathy due to SUZANNE/ resolved #? Non healing ulcer left great toe with possible osteomyelitis recently discharged from [facility] after undergoing successful left peroneal plasty by Dr. Oliva was discharged on aspirin, Plavix for 6 months as well as? doxycycline 100 mg twice daily for 2 months to suppress osteomyelitis Patient initially treated with IV Zosyn subsequently transitioned to IV doxycycline will discontinue all antibiotics # Atrial fibrillation, unspecified chronicity/frequency,-Not on anticoagulation,he was prescribed but he did not take, out of concern for bleeding risk,recent Echo, showed severe #Diet-controlled type 2 diabetes, hemoglobin A1c 4.9 #HTN- DVT prophylaxis-? compression boots ?disposition BELL TIER live alone at home with help from friend Pt requires inpatient stay for for comfort measures on IV morphine and IV Ativan Time Spent With Patient Time: Total time managing care of this patient today ____ minutes. Quality Stroke Does the patient have a stroke diagnosis?: No VTE Prior VTE?: No VTE Risk Level:: Medical - moderate - high VTE Device Contraindication: N/A - Device Ordered VTE Drug Contraindication: N/A - Med Ordered
[2023-03-21] MEDS: Scopolamine 1.5 MG PATCH.TD.3 EAR-BEHIND (12:10)
[2023-03-21 12:14] VITALS: RESP 17; O2SAT 95
--- NOTE | 2023-03-21 14:52 | HO.WOUND ---
Wound Care Consult Reason for consult: Multiple wounds Patient has multiple wounds all over body. Patient had fallen at home and was said to have been laying there for 3 days. 1. Wound on left great toe. Open to air on the time of consult. Wound bed was intact stable eschar. Wound edge attached. No undermining and tunneling. Surrounding tissue temperature was warm to touch, no abnormalities. No drainage noted. No odor. Periwound was intact and dry. Wound measures 3cm x 2.4cm x 0.1cm. Wound was left open to air. 2. Wound on left scapula. Foam border removed from wound. Wound bed appearance was medium red granulation and medium slough/fibrin. Moderate amount of serosanguinous drainage on dressing. No odor. Periwound was intact but the skin is very delicate. Wound area measured 6cm x 7cm x 0.1cm. Wound cleansed with sea clens wound wash. Foam border dressing applied. 3. Wound on right post thigh. Open to air on the time of consult. Wound bed was mostly slough/fibrin with a small amount of pink granulation. Small abrasions around wound. Wound edges were attached. There was a large amount of serous drainage coming from the wound. Wound measured 3.5cm x 5cm x 0.1cm. Wound cleansed with sea clens wound wash. Foam dressing applied to the area to help contain the drainage for now. 4. Cluster of 3 areas on sacral region. Foam border removed. Wound bed had a large amount of slough/fibrin and small amount of red granulation. There was a moderate amount of serosanguinous drainage on the dressings. Periwound was denuded and had some peeling. Cluster of 3 areas measured 11cm x 12.5cm x0.1cm. Wounds were cleansed with sea clens and foam border was reapplied for the time being. Recommendation: Because of the fragile state of the patients skin, if skin tears or abrasions do arise, xeroform or bacitracin may be applied to these areas with a dcd and ameena or tape depending on the location. Did also notice due to the state of the patient, his mobility is limited and would benefit from the use of offloading boots while in bed to prevent any breakdown on his heels. Air mattress already in place. Nutrition is compromised right now, if not already ordered, nutritional consult for evaluation. 1. Left great toe can stay open to air but would recommend painting with betadine daily. 2. Left scapula, cleanse with normal saline or sea clens. Apply santyl to wound bed, zoe thick, and cover with dcd and tape or foam border, as long as moisture seems ok, daily. 3. Right post thigh, cleanse with normal saline or sea clens. Apply santyl to wound bed, zoe thick, and cover with dcd and tape or foam border, as long as moisture is controlled. Change daily. 4. Sacral region, cleanse wounds with normal saline or sea clens. Apply to wound bed, zoe thick, and cover with dcd and tape or foam border, again as long as moisture control is ok. Change daily.
[2023-03-21 16:00] VITALS: RESP 16
[2023-03-21 20:00] VITALS: RESP 12
[2023-03-21 23:52] VITALS: PULSE 72; RESP 14; TEMP 35.8
[2023-03-22 04:00] VITALS: PULSE 69; RESP 12; TEMP 35.3; O2SAT 95
[2023-03-22 06:00] VITALS: BMI 26.1
--- NOTE | 2023-03-22 06:20 | PC.NURSE ---
Pts temp was 96.5 and 95.6 @ 12am and 4 am vitals. 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 Will continue to monitor.
[2023-03-22 06:27] LABS: Anion Gap 15 (12-20); Blood Urea Nitrogen 77 mg/dL (9-16); Calcium 9.1 mg/dL (8.4-10.2); Carbon Dioxide 19 mmol/L (22-29); Chloride 108 mmol/L (96-108); Creatinine Clr Calc Pharmacy 19.2; Estimated Glomerular Filt Rate 22; Glucose Random 111 mg/dL (60-115); Magnesium 1.8 mg/dL (1.6-2.6); Phosphorus 4.9 mg/dL (2.7-4.5); Potassium 3.7 mmol/L (3.3-5.1); Sodium 138 mmol/L (135-145)
[2023-03-22 07:31] VITALS: RESP 16
[2023-03-22 11:14] VITALS: RESP 12
[2023-03-22 15:35] VITALS: RESP 14; O2SAT 98
--- NOTE | 2023-03-22 16:01 | P.PNIM_ITS ---
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 patient appears comfortable, unable to obtain ROS Physical Exam Vital Signs: Vital Signs: Last Vital Signs Temp 95.6 F L 03/22/23 04:00 Pulse 69 03/22/23 04:00 Resp 14 03/22/23 15:35 BP 134/72 03/21/23 07:39 Pulse Ox 98 03/22/23 15:35 O2 Del Method Room Air 03/22/23 15:35 O2 Flow Rate 2 03/19/23 13:56 BMI result Body Mass Index 26.1 Const: Other: appears comfortable, no acute distress eyes open to verbal stimuli dry mucous membranes respirations unlabored Objective Data Active Medications Acetaminophen (Acetaminophen Supp 650 Mg Supp.Rect) 650 mg [place] Q4H PRN PRN Reason: fever, pain Artificial Tears (Artificial Tears 15 Ml Drops) 1 drop EYE-BOTH Q4H PRN PRN Reason: Dry Eyes Collagenase (Collagenase Clostridium Hist. 30 Gm Tube) 1 appl TOPICAL DAILY BLANK; Protocol Last Admin: 03/22/23 09:39 Dose: Not Given Documented By: PRISCILA Non-Admin Reason: Physician Held Med Lorazepam (Lorazepam 2 Mg/Ml Vial) 0.5 mg IVPUSH Q4H PRN PRN Reason: Restlessness Morphine Sulfate (Morphine Sulfate 2 Mg/Ml Cartridge) 2 mg IVPUSH Q2H PRN; Protocol PRN Reason: Pain, Moderate(Pain Scale 4-6) Last Admin: 03/21/23 10:55 Dose: 2 mg Documented By: JOSE DANIEL Scopolamine (Scopolamine 1.5 Mg Patch.Td.3) 1.5 mg EAR-BEHIND Q72H BLAKN Last Admin: 03/21/23 12:10 Dose: 1.5 mg Documented By: JOSE DANIEL Labs 03/21/23 05:41 03/22/23 05:47 Labs: Laboratory Results - last 24 hr 03/22/23 05:47 Anion Gap 15 Estim Creat Clear Calc 19.2 Estimated GFR 22 Random Glucose 111 Calcium 9.1 Phosphorus 4.9 H Magnesium 1.8 Assessment and Plan (1) Comfort measures only status: Status: Acute Plan 87-year-old gentleman with underlying history of AFib on aspirin Plavix, peripheral artery disease, aortic stenosis, osteomyelitis with recent admission, admitted on 03/12/2023 with alteration of mental status after mechanical fall and laying on the floor for several days.? On ER evaluation patient in acute renal failure with rhabdomyolysis and metabolic acidosis? with poor response to initial IV fluids requiring initiation of vasopressor support admitted to intensive care unit, renal function slowly improved therefore patient transferred [place] [facility] [place].? 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 Jordan and underwent PEG placement on 03/19 postprocedure patient noted to have significant hypotension, same evening patient pulled G-tube accidentally with significant bleeding from G-tube site, required 4 units of packed RBC hematocrit improved to 28.4 but however gradually patient noted to have worsening weakness difficulty in Verbalization, difficulty managing secretions, therefore patient seemed to be a poor candidate for repeat G-tube placement and due to worsening clinical condition case was discussed with patient's healthcare proxy Julian Connell [phone] and discussed goal of care with poor prognosis due to persistent acute renal failure left big toe possible osteomyelitis, peripheral vascular disease, atrial fibrillation and dysphagia it was 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 acute renal failure with rhabdomyolysis and metabolic acidosis? #? acute on chronic acute blood loss anemia due to significant bleeding after patient pulled G tube accidentally, Hematocrit dropped from 27.9-16.4 received 4 units of packed RBC hematocrit improved treated with Xeroform and Tegaderm over g tube site no bleeding noted. # ? hypernatremia? resolved # ? dysphagia? seen by speech therapy? they recommend NPO, MBSS? study showed? suzanna laryngeal penetration and aspiration, and moderate to severe retention of barium coated food in piriformis sinuses, ? Underwent PEG placement by General surgery on 03/19 however patient pulled G-tube same evening, treated with IV PPN ? ? ?Patient is a poor candidate to undergo repeat G-tube placement as above # ? acute toxic metabolic encephalopathy due to SUZANNE/ resolved #? Non healing ulcer left great toe with possible osteomyelitis recently discharged from [facility] after undergoing successful left peroneal plasty by Dr. Oliva was discharged on aspirin, Plavix for 6 months as well as? doxycycline 100 mg twice daily for 2 months to suppress osteomyelitis Patient initially treated with IV Zosyn subsequently transitioned to IV doxycycline will discontinue all antibiotics # Atrial fibrillation, unspecified chronicity/frequency,-Not on anticoagulation,he was prescribed but he did not take, out of concern for bleeding risk,recent Echo, showed severe # Diet-controlled type 2 diabetes, hemoglobin A1c 4.9 # HTN- DVT prophylaxis-? 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 Quality Stroke Does the patient have a stroke diagnosis?: No VTE Prior VTE?: No VTE Risk Level:: Medical - moderate - high VTE Device Contraindication: N/A - Device Ordered VTE Drug Contraindication: N/A - Med Ordered
[2023-03-22 19:45] VITALS: RESP 14; O2SAT 100
[2023-03-22] MEDS: Morphine Sulfate 2 MG/ML CARTRIDGE IVPUSH (20:29)
[2023-03-22 23:02] VITALS: RESP 22; O2SAT 84
[2023-03-23] MEDS: Morphine Sulfate 2 MG/ML CARTRIDGE IVPUSH (03:16)
[2023-03-23 04:00] VITALS: RESP 25
--- NOTE | 2023-03-23 07:40 | P.DN_ITS ---
Discharge Sum: Prov Provider Primary care physician: Angelica Haynes MD Consults: 03/14/23 14:38 Consult to Nephrology Routine Consulting Provider: Edgar Che Reason for consultation: suzanne Has provider been notified: No 03/16/23 11:22 Consult to General Surgery Routine Consulting Provider: [facility] Surgeons Reason for consultation: G tube placement Has provider been notified: No 03/19/23 10:20 Consult to Wound Care Routine Consulting Provider: Savanna Aldana Reason for consultation: multiple wounds Has provider been notified: No Pronouncing clinician: Syeda Astudillo Discharge Sum: Diag Contributing Factors (1) Comfort measures only status: Discharge Sum: Summary Date and Time Date of admission: 03/11/23 23:30 Date of : 03/23/23 Time of : 07:25 Summary Details: From H&P on day of admission Mr. Rabago is an 87-year-old male with past medical history of chronic atrial fibrillation on aspirin and clopidogrel, peripheral artery disease, nonrheumatic aortic stenosis, osteomyelitis of left great toe, ascending aortic aneurysm, hypertension and glaucoma.? He presents to the emergency room s/p fall with head strike, unknown LOC. According to EMS the patient was on the ground for approximately 3 days.? The patient was recently admitted to this facility 03/05/2023 to 03/08/2023 for a nonhealing stage 2 ulcer left great toe with cellulitis and osteomyelitis treated with cefepime and vancomycin and sent home with doxycycline.? On arrival to the emergency room? blood pressure was 149/76, heart rate 98, temperature 90.6 degrees. Laboratory data significant for ? WBC 23.5? with left shift,? Sodium 147, potassium 4.9, chloride 114, CO2 11, BUN 38, creatinine 3.12, initial lactic acid of 3.1, CK 05/17/2033, troponin 575.1, BNP 441,? AST 129, ALT 61, lipase 139. initially admitted to ICU treated with IV vasopressors , and IV bicarbonate drip, subsequently transferred to telemetry unit. patient continued on IV fluids and monitored closely by Nephrology patient felt to have SUZANNE due to acute tubular injury in this setting of vanco toxicity and heme pigment nephrotoxicity, patient creatinine remains elevated, patient also noted to have significant dysphagia seen by speech therapy they recommended NPO since MPS study showed suzanna laryngeal penetration therefore patient seen by Dr. Jordan and underwent PEG placement on 03/19 postprocedure patient noted to have significant hypotension, same evening patient pulled G-tube accidentally with significant bleeding from G-tube site, required 4 units of packed RBC hematocrit improved to 28.4 but however gradually patient noted to have worsening weakness difficulty in? Verbalization, difficulty managing secretions, therefore patient seemed to be a poor candidate for repeat G-tube placement and due to worsening clinical condition case was discussed with patient's healthcare proxy Julian Connell [phone]? 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 therefore will discontinue IV PPN, Lab draws and was patient was placed on IV morphine, IV Ativan and scopolamine. Patient passed comfortably on 03/23. Patient without respirations,no heart or lung sounds, pupils dilated, no response to painful stimuli and monitor confirmed asystole. pronounced at 7:25 on Mar 23 2023. discharge diagnosis: acute renal failure with rhabdomyolysis and metabolic acidosis? acute on chronic acute blood loss anemia due to significant bleeding after patient pulled G tube accidentally acute toxic metabolic encephalopathy Non healing ulcer left great toe with suspected acute osteomyelitis hypernatremia? dysphagia Atrial fibrillation, unspecified chronicity/frequency Aortic stenosis Additional Data Attending physician: ALISHA Duffy
== END 2023-03-23 10:53 | disposition expired | DRG 564 ==
LOC: HO.ED 23:14 → HO.EDOVER 23:51 → HO.ICU 23:52 → HO.IMC 03-15 12:33
PROVIDERS: Hospitalist; Internal Medicine Cardiovascular Disease; Internal Medicine Pulmonary Disease; Physician Assistant; Registered Nurse Community Health; Student in an Organized Health Care Education/Training Program; Surgery; Admitting Provider Nurse Practitioner Family; Emergency Provider Internal Medicine; PCP Internal Medicine; Visit Provider Physician Assistant Medical
PROC: 0DH63UZ Insertion of Feeding Device into Stomach, Percutaneous Approach (ICD-10-PCS; CPT 43246; principal; 2023-03-19 11:00)
DX: T79.6XXA Traumatic ischemia of muscle, initial encounter (principal); G92.8 Other toxic encephalopathy; N17.0 Acute kidney failure with tubular necrosis; L89.153 Pressure ulcer of sacral region, stage 3; I48.20 Chronic atrial fibrillation, unspecified; E87.0 Hyperosmolality and hypernatremia; E87.21 Acute metabolic acidosis; D62 Acute posthemorrhagic anemia; M86.172 Other acute osteomyelitis, left ankle and foot; I35.0 Nonrheumatic aortic (valve) stenosis; I12.9 Hypertensive chronic kidney disease with stage 1 through stage 4 chronic kidney disease, or unspecified chronic kidney disease; N18.30 Chronic kidney disease, stage 3 unspecified; E11.22 Type 2 diabetes mellitus with diabetic chronic kidney disease; D69.6 Thrombocytopenia, unspecified; R13.10 Dysphagia, unspecified; E11.51 Type 2 diabetes mellitus with diabetic peripheral angiopathy without gangrene; Z20.822 Contact with and (suspected) exposure to COVID-19; I71.21 Aneurysm of the ascending aorta, without rupture; E11.621 Type 2 diabetes mellitus with foot ulcer; Z51.5 Encounter for palliative care; L97.529 Non-pressure chronic ulcer of other part of left foot with unspecified severity; N14.19 Nephropathy induced by other drugs, medicaments and biological substances; I95.81 Postprocedural hypotension; W19.XXXA Unspecified fall, initial encounter; D63.1 Anemia in chronic kidney disease; E83.42 Hypomagnesemia; K94.21 Gastrostomy hemorrhage; E11.69 Type 2 diabetes mellitus with other specified complication; T36.8X5A Adverse effect of other systemic antibiotics, initial encounter; Z79.02 Long term (current) use of antithrombotics/antiplatelets; Z79.82 Long term (current) use of aspirin; Z79.899 Other long term (current) drug therapy
CPT/HCPCS: 36415; 70450; 71045; 71250; 72125; 74176; 74230; 80048; 80053; 80143; 80179; 80202; 80307; 81001; 82040; 82550; 82565; 82803; 82947; 83010; 83605; 83615; 83690; 83735; 83880; 84100; 84156; 84300; 84478; 84484; 85014; 85018; 85025; 85027; 85610; 86021; 86160; 86850; 86900; 86901; 86923; 87040; 87086; 87635; 89190; 92526; 92610; 92611; 93005; 97162; 97530; 99285; C1758; J0612; J0696; J2270; J2543; J3370; J3371; J3475; P9016; P9047